=== PATIENT | female | born 1950 | race Caucasian/White ===

== ENCOUNTER 2018-03-04 11:51 | Inpatient (IN) | payer MEDICARE, OTHER ==
[2018-03-04] MEDS ORDERED: methylPREDNISolone SOD SUCCI 125 MG/2 ML VIAL IV STA (12:07)
[2018-03-04] MEDS ORDERED: IPRATROPIUM 0.5 MG/2.5 ML NEBU INHALATION STA (12:07)
[2018-03-04] MEDS ORDERED: ALBUTEROL NEBULIZED 2.5 MG/3 ML INHALATION STA (12:07)
--- NOTE | 2018-03-04 12:29 | ED ---
SOB HPI - General Chief Complaint: Recheck/Abnormal Lab/Rx Stated Complaint: A lot fluid all over body Time Seen by Provider: 03/04/18 12:05 Source: patient, RN notes reviewed, old records reviewed Mode of arrival: wheelchair Limitations: no limitations - History of Present Illness Initial Comments: This is a 67-year-old female the ER for evaluation. Patient resents today for severe shortness of breath and CHF. Patient does have significant shortness of breath currently. Significant swelling of lower extremity she states as well as weakness. Family states patient does appear to be discolored, fingers mouth. Patient self denies chest pain or abdominal pain. No recent travel history or sick contacts. Patient did recently increase her diuretic. MD Complaint: shortness of breath -: days(s) (3) Severity: severe Severity scale (1-10): 10 Quality: other (No pain) Consistency: constant Improves With: oxygen, bronchodilators Known History Of: congestive heart failure Context: recent URI Associated Symptoms: other (SOB) Treatments Prior to Arrival: oxygen, bronchodilator - Related Data Home Medications Medication Instructions Recorded Confirmed ALPRAZolam [Xanax] 0.5 mg PO TID 03/04/18 03/04/18 Budesonide/Formoterol Fumarate 2 puff INHALATION BID 03/04/18 03/04/18 [Symbicort 160-4.5 Mcg Inhaler] Cholecalciferol (Vitamin D3) 2,000 unit PO DAILY 03/04/18 03/04/18 [Vitamin D3] Diltiazem HCl 60 mg PO TID 03/04/18 03/04/18 Furosemide [Lasix] 80 mg PO DAILY 03/04/18 03/04/18 Ibuprofen [Advil] 400 mg PO HS 03/04/18 03/04/18 Ipratropium/Albuterol Sulfate 1 puff INHALATION RT-QID 03/04/18 03/04/18 [Combivent Respimat Inhaler] Metolazone [Zaroxolyn] 2.5 mg PO DAILY 03/04/18 03/04/18 Omeprazole [PriLOSEC] 20 mg PO BID 03/04/18 03/04/18 PARoxetine HCL [Paxil] 10 mg PO BID 03/04/18 03/04/18 Sildenafil [Revatio] 20 mg PO TID 03/04/18 03/04/18 Allergies Allergy/AdvReac Type Severity Reaction Status Date / Time No Known Allergies Allergy Verified 03/04/18 12:50 Review of Systems ROS Statement: Those systems with pertinent positive or pertinent negative responses have been documented in the HPI. ROS Other: All systems not noted in ROS Statement are negative. Past Medical History Past Medical History: Heart Failure, COPD History of Any Multi-Drug Resistant Organisms: None Reported Past Surgical History: Cholecystectomy, Hysterectomy, Joint Replacement, Orthopedic Surgery Past Psychological History: No Psychological Hx Reported Smoking Status: Current every day smoker Past Alcohol Use History: None Reported Past Drug Use History: None Reported General Exam Limitations: no limitations General appearance: alert, anxious, lethargic, in distress Head exam: Present: atraumatic, normocephalic, normal inspection Eye exam: Present: normal appearance, PERRL, EOMI. Absent: scleral icterus, conjunctival injection, periorbital swelling ENT exam: Present: normal exam, mucous membranes moist, other (Cyanosis) Neck exam: Present: normal inspection. Absent: tenderness, meningismus, lymphadenopathy Respiratory exam: Present: normal lung sounds bilaterally. Absent: respiratory distress, wheezes, rales, rhonchi, stridor Cardiovascular Exam: Present: normal rhythm, bradycardia, normal heart sounds. Absent: systolic murmur, diastolic murmur, rubs, gallop, clicks GI/Abdominal exam: Present: soft, normal bowel sounds. Absent: distended, tenderness, guarding, rebound, rigid Extremities exam: Present: normal inspection, full ROM, normal capillary refill. Absent: tenderness, pedal edema, joint swelling, calf tenderness Back exam: Present: normal inspection Neurological exam: Present: alert, oriented X3, CN II-XII intact Psychiatric exam: Present: normal affect, normal mood Skin exam: Present: warm, dry, cyanosis. Absent: rash Course Vital Signs 03/04/18 03/04/18 03/04/18 11:57 12:12 12:30 Temperature 98 F Pulse Rate 50 L 84 Respiratory 20 24 Rate Blood Pressure 101/61 108/60 O2 Sat by Pulse 65 L 69 L 82 L Oximetry 03/04/18 03/04/18 03/04/18 13:00 13:04 13:14 Temperature Pulse Rate 96 92 89 Respiratory 22 20 Rate Blood Pressure 112/62 108/70 O2 Sat by Pulse 84 L 88 L Oximetry 03/04/18 03/04/18 03/04/18 13:30 13:35 14:00 Temperature Pulse Rate 90 89 85 Respiratory 19 23 Rate Blood Pressure 108/70 108/59 O2 Sat by Pulse 86 L 96 Oximetry - Reevaluation(s) Reevaluation #1: 03/04/18 15:42 medical record is reviewed Reevaluation #2: 03/04/18 15:42 Patient does show improvement after increased oxygenation, placed oxygen on nonrebreather, oxygen pulse ox did increase. Arterial ABG does so significant hypoxic deficit QRS for distress syndrome. Reevaluation #3: 03/04/18 15:42 Patient currently denies any complaints, [facility] [address] [place] catheter with significant retention showed, 1 L of fluid out Medical Decision Making - Medical Decision Making 67 female the ER for evaluation. A she presents today for evaluation regards to severe shortness of breath unresponsiveness weakness fall and found to be severely hypoxic with severe CHF. Patient be admitted for diuresis and cardiology and pulmonology evaluation, persistently continued breathing treatments. - Lab Data Result diagrams: 03/04/18 12:30 03/04/18 12:30 Lab Results 03/04/18 03/04/18 03/04/18 Range/Units 12:30 12:30 12:30 WBC 7.3 (3.8-10.6) k/uL RBC 6.36 H (3.80-5.40) m/uL Hgb 11.1 L (11.4-16.0) gm/dL Hct 42.2 (34.0-46.0) % MCV 66.4 L (80.0-100.0) fL MCH 17.5 L (25.0-35.0) pg MCHC 26.3 L (31.0-37.0) g/dL RDW 21.4 H (11.5-15.5) % Plt Count 232 (150-450) k/uL Neutrophils % 81 % Lymphocytes % 12 % Monocytes % 5 % Eosinophils % 1 % Basophils % 1 % Neutrophils # 5.9 (1.3-7.7) k/uL Lymphocytes # 0.9 L (1.0-4.8) k/uL Monocytes # 0.4 (0-1.0) k/uL Eosinophils # 0.1 (0-0.7) k/uL Basophils # 0.1 (0-0.2) k/uL Hypochromasia Marked Poikilocytosis Slight Anisocytosis Moderate Microcytosis Marked PT (9.0-12.0) sec INR (<1.2) APTT (22.0-30.0) sec Sample Site ABG pH (7.35-7.45) ABG pCO2 (35-45) mmHg ABG pO2 (83-108) mmHg ABG HCO3 (21-25) mmol/L ABG Total CO2 (19-24) mmol/L ABG O2 Saturation (94-97) % ABG Base Excess mmol/L Rafael Test FiO2 % Sodium 137 (137-145) mmol/L Potassium 3.6 (3.5-5.1) mmol/L Chloride 94 L (98-107) mmol/L Carbon Dioxide 35 H (22-30) mmol/L Anion Gap 8 mmol/L BUN 21 H (7-17) mg/dL Creatinine 1.04 (0.52-1.04) mg/dL Est GFR (CKD-EPI)AfAm 64 (>60 ml/min/1.73 sqM) Est GFR (CKD-EPI)NonAf 55 (>60 ml/min/1.73 sqM) Glucose 118 H (74-99) mg/dL Calcium 9.0 (8.4-10.2) mg/dL Magnesium 2.2 (1.6-2.3) mg/dL Total Bilirubin 2.7 H (0.2-1.3) mg/dL AST 27 (14-36) U/L ALT 19 (9-52) U/L Alkaline Phosphatase 84 (38-126) U/L Total Creatine Kinase <20 L (30-135) U/L CK-MB (CK-2) 0.4 (0.0-2.4) ng/mL CK-MB (CK-2) Rel Index Troponin I <0.012 (0.000-0.034) ng/mL NT-Pro-B Natriuret Pep pg/mL Total Protein 6.7 (6.3-8.2) g/dL Albumin 3.2 L (3.5-5.0) g/dL 03/04/18 03/04/18 03/04/18 Range/Units 12:30 12:30 12:33 WBC (3.8-10.6) k/uL RBC (3.80-5.40) m/uL Hgb (11.4-16.0) gm/dL Hct (34.0-46.0) % MCV (80.0-100.0) fL MCH (25.0-35.0) pg MCHC (31.0-37.0) g/dL RDW (11.5-15.5) % Plt Count (150-450) k/uL Neutrophils % % Lymphocytes % % Monocytes % % Eosinophils % % Basophils % % Neutrophils # (1.3-7.7) k/uL Lymphocytes # (1.0-4.8) k/uL Monocytes # (0-1.0) k/uL Eosinophils # (0-0.7) k/uL Basophils # (0-0.2) k/uL Hypochromasia Poikilocytosis Anisocytosis Microcytosis PT 11.3 (9.0-12.0) sec INR 1.1 (<1.2) APTT 24.9 (22.0-30.0) sec Sample Site rrad ABG pH 7.42 (7.35-7.45) ABG pCO2 59 H (35-45) mmHg ABG pO2 43 L* (83-108) mmHg ABG HCO3 38 H (21-25) mmol/L ABG Total CO2 40 H (19-24) mmol/L ABG O2 Saturation 80.0 L (94-97) % ABG Base Excess 14.0 mmol/L Rafael Test Yes FiO2 100 % Sodium (137-145) mmol/L Potassium (3.5-5.1) mmol/L Chloride (98-107) mmol/L Carbon Dioxide (22-30) mmol/L Anion Gap mmol/L BUN (7-17) mg/dL Creatinine (0.52-1.04) mg/dL Est GFR (CKD-EPI)AfAm (>60 ml/min/1.73 sqM) Est GFR (CKD-EPI)NonAf (>60 ml/min/1.73 sqM) Glucose (74-99) mg/dL Calcium (8.4-10.2) mg/dL Magnesium (1.6-2.3) mg/dL Total Bilirubin (0.2-1.3) mg/dL AST (14-36) U/L ALT (9-52) U/L Alkaline Phosphatase (38-126) U/L Total Creatine Kinase (30-135) U/L CK-MB (CK-2) (0.0-2.4) ng/mL CK-MB (CK-2) Rel Index Troponin I (0.000-0.034) ng/mL NT-Pro-B Natriuret Pep 86903 pg/mL Total Protein (6.3-8.2) g/dL Albumin (3.5-5.0) g/dL - EKG Data -: EKG Interpreted by Me (EKG shows sinus rhythm rate of 94, RI 154, QRS 02, QTc 475) - Radiology Data Radiology results: report reviewed (S x-ray is positive for CHF CT a chest is negative for acute disease CTA abdomen pelvis is negative for acute disease, does show persistent CHF as well), image reviewed Critical Care Time Critical Care Time: Yes Total Critical Care Time: 31 Disposition Clinical Impression: Hypoxia, CHF (congestive heart failure) Disposition: ADMITTED IP TO THIS HOSP Condition: Serious Is patient prescribed a controlled substance at d/c from ED?: No Referrals: Angel Dillon MD [Primary Care Provider] - 1-2 days
[2018-03-04 12:35] LABS: ABG HCO3 38 mmol/L (21-25); ABG PCO2 59 mmHg (35-45); ABG PH 7.42 (7.35-7.45); ABG TCO2 40 mmol/L (19-24)
[2018-03-04 12:40] LABS: ABG PO2 43 mmHg (83-108)
[2018-03-04 12:49] LABS: Anisocytosis Moderate; Basophils # (A) 0.1 k/uL (0-0.2); Basophils % (A) 1 %; Eosinophils # (A) 0.1 k/uL (0-0.7); Eosinophils % (A) 1 %; HCT 42.2 % (34.0-46.0); HGB 11.1 gm/dL (11.4-16.0); Hypochromasia Marked; Lymphocytes # (A) 0.9 k/uL (1.0-4.8); Lymphocytes % (A) 12 %; MCH 17.5 pg (25.0-35.0); MCHC 26.3 g/dL (31.0-37.0); MCV 66.4 fL (80.0-100.0); Mean Platelet Volume 8.5; Microcytosis Marked; Monocytes # (A) 0.4 k/uL (0-1.0); Monocytes % (A) 5 %; Neutrophils # (A) 5.9 k/uL (1.3-7.7); Neutrophils % (A) 81 %; Platelet Count 232 k/uL (150-450); Poikilocytosis Slight; RBC 6.36 m/uL (3.80-5.40); RDW 21.4 % (11.5-15.5); WBC 7.3 k/uL (3.8-10.6)
[2018-03-04 13:03] LABS: Albumin 3.2 g/dL (3.5-5.0); Magnesium 2.2 mg/dL (1.6-2.3); Potassium 3.6 mmol/L (3.5-5.1); Total Bilirubin 2.7 mg/dL (0.2-1.3); Total Protein 6.7 g/dL (6.3-8.2)
[2018-03-04 13:08] LABS: INR 1.1 (<1.2); Partial Thromboplastin Time 24.9 sec (22.0-30.0); Prothrombin Time 11.3 sec (9.0-12.0)
[2018-03-04 13:10] LABS: Creatine Kinase <20 U/L (30-135)
--- NOTE | 2018-03-04 13:10 | XR ---
EXAMINATION TYPE: XR chest 1V portable DATE OF EXAM: 03/04/2018 COMPARISON: NONE HISTORY: Shortness of breath FINDINGS: Noted is pulmonary venous congestion with scattered infiltrates. There is also cardiomegaly and small effusions. IMPRESSION: Findings compatible with congestive failure. Infiltrates of other etiology are not excluded. Clinical correlation and progress studies are recommended.
[2018-03-04 13:23] LABS: Creatine Kinase MB 0.4 ng/mL (0.0-2.4); Troponin I <0.012 ng/mL (0.000-0.034)
[2018-03-04] MEDS ORDERED: FUROSEMIDE 10 MG/ML 10 ML VIAL IV STA (13:43)
--- NOTE | 2018-03-04 15:18 | CT ---
EXAMINATION TYPE: CT angio chest DATE OF EXAM: 03/04/2018 3:03 PM COMPARISON: None HISTORY: Pain, fluid build-up. CT DLP: 1686.1 mGycm Automated exposure control for dose reduction was used. CONTRAST: CTA scan of the thorax is performed with IV Contrast, patient injected with 80 mL of Isovue 370, pulm onary embolism protocol. There are 3-D post processed images.. FINDINGS: There are large pulmonary arteries consistent with pulmonary hypertension. There are bilateral pleura l effusions and larger on the right side. There is consolidation and atelectasis in both lower lobes. Heart is enlarged. I see no filling defects in the pulmonary arteries. Thoracic aorta is intact. The re is no mediastinal adenopathy. IMPRESSION: CARDIOMEGALY WITH PLEURAL EFFUSIONS CONSISTENT WITH CONGESTIVE HEART FAILURE. NO EVIDENCE OF PULMONAR Y EMBOLISM. CHANGES CONSISTENT WITH PULMONARY HYPERTENSION.
--- NOTE | 2018-03-04 15:42 | CT ---
EXAMINATION TYPE: CT abdomen pelvis w con DATE OF EXAM: 03/04/2018 COMPARISON: None HISTORY: Pain, fluid build-up. CT DLP: 1686.1 mGycm Automated exposure control for dose reduction was used. TECHNIQUE: Helical acquisition of images was performed from the lung bases through the pelvis. CONTRAST: Performed without Oral Contrast and with IV Contrast, patient injected with 80 mL of Isovue 370. FINDINGS: There are bilateral pleural effusions. Heart is enlarged. There is bilateral lower lobe pulmonary con solidation and atelectasis. There is extensive subcutaneous edema around the abdomen. Liver shows no focal defect. There are clips from cholecystectomy. Spleen appears normal. I see no pa ncreatic mass. There is mild retroperitoneal edema. Kidneys show satisfactory contrast opacification. There is no hydronephrosis. I see no evidence of a bowel obstruction. There is umbilical hernia that contains fat. Bladder distends smoothly. There is no inguinal hernia. There is no free fluid in the pelvis. There is mild perirectal fluid that is probably additional edema. There is enlargement of the inferior vena cava consistent with congestive heart failure. There is no evidence of a bowel obstruc tion. I see no intestinal wall thickening. Appendix is not definitely seen. There is no sign of appen dicitis. I see no focal bony destructive process. There is multilevel spondylotic changes in the lumb ar spine. IMPRESSION: PLEURAL EFFUSIONS AND BASILAR PULMONARY CONSOLIDATION AND ATELECTASIS. MODERATELY SEVERE CARDIOMEGALY . EXTENSIVE EDEMA ABOVE. FINDINGS CONSISTENT WITH CHRONIC CONGESTIVE HEART FAILURE.
[2018-03-04 18:12] LABS: Glucose,Whole Blood 116 mg/dL (75-99)
[2018-03-04] MEDS ORDERED: NALOXONE 0.4 MG/ML 1 ML VIAL IV PRN (18:28)
[2018-03-04] MEDS ORDERED: IPRATROPIUM-ALBUTEROL 3 ML NEB INHALATION PRN (18:28)
[2018-03-04] MEDS ORDERED: ALPRAZolam 0.25 MG TAB PO PRN (18:28)
[2018-03-04] MEDS ORDERED: ACETAMINOPHEN TAB 325 MG TAB PO PRN (18:28)
[2018-03-04] MEDS: SODIUM CHLORIDE 0.9% 1,000 ML IV SCH (18:56)
[2018-03-04] MEDS: methylPREDNISolone SOD SUCCI 125 MG/2 ML VIAL IV SCH (19:17)
[2018-03-04] MEDS: NICOTINE 14MG/24HR PATCH TRANSDERM SCH (19:17)
[2018-03-04] MEDS ORDERED: SPIRONOLACTONE 25 MG TAB PO SCH (19:30)
[2018-03-04] MEDS: ALPRAZolam 0.5 MG TAB PO SCH (19:44)
[2018-03-04] MEDS: IPRATROPIUM-ALBUTEROL 3 ML NEB INHALATION SCH (20:01)
[2018-03-04] MEDS: SYMBICORT 160-4.5 MCG INHALER INHALATION SCH (20:01)
[2018-03-04] MEDS: IBUPROFEN 400 MG TAB PO SCH (20:11)
[2018-03-04] MEDS: PARoxetine 10 MG TAB PO SCH (20:11)
[2018-03-04] MEDS: DILTIAZEM ORAL 60 MG TAB PO SCH (23:07)
[2018-03-04] MEDS: SILDENAFIL 20 MG TAB PO SCH (23:07)
[2018-03-04 23:34] LABS: Appearance,Urine Clear (Clear); Bacteria,Urine Rare /hpf; Bilirubin,Urine Negative (Negative); Blood,Urine Trace (Negative); Color,Urine Light Yellow; Glucose,Urine (UA) Negative (Negative); Hyaline Casts,Urine 10 /lpf (0-2); Ketones,Urine Negative (Negative); Leukocyte Esterase,Urine Negative (Negative); Mucus,Urine Rare /hpf; Nitrite,Urine Negative (Negative); Protein,Urine Negative (Negative); RBC,Urine 4 /hpf (0-5); Squamous Epithelial Cell,Urine <1 /hpf (0-4); Urobilinogen,Urine <2.0 mg/dL (<2.0); WBC,Urine 1 /hpf (0-5)
[2018-03-04] MEDS ORDERED: INSULIN ASPART 100 UNIT/ML 1 ML 10 ML VIAL SQ SCH (23:45)
[2018-03-04 23:55] LABS: Glucose,Whole Blood 135 mg/dL (75-99)
[2018-03-05] MEDS: IPRATROPIUM-ALBUTEROL 3 ML NEB INHALATION SCH ×7 (00:22→23:07)
[2018-03-05] MEDS: methylPREDNISolone SOD SUCCI 125 MG/2 ML VIAL IV SCH ×5 (02:03→23:39)
[2018-03-05 05:45] LABS: Anisocytosis Moderate; Basophils % (A) 0 %; Eosinophils % (A) 1 %; HCT 42.3 % (34.0-46.0); HGB 11.2 gm/dL (11.4-16.0); Hypochromasia Marked; Lymphocytes # (A) 0.5 k/uL (1.0-4.8); Lymphocytes % (A) 16 %; MCH 17.7 pg (25.0-35.0); MCHC 26.5 g/dL (31.0-37.0); MCV 66.6 fL (80.0-100.0); Microcytosis Marked; Monocytes # (A) 0.1 k/uL (0-1.0); Monocytes % (A) 2 %; Neutrophils # (A) 2.4 k/uL (1.3-7.7); Neutrophils % (A) 81 %; Platelet Count 134 k/uL (150-450); Poikilocytosis Slight; RBC 6.35 m/uL (3.80-5.40); RDW 21.3 % (11.5-15.5); WBC 2.9 k/uL (3.8-10.6)
[2018-03-05 06:20] LABS: Calcium 8.8 mg/dL (8.4-10.2); Magnesium 2.2 mg/dL (1.6-2.3); Phosphorus 4.8 mg/dL (2.5-4.5); Potassium 3.2 mmol/L (3.5-5.1)
[2018-03-05] MEDS: INSULIN ASPART 100 UNIT/ML 1 ML 10 ML VIAL SQ SCH ×4 (06:50→23:39)
--- NOTE | 2018-03-05 07:25 | XR ---
EXAMINATION TYPE: XR chest 1V DATE OF EXAM: 03/05/2018 COMPARISON: 03/04/2018 HISTORY: Shortness of breath TECHNIQUE: Single frontal view of the chest is obtained. FINDINGS: There is marked cardiomegaly similar to the prior. Again there is engorgement of the hilum related to underlying pulmonary arterial hypertension when correlated with the CT dated 03/04/2018. Bilateral layering small pleural effusions are seen with bibasilar airspace disease. Right lower lung overlying skin fold is noted. No pneumothorax is seen. Prominent right paratracheal stripe relates t o vascular engorgement. Mild multilevel degenerative changes of the spine and right shoulder are note d. IMPRESSION: Findings likely on the basis of decompensated congestive heart failure with cardiomegaly , pleural effusions, bibasilar airspace disease that likely relates to atelectasis, and engorgement o f the superior vena cava. Findings are similar to the prior.
[2018-03-05] MEDS: SYMBICORT 160-4.5 MCG INHALER INHALATION SCH ×2 (07:26→19:22)
[2018-03-05] MEDS ORDERED: Potassium Replacement Protocol 1 EACH MISC MISCELLANE PRN (07:44)
[2018-03-05] MEDS: POTASSIUM CHLORIDE ER 20 MEQ TAB.ER PO SCH ×2 (07:58→10:43)
[2018-03-05] MEDS: ENOXAPARIN 40 MG/0.4 ML SYRINGE SQ SCH (08:33)
[2018-03-05] MEDS: DILTIAZEM ORAL 60 MG TAB PO SCH ×3 (08:34→20:37)
[2018-03-05] MEDS: ALPRAZolam 0.5 MG TAB PO SCH ×3 (08:34→20:36)
[2018-03-05] MEDS: PANTOPRAZOLE 40 MG/10 ML VIAL IV SCH (08:35)
[2018-03-05] MEDS: CHOLECALCIFEROL 1,000 UNIT TAB PO SCH (08:35)
[2018-03-05] MEDS: SILDENAFIL 20 MG TAB PO SCH ×3 (08:43→20:36)
[2018-03-05] MEDS: PARoxetine 10 MG TAB PO SCH ×2 (08:43→20:36)
[2018-03-05] MEDS: SPIRONOLACTONE 25 MG TAB PO SCH (08:43)
--- NOTE | 2018-03-05 08:49 | HP ---
HISTORY AND PHYSICAL DATE OF SERVICE: 03/04/2018 CHIEF COMPLAINTS: Shortness of breath and cough. HISTORY OF PRESENT ILLNESS: This is a 67-year-old woman with a past medical history of multiple medical symptoms, CHF, history of COPD, GERD, pulmonary hypertension, cholecystomy being followed by Dr. Dillon in the outpatient setting, was complaining of increased shortness of breath for the past several days. The patient also had features of CHF. The patient also swelling of the lower extremity and also complaints of weakness. The patient continues to smoke. The patient had features of CHF and patient also had CAT scans of the abdomen and pelvis also which showed some amount of pleural effusions and some basilar consolidation, also. Extensive edema was also noted. Chronic CHF was also considered. There is no history of any fever, headaches, loss consciousness, seizures at this time. The patient also had features of acute hypoxic respiratory failure in the ER and the patient's BiPAP was initiated. PAST MEDICAL HISTORY: History of CHF, history of COPD, GERD, pulmonary hypertension, cholecystectomy. MEDICATIONS: Prior to admission, home medications are: 1. Vitamin D3 two thousand daily. 2. Paxil 10 mg p.o. b.i.d. 3. Advil 400 mg q.h.s. 4. Xanax 0.5 mg t.i.d. 5. Prilosec 20 mg b.i.d. 6. Combivent 1 puff q.i.d. 7. Lasix 80 mg p.o. daily. 8. Symbicort 160/4.5 two puffs b.i.d. 9. Revatio 20 mg t.i.d. 10.Diltiazem 60 mg p.o. daily. 11.Zaroxolyn 2.5 mg. 12.Lasix. ALLERGIES: None. FAMILY HISTORY: History of COPD, colon cancer in the family. SOCIAL HISTORY: History of smoking, ongoing. REVIEW OF SYSTEMS: ENT: Diminished hearing and diminished vision. CARDIOVASCULAR: As mentioned earlier RESPIRATORY: As mentioned earlier. GI: No nausea. : No dysuria. NERVOUS SYSTEM: No numbness or weakness. ALLERGY/IMMUNOLOGY: No asthma or hayfever. MUSCULOSKELETAL: As mentioned earlier. HEMATOLOGY/ONCOLOGY: No history anemia. ENDOCRINE: No history of diabetes or hypothyroidism. CONSTITUTIONAL: As mentioned earlier. DERMATOLOGY: Negative. RHEUMATOLOGY: Negative. PSYCHIATRY: As mentioned earlier. PHYSICAL EXAMINATION: Patient is alert and oriented x3. Pulse is 81, blood pressure is 196/62, respiration 17, temperature 97.4, pulse ox 92%. The patient is monitored in ICU and Pulmonary consultation has been ordered. The pCO2 was found to be 59 and PO2 was 43. Neck is no jugular venous distention. Respirations were 21, RESPIRATORY: Diminished breath sounds at the bases. Respiration the bases, bilateral scattered rhonchi and crackles. Expiratory wheezing also heard. The patient is on BiPAP at this time. ABDOMEN: Soft, nontender. No mass palpable. LEGS: Minimal bilateral leg edema present. NERVOUS SYSTEM: Higher functions as mentioned muscle no focal deficit. LYMPHATICS: No lymph node enlargement in the neck or axillae. SKIN: No ulcer, rash or bleeding. JOINTS: No active arthropathy. LABS: WBC 7.3, hemoglobin is 11.1, MCV 60 6.4 mm. ABG 7.42 and pCO2 59 and PO2 is 43. Sodium 130, potassium 3.6. ASSESSMENT: 1. Acute hypoxic hypercarbic respiratory failure, possibly secondary to congestive heart failure acute exacerbation as well as chronic obstructive pulmonary disease exacerbation. 2. Acute up possible acute bilateral bronchopneumonia and basal possibly gram- negative, basilar. 3. History of congestive heart failure. 4. History of gastroesophageal reflux disease. 5. History of pulmonary hypertension. 6. History of cholecystectomy. 7. History of degenerative joint disease. 8. History of nicotine dependence. 9. FULL CODE. RECOMMENDATION: In this 67-year-old woman who presented with multiple complex medical issues, will monitor the patient closely, continue the current management and continue with symptomatic treatment. Will optimize the bronchodilator treatment, IV steroids, monitor blood sugars closely. Also recommend empiric antibiotics, IV Lasix initiated 40 mg IV q.8. Monitor fluid and electrolytes balance closely. I would recommend Cardiology and Pulmonology consultations as well. Cultures will be obtained. Repeat labs will be obtained. Home medications will be reconciled. Overall prognosis guarded because of multiple complex medical issues. See orders for details and further recommendation for smoking cessation advice also has been. A copy of this will be forwarded to Dr. Dillon who is the primary physician. MMODL / IJN: [id number] /
[2018-03-05] MEDS ORDERED: METOLAZONE 2.5 MG TAB PO SCH (09:00)
[2018-03-05] MEDS ORDERED: FUROSEMIDE 10 MG/ML 4 ML VIAL IV SCH ×2 (09:00)
--- NOTE | 2018-03-05 11:03 | P.CRDCN ---
History of Present Illness History of present illness: This is Dr. Gann dictating a consult on this patient The patient was interviewed and examined by me IMPRESSION / ASSESSMENT: Severe pulmonary hypertension with right-sided failure with ascites and bilateral lower extremity edema PLAN: Spironolactone 100 mg by mouth daily, reduce Lasix to 40 g IV twice a day continue with pulmonary hypertension management per pulmonary medicine HPI Increasing lower extremity edema and ascites with mild shortness of breath ROS: No fever chills or rigors, no nausea, vomiting or diarrhea, no hematuria, dysuria, no musculoskeletal complaints, no strokes or seizures, no skin lesions. EXAMINATION Afebrile 97.5F, pulse rate in the 80s, blood pressure 104/71 mmHg Reduced breath sounds bilaterally with crackles in the bases Distended abdomen Systolic murmur no S3 gallop REVIEW OF LABS, ECG hemoglobin 11.2 Sodium 136 potassium 3.2 BUN 21 creatinine 1.0 Troponin normal Past Medical History Past Medical History: Heart Failure, COPD, GERD/Reflux Additional Past Medical History / Comment(s): Pulmonary HTN History of Any Multi-Drug Resistant Organisms: None Reported Past Surgical History: Cholecystectomy, Hysterectomy, Joint Replacement, Orthopedic Surgery Past Anesthesia/Blood Transfusion Reactions: No Reported Reaction Past Psychological History: No Psychological Hx Reported Smoking Status: Current every day smoker Past Alcohol Use History: None Reported Past Drug Use History: None Reported - Past Family History Father Family Medical History: Cancer, COPD Additional Family Medical History / Comment(s): Colon CA Medications and Allergies Home Medications Medication Instructions Recorded Confirmed Type ALPRAZolam [Xanax] 0.5 mg PO TID 03/04/18 03/04/18 History Budesonide/Formoterol Fumarate 2 puff INHALATION BID 03/04/18 03/04/18 History [Symbicort 160-4.5 Mcg Inhaler] Cholecalciferol (Vitamin D3) 2,000 unit PO DAILY 03/04/18 03/04/18 History [Vitamin D3] Diltiazem HCl 60 mg PO TID 03/04/18 03/04/18 History Furosemide [Lasix] 03/04/18 History Furosemide [Lasix] 80 mg PO DAILY 03/04/18 03/04/18 History Ibuprofen [Advil] 400 mg PO HS 03/04/18 03/04/18 History Ipratropium/Albuterol Sulfate 1 puff INHALATION RT-QID 03/04/18 03/04/18 History [Combivent Respimat Inhaler] Metolazone [Zaroxolyn] 2.5 mg PO DAILY 03/04/18 03/04/18 History Omeprazole [PriLOSEC] 20 mg PO BID 03/04/18 03/04/18 History PARoxetine HCL [Paxil] 10 mg PO BID 03/04/18 03/04/18 History Sildenafil [Revatio] 20 mg PO TID 03/04/18 03/04/18 History Allergies Allergy/AdvReac Type Severity Reaction Status Date / Time No Known Allergies Allergy Verified 03/04/18 12:50 Physical Exam Vitals: Vital Signs Temp Pulse Resp BP Pulse Ox 03/05/18 10:00 83 12 94/63 86 L 03/05/18 09:00 84 10 L 104/71 82 L 03/05/18 08:35 12 03/05/18 08:00 97.5 F L 80 16 107/64 88 L 03/05/18 07:40 79 03/05/18 07:27 80 92 L 03/05/18 07:00 78 19 109/71 92 L 03/05/18 06:00 73 18 107/65 91 L 03/05/18 05:00 80 16 99/64 94 L 03/05/18 04:03 85 03/05/18 04:00 97.0 F L 66 18 92/54 93 L 03/05/18 03:47 79 03/05/18 03:00 77 19 86/47 88 L 03/05/18 02:55 91 L 03/05/18 02:00 78 16 92/51 91 L 03/05/18 01:00 96 16 95/62 91 L 03/05/18 00:08 81 16 91/63 92 L 03/05/18 00:00 97.4 F L 81 17 96/64 92 L 03/04/18 23:00 88 16 106/72 92 L 03/04/18 22:00 80 12 94/60 92 L 03/04/18 21:00 105 H 13 107/65 90 L 03/04/18 20:22 88 03/04/18 20:01 86 03/04/18 20:00 97.5 F L 81 17 105/63 89 L 03/04/18 19:15 86 10 L 108/67 92 L 03/04/18 19:00 100 13 105/65 92 L 03/04/18 18:45 92 20 112/68 91 L 03/04/18 18:30 98.0 F 101 H 13 96/73 90 L 03/04/18 17:30 97.1 F L 90 17 110/78 96 03/04/18 17:00 92 16 130/77 95 03/04/18 16:30 91 13 126/97 83 L 03/04/18 16:00 83 15 115/73 89 L 03/04/18 15:30 88 21 112/69 88 L 03/04/18 15:00 92 22 116/57 86 L 03/04/18 14:30 97 15 100/65 84 L 03/04/18 14:00 85 23 108/59 96 03/04/18 13:35 89 03/04/18 13:30 90 19 108/70 86 L 03/04/18 13:14 89 20 108/70 88 L 03/04/18 13:04 92 03/04/18 13:00 96 22 112/62 84 L 03/04/18 12:30 84 24 108/60 82 L 03/04/18 12:12 69 L 03/04/18 11:57 98 F 50 L 20 101/61 65 L Intake and Output 03/04/18 03/05/18 03/05/18 22:59 06:59 14:59 Intake Total 50 70 90 Output Total 1910 875 750 Balance -6982 -348 -368 Intake: IV 50 70 90 Sodium Chloride 0.9% 1, 50 70 40 000 ml @ 20 mls/hr IV . Q24H DENISE Rx#:[id number] cefTRIAXone 1,000 mg In 50 Sodium Chloride 0.9% 50 ml @ 100 mls/hr IVPB Q24HR REPLACED BY [facility] Rx#:[id number] Output: Urine 1910 875 750 Other: Voiding Method Indwelling Catheter Indwelling Catheter Indwelling Catheter Weight 101 kg 103 kg 103 kg Results 03/05/18 04:49 03/05/18 04:49 Cardiac Enzymes 03/04/18 03/04/18 03/04/18 Range/Units 12:30 12:30 19:38 AST 27 (14-36) U/L CK-MB (CK-2) 0.4 (0.0-2.4) ng/mL Troponin I <0.012 <0.012 (0.000-0.034) ng/mL 03/05/18 Range/Units 00:46 AST (14-36) U/L CK-MB (CK-2) (0.0-2.4) ng/mL Troponin I <0.012 (0.000-0.034) ng/mL Coagulation 03/04/18 Range/Units 12:30 PT 11.3 (9.0-12.0) sec APTT 24.9 (22.0-30.0) sec CBC 03/04/18 03/05/18 Range/Units 12:30 04:49 WBC 7.3 2.9 L (3.8-10.6) k/uL RBC 6.36 H 6.35 H (3.80-5.40) m/uL Hgb 11.1 L 11.2 L (11.4-16.0) gm/dL Hct 42.2 42.3 (34.0-46.0) % Plt Count 232 134 L (150-450) k/uL Comprehensive Metabolic Panel 03/04/18 03/05/18 Range/Units 12:30 04:49 Sodium 137 136 L (137-145) mmol/L Potassium 3.6 3.2 L (3.5-5.1) mmol/L Chloride 94 L 90 L (98-107) mmol/L Carbon Dioxide 35 H 39 H (22-30) mmol/L BUN 21 H 21 H (7-17) mg/dL Creatinine 1.04 1.02 (0.52-1.04) mg/dL Glucose 118 H 102 H (74-99) mg/dL Calcium 9.0 8.8 (8.4-10.2) mg/dL AST 27 (14-36) U/L ALT 19 (9-52) U/L Alkaline Phosphatase 84 (38-126) U/L Total Protein 6.7 (6.3-8.2) g/dL Albumin 3.2 L (3.5-5.0) g/dL Current Medications Generic Name Dose Route Start Last Admin Trade Name Freq PRN Reason Stop Dose Admin Acetaminophen 650 mg 03/04/18 18:28 Tylenol Tab PO Q4HR PRN Fever and/or Mild Pain Albuterol/Ipratropium 3 ml 03/04/18 20:00 03/05/18 07:26 Duoneb 0.5 Mg-3 Mg/3 Ml Soln INHALATION 3 ml RT-Q4H DENISE Administration Albuterol/Ipratropium 3 ml 03/04/18 18:28 Duoneb 0.5 Mg-3 Mg/3 Ml Soln INHALATION RT-Q2H PRN Shortness Of Breath Or Wheezing Alprazolam 0.5 mg 03/04/18 22:00 03/05/18 08:34 Xanax PO 0.5 mg TID DENISE Administration Budesonide/Formoterol Fumarate 2 puff 03/04/18 20:00 03/05/18 07:26 Symbicort 160-4.5 Mcg Inhaler INHALATION 2 puff RT-BID DENISE Administration Cholecalciferol 2,000 unit 03/05/18 09:00 03/05/18 08:35 Vitamin D3 PO 2,000 unit DAILY DENISE Administration Diltiazem HCl 60 mg 03/04/18 22:00 03/05/18 08:34 Cardizem Oral PO 60 mg TID DENISE Administration Enoxaparin Sodium 40 mg 03/05/18 09:00 03/05/18 08:33 Lovenox SQ 40 mg DAILY DENISE Administration Furosemide 40 mg 03/05/18 16:00 Lasix IV Q8HR DENISE Ceftriaxone Sodium 1,000 mg/ 50 mls @ 100 mls/hr 03/04/18 19:00 03/05/18 08: 34 Sodium Chloride IVPB 100 mls/hr Q24HR DENISE Administration Sodium Chloride 1,000 mls @ 20 mls/hr 03/04/18 18:30 03/04/18 18:56 Saline 0.9% IV 20 mls/hr .Q24H DENISE Administration Ibuprofen 400 mg 03/04/18 21:00 03/04/18 20:11 Motrin PO 400 mg HS DENISE Administration Insulin Aspart 0 unit 03/05/18 06:00 03/05/18 06:50 Novolog SQ Not Given Q6H REPLACED BY [facility] Protocol Methylprednisolone Sodium Succinate 60 mg 03/04/18 19:00 03/05/18 06:51 Solu-Medrol IV 60 mg Q6HR DENISE Administration Miscellaneous Information 1 each 03/05/18 07:44 Potassium Per Protocol MISCELLANE DAILY PRN Per Protocol Protocol Naloxone HCl 0.2 mg 03/04/18 18:28 Narcan IV Q2M PRN Opioid Reversal Nicotine 1 patch 03/04/18 19:00 03/04/18 19:17 Habitrol 14mg/24hr Patch TRANSDERM 1 patch DAILY DENISE Administration Pantoprazole Sodium 40 mg 03/05/18 09:00 03/05/18 08:35 Protonix IV 40 mg DAILY DENISE Administration Paroxetine HCl 10 mg 03/04/18 21:00 03/05/18 08:43 Paxil PO 10 mg BID DENISE Administration Sildenafil Citrate 20 mg 03/04/18 22:00 03/05/18 08:43 Revatio PO 20 mg TID DENISE Administration Spironolactone 100 mg 03/05/18 09:00 03/05/18 08:43 Aldactone PO 100 mg DAILY DENISE Administration Intake and Output 03/04/18 03/05/18 03/05/18 22:59 06:59 14:59 Intake Total 50 70 90 Output Total 1910 875 750 Balance -0343 -875 -687 Intake: IV 50 70 90 Sodium Chloride 0.9% 1, 50 70 40 000 ml @ 20 mls/hr IV . Q24H REPLACED BY [facility] Rx#:[id number] cefTRIAXone 1,000 mg In 50 Sodium Chloride 0.9% 50 ml @ 100 mls/hr IVPB Q24HR REPLACED BY [facility] Rx#:[id number] Output: Urine 1910 875 750 Other: Voiding Method Indwelling Catheter Indwelling Catheter Indwelling Catheter Weight 101 kg 103 kg 103 kg Patient Weight 03/06/18 06:59 Weight 103 kg 03/05/18 04:49 03/05/18 04:49
[2018-03-05 11:55] LABS: Glucose,Whole Blood 156 mg/dL (75-99)
--- NOTE | 2018-03-05 12:17 | P.CNPUL ---
History of Present Illness Consult date: 03/05/18 Reason for consult: other (Biventricular congestive heart failure.) Chief complaint: Fluid retention all over. History of present illness: This is a 67-year-old female with history of severe pulmonary hypertension, valvular heart disease, obstructive sleep apnea syndrome, COPD, patient presented to the ER yesterday with almost 1 week history of fluid retention and worsening shortness of breath. No headache no blurred vision no dizziness, no chest pain, no palpitations. Patient has been compliant with her cardiac meds including diuretics for previous history of congestive heart failure which is basically chronic in nature. Patient was evaluated in the ER, and she was noted to have biventricular congestive heart failure including pulmonary edema, and significant findings of cor pulmonale. Patient was noted to have ascites, bipedal edema, and pulmonary edema with bilateral pleural effusions. Admitted, started on diuretics, and now she is on Lasix at 40 mg IV push every 8 hours, she is also on Aldactone which was added by cardiology. Presently the patient is feeling a bit better, however she remains on high flow nasal cannula at 15 L/ m. Denies any headaches, no blurred vision, no dizziness, no chest pain, no nausea no vomiting no abdominal pain no melena no hematemesis is no dysuria and no frequency no urgency. Review of Systems 14 point review of systems were obtained, please refer to pertinent positives in HPI, otherwise remaining systems are negative. Past Medical History Past Medical History: Heart Failure, COPD, GERD/Reflux Additional Past Medical History / Comment(s): Pulmonary HTN History of Any Multi-Drug Resistant Organisms: None Reported Past Surgical History: Cholecystectomy, Hysterectomy, Joint Replacement, Orthopedic Surgery Past Anesthesia/Blood Transfusion Reactions: No Reported Reaction Past Psychological History: No Psychological Hx Reported Smoking Status: Current every day smoker Past Alcohol Use History: None Reported Past Drug Use History: None Reported - Past Family History Father Family Medical History: Cancer, COPD Additional Family Medical History / Comment(s): Colon CA Medications and Allergies Home Medications Medication Instructions Recorded Confirmed Type ALPRAZolam [Xanax] 0.5 mg PO TID 03/04/18 03/04/18 History Budesonide/Formoterol Fumarate 2 puff INHALATION BID 03/04/18 03/04/18 History [Symbicort 160-4.5 Mcg Inhaler] Cholecalciferol (Vitamin D3) 2,000 unit PO DAILY 03/04/18 03/04/18 History [Vitamin D3] Diltiazem HCl 60 mg PO TID 03/04/18 03/04/18 History Furosemide [Lasix] 03/04/18 History Furosemide [Lasix] 80 mg PO DAILY 03/04/18 03/04/18 History Ibuprofen [Advil] 400 mg PO HS 03/04/18 03/04/18 History Ipratropium/Albuterol Sulfate 1 puff INHALATION RT-QID 03/04/18 03/04/18 History [Combivent Respimat Inhaler] Metolazone [Zaroxolyn] 2.5 mg PO DAILY 03/04/18 03/04/18 History Omeprazole [PriLOSEC] 20 mg PO BID 03/04/18 03/04/18 History PARoxetine HCL [Paxil] 10 mg PO BID 03/04/18 03/04/18 History Sildenafil [Revatio] 20 mg PO TID 03/04/18 03/04/18 History Allergies Allergy/AdvReac Type Severity Reaction Status Date / Time No Known Allergies Allergy Verified 03/04/18 12:50 Physical Exam Vitals: Vital Signs Temp Pulse Resp BP Pulse Ox 03/05/18 12:00 97.8 F 96 11 L 96/56 88 L 03/05/18 11:47 20 03/05/18 11:38 85 03/05/18 11:28 82 03/05/18 11:00 78 20 97/55 88 L 03/05/18 10:00 83 12 94/63 86 L 03/05/18 09:00 84 10 L 104/71 82 L 03/05/18 08:35 12 03/05/18 08:00 97.5 F L 80 16 107/64 88 L 03/05/18 07:40 79 03/05/18 07:27 80 92 L 03/05/18 07:00 78 19 109/71 92 L 03/05/18 06:00 73 18 107/65 91 L 03/05/18 05:00 80 16 99/64 94 L 03/05/18 04:03 85 03/05/18 04:00 97.0 F L 66 18 92/54 93 L 03/05/18 03:47 79 03/05/18 03:00 77 19 86/47 88 L 03/05/18 02:55 91 L 03/05/18 02:00 78 16 92/51 91 L 03/05/18 01:00 96 16 95/62 91 L 03/05/18 00:08 81 16 91/63 92 L 03/05/18 00:00 97.4 F L 81 17 96/64 92 L 03/04/18 23:00 88 16 106/72 92 L 03/04/18 22:00 80 12 94/60 92 L 03/04/18 21:00 105 H 13 107/65 90 L 03/04/18 20:22 88 03/04/18 20:01 86 03/04/18 20:00 97.5 F L 81 17 105/63 89 L 03/04/18 19:15 86 10 L 108/67 92 L 03/04/18 19:00 100 13 105/65 92 L 03/04/18 18:45 92 20 112/68 91 L 03/04/18 18:30 98.0 F 101 H 13 96/73 90 L 03/04/18 17:30 97.1 F L 90 17 110/78 96 03/04/18 17:00 92 16 130/77 95 03/04/18 16:30 91 13 126/97 83 L 03/04/18 16:00 83 15 115/73 89 L 03/04/18 15:30 88 21 112/69 88 L 03/04/18 15:00 92 22 116/57 86 L 03/04/18 14:30 97 15 100/65 84 L 03/04/18 14:00 85 23 108/59 96 03/04/18 13:35 89 03/04/18 13:30 90 19 108/70 86 L 03/04/18 13:14 89 20 108/70 88 L 03/04/18 13:04 92 03/04/18 13:00 96 22 112/62 84 L 03/04/18 12:30 84 24 108/60 82 L 03/04/18 12:12 69 L Intake and Output 03/04/18 03/05/18 03/05/18 22:59 06:59 14:59 Intake Total 50 70 90 Output Total 1218 824 8630 Balance -1860 -805 -930 Intake: IV 50 70 90 Sodium Chloride 0.9% 1, 50 70 40 000 ml @ 20 mls/hr IV . Q24H [facility] Rx#:[id number] cefTRIAXone 1,000 mg In 50 Sodium Chloride 0.9% 50 ml @ 100 mls/hr IVPB Q24HR [facility]ISE Rx#:[id number] Output: Urine 2143 298 5084 Other: Voiding Method Indwelling Catheter Indwelling Catheter Indwelling Catheter Weight 101 kg 103 kg 103 kg Physical Exam: Revealed a 67-year-old female on high flow nasal cannula, in no distress at present. Head: Atraumatic, normocephalic. HEENT:[Neck is supple.] [No neck masses.] [No thyromegaly.] [No JVD.] No carotid bruits, no stridor. Chest: [Crackles and diminished breath sounds at the bases bilaterally, no rhonchi, no wheezes. Symmetrical chest expansion, no chest wall tenderness..] Cardiac Exam: [Normal S1 and S2, no S3 gallop, 3/6 systolic murmur thought the precordium..] Abdomen: [Soft, nontender, no megaly, no rebound, no guarding, normal bowel sounds. Suspect minimal ascites.] Extremities: [No clubbing, 2+ bipedal edema, no cyanosis.] Neurological Exam: [No focal neurologic deficit. Skin: No rashes. Chronic venous stasis changes noted in the lower extremities. Psychiatric: Normal mood, affect and mental status examination. ] Results - Laboratory Findings CBC and BMP: 03/05/18 04:49 03/05/18 04:49 ABG ABG pH 7.42 (7.35-7.45) 03/04/18 12:33 ABG pCO2 59 mmHg (35-45) H 03/04/18 12:33 ABG pO2 43 mmHg (83-108) L* 03/04/18 12:33 ABG O2 Saturation 80.0 % (94-97) L 03/04/18 12:33 PT/INR, D-dimer PT 11.3 sec (9.0-12.0) 03/04/18 12:30 INR 1.1 (<1.2) 03/04/18 12:30 Abnormal lab findings: Abnormal Labs 03/04/18 03/04/18 03/04/18 12:30 12:30 12:30 WBC RBC 6.36 H Hgb 11.1 L MCV 66.4 L MCH 17.5 L MCHC 26.3 L RDW 21.4 H Plt Count Lymphocytes # 0.9 L ABG pCO2 ABG pO2 ABG HCO3 ABG Total CO2 ABG O2 Saturation Sodium Potassium Chloride 94 L Carbon Dioxide 35 H BUN 21 H Glucose 118 H POC Glucose (mg/dL) Phosphorus Total Bilirubin 2.7 H Total Creatine Kinase <20 L Albumin 3.2 L Urine Blood Urine Bacteria Hyaline Casts Urine Mucus 03/04/18 03/04/18 03/04/18 12:33 18:10 23:15 WBC RBC Hgb MCV MCH MCHC RDW Plt Count Lymphocytes # ABG pCO2 59 H ABG pO2 43 L* ABG HCO3 38 H ABG Total CO2 40 H ABG O2 Saturation 80.0 L Sodium Potassium Chloride Carbon Dioxide BUN Glucose POC Glucose (mg/dL) 116 H Phosphorus Total Bilirubin Total Creatine Kinase Albumin Urine Blood Trace H Urine Bacteria Rare H Hyaline Casts 10 H Urine Mucus Rare H 03/04/18 03/05/18 03/05/18 23:53 04:49 04:49 WBC 2.9 L RBC 6.35 H Hgb 11.2 L MCV 66.6 L MCH 17.7 L MCHC 26.5 L RDW 21.3 H Plt Count 134 L Lymphocytes # 0.5 L ABG pCO2 ABG pO2 ABG HCO3 ABG Total CO2 ABG O2 Saturation Sodium 136 L Potassium 3.2 L Chloride 90 L Carbon Dioxide 39 H BUN 21 H Glucose 102 H POC Glucose (mg/dL) 135 H Phosphorus 4.8 H Total Bilirubin Total Creatine Kinase Albumin Urine Blood Urine Bacteria Hyaline Casts Urine Mucus 03/05/18 11:53 WBC RBC Hgb MCV MCH MCHC RDW Plt Count Lymphocytes # ABG pCO2 ABG pO2 ABG HCO3 ABG Total CO2 ABG O2 Saturation Sodium Potassium Chloride Carbon Dioxide BUN Glucose POC Glucose (mg/dL) 156 H Phosphorus Total Bilirubin Total Creatine Kinase Albumin Urine Blood Urine Bacteria Hyaline Casts Urine Mucus - Diagnostic Findings Chest x-ray: image reviewed (Consistent with congestive heart failure, interstitial edema, and bilateral pleural effusions.) Assessment and Plan Assessment: Impression: 1 acute on chronic biventricular congestive heart failure secondary to severe pulmonary hypertension. 2 history of tricuspid regurgitation, 3 nonischemic cardiomyopathy and LV dysfunction., Repeat echocardiogram is pending on this admission. 4 severe COPD 5 acute on chronic hypoxic respiratory failure secondary to COPD, congestive heart failure, and pulmonary hypertension. Recommendation: Continue present course of treatment including bronchodilators, diuretics, Lovenox for DVT prophylaxis, empiric antibiotics, Solu-Medrol, GI and DVT prophylaxis, continue revatio, monitor chest x-ray and electrolytes daily. Echocardiogram is pending. We will continue to follow closely in the ICU. Titrate the FiO2 down to keep O2 saturation above 89%. Time with Patient: Greater than 30
[2018-03-05] MEDS ORDERED: SODIUM CHLORIDE 0.9% 500 ML 300 ML IV ONE (12:47)
[2018-03-05] MEDS ORDERED: POTASSIUM CHLORIDE ER 20 MEQ TAB.ER PO SCH ×2 (13:00→17:00)
[2018-03-05 17:06] LABS: Glucose,Whole Blood 141 mg/dL (75-99)
[2018-03-05] MEDS: FUROSEMIDE 10 MG/ML 4 ML VIAL IV SCH ×2 (17:19→23:39)
--- NOTE | 2018-03-05 17:58 | PN ---
PROGRESS NOTE DATE OF SERVICE: 03/05/2018 This 67-year-old woman was admitted with acute hypoxic respiratory failure also had CHF acute exacerbation. The patient also had an element of COPD also. The patient is being closely monitored in ICU at this time. The patient is off BiPAP at this time. Patient is on nasal cannula. Patient still has shortness of breath. The patient is started on empiric antibiotics also. The patient is being closely monitored at this time. A repeat echo is pending. PAST MEDICAL HISTORY: Reviewed. REVIEW OF SYSTEMS: CARDIOVASCULAR SYSTEM: No angina or palpitations. RESPIRATORY: As mentioned earlier. GI: As mentioned earlier. : No dysuria. CENTRAL NERVOUS SYSTEM: No numbness, weakness. CURRENT MEDICATIONS ARE: Reviewed and include: 1. Tylenol 650 q.4h. 2. DuoNeb q.i.d. and p.r.n. 3. Xanax 0.5 t.i.d. 4. Symbicort 160/4.5 two puffs b.i.d. 5. Rocephin 1 g IV daily. 6. Vitamin D3 2000 daily. 7. Cardizem 60 mg daily. 8. Lovenox 40 mg subcu daily. 9. Lasix 40 mg IV q.h.s. 10.Motrin. 11.NovoLog. 12.Solu-Medrol 60 IV q.6 hours q.6h. 13.Narcan. 14.Habitrol 14. 15.Protonix 40 daily. 16.Paxil 10 mg b.i.d. 17.K-Dur 20 mEq p.o. daily. 18.Revatio 20 mg p.o. t.i.d. 19.Aldactone 100 mg p.o. daily. PHYSICAL EXAM: Patient is alert, oriented x3. Pulse 97, blood pressure 91/50, respiration 19, temperature 98.6, pulse ox 98% on high flow nasal cannula. HEENT: Conjunctivae normal. Oral mucosa moist. Neck is no jugular venous distention. No carotid bruit. No lymph node enlargement. Cardiovascular system: S1, S2 muffled. Respiratory: Breath sounds diminished in the bases. Bilateral scattered rhonchi and crackles. ABDOMEN: Soft, nontender. No mass palpable. Legs: No edema. No swelling. NERVOUS SYSTEM: Diffusely weak. Breathing efforts are markedly increased. LAB STUDIES: WBC 2.9, hemoglobin 11.2, sodium 136, potassium 3.2. ASSESSMENT: 1. Acute hypoxic hypercarbic respiratory failure possibly secondary to congestive heart failure acute exacerbation as well as chronic obstructive pulmonary disease acute exacerbation. 2. Acute bilateral bronchopneumonia possibly gram-negative bibasilar. 3. History of congestive heart failure. 4. Gastroesophageal reflux disease. 5. History of pulmonary hypertension. 7. History of degenerative joint disease. 8. Continued ongoing nicotine dependence. 9. FULL CODE. 10.Mild pancytopenia. 11.Hyponatremia. 12.Hypokalemia. RECOMMENDATIONS AND DISCUSSION: Recommend to continue current medications, management and symptomatic treatment. Continue the bronchodilators. Continue with Lasix. Continue with empiric antibiotics. Closely follow with Dr. Dillon and as well as Cardiology. IV steroids. Otherwise, we will continue to monitor. Prognosis guarded because of multiple complex medical issues. Further recommendations to follow. We will await the 2D echo. MMLUIS E / MICHELLEN: [id number] / MTDD
[2018-03-05 18:02] LABS: Glucose,Whole Blood 144 mg/dL (75-99)
[2018-03-05] MEDS: NICOTINE 14MG/24HR PATCH TRANSDERM SCH (18:20)
[2018-03-05] MEDS: SODIUM CHLORIDE 0.9% 1,000 ML IV SCH (19:30)
[2018-03-05] MEDS: IBUPROFEN 400 MG TAB PO SCH (20:36)
[2018-03-05 23:26] LABS: Glucose,Whole Blood 160 mg/dL (75-99)
[2018-03-06] MEDS: IPRATROPIUM-ALBUTEROL 3 ML NEB INHALATION SCH ×6 (03:26→22:56)
[2018-03-06 05:38] LABS: Calcium 8.5 mg/dL (8.4-10.2); Phosphorus 4.7 mg/dL (2.5-4.5); Potassium 3.7 mmol/L (3.5-5.1)
[2018-03-06 05:43] LABS: Glucose,Whole Blood 138 mg/dL (75-99)
[2018-03-06 06:36] LABS: Anisocytosis Moderate; Basophils % (A) 0 %; Eosinophils % (A) 0 %; HCT 41.7 % (34.0-46.0); HGB 10.3 gm/dL (11.4-16.0); Hypochromasia Marked; Lymphocytes # (A) 0.5 k/uL (1.0-4.8); Lymphocytes % (A) 8 %; MCH 16.9 pg (25.0-35.0); MCHC 24.7 g/dL (31.0-37.0); MCV 68.2 fL (80.0-100.0); Mean Platelet Volume 7.1; Microcytosis Marked; Monocytes # (A) 0.1 k/uL (0-1.0); Monocytes % (A) 2 %; Neutrophils # (A) 5.6 k/uL (1.3-7.7); Neutrophils % (A) 90 %; Platelet Count 147 k/uL (150-450); Poikilocytosis Slight; RBC 6.11 m/uL (3.80-5.40); RDW 21.1 % (11.5-15.5); WBC 6.3 k/uL (3.8-10.6)
[2018-03-06] MEDS: SYMBICORT 160-4.5 MCG INHALER INHALATION SCH ×2 (06:54→19:06)
[2018-03-06] MEDS: INSULIN ASPART 100 UNIT/ML 1 ML 10 ML VIAL SQ SCH ×4 (06:55→22:04)
[2018-03-06] MEDS: methylPREDNISolone SOD SUCCI 125 MG/2 ML VIAL IV SCH ×3 (06:56→18:32)
--- NOTE | 2018-03-06 06:56 | XR ---
EXAMINATION TYPE: XR chest 1V DATE OF EXAM: 03/06/2018 COMPARISON: 03/05/2018 HISTORY: Shortness of breath TECHNIQUE: Single frontal view of the chest is obtained. FINDINGS: Bilateral consolidation and pleural effusion tissue pattern stable. No pneumothorax. Heart size stable. Successful hilum limited due to lung consolidation. IMPRESSION: 1. Stable bilateral infiltrate and pleural effusion correlate for CHF.
[2018-03-06] MEDS ORDERED: POTASSIUM CHLORIDE ER 20 MEQ TAB.ER PO SCH ×2 (07:00)
[2018-03-06] MEDS: SPIRONOLACTONE 25 MG TAB PO SCH (09:07)
[2018-03-06] MEDS: PANTOPRAZOLE 40 MG/10 ML VIAL IV SCH (09:08)
[2018-03-06] MEDS: ALPRAZolam 0.5 MG TAB PO SCH ×3 (09:08→21:03)
[2018-03-06] MEDS: FUROSEMIDE 10 MG/ML 4 ML VIAL IV SCH ×2 (09:08→21:01)
[2018-03-06] MEDS: ENOXAPARIN 40 MG/0.4 ML SYRINGE SQ SCH (09:08)
[2018-03-06] MEDS: PARoxetine 10 MG TAB PO SCH ×2 (09:09→22:05)
[2018-03-06] MEDS: SILDENAFIL 20 MG TAB PO SCH ×3 (09:09→21:03)
[2018-03-06] MEDS: CHOLECALCIFEROL 1,000 UNIT TAB PO SCH (09:09)
[2018-03-06] MEDS: NICOTINE 14MG/24HR PATCH TRANSDERM SCH (09:09)
[2018-03-06] MEDS: DILTIAZEM ORAL 60 MG TAB PO SCH (12:13)
[2018-03-06 12:26] LABS: Glucose,Whole Blood 124 mg/dL (75-99)
--- NOTE | 2018-03-06 12:26 | P.PN ---
Subjective Progress Note Date: 03/06/18 Principal diagnosis: Acute on chronic biventricular heart failure. This is a 67-year-old female with history of severe pulmonary hypertension, valvular heart disease, obstructive sleep apnea syndrome, COPD, patient presented to the ER yesterday with almost 1 week history of fluid retention and worsening shortness of breath. No headache no blurred vision no dizziness, no chest pain, no palpitations. Patient has been compliant with her cardiac meds including diuretics for previous history of congestive heart failure which is basically chronic in nature. Patient was evaluated in the ER, and she was noted to have biventricular congestive heart failure including pulmonary edema, and significant findings of cor pulmonale. Patient was noted to have ascites, bipedal edema, and pulmonary edema with bilateral pleural effusions. Admitted, started on diuretics, and now she is on Lasix at 40 mg IV push every 8 hours, she is also on Aldactone which was added by cardiology. Presently the patient is feeling a bit better, however she remains on high flow nasal cannula at 15 L/ m. Denies any headaches, no blurred vision, no dizziness, no chest pain, no nausea no vomiting no abdominal pain no melena no hematemesis is no dysuria and no frequency no urgency. Patient was reevaluated today on 03/06/2018, patient remains in the ICU, she is about 5 L negative fluid balance over the last 2 days. Hence I cut down on the Lasix dose from 40 mg every 8 hours to 40 mg every 12 hours, and I kept her on Aldactone. Patient is feeling better, however she remains on a high flow oxygen with high FiO2, she is on Airvo 80%, and 65 L/m flow. O2 saturation is running in the range of 93%. And FiO2 is being titrated down. Clinically the patient is feeling better, less shortness of breath, no cough no wheezing no chest pain, no palpitations, and the swelling in her lower extremities is significantly improved and responding well to diuretics. Chest x-ray is showing some improvement in her CHF. Her CBC is relatively normal renal profile is showing slight elevation of the creatinine up to 1.2 and the Lasix dose was changed Objective - Vital Signs Vital signs: Vital Signs Temp 97.8 F 03/06/18 08:00 Pulse 74 03/06/18 12:00 Resp 19 03/06/18 12:00 BP 98/65 03/06/18 12:00 Pulse Ox 91 L 03/06/18 12:00 Intake & Output 03/05/18 03/06/18 03/06/18 18:59 06:59 18:59 Intake Total 390 740 300 Output Total 1425 1835 1295 Balance -1035 -1095 -995 Weight 103 kg 101.3 kg Intake: IV 390 50 Sodium Chloride 0.9% 1, 40 000 ml @ 20 mls/hr IV . Q24H [facility] Rx#:[id number] Sodium Chloride 0.9% 500 300 ml 300 ml @ 999 mls/hr IV .Q19M [facility] Rx#:[id number] cefTRIAXone 1,000 mg In 50 50 Sodium Chloride 0.9% 50 ml @ 100 mls/hr IVPB Q24HR [facility] Rx#:[id number] Oral 740 Blood Product 250 Output: Urine 1425 1835 1295 Other: Voiding Method Indwelling Catheter Indwelling Catheter Indwelling Catheter - Exam Physical Exam: Revealed a 67-year-old female on high flow nasal cannula, in no distress at present. Head: Atraumatic, normocephalic. HEENT:[Neck is supple.] [No neck masses.] [No thyromegaly.] [No JVD.] No carotid bruits, no stridor. Chest: [Crackles and diminished breath sounds at the bases bilaterally, no rhonchi, no wheezes. Symmetrical chest expansion, no chest wall tenderness..] Cardiac Exam: [Normal S1 and S2, no S3 gallop, 3/6 systolic murmur thought the precordium..] Abdomen: [Soft, nontender, no megaly, no rebound, no guarding, normal bowel sounds. Suspect minimal ascites.] Extremities: [No clubbing, 2+ bipedal edema, no cyanosis.] Neurological Exam: [No focal neurologic deficit. Skin: No rashes. Chronic venous stasis changes noted in the lower extremities. Psychiatric: Normal mood, affect and mental status examination. - Labs CBC & Chem 7: 03/06/18 04:47 03/06/18 04:47 Labs: Abnormal Lab Results - Last 24 Hours (Table) 03/05/18 03/05/18 03/05/18 Range/Units 17:05 18:00 23:24 RBC (3.80-5.40) m/uL Hgb (11.4-16.0) gm/dL MCV (80.0-100.0) fL MCH (25.0-35.0) pg MCHC (31.0-37.0) g/dL RDW (11.5-15.5) % Plt Count (150-450) k/uL Lymphocytes # (1.0-4.8) k/uL Chloride (98-107) mmol/L Carbon Dioxide (22-30) mmol/L BUN (7-17) mg/dL Creatinine (0.52-1.04) mg/dL Glucose (74-99) mg/dL POC Glucose (mg/dL) 141 H 144 H 160 H (75-99) mg/dL Phosphorus (2.5-4.5) mg/dL 03/06/18 03/06/18 03/06/18 Range/Units 04:47 04:47 05:41 RBC 6.11 H (3.80-5.40) m/uL Hgb 10.3 L (11.4-16.0) gm/dL MCV 68.2 L (80.0-100.0) fL MCH 16.9 L (25.0-35.0) pg MCHC 24.7 L (31.0-37.0) g/dL RDW 21.1 H (11.5-15.5) % Plt Count 147 L (150-450) k/uL Lymphocytes # 0.5 L (1.0-4.8) k/uL Chloride 91 L (98-107) mmol/L Carbon Dioxide 41 H* (22-30) mmol/L BUN 33 H (7-17) mg/dL Creatinine 1.20 H (0.52-1.04) mg/dL Glucose 113 H (74-99) mg/dL POC Glucose (mg/dL) 138 H (75-99) mg/dL Phosphorus 4.7 H (2.5-4.5) mg/dL Microbiology - Last 24 Hours (Table) 03/05/18 16:50 Gram Stain - Preliminary Sputum 03/04/18 19:38 Blood Culture - Preliminary Blood No Growth after 24 hours 03/04/18 19:55 Blood Culture - Preliminary Blood No Growth after 24 hours Assessment and Plan Assessment: Impression: 1 acute on chronic biventricular congestive heart failure secondary to severe pulmonary hypertension. 2 history of tricuspid regurgitation, 3 nonischemic cardiomyopathy and LV dysfunction., Repeat echocardiogram is pending on this admission. 4 severe COPD 5 acute on chronic hypoxic respiratory failure secondary to COPD, congestive heart failure, and pulmonary hypertension. Recommendation: Continue present course of treatment including bronchodilators, diuretics, Lovenox for DVT prophylaxis, empiric antibiotics, Solu-Medrol, GI and DVT prophylaxis, continue revatio, monitor chest x-ray and electrolytes daily. Cut down the dose of Lasix to 40 mg twice a day instead of 3 times a day , patient has been about 5 L negative in fluids, but her chest x-ray continues to show some evidence of pulmonary edema, and the patient is still requiring significant amount of oxygen to maintain her O2 saturation in the low 90s. We will keep the patient in the ICU, not ready to be transferred, will follow. Time with Patient: Less than 30
--- NOTE | 2018-03-06 15:36 | P.PN ---
Subjective Patient looks a little better today. Less short of breath today Breath sounds are reduced bilaterally with bilateral crackles at the bases S1 and S2 are normal I don't appreciate a loud S2 Systolic murmur abdomen soft bilateral lower extremity edema impression Severe pulmonary hypertension with right-sided failure Low blood pressure today Frequent PVCs in a bigeminal pattern Suggest Agree with reducing the dose of Lasix to 40 mg twice daily, continue spironolactone potassium 3.7 Used to dose of Cardizem to 15 mg 3 times a day Objective - Vital Signs Vital signs: Vital Signs Temp 97.8 F 03/06/18 13:00 Pulse 92 03/06/18 15:26 Resp 16 03/06/18 14:00 BP 93/52 03/06/18 14:00 Pulse Ox 91 L 03/06/18 14:00 Intake & Output 03/05/18 03/06/18 03/06/18 18:59 06:59 18:59 Intake Total 390 740 300 Output Total 1425 1835 1720 Balance -1035 -1095 -1420 Weight 103 kg 101.3 kg Intake: IV 390 50 Sodium Chloride 0.9% 1, 40 000 ml @ 20 mls/hr IV . Q24H [facility] Rx#:[id number] Sodium Chloride 0.9% 500 300 ml 300 ml @ 999 mls/hr IV .Q19M [facility] Rx#:[id number] cefTRIAXone 1,000 mg In 50 50 Sodium Chloride 0.9% 50 ml @ 100 mls/hr IVPB Q24HR [facility] Rx#:[id number] Oral 740 Blood Product 250 Output: Urine 1425 1835 1720 Other: Voiding Method Indwelling Catheter Indwelling Catheter Indwelling Catheter - Labs CBC & Chem 7: 03/06/18 04:47 03/06/18 04:47 Labs: Abnormal Lab Results - Last 24 Hours (Table) 03/05/18 03/05/18 03/05/18 Range/Units 17:05 18:00 23:24 RBC (3.80-5.40) m/uL Hgb (11.4-16.0) gm/dL MCV (80.0-100.0) fL MCH (25.0-35.0) pg MCHC (31.0-37.0) g/dL RDW (11.5-15.5) % Plt Count (150-450) k/uL Lymphocytes # (1.0-4.8) k/uL Chloride (98-107) mmol/L Carbon Dioxide (22-30) mmol/L BUN (7-17) mg/dL Creatinine (0.52-1.04) mg/dL Glucose (74-99) mg/dL POC Glucose (mg/dL) 141 H 144 H 160 H (75-99) mg/dL Phosphorus (2.5-4.5) mg/dL 03/06/18 03/06/18 03/06/18 Range/Units 04:47 04:47 05:41 RBC 6.11 H (3.80-5.40) m/uL Hgb 10.3 L (11.4-16.0) gm/dL MCV 68.2 L (80.0-100.0) fL MCH 16.9 L (25.0-35.0) pg MCHC 24.7 L (31.0-37.0) g/dL RDW 21.1 H (11.5-15.5) % Plt Count 147 L (150-450) k/uL Lymphocytes # 0.5 L (1.0-4.8) k/uL Chloride 91 L (98-107) mmol/L Carbon Dioxide 41 H* (22-30) mmol/L BUN 33 H (7-17) mg/dL Creatinine 1.20 H (0.52-1.04) mg/dL Glucose 113 H (74-99) mg/dL POC Glucose (mg/dL) 138 H (75-99) mg/dL Phosphorus 4.7 H (2.5-4.5) mg/dL 03/06/18 Range/Units 12:24 RBC (3.80-5.40) m/uL Hgb (11.4-16.0) gm/dL MCV (80.0-100.0) fL MCH (25.0-35.0) pg MCHC (31.0-37.0) g/dL RDW (11.5-15.5) % Plt Count (150-450) k/uL Lymphocytes # (1.0-4.8) k/uL Chloride (98-107) mmol/L Carbon Dioxide (22-30) mmol/L BUN (7-17) mg/dL Creatinine (0.52-1.04) mg/dL Glucose (74-99) mg/dL POC Glucose (mg/dL) 124 H (75-99) mg/dL Phosphorus (2.5-4.5) mg/dL Microbiology - Last 24 Hours (Table) 03/05/18 16:50 Gram Stain - Preliminary Sputum 03/04/18 19:38 Blood Culture - Preliminary Blood No Growth after 24 hours 03/04/18 19:55 Blood Culture - Preliminary Blood No Growth after 24 hours
[2018-03-06] MEDS: DILTIAZEM ORAL 30 MG TAB PO SCH ×2 (16:29→21:02)
[2018-03-06 17:15] LABS: Glucose,Whole Blood 126 mg/dL (75-99)
--- NOTE | 2018-03-06 18:23 | PN ---
PROGRESS NOTE DATE OF SERVICE: 03/06/2018 This 67-year-old woman who was admitted with COPD acute exacerbation and acute hypoxic respiratory failure is off BiPAP and the patient is on high-flow oxygen. Patient is feeling slightly better. The most recent chest x-ray which was done today personally reviewed by me showed significant increased vascular markings and bibasilar consolidation also. Patient is on broad-spectrum IV antibiotics. The cultures are negative so far. The patient has also had minimally elevated creatinine at this time. Lasix dose was not adjusted. The patient has been seen by multiple consultants. The patient is being closely monitored in ICU at this time.] PAST MEDICAL HISTORY: Reviewed. REVIEW OF SYSTEMS: CARDIOVASCULAR SYSTEM: No angina. RESPIRATORY: As mentioned. GI: As mentioned. : No dysuria. NERVOUS SYSTEM: No numbness or weakness. CURRENT MEDICATIONS ARE: 1. Tylenol 650 q.6h q.4h p.r.n. 2. DuoNeb q.i.d. and p.r.n. 3. Xanax 0.5 t.i.d. 4. Symbicort 4.5 two puffs b.i.d. 5. Rocephin 1 g daily. 6. Vitamin D3 2000 daily. 7. Cardizem CD 60 mg t.i.d. 8. Lovenox 40 mg subcu daily. 9. Lasix 40 mg IV b.i.d. 10.Motrin. 11.NovoLog. 12.Solu-Medrol 60 IV q.6h. 13.Narcan. 14.Habitrol 14. 15.Protonix 40 mg daily. 16.Paxil 10 mg p.o. b.i.d. 17.Ativan p.o. 8 mg p.o. t.i.d. 18.Aldactone 100 mg p.o. daily. PHYSICAL EXAM: Patient is alert and oriented x3, pulse 93, blood pressure 100/67, respiration 17, temperature is normal, pulse ox 89% on 70% high-flow oxygen. HEENT: Conjunctivae normal. Oral mucosa moist. NECK: No jugular venous distention. No lymph node enlargement. CARDIOVASCULAR: S1, S2. RESPIRATORY: Diminished breath sounds at the bases. Bilateral scattered rhonchi and crackles. Expiratory wheezing also present. ABDOMEN: Soft, nontender. LEGS: No swelling. NERVOUS SYSTEM: No focal deficits. LAB STUDIES: WBC 6.2, hemoglobin 10.3 and lymphocytes 0.5. Sodium 138, potassium 3.7, and CO2 is 41. Glucose 113. ASSESSMENT: 1. Acute hypoxic hypercarbic respiratory failure possibly secondary to congestive heart failure acute exacerbation as well as chronic obstructive pulmonary disease acute exacerbation. 2. Acute bilateral bronchopneumonia possibly gram-negative by baseline. 3. History of congestive heart failure. 4. Gastroesophageal reflux disease. 5. History of pulmonary hypertension. 6. History of degenerative joint disease. 7. Continued ongoing nicotine dependence. 8. Hypercarbia. 9. Increased creatinine with mild acute renal failure. 10.Anemia, microcytic of undetermined etiology. 11.FULL CODE. RECOMMENDATIONS AND DISCUSSION: In this 67-year-old woman who presented with multiple complex medical issues, we will monitor the patient closely, continue the current management and symptomatic treatment. At this time I recommend continue with current medications. Continue with broad- spectrum IV antibiotics. Continue the bronchodilators and steroids. Continue with diuretics. Monitor closely. Repeat labs. Closely follow with multiple complex medical issues, we will monitor closely in ICU. Further recommendations to follow. MMODL / IJN: [id number] /
[2018-03-06] MEDS ORDERED: Potassium Replacement Protocol 1 EACH MISC MISCELLANE PRN (19:20)
[2018-03-06] MEDS ORDERED: POTASSIUM CHLORIDE ER 20 MEQ TAB.ER PO ONE (20:00)
[2018-03-06] MEDS: IBUPROFEN 400 MG TAB PO SCH (21:02)
[2018-03-06 21:09] LABS: Glucose,Whole Blood 134 mg/dL (75-99)
[2018-03-07] MEDS: methylPREDNISolone SOD SUCCI 125 MG/2 ML VIAL IV SCH ×4 (01:30→18:00)
[2018-03-07] MEDS: IPRATROPIUM-ALBUTEROL 3 ML NEB INHALATION SCH ×6 (03:05→23:17)
[2018-03-07 05:17] LABS: Anisocytosis Moderate; Basophils % (A) 0 %; Eosinophils % (A) 0 %; HCT 38.6 % (34.0-46.0); HGB 10.1 gm/dL (11.4-16.0); Hypochromasia Marked; Lymphocytes # (A) 0.3 k/uL (1.0-4.8); Lymphocytes % (A) 4 %; MCH 17.6 pg (25.0-35.0); MCHC 26.1 g/dL (31.0-37.0); MCV 67.3 fL (80.0-100.0); Mean Platelet Volume 9.1; Microcytosis Marked; Monocytes # (A) 0.2 k/uL (0-1.0); Monocytes % (A) 3 %; Neutrophils % (A) 93 %; Platelet Count 159 k/uL (150-450); Poikilocytosis Slight; RBC 5.74 m/uL (3.80-5.40); WBC 7.5 k/uL (3.8-10.6)
[2018-03-07 05:27] LABS: Calcium 8.3 mg/dL (8.4-10.2); Phosphorus 4.5 mg/dL (2.5-4.5); Potassium 3.5 mmol/L (3.5-5.1)
[2018-03-07] MEDS: POTASSIUM CHLORIDE ER 20 MEQ TAB.ER PO SCH ×2 (06:58→08:55)
[2018-03-07 07:06] LABS: Glucose,Whole Blood 109 mg/dL (75-99)
[2018-03-07] MEDS: INSULIN ASPART 100 UNIT/ML 1 ML 10 ML VIAL SQ SCH ×4 (07:12→21:14)
[2018-03-07] MEDS: SYMBICORT 160-4.5 MCG INHALER INHALATION SCH ×2 (08:06→19:56)
--- NOTE | 2018-03-07 08:10 | XR ---
EXAMINATION TYPE: XR chest 1V DATE OF EXAM: 03/07/2018 COMPARISON: 03/06/2018 HISTORY: Shortness of breath TECHNIQUE: Single frontal view of the chest is obtained. FINDINGS: Again there is cardiomegaly, minimal pulmonary vascular congestion, small layering right p leural effusion and trace left pleural effusion with bibasilar airspace disease. Given the semiuprigh t positioning on today's examination the volume of the right pleural effusion is similar in compariso n to the prior. IMPRESSION: Stable exam in comparison to the prior of 03/06/2018 with similar pleural effusions and bi basilar airspace disease, likely atelectasis. Findings are likely again attributable to underlying di scopathy congestive heart failure.
[2018-03-07] MEDS: ALPRAZolam 0.5 MG TAB PO SCH ×3 (08:55→21:15)
[2018-03-07] MEDS: CHOLECALCIFEROL 1,000 UNIT TAB PO SCH (08:56)
[2018-03-07] MEDS: DILTIAZEM ORAL 30 MG TAB PO SCH ×3 (08:57→21:15)
[2018-03-07] MEDS: FUROSEMIDE 10 MG/ML 4 ML VIAL IV SCH (08:57)
[2018-03-07] MEDS: ENOXAPARIN 40 MG/0.4 ML SYRINGE SQ SCH (08:57)
[2018-03-07] MEDS: PANTOPRAZOLE 40 MG/10 ML VIAL IV SCH (08:58)
[2018-03-07] MEDS: PARoxetine 10 MG TAB PO SCH ×2 (08:58→21:14)
[2018-03-07] MEDS: SILDENAFIL 20 MG TAB PO SCH ×3 (08:58→21:15)
[2018-03-07] MEDS: SPIRONOLACTONE 25 MG TAB PO SCH (08:59)
[2018-03-07] MEDS: NICOTINE 14MG/24HR PATCH TRANSDERM SCH (09:00)
[2018-03-07 11:52] LABS: Glucose,Whole Blood 126 mg/dL (75-99)
[2018-03-07] MEDS: acetaZOLAMIDE 250 MG TAB PO SCH ×2 (11:53→21:43)
--- NOTE | 2018-03-07 12:07 | P.PN ---
Subjective Progress Note Date: 03/07/18 Principal diagnosis: Acute on chronic biventricular heart failure. This is a 67-year-old female with history of severe pulmonary hypertension, valvular heart disease, obstructive sleep apnea syndrome, COPD, patient presented to the ER yesterday with almost 1 week history of fluid retention and worsening shortness of breath. No headache no blurred vision no dizziness, no chest pain, no palpitations. Patient has been compliant with her cardiac meds including diuretics for previous history of congestive heart failure which is basically chronic in nature. Patient was evaluated in the ER, and she was noted to have biventricular congestive heart failure including pulmonary edema, and significant findings of cor pulmonale. Patient was noted to have ascites, bipedal edema, and pulmonary edema with bilateral pleural effusions. Admitted, started on diuretics, and now she is on Lasix at 40 mg IV push every 8 hours, she is also on Aldactone which was added by cardiology. Presently the patient is feeling a bit better, however she remains on high flow nasal cannula at 15 L/ m. Denies any headaches, no blurred vision, no dizziness, no chest pain, no nausea no vomiting no abdominal pain no melena no hematemesis is no dysuria and no frequency no urgency. Patient was reevaluated today on 03/06/2018, patient remains in the ICU, she is about 5 L negative fluid balance over the last 2 days. Hence I cut down on the Lasix dose from 40 mg every 8 hours to 40 mg every 12 hours, and I kept her on Aldactone. Patient is feeling better, however she remains on a high flow oxygen with high FiO2, she is on Airvo 80%, and 65 L/m flow. O2 saturation is running in the range of 93%. And FiO2 is being titrated down. Clinically the patient is feeling better, less shortness of breath, no cough no wheezing no chest pain, no palpitations, and the swelling in her lower extremities is significantly improved and responding well to diuretics. Chest x-ray is showing some improvement in her CHF. Her CBC is relatively normal renal profile is showing slight elevation of the creatinine up to 1.2 and the Lasix dose was changed Patient was reevaluated today on 03/07/2017, remains in the ICU, remains on multiple diuretics, remains in a negative fluid balance, about 7 L over the last 3 days. Her chest x-ray continues to show some evidence of pulmonary edema , remains on high FiO2, and we are titrating the oxygen down. Overall clinically the patient is feeling better, but her congestive heart failure is not completely resolved. Patient again has severe pulmonary hypertension and biventricular heart failure. Today I have recommended that we cut down the Lasix to 40 mg daily, I cut down her Aldactone and I added Diamox 250 mg IV push twice a day since she is developing a picture of metabolic alkalosis. Chest x-ray was reviewed and discussed with the patient. Labs were also reviewed, she has relatively normal CBC except for low hemoglobin of 10.1. Electrolytes are normal however her bicarb is 43 BUN is 39 and creatinine 0.99. Pulmonary-arguello the patient continues to have some shortness of breath with any activity. Swelling in the lower extremities is significantly improved. Objective - Vital Signs Vital signs: Vital Signs Temp 97.9 F 03/07/18 08:00 Pulse 85 03/07/18 11:32 Resp 22 03/07/18 11:00 BP 103/61 03/07/18 11:00 Pulse Ox 90 L 03/07/18 11:19 Intake & Output 03/06/18 03/07/18 03/07/18 18:59 06:59 18:59 Intake Total 700 240 530 Output Total 2240 1615 850 Balance -1540 -1375 -320 Weight 97.9 kg Intake: IV 50 50 cefTRIAXone 1,000 mg In 50 50 Sodium Chloride 0.9% 50 ml @ 100 mls/hr IVPB Q24HR [facility] Rx#:[id number] Oral 400 240 480 Blood Product 250 Output: Urine 2240 1615 850 Other: Voiding Method Indwelling Catheter Indwelling Catheter Indwelling Catheter - Exam Physical Exam: Revealed a 67-year-old female on airvo, in no distress. Head: Atraumatic, normocephalic. HEENT:[Neck is supple.] [No neck masses.] [No thyromegaly.] [No JVD.] No carotid bruits, no stridor. Chest: [Crackles mostly at the bases, no rhonchi and no wheezes. Symmetrical chest expansion, no chest wall tenderness..] Cardiac Exam: [Normal S1 and S2, no S3 gallop, 3/6 systolic murmur thought the precordium..] Abdomen: [Soft, nontender, no megaly, no rebound, no guarding, normal bowel sounds. Suspect minimal ascites.] Extremities: [No clubbing, trace of bipedal edema, no cyanosis.] Neurological Exam: [No focal neurologic deficit. Skin: No rashes. Chronic venous stasis changes noted in the lower extremities. Psychiatric: Normal mood, affect and mental status examination. - Labs CBC & Chem 7: 03/07/18 04:40 03/07/18 04:40 Labs: Abnormal Lab Results - Last 24 Hours (Table) 03/06/18 03/06/18 03/06/18 Range/Units 12:24 16:56 21:07 RBC (3.80-5.40) m/uL Hgb (11.4-16.0) gm/dL MCV (80.0-100.0) fL MCH (25.0-35.0) pg MCHC (31.0-37.0) g/dL RDW (11.5-15.5) % Lymphocytes # (1.0-4.8) k/uL Chloride (98-107) mmol/L Carbon Dioxide (22-30) mmol/L BUN (7-17) mg/dL Glucose (74-99) mg/dL POC Glucose (mg/dL) 124 H 126 H 134 H (75-99) mg/dL Calcium (8.4-10.2) mg/dL 03/07/18 03/07/18 03/07/18 Range/Units 04:40 04:40 07:04 RBC 5.74 H (3.80-5.40) m/uL Hgb 10.1 L (11.4-16.0) gm/dL MCV 67.3 L (80.0-100.0) fL MCH 17.6 L (25.0-35.0) pg MCHC 26.1 L (31.0-37.0) g/dL RDW 21.0 H (11.5-15.5) % Lymphocytes # 0.3 L (1.0-4.8) k/uL Chloride 90 L (98-107) mmol/L Carbon Dioxide 43 H* (22-30) mmol/L BUN 39 H (7-17) mg/dL Glucose 114 H (74-99) mg/dL POC Glucose (mg/dL) 109 H (75-99) mg/dL Calcium 8.3 L (8.4-10.2) mg/dL 03/07/18 Range/Units 11:50 RBC (3.80-5.40) m/uL Hgb (11.4-16.0) gm/dL MCV (80.0-100.0) fL MCH (25.0-35.0) pg MCHC (31.0-37.0) g/dL RDW (11.5-15.5) % Lymphocytes # (1.0-4.8) k/uL Chloride (98-107) mmol/L Carbon Dioxide (22-30) mmol/L BUN (7-17) mg/dL Glucose (74-99) mg/dL POC Glucose (mg/dL) 126 H (75-99) mg/dL Calcium (8.4-10.2) mg/dL Microbiology - Last 24 Hours (Table) 03/04/18 19:38 Blood Culture - Preliminary Blood No Growth after 48 hours 03/04/18 19:55 Blood Culture - Preliminary Blood No Growth after 48 hours 03/05/18 16:50 Gram Stain - Preliminary Sputum Assessment and Plan Assessment: Impression: 1 acute on chronic biventricular congestive heart failure secondary to severe pulmonary hypertension. 2 history of tricuspid regurgitation, 3 nonischemic cardiomyopathy and LV dysfunction., Repeat echocardiogram is pending on this admission. 4 severe COPD 5 acute on chronic hypoxic respiratory failure secondary to COPD, congestive heart failure, and pulmonary hypertension. 6 acute metabolic alkalosis most likely secondary to diuretics, and compensation related to her underlying COPD. Recommendation: Continue present course of treatment including bronchodilators, diuretics, the diuretics have been adjusted as noted above. Lovenox for DVT prophylaxis, empiric antibiotics, Solu-Medrol, GI and DVT prophylaxis, continue revatio, monitor chest x-ray and electrolytes daily. Patient is not quite ready to be transferred out of the ICU. Diamox was added, Lasix and Aldactone were cut down to half. Her FiO2 will be titrated accordingly and will keep her O2 saturation above 90%. We'll continue to follow closely. Patient remains quite ill, and will continue to monitor closely in the ICU. Time with Patient: Less than 30
[2018-03-07 17:08] LABS: Glucose,Whole Blood 130 mg/dL (75-99)
--- NOTE | 2018-03-07 17:42 | PN ---
PROGRESS NOTE DATE OF SERVICE: 03/07/2018 This 67-year-old woman who was admitted with COPD, acute exacerbation, also had some CHF, acute exacerbation. The patient is on diuretics as well as bronchodilators. Patient is improving significantly. Patient complains of significant weakness also at this time. The chest x-ray done at this time was personally reviewed by me. It showed still significant fluid overload at this time. The creatinine was found to be 0.99 at this time. The patient is still on high-flow oxygen at this time. Past medical history reviewed. REVIEW OF SYSTEMS: CARDIOVASCULAR SYSTEM: As mentioned earlier. RESPIRATORY SYSTEM: As mentioned earlier. GI: No nausea, vomiting. : No dysuria or retention. NERVOUS SYSTEM: No numbness, weakness. CURRENT MEDICATIONS: Reviewed. They include: 1. Tylenol 650 q.4 p.r.n. 2. Diamox 250 mg p.o. b.i.d. 3. DuoNeb q.i.d. and p.r.n. 4. Xanax 0.5 t.i.d. 5. Symbicort 160/4.5 two puffs b.i.d. 6. Rocephin 1 gram daily. 7. Vitamin D3 2000 daily. 8. Cardizem 50 mg t.i.d. 9. Lovenox 40 mg subcutaneously daily. 10.Lasix 40 mg IV daily. 11.NovoLog scale. 12.Solu-Medrol 60 IV q.6. 13.Narcan. 14.Habitrol 14 daily. 15.Paxil. 16.Revatio. 17.Aldactone. PHYSICAL EXAMINATION: Patient is alert, oriented x3. Pulse is 76, blood pressure 102/59, respiration 20, temperature normal, pulse ox 88% on room air. HEENT: Conjunctivae normal. Oral mucosa moist. NECK: Jugular venous distention at the root of the neck. CARDIOVASCULAR SYSTEM: S1, S2 muffled. No S3. No S4. Ejection systolic murmur, especially at the bases. RESPIRATORY SYSTEM: Breath efforts are markedly increased. Bilateral scattered rhonchi and crackles, especially in the bases. ABDOMEN: Soft, nontender. No mass palpable. LEGS: Bilateral leg edema. NERVOUS SYSTEM: Higher functions as mentioned earlier. Moves all 4 limbs. No focal motor or sensory deficit. LYMPHATICS: No lymph node palpable in neck, axillae or groin. SKIN: No ulcer, rash, bleeding. LABS: WBC 7.2, hemoglobin 10.1. Sodium 139, potassium 3.5. CO2 is 43, glucose 109. ASSESSMENT: 1. Acute hypoxic hypercarbic respiratory failure, possibly secondary to congestive heart failure, acute exacerbation, as well as chronic obstructive pulmonary disease, acute exacerbation. 2. Sputum shows presumptive Staphylococcus aureus. 3. Acute bibasilar bronchopneumonia with possibly gram-negative. 4. History of congestive heart failure. 5. History of gastroesophageal reflux disease. 6. History of pulmonary hypertension. 7. History of degenerative joint disease. 8. Continuing ongoing nicotine dependence. 9. Hypercarbia. 10.Increased creatinine with mild acute renal failure. 11.Anemia, microcytic, of undetermined etiology. 12.FULL CODE. RECOMMENDATIONS AND DISCUSSION: I recommend to continue current management, continue symptomatic treatment. Otherwise at this time we will continue to monitor. Sputum culture shows presumptive Staph aureus. Prognosis guarded. Further recommendations to follow. MMODL / IJN: [id number] /
[2018-03-07] MEDS ORDERED: POTASSIUM CHLORIDE ER 20 MEQ TAB.ER PO STA (19:29)
[2018-03-07 20:59] LABS: Glucose,Whole Blood 147 mg/dL (75-99)
[2018-03-07] MEDS: IBUPROFEN 400 MG TAB PO SCH (21:18)
[2018-03-08] MEDS: methylPREDNISolone SOD SUCCI 125 MG/2 ML VIAL IV SCH ×2 (01:07→05:39)
[2018-03-08] MEDS: IPRATROPIUM-ALBUTEROL 3 ML NEB INHALATION SCH ×6 (03:07→23:21)
[2018-03-08 06:25] LABS: Anisocytosis Moderate; Hypochromasia Marked; Microcytosis Marked; Poikilocytosis Slight
[2018-03-08 06:32] LABS: HCT 41.1 % (34.0-46.0); HGB 10.7 gm/dL (11.4-16.0); MCH 17.8 pg (25.0-35.0); MCHC 26.1 g/dL (31.0-37.0); MCV 68.4 fL (80.0-100.0); Platelet Count 161 k/uL (150-450); RBC 6.01 m/uL (3.80-5.40); RDW 20.8 % (11.5-15.5)
[2018-03-08 06:36] LABS: Calcium 8.6 mg/dL (8.4-10.2); Magnesium 2.1 mg/dL (1.6-2.3); Potassium 3.1 mmol/L (3.5-5.1)
[2018-03-08 06:51] LABS: Lymphocytes # (M) 0.18 k/uL (1.0-4.8); Monocytes # (M) 0.12 k/uL (0-1.0); Neutrophils % (M) 96 %; Nucleated Red Blood Cells 1 /100 WBC (0-0); Total Cells Counted 200
[2018-03-08 06:52] LABS: Neutrophils # (M) 5.76 k/uL (1.3-7.7); Target Cells Present
[2018-03-08] MEDS: INSULIN ASPART 100 UNIT/ML 1 ML 10 ML VIAL SQ SCH ×4 (08:16→21:12)
--- NOTE | 2018-03-08 08:20 | XR ---
EXAMINATION TYPE: XR chest 1V DATE OF EXAM: 03/08/2018 HISTORY: Shortness of breath. COMPARISON: March 07, 2018 TECHNIQUE: Single view of the chest is submitted. FINDINGS: Demonstrated are scattered senescent parenchymal change. Persistent basilar infiltrates right greater than left with bilateral pleural effusions again right g reater than left. Pulmonary venous congestion noted with cardiomegaly. Hilar and mediastinal structures are within normal limits. Degenerative changes are seen of the dorsal spine. IMPRESSION: 1. Stable chest
[2018-03-08] MEDS: acetaZOLAMIDE 250 MG TAB PO SCH ×2 (08:36→21:23)
[2018-03-08] MEDS: CHOLECALCIFEROL 1,000 UNIT TAB PO SCH (08:37)
[2018-03-08] MEDS: DILTIAZEM ORAL 30 MG TAB PO SCH ×3 (08:37→21:22)
[2018-03-08] MEDS: ALPRAZolam 0.5 MG TAB PO SCH ×3 (08:37→21:23)
[2018-03-08] MEDS: FUROSEMIDE 10 MG/ML 4 ML VIAL IV SCH (08:38)
[2018-03-08] MEDS: PANTOPRAZOLE 40 MG/10 ML VIAL IV SCH (08:38)
[2018-03-08] MEDS: ENOXAPARIN 40 MG/0.4 ML SYRINGE SQ SCH (08:38)
[2018-03-08] MEDS: PARoxetine 10 MG TAB PO SCH ×2 (08:39→21:25)
[2018-03-08] MEDS: SILDENAFIL 20 MG TAB PO SCH ×3 (08:39→21:25)
[2018-03-08] MEDS: SPIRONOLACTONE 25 MG TAB PO SCH (08:39)
[2018-03-08] MEDS: NICOTINE 14MG/24HR PATCH TRANSDERM SCH (08:40)
[2018-03-08] MEDS: POTASSIUM CHLORIDE ER 20 MEQ TAB.ER PO SCH ×4 (08:44→21:23)
[2018-03-08] MEDS: SYMBICORT 160-4.5 MCG INHALER INHALATION SCH ×2 (09:22→19:06)
[2018-03-08] MEDS ORDERED: Potassium Replacement Protocol 1 EACH MISC MISCELLANE PRN (11:00)
--- NOTE | 2018-03-08 11:33 | P.PN ---
Subjective Progress Note Date: 03/08/18 Principal diagnosis: Acute on chronic biventricular heart failure. This is a 67-year-old female with history of severe pulmonary hypertension, valvular heart disease, obstructive sleep apnea syndrome, COPD, patient presented to the ER yesterday with almost 1 week history of fluid retention and worsening shortness of breath. No headache no blurred vision no dizziness, no chest pain, no palpitations. Patient has been compliant with her cardiac meds including diuretics for previous history of congestive heart failure which is basically chronic in nature. Patient was evaluated in the ER, and she was noted to have biventricular congestive heart failure including pulmonary edema, and significant findings of cor pulmonale. Patient was noted to have ascites, bipedal edema, and pulmonary edema with bilateral pleural effusions. Admitted, started on diuretics, and now she is on Lasix at 40 mg IV push every 8 hours, she is also on Aldactone which was added by cardiology. Presently the patient is feeling a bit better, however she remains on high flow nasal cannula at 15 L/ m. Denies any headaches, no blurred vision, no dizziness, no chest pain, no nausea no vomiting no abdominal pain no melena no hematemesis is no dysuria and no frequency no urgency. Patient was reevaluated today on 03/06/2018, patient remains in the ICU, she is about 5 L negative fluid balance over the last 2 days. Hence I cut down on the Lasix dose from 40 mg every 8 hours to 40 mg every 12 hours, and I kept her on Aldactone. Patient is feeling better, however she remains on a high flow oxygen with high FiO2, she is on Airvo 80%, and 65 L/m flow. O2 saturation is running in the range of 93%. And FiO2 is being titrated down. Clinically the patient is feeling better, less shortness of breath, no cough no wheezing no chest pain, no palpitations, and the swelling in her lower extremities is significantly improved and responding well to diuretics. Chest x-ray is showing some improvement in her CHF. Her CBC is relatively normal renal profile is showing slight elevation of the creatinine up to 1.2 and the Lasix dose was changed Patient was reevaluated today on 03/07/2018, remains in the ICU, remains on multiple diuretics, remains in a negative fluid balance, about 7 L over the last 3 days. Her chest x-ray continues to show some evidence of pulmonary edema , remains on high FiO2, and we are titrating the oxygen down. Overall clinically the patient is feeling better, but her congestive heart failure is not completely resolved. Patient again has severe pulmonary hypertension and biventricular heart failure. Today I have recommended that we cut down the Lasix to 40 mg daily, I cut down her Aldactone and I added Diamox 250 mg IV push twice a day since she is developing a picture of metabolic alkalosis. Chest x-ray was reviewed and discussed with the patient. Labs were also reviewed, she has relatively normal CBC except for low hemoglobin of 10.1. Electrolytes are normal however her bicarb is 43 BUN is 39 and creatinine 0.99. Pulmonary-arguello the patient continues to have some shortness of breath with any activity. Swelling in the lower extremities is significantly improved. Reevaluated today on 03/08/2018 , patient remains in the ICU, however I plan to transfer the patient out of the ICU today to a monitor bed on selective. Remains on multiple diuretics including Aldactone, Diamox, and Lasix. Remains in negative fluid balance, she was negative about 1 L over the last 24 hours. She is almost negative about 8 L in the last 3 days. Overall the patient continues to do well, however she still requiring high FiO2, remains on 50% and 60 L/m flow. I will likely change the patient to a high flow nasal cannula today from Decalog. Chest x-ray continues to show mild congestive heart failure and bilateral pleural effusions right more so than left. The swelling in her abdominal wall and the swelling in her legs is significantly improved. Her labs were reviewed, and she had a relatively normal CBC. Her electrolytes were noted potassium is 3.1 bicarb is 42 BUN is 32 creatinine is 1.02. Medications were all reviewed, remains on diuretics, bronchodilators, antibiotics, and cardiac meds I would however cut down the methylprednisolone today, it will be changed to 40 mg IV push every 8 hours, eventually switch her to prednisone. His sputum was noted to be positive for MSSA, and the patient remains on Rocephin. Objective - Vital Signs Vital signs: Vital Signs Temp 98.4 F 03/08/18 08:00 Pulse 80 03/08/18 10:00 Resp 20 03/08/18 10:00 BP 118/62 03/08/18 10:00 Pulse Ox 92 L 01/03/19 10:00 Intake & Output 03/07/18 03/08/18 03/08/18 18:59 06:59 18:59 Intake Total 1490 45 Output Total 1795 1415 875 Balance -305 -1370 -875 Weight 97.2 kg Intake: IV 50 cefTRIAXone 1,000 mg In 50 Sodium Chloride 0.9% 50 ml @ 100 mls/hr IVPB Q24HR [facility] Rx#:[id number] Oral 1440 45 Output: Urine 1795 1415 875 Other: Voiding Method Indwelling Catheter Indwelling Catheter Indwelling Catheter # Bowel Movements 1 - Exam Physical Exam: Revealed a 67-year-old female on airvo, in no distress.on airvo Head: Atraumatic, normocephalic. HEENT:[Neck is supple.] [No neck masses.] [No thyromegaly.] [No JVD.] No carotid bruits, no stridor. Chest: [Crackles mostly at the bases, no rhonchi and no wheezes. Symmetrical chest expansion, no chest wall tenderness..] Cardiac Exam: [Normal S1 and S2, no S3 gallop, 3/6 systolic murmur thought the precordium..] Abdomen: [Soft, nontender, no megaly, no rebound, no guarding, normal bowel sounds. Suspect minimal ascites.] Extremities: [No clubbing, trace of bipedal edema, no cyanosis.] Neurological Exam: [No focal neurologic deficit. Skin: No rashes. Chronic venous stasis changes noted in the lower extremities. Psychiatric: Normal mood, affect and mental status examination. - Labs CBC & Chem 7: 03/08/18 06:01 03/08/18 06:01 Labs: Abnormal Lab Results - Last 24 Hours (Table) 03/07/18 03/07/18 03/07/18 Range/Units 11:50 17:06 20:58 RBC (3.80-5.40) m/uL Hgb (11.4-16.0) gm/dL MCV (80.0-100.0) fL MCH (25.0-35.0) pg MCHC (31.0-37.0) g/dL RDW (11.5-15.5) % Lymphocytes # (Manual) (1.0-4.8) k/uL Nucleated RBCs (0-0) /100 WBC Potassium (3.5-5.1) mmol/L Chloride (98-107) mmol/L Carbon Dioxide (22-30) mmol/L BUN (7-17) mg/dL Glucose (74-99) mg/dL POC Glucose (mg/dL) 126 H 130 H 147 H (75-99) mg/dL 03/08/18 03/08/18 Range/Units 06:01 06:01 RBC 6.01 H (3.80-5.40) m/uL Hgb 10.7 L (11.4-16.0) gm/dL MCV 68.4 L (80.0-100.0) fL MCH 17.8 L (25.0-35.0) pg MCHC 26.1 L (31.0-37.0) g/dL RDW 20.8 H (11.5-15.5) % Lymphocytes # (Manual) 0.18 L (1.0-4.8) k/uL Nucleated RBCs 1 H (0-0) /100 WBC Potassium 3.1 L (3.5-5.1) mmol/L Chloride 95 L (98-107) mmol/L Carbon Dioxide 42 H* (22-30) mmol/L BUN 32 H (7-17) mg/dL Glucose 107 H (74-99) mg/dL POC Glucose (mg/dL) (75-99) mg/dL Microbiology - Last 24 Hours (Table) 03/05/18 16:50 Gram Stain - Final Sputum Sputum Culture - Final Staphylococcus aureus 03/04/18 19:38 Blood Culture - Preliminary Blood No Growth after 72 hours 03/04/18 19:55 Blood Culture - Preliminary Blood No Growth after 72 hours Assessment and Plan Assessment: Impression: 1 acute on chronic biventricular congestive heart failure secondary to severe pulmonary hypertension. 2 history of tricuspid regurgitation, 3 nonischemic cardiomyopathy and LV dysfunction., 4 severe COPD, on bronchodilators, will cut down the Solu-Medrol to 40 mg IV push every 8 hours. 5 acute on chronic hypoxic respiratory failure secondary to COPD, congestive heart failure, and pulmonary hypertension. 6 acute metabolic alkalosis most likely secondary to diuretics, and compensation related to her underlying COPD. remains on multiple bronchodilators for COPD 7 mssa tracheobronchitis, strongly doubt pneumonia. Remains on Rocephin. Recommendation: Continue present course of treatment including bronchodilators, diuretics, Lovenox for DVT prophylaxis, empiric antibiotics, Solu-Medrol, GI and DVT prophylaxis, continue revatio, monitor chest x-ray and electrolytes daily. Continue oxygen, continue to titrate down accordingly based on O2 saturation, cut down the Solu-Medrol dose, continue Rocephin for MSSA tracheobronchitis, and we will arrange for the patient to be transferred to a monitor bed on selective today. We'll continue to follow. Patient is still quite ill, she has many complex medical issues as noted above, and we will continue to follow. Time with Patient: Less than 30
[2018-03-08 11:48] LABS: Glucose,Whole Blood 132 mg/dL (75-99)
[2018-03-08] MEDS: methylPREDNISolone SOD SUCCI 40 MG/ML 1 ML VIAL IV SCH ×2 (15:31→23:42)
--- NOTE | 2018-03-08 16:46 | P.PN ---
Subjective Patient is doing a lot better. She looks a lot more comfortable now denies any shortness of breath at rest. No chest pain But pressure 106/55 mmHg afebrile 98.6F pulse rate in the 70s Breath sounds are reduced bilaterally but no rhonchi no crackles. Air entry has improved since admission S1-S2 are soft soft systolic murmur Extremities warm with mild edema Labs are reviewed Sodium 141 bicarb 42 potassium 3.1, magnesium 2.1 Suggest Continue diuretics including acetazolamide and spironolactone Replacement of electrolytes Continue medications for pulmonary hypertension Objective - Vital Signs Vital signs: Vital Signs Temp 98.6 F 03/08/18 16:00 Pulse 78 03/08/18 16:12 Resp 19 03/08/18 16:12 BP 106/55 03/08/18 16:00 Pulse Ox 93 L 03/08/18 16:11 Intake & Output 03/07/18 03/08/18 03/08/18 18:59 06:59 18:59 Intake Total 1490 45 100 Output Total 1795 1415 1845 Balance -305 -1370 -1745 Weight 97.2 kg Intake: IV 50 100 cefTRIAXone 1,000 mg In 50 100 Sodium Chloride 0.9% 50 ml @ 100 mls/hr IVPB Q24HR [facility] Rx#:[id number] Oral 1440 45 Output: Urine 1795 1415 1845 Other: Voiding Method Indwelling Catheter Indwelling Catheter Indwelling Catheter # Bowel Movements 1 - Labs CBC & Chem 7: 03/08/18 06:01 03/08/18 06:01 Labs: Abnormal Lab Results - Last 24 Hours (Table) 03/07/18 03/07/18 03/08/18 Range/Units 17:06 20:58 06:01 RBC 6.01 H (3.80-5.40) m/uL Hgb 10.7 L (11.4-16.0) gm/dL MCV 68.4 L (80.0-100.0) fL MCH 17.8 L (25.0-35.0) pg MCHC 26.1 L (31.0-37.0) g/dL RDW 20.8 H (11.5-15.5) % Lymphocytes # (Manual) 0.18 L (1.0-4.8) k/uL Nucleated RBCs 1 H (0-0) /100 WBC Potassium (3.5-5.1) mmol/L Chloride (98-107) mmol/L Carbon Dioxide (22-30) mmol/L BUN (7-17) mg/dL Glucose (74-99) mg/dL POC Glucose (mg/dL) 130 H 147 H (75-99) mg/dL 03/08/18 03/08/18 Range/Units 06:01 11:45 RBC (3.80-5.40) m/uL Hgb (11.4-16.0) gm/dL MCV (80.0-100.0) fL MCH (25.0-35.0) pg MCHC (31.0-37.0) g/dL RDW (11.5-15.5) % Lymphocytes # (Manual) (1.0-4.8) k/uL Nucleated RBCs (0-0) /100 WBC Potassium 3.1 L (3.5-5.1) mmol/L Chloride 95 L (98-107) mmol/L Carbon Dioxide 42 H* (22-30) mmol/L BUN 32 H (7-17) mg/dL Glucose 107 H (74-99) mg/dL POC Glucose (mg/dL) 132 H (75-99) mg/dL Microbiology - Last 24 Hours (Table) 03/05/18 16:50 Gram Stain - Final Sputum Sputum Culture - Final Staphylococcus aureus 03/04/18 19:38 Blood Culture - Preliminary Blood No Growth after 72 hours 03/04/18 19:55 Blood Culture - Preliminary Blood No Growth after 72 hours
[2018-03-08 16:53] LABS: Glucose,Whole Blood 100 mg/dL (75-99)
--- NOTE | 2018-03-08 20:13 | PN ---
PROGRESS NOTE DATE OF SERVICE: 03/08/2018. This 67-year-old woman was admitted with a combination of COPD acute exacerbation as well as CHF acute exacerbation as well as bronchopneumonia. The patient is being closely monitored. The patient is improving significantly. The most recent chest x- ray which was personally reviewed by me showed still right pleural effusion and as well as some evidence of fluid overload. PAST MEDICAL HISTORY: Reviewed. REVIEW OF SYSTEMS: CARDIOVASCULAR: As mentioned earlier. Respiratory: As mentioned earlier. GI: As mentioned earlier. Central nervous system: As mentioned earlier. CURRENT MEDICATIONS ARE: 1. Tylenol 650 q.4 hours. 2. Diamox 250 mg p.o. 3. DuoNeb q.i.d. and p.r.n. 4. Xanax 0.5 t.i.d. 5. Symbicort b.i.d. 6. Rocephin 1 g. 7. Vitamin D3. 8. Cardizem. 9. Lovenox. 10.Lasix 40 mg IV b.i.d. 11.Motrin. 12.NovoLog. 13.Solu-Medrol 40 IV q.8. 14.Narcan. 15.Habitrol 14. 17.Aldactone. PHYSICAL EXAM: Patient is alert, oriented x3. Pulse 92, blood pressure 100/62, respirations 20 , temperature is normal. Pulse ox 93% on high flow nasal cannula. HEENT: Conjunctivae normal. Oral mucosa moist. NECK is jugular venous distention at the root of the neck. Breathing efforts are markedly increased. Cardiovascular systems: S1, S2. Ejection systolic murmur. RESPIRATORY: Breath sounds diminished in the bases. A few scattered rhonchi and crackles. Expiratory wheezing also present. ABDOMEN: Soft, nontender. Legs: Nontender. CENTRAL NERVOUS SYSTEM: No focal deficits. LABS: At this time shows WBC 6, hemoglobin 10.7, sodium 140, potassium 3.1 and glucose 107. ASSESSMENT: 1. Acute hypoxic hypercarbic respiratory failure possibly secondary to congestive heart failure acute exacerbation as well as chronic obstructive pulmonary disease acute exacerbation. 2. Sputum showing MSSA. 3. Possible right pleural effusion. 4. Possible acute bibasilar bronchopneumonia possibly gram-negative. 5. History of congestive heart failure. 6. History of gastroesophageal reflux disease. 7. History of pulmonary hypertension. 8. History of degenerative joint disease. 9. Continued ongoing nicotine dependence. 10.Hypercarbia. 11.Increased creatinine with mild acute renal failure. 12.Anemia, normocytic undetermined etiology. 13.FULL CODE. RECOMMENDATIONS AND DISCUSSION: In this 67-year-old woman who presented with multiple complex medical issues, we will monitor the patient closely. Continue the current medications, management and symptomatic treatment. Continue the diuretics. Continue the bronchodilators and antibiotics. The patient is still on high-flow oxygen. We will continue to monitor fluid and electrolytes balance closely. Dr. Dillon is also following the patient closely. See orders for details. Further recommendations to follow. MMODL / IJN: [id number] / MTDD
[2018-03-08 21:01] LABS: Glucose,Whole Blood 128 mg/dL (75-99)
[2018-03-08] MEDS: IBUPROFEN 400 MG TAB PO SCH (21:24)
[2018-03-09] MEDS: IPRATROPIUM-ALBUTEROL 3 ML NEB INHALATION SCH ×5 (03:37→20:11)
[2018-03-09 05:44] LABS: Anisocytosis Moderate; Basophils % (A) 0 %; Eosinophils % (A) 0 %; HCT 40.8 % (34.0-46.0); Hypochromasia Marked; Lymphocytes # (A) 0.6 k/uL (1.0-4.8); Lymphocytes % (A) 10 %; MCH 17.3 pg (25.0-35.0); MCHC 24.5 g/dL (31.0-37.0); MCV 70.7 fL (80.0-100.0); Mean Platelet Volume 6.7; Microcytosis Marked; Monocytes # (A) 0.2 k/uL (0-1.0); Monocytes % (A) 4 %; Neutrophils # (A) 5.3 k/uL (1.3-7.7); Neutrophils % (A) 86 %; Platelet Count 145 k/uL (150-450); RBC 5.77 m/uL (3.80-5.40); RDW 20.8 % (11.5-15.5); WBC 6.2 k/uL (3.8-10.6)
[2018-03-09 06:05] LABS: Calcium 8.7 mg/dL (8.4-10.2); Magnesium 2.2 mg/dL (1.6-2.3); Phosphorus 3.7 mg/dL (2.5-4.5); Potassium 3.5 mmol/L (3.5-5.1)
[2018-03-09 07:04] LABS: Glucose,Whole Blood 116 mg/dL (75-99)
[2018-03-09] MEDS: INSULIN ASPART 100 UNIT/ML 1 ML 10 ML VIAL SQ SCH ×4 (07:07→20:49)
[2018-03-09] MEDS: SYMBICORT 160-4.5 MCG INHALER INHALATION SCH ×2 (08:06→20:11)
[2018-03-09] MEDS: ENOXAPARIN 40 MG/0.4 ML SYRINGE SQ SCH (08:28)
[2018-03-09] MEDS: SPIRONOLACTONE 25 MG TAB PO SCH (08:28)
[2018-03-09] MEDS: methylPREDNISolone SOD SUCCI 40 MG/ML 1 ML VIAL IV SCH ×3 (08:28→23:37)
[2018-03-09] MEDS: FUROSEMIDE 10 MG/ML 4 ML VIAL IV SCH (08:28)
[2018-03-09] MEDS: POTASSIUM CHLORIDE ER 20 MEQ TAB.ER PO SCH ×2 (08:28→12:24)
[2018-03-09] MEDS: PARoxetine 10 MG TAB PO SCH ×2 (08:29→20:59)
[2018-03-09] MEDS: SILDENAFIL 20 MG TAB PO SCH ×3 (08:29→21:00)
[2018-03-09] MEDS: ALPRAZolam 0.5 MG TAB PO SCH ×3 (08:29→21:00)
[2018-03-09] MEDS: NICOTINE 14MG/24HR PATCH TRANSDERM SCH (08:29)
[2018-03-09] MEDS: DILTIAZEM ORAL 30 MG TAB PO SCH ×3 (08:29→21:00)
[2018-03-09] MEDS: acetaZOLAMIDE 250 MG TAB PO SCH ×2 (08:30→20:58)
[2018-03-09] MEDS: CHOLECALCIFEROL 1,000 UNIT TAB PO SCH (08:30)
[2018-03-09] MEDS: PANTOPRAZOLE 40 MG/10 ML VIAL IV SCH (08:30)
--- NOTE | 2018-03-09 08:38 | XR ---
EXAMINATION TYPE: XR chest 1V DATE OF EXAM: 03/09/2018 COMPARISON: 03/08/2018 INDICATION: Short of breath TECHNIQUE: Single frontal view of the chest is obtained. FINDINGS: The heart size is enlarged. The pulmonary vasculature is normal. Right lower lobe opacity is present. Some pleural fluid may be present as well. IMPRESSION: 1. Right lower lobe infiltrate. Some loculated effusion may be present as well. Continued follow-up i s recommended.
--- NOTE | 2018-03-09 11:23 | US ---
EXAMINATION TYPE: US chest DATE OF EXAM: 03/09/2018 COMPARISON: CXR CLINICAL HISTORY: Markings for thoracentesis by pulmonary staff. SOB, pleural effusion TECHNIQUE: Targeted ultrasound of the posterior lower bilateral hemithoraces EXAM MEASUREMENTS: Right Pleural Effusion pocket size: 4.6 cm Right skin surface to fluid distance: 2.5 cm Please note lung persistent in image Right side marked for possible thoracentesis outside the dept. Pulmonologists are able to review the images in the patient?s EMR. IMPRESSIONS: 1. Right pleural effusion.
[2018-03-09 11:43] LABS: Glucose,Whole Blood 136 mg/dL (75-99)
--- NOTE | 2018-03-09 12:35 | P.PN ---
Subjective Progress Note Date: 03/09/18 Principal diagnosis: Acute on chronic biventricular heart failure. This is a 67-year-old female with history of severe pulmonary hypertension, valvular heart disease, obstructive sleep apnea syndrome, COPD, patient presented to the ER yesterday with almost 1 week history of fluid retention and worsening shortness of breath. No headache no blurred vision no dizziness, no chest pain, no palpitations. Patient has been compliant with her cardiac meds including diuretics for previous history of congestive heart failure which is basically chronic in nature. Patient was evaluated in the ER, and she was noted to have biventricular congestive heart failure including pulmonary edema, and significant findings of cor pulmonale. Patient was noted to have ascites, bipedal edema, and pulmonary edema with bilateral pleural effusions. Admitted, started on diuretics, and now she is on Lasix at 40 mg IV push every 8 hours, she is also on Aldactone which was added by cardiology. Presently the patient is feeling a bit better, however she remains on high flow nasal cannula at 15 L/ m. Denies any headaches, no blurred vision, no dizziness, no chest pain, no nausea no vomiting no abdominal pain no melena no hematemesis is no dysuria and no frequency no urgency. Patient was reevaluated today on 03/06/2018, patient remains in the ICU, she is about 5 L negative fluid balance over the last 2 days. Hence I cut down on the Lasix dose from 40 mg every 8 hours to 40 mg every 12 hours, and I kept her on Aldactone. Patient is feeling better, however she remains on a high flow oxygen with high FiO2, she is on Airvo 80%, and 65 L/m flow. O2 saturation is running in the range of 93%. And FiO2 is being titrated down. Clinically the patient is feeling better, less shortness of breath, no cough no wheezing no chest pain, no palpitations, and the swelling in her lower extremities is significantly improved and responding well to diuretics. Chest x-ray is showing some improvement in her CHF. Her CBC is relatively normal renal profile is showing slight elevation of the creatinine up to 1.2 and the Lasix dose was changed Patient was reevaluated today on 03/07/2018, remains in the ICU, remains on multiple diuretics, remains in a negative fluid balance, about 7 L over the last 3 days. Her chest x-ray continues to show some evidence of pulmonary edema , remains on high FiO2, and we are titrating the oxygen down. Overall clinically the patient is feeling better, but her congestive heart failure is not completely resolved. Patient again has severe pulmonary hypertension and biventricular heart failure. Today I have recommended that we cut down the Lasix to 40 mg daily, I cut down her Aldactone and I added Diamox 250 mg IV push twice a day since she is developing a picture of metabolic alkalosis. Chest x-ray was reviewed and discussed with the patient. Labs were also reviewed, she has relatively normal CBC except for low hemoglobin of 10.1. Electrolytes are normal however her bicarb is 43 BUN is 39 and creatinine 0.99. Pulmonary-arguello the patient continues to have some shortness of breath with any activity. Swelling in the lower extremities is significantly improved. Reevaluated today on 03/08/2018 , patient remains in the ICU, however I plan to transfer the patient out of the ICU today to a monitor bed on selective. Remains on multiple diuretics including Aldactone, Diamox, and Lasix. Remains in negative fluid balance, she was negative about 1 L over the last 24 hours. She is almost negative about 8 L in the last 3 days. Overall the patient continues to do well, however she still requiring high FiO2, remains on 50% and 60 L/m flow. I will likely change the patient to a high flow nasal cannula today from [place]. Chest x-ray continues to show mild congestive heart failure and bilateral pleural effusions right more so than left. The swelling in her abdominal wall and the swelling in her legs is significantly improved. Her labs were reviewed, and she had a relatively normal CBC. Her electrolytes were noted potassium is 3.1 bicarb is 42 BUN is 32 creatinine is 1.02. Medications were all reviewed, remains on diuretics, bronchodilators, antibiotics, and cardiac meds I would however cut down the methylprednisolone today, it will be changed to 40 mg IV push every 8 hours, eventually switch her to prednisone. Her sputum was noted to be positive for MSSA, and the patient remains on Rocephin. Reevaluated today on 03/09/2018, she is presently an overflow from selective, remains on diuretics, continues to diurese, and she continues to remain in negative fluid balance. Patient is at least 9 L negative fluid balance since admission. Clinically the patient continues to improve, but she remains on 7 L on High flow. Chest x-ray is showing improvement, and today I recommended an ultrasound of the chest to evaluate the pocket of fluid in the right lung base. All labs were reviewed, BUN is 28 creatinine 0.96. CBC is relatively normal. And chest x-ray as noted above. Objective - Vital Signs Vital signs: Vital Signs Temp 97.8 F 03/09/18 08:00 Pulse 79 03/09/18 12:03 Resp 16 03/09/18 11:00 BP 108/57 03/09/18 11:00 Pulse Ox 91 L 03/09/18 11:00 Intake & Output 03/08/18 03/09/18 03/09/18 18:59 06:59 18:59 Intake Total 100 250 460 Output Total 5008 732 9687 Balance -5556 -266 -1046 Weight 94.8 kg 94.8 kg Intake: IV 100 100 cefTRIAXone 1,000 mg In 100 100 Sodium Chloride 0.9% 50 ml @ 100 mls/hr IVPB Q24HR [facility] Rx#:[id number] Oral 250 360 Output: Urine 3034 270 8899 Other: Voiding Method Indwelling Catheter Indwelling Catheter Indwelling Catheter # Bowel Movements 1 0 0 - Exam Physical Exam: Revealed a 67-year-old female on airvo, in no distress.on airvo Head: Atraumatic, normocephalic. HEENT:[Neck is supple.] [No neck masses.] [No thyromegaly.] [No JVD.] No carotid bruits, no stridor. Chest: [Crackles mostly at the bases, diminished breath sounds at the right base , no rhonchi and no wheezes today. Cardiac Exam: [Normal S1 and S2, no S3 gallop, 3/6 systolic murmur thought the precordium..] Abdomen: [Soft, nontender, no megaly, no rebound, no guarding, normal bowel sounds. Suspect minimal ascites.] Extremities: [No clubbing, trace of bipedal edema, no cyanosis.] Neurological Exam: [No focal neurologic deficit. Skin: No rashes. Chronic venous stasis changes noted in the lower extremities. Psychiatric: Normal mood, affect and mental status examination. - Labs CBC & Chem 7: 03/09/18 05:12 03/09/18 05:12 Labs: Abnormal Lab Results - Last 24 Hours (Table) 03/08/18 03/08/18 03/09/18 Range/Units 16:51 20:58 05:12 RBC 5.77 H (3.80-5.40) m/uL Hgb 10.0 L (11.4-16.0) gm/dL MCV 70.7 L (80.0-100.0) fL MCH 17.3 L (25.0-35.0) pg MCHC 24.5 L (31.0-37.0) g/dL RDW 20.8 H (11.5-15.5) % Plt Count 145 L (150-450) k/uL Lymphocytes # 0.6 L (1.0-4.8) k/uL Carbon Dioxide (22-30) mmol/L BUN (7-17) mg/dL Glucose (74-99) mg/dL POC Glucose (mg/dL) 100 H 128 H (75-99) mg/dL 03/09/18 03/09/18 03/09/18 Range/Units 05:12 07:02 11:42 RBC (3.80-5.40) m/uL Hgb (11.4-16.0) gm/dL MCV (80.0-100.0) fL MCH (25.0-35.0) pg MCHC (31.0-37.0) g/dL RDW (11.5-15.5) % Plt Count (150-450) k/uL Lymphocytes # (1.0-4.8) k/uL Carbon Dioxide 38 H (22-30) mmol/L BUN 28 H (7-17) mg/dL Glucose 108 H (74-99) mg/dL POC Glucose (mg/dL) 116 H 136 H (75-99) mg/dL Microbiology - Last 24 Hours (Table) 03/04/18 19:38 Blood Culture - Preliminary Blood No Growth after 96 hours 03/04/18 19:55 Blood Culture - Preliminary Blood No Growth after 96 hours 03/05/18 16:50 Gram Stain - Final Sputum Sputum Culture - Final Staphylococcus aureus Assessment and Plan Assessment: Impression: 1 acute on chronic biventricular congestive heart failure secondary to severe pulmonary hypertension. 2 history of tricuspid regurgitation, 3 nonischemic cardiomyopathy and LV dysfunction., 4 severe COPD, on bronchodilators, will cut down the Solu-Medrol to 40 mg IV push every 8 hours. 5 acute on chronic hypoxic respiratory failure secondary to COPD, congestive heart failure, and pulmonary hypertension. 6 acute metabolic alkalosis most likely secondary to diuretics, and compensation related to her underlying COPD. remains on multiple bronchodilators for COPD 7 mssa tracheobronchitis, strongly doubt pneumonia. Remains on Rocephin. Recommendation: Continue diuretics, bronchodilators, antibiotics for MSSA sputum , we'll arrange for ultrasound of the chest, may consider a right-sided thoracentesis. Continue Solu-Medrol, continue GI and DVT prophylaxis, continue revatio for her underlying severe pulmonary hypertension. Patient continues to have many complex medical issues, not ready for any discharge planning anytime soon. We'll continue to follow Time with Patient: Less than 30
--- NOTE | 2018-03-09 13:22 | P.PN ---
Subjective Patient's breathing is a bit labored this morning although she feels well. Reduced breath sounds bilaterally with rhonchorous breath sounds today. Able to lie flat and however she is a lot better than she several days back when she was admitted On examination blood pressure is 108/57 mmHg pulse rate is in the 70s Breath sounds are reduced bilaterally with bilateral rhonchi Heart sounds systolic murmur Abdomen is soft Extremities bilateral lower extremity edema Impression Severe pulmonary hypertension with right-sided failure Suggest continue current medications and diuretics Objective - Vital Signs Vital signs: Vital Signs Temp 97.8 F 03/09/18 08:00 Pulse 79 03/09/18 12:03 Resp 16 03/09/18 11:00 BP 108/57 03/09/18 11:00 Pulse Ox 91 L 03/09/18 11:00 Intake & Output 03/08/18 03/09/18 03/09/18 18:59 06:59 18:59 Intake Total 100 250 820 Output Total 3376 367 8742 [facility] -1895 -485 -3470 Weight 94.8 kg 94.8 kg Intake: IV 100 100 cefTRIAXone 1,000 mg In 100 100 Sodium Chloride 0.9% 50 ml @ 100 mls/hr IVPB Q24HR [facility] Rx#:[id number] Oral 250 720 Output: Urine 8553 245 1213 Other: Voiding Method Indwelling Catheter Indwelling Catheter Indwelling Catheter # Bowel Movements 1 0 0 - Labs CBC & Chem 7: 03/09/18 05:12 03/09/18 05:12 Labs: Abnormal Lab Results - Last 24 Hours (Table) 03/08/18 03/08/18 03/09/18 Range/Units 16:51 20:58 05:12 RBC 5.77 H (3.80-5.40) m/uL Hgb 10.0 L (11.4-16.0) gm/dL MCV 70.7 L (80.0-100.0) fL MCH 17.3 L (25.0-35.0) pg MCHC 24.5 L (31.0-37.0) g/dL RDW 20.8 H (11.5-15.5) % Plt Count 145 L (150-450) k/uL Lymphocytes # 0.6 L (1.0-4.8) k/uL Carbon Dioxide (22-30) mmol/L BUN (7-17) mg/dL Glucose (74-99) mg/dL POC Glucose (mg/dL) 100 H 128 H (75-99) mg/dL 03/09/18 03/09/18 03/09/18 Range/Units 05:12 07:02 11:42 RBC (3.80-5.40) m/uL Hgb (11.4-16.0) gm/dL MCV (80.0-100.0) fL MCH (25.0-35.0) pg MCHC (31.0-37.0) g/dL RDW (11.5-15.5) % Plt Count (150-450) k/uL Lymphocytes # (1.0-4.8) k/uL Carbon Dioxide 38 H (22-30) mmol/L BUN 28 H (7-17) mg/dL Glucose 108 H (74-99) mg/dL POC Glucose (mg/dL) 116 H 136 H (75-99) mg/dL Microbiology - Last 24 Hours (Table) 03/04/18 19:38 Blood Culture - Preliminary Blood No Growth after 96 hours 03/04/18 19:55 Blood Culture - Preliminary Blood No Growth after 96 hours 03/05/18 16:50 Gram Stain - Final Sputum Sputum Culture - Final Staphylococcus aureus
[2018-03-09 16:56] LABS: Glucose,Whole Blood 159 mg/dL (75-99)
--- NOTE | 2018-03-09 18:29 | PN ---
PROGRESS NOTE DATE OF SERVICE: 03/09/2018 This 67-year-old woman who was admitted with acute hypoxic hypercarbic respiratory failure is improving significantly. The patient is on high-flow oxygen at this time. A chest ultrasound was also done by Dr. Dillon for right pleural effusion. No chest pain. No palpitations. No fever. PHYSICAL EXAMINATION: Alert and oriented x3. Pulse is 88, blood pressure 114/61, respiration 23, temperature 97.4, pulse ox 91% on 7 L. HEENT: Conjunctivae normal. Oral mucosa moist. NECK: No jugular venous distention. No carotid bruit. No lymph node enlargement. CARDIOVASCULAR SYSTEM: S1, S2 muffled. No S3. No S4. RESPIRATORY SYSTEM: Breath sounds diminished at the bases. Bilateral scattered rhonchi and crackles. Breath sounds are diminished on the right side. ABDOMEN: Soft, non-tender. LEGS: No edema. No swelling. NERVOUS SYSTEM: No focal deficit. LABS: WBC 6.2, hemoglobin is 10 and platelets are 145. Accu-Cheks noted. ASSESSMENT: 1. Acute hypoxic hypercarbic respiratory failure, possibly secondary to congestive heart failure, acute exacerbation, as well as chronic obstructive pulmonary disease, acute exacerbation. 2. Sputum showing methicillin-susceptible Staphylococcus aeruginosa .. 3. Possible right pleural effusion. 4. Possible acute bibasilar bronchopneumonia, possibly gram-negative. 5. History of congestive heart failure. 6. Gastroesophageal reflux disease. 7. Pulmonary hypertension. 8. History of degenerative joint disease. 9. History of continued ongoing nicotine dependence. 10.Hypercarbia. 11.Increased creatinine with mild acute renal failure. 12.Anemia, normocytic, of undetermined etiology. 13.FULL CODE. RECOMMENDATIONS AND DISCUSSION: I recommend to continue current medication, continue with the monitoring, symptomatic treatment. Otherwise at this time continue with broad-spectrum IV antibiotics, steroids, bronchodilators and diuretics. Ultrasound has been done. Thoracocentesis to be determined by Dr. Dillon. Cardiology input appreciated. Guarded prognosis. Further recommendations to follow. See orders for further details. MMODL / IJN: [id number] /
[2018-03-09 20:25] LABS: Glucose,Whole Blood 147 mg/dL (75-99)
[2018-03-09] MEDS: IBUPROFEN 400 MG TAB PO SCH (20:58)
[2018-03-09] MEDS ORDERED: POTASSIUM CHLORIDE ER 20 MEQ TAB.ER PO SCH (23:00)
[2018-03-10] MEDS: IPRATROPIUM-ALBUTEROL 3 ML NEB INHALATION SCH ×6 (00:33→19:57)
[2018-03-10 06:06] LABS: Calcium 8.8 mg/dL (8.4-10.2); Magnesium 2.4 mg/dL (1.6-2.3); Phosphorus 3.9 mg/dL (2.5-4.5); Potassium 4.1 mmol/L (3.5-5.1)
[2018-03-10 06:12] LABS: Anisocytosis Moderate; Basophils % (A) 0 %; Eosinophils % (A) 1 %; HCT 41.4 % (34.0-46.0); HGB 10.2 gm/dL (11.4-16.0); Hypochromasia Marked; Lymphocytes # (A) 0.4 k/uL (1.0-4.8); Lymphocytes % (A) 6 %; MCH 17.2 pg (25.0-35.0); MCHC 24.7 g/dL (31.0-37.0); MCV 69.5 fL (80.0-100.0); Mean Platelet Volume 9.9; Microcytosis Marked; Monocytes # (A) 0.2 k/uL (0-1.0); Monocytes % (A) 3 %; Neutrophils # (A) 5.7 k/uL (1.3-7.7); Neutrophils % (A) 90 %; Platelet Count 141 k/uL (150-450); Poikilocytosis Slight; RBC 5.96 m/uL (3.80-5.40); RDW 20.8 % (11.5-15.5); WBC 6.3 k/uL (3.8-10.6)
[2018-03-10 06:34] LABS: Glucose,Whole Blood 122 mg/dL (75-99)
[2018-03-10] MEDS: INSULIN ASPART 100 UNIT/ML 1 ML 10 ML VIAL SQ SCH ×4 (06:36→21:47)
--- NOTE | 2018-03-10 07:13 | XR ---
EXAMINATION TYPE: XR chest 1V portable DATE OF EXAM: 03/10/2018 HISTORY: SOB. REFERENCE: Previous study dated 03/09/2018. FINDINGS: The heart is enlarged. There is vascular congestion. There are bilateral effusions, worse o n the right than left. There are subtle changes of interstitial edema. There is improved aeration at the right lung base. IMPRESSION: 1. CARDIOMEGALY. 2. CHANGES OF CONGESTIVE HEART FAILURE. 3. IMPROVED AERATION, RIGHT LUNG BASE. 4. BILATERAL EFFUSIONS.
[2018-03-10] MEDS: CHOLECALCIFEROL 1,000 UNIT TAB PO SCH (08:44)
[2018-03-10] MEDS: ALPRAZolam 0.5 MG TAB PO SCH ×3 (08:44→21:43)
[2018-03-10] MEDS: methylPREDNISolone SOD SUCCI 40 MG/ML 1 ML VIAL IV SCH (08:44)
[2018-03-10] MEDS: SPIRONOLACTONE 25 MG TAB PO SCH (08:45)
[2018-03-10] MEDS: FUROSEMIDE 40 MG TAB PO SCH (08:45)
[2018-03-10] MEDS: DILTIAZEM ORAL 30 MG TAB PO SCH ×3 (08:46→21:42)
[2018-03-10] MEDS: PANTOPRAZOLE 40 MG/10 ML VIAL IV SCH (08:46)
[2018-03-10] MEDS: NICOTINE 14MG/24HR PATCH TRANSDERM SCH (08:46)
[2018-03-10] MEDS: PARoxetine 10 MG TAB PO SCH ×2 (08:47→21:44)
[2018-03-10] MEDS: acetaZOLAMIDE 250 MG TAB PO SCH ×2 (08:47→21:43)
[2018-03-10] MEDS: ENOXAPARIN 40 MG/0.4 ML SYRINGE SQ SCH (08:47)
[2018-03-10] MEDS: SILDENAFIL 20 MG TAB PO SCH ×3 (08:48→21:43)
[2018-03-10] MEDS: SYMBICORT 160-4.5 MCG INHALER INHALATION SCH ×2 (08:57→20:07)
--- NOTE | 2018-03-10 10:57 | P.PN ---
Subjective Progress Note Date: 03/10/18 Principal diagnosis: Acute on chronic biventricular heart failure. This is a 67-year-old female with history of severe pulmonary hypertension, valvular heart disease, obstructive sleep apnea syndrome, COPD, patient presented to the ER yesterday with almost 1 week history of fluid retention and worsening shortness of breath. No headache no blurred vision no dizziness, no chest pain, no palpitations. Patient has been compliant with her cardiac meds including diuretics for previous history of congestive heart failure which is basically chronic in nature. Patient was evaluated in the ER, and she was noted to have biventricular congestive heart failure including pulmonary edema, and significant findings of cor pulmonale. Patient was noted to have ascites, bipedal edema, and pulmonary edema with bilateral pleural effusions. Admitted, started on diuretics, and now she is on Lasix at 40 mg IV push every 8 hours, she is also on Aldactone which was added by cardiology. Presently the patient is feeling a bit better, however she remains on high flow nasal cannula at 15 L/ m. Denies any headaches, no blurred vision, no dizziness, no chest pain, no nausea no vomiting no abdominal pain no melena no hematemesis is no dysuria and no frequency no urgency. Patient was reevaluated today on 03/06/2018, patient remains in the ICU, she is about 5 L negative fluid balance over the last 2 days. Hence I cut down on the Lasix dose from 40 mg every 8 hours to 40 mg every 12 hours, and I kept her on Aldactone. Patient is feeling better, however she remains on a high flow oxygen with high FiO2, she is on Airvo 80%, and 65 L/m flow. O2 saturation is running in the range of 93%. And FiO2 is being titrated down. Clinically the patient is feeling better, less shortness of breath, no cough no wheezing no chest pain, no palpitations, and the swelling in her lower extremities is significantly improved and responding well to diuretics. Chest x-ray is showing some improvement in her CHF. Her CBC is relatively normal renal profile is showing slight elevation of the creatinine up to 1.2 and the Lasix dose was changed Patient was reevaluated today on 03/07/2018, remains in the ICU, remains on multiple diuretics, remains in a negative fluid balance, about 7 L over the last 3 days. Her chest x-ray continues to show some evidence of pulmonary edema , remains on high FiO2, and we are titrating the oxygen down. Overall clinically the patient is feeling better, but her congestive heart failure is not completely resolved. Patient again has severe pulmonary hypertension and biventricular heart failure. Today I have recommended that we cut down the Lasix to 40 mg daily, I cut down her Aldactone and I added Diamox 250 mg IV push twice a day since she is developing a picture of metabolic alkalosis. Chest x-ray was reviewed and discussed with the patient. Labs were also reviewed, she has relatively normal CBC except for low hemoglobin of 10.1. Electrolytes are normal however her bicarb is 43 BUN is 39 and creatinine 0.99. Pulmonary-arguello the patient continues to have some shortness of breath with any activity. Swelling in the lower extremities is significantly improved. Reevaluated today on 03/08/2018 , patient remains in the ICU, however I plan to transfer the patient out of the ICU today to a monitor bed on selective. Remains on multiple diuretics including Aldactone, Diamox, and Lasix. Remains in negative fluid balance, she was negative about 1 L over the last 24 hours. She is almost negative about 8 L in the last 3 days. Overall the patient continues to do well, however she still requiring high FiO2, remains on 50% and 60 L/m flow. I will likely change the patient to a high flow nasal cannula today from [place]. Chest x-ray continues to show mild congestive heart failure and bilateral pleural effusions right more so than left. The swelling in her abdominal wall and the swelling in her legs is significantly improved. Her labs were reviewed, and she had a relatively normal CBC. Her electrolytes were noted potassium is 3.1 bicarb is 42 BUN is 32 creatinine is 1.02. Medications were all reviewed, remains on diuretics, bronchodilators, antibiotics, and cardiac meds I would however cut down the methylprednisolone today, it will be changed to 40 mg IV push every 8 hours, eventually switch her to prednisone. Her sputum was noted to be positive for MSSA, and the patient remains on Rocephin. Reevaluated today on 03/09/2018, she is presently an overflow from selective, remains on diuretics, continues to diurese, and she continues to remain in negative fluid balance. Patient is at least 9 L negative fluid balance since admission. Clinically the patient continues to improve, but she remains on 7 L on High flow. Chest x-ray is showing improvement, and today I recommended an ultrasound of the chest to evaluate the pocket of fluid in the right lung base. All labs were reviewed, BUN is 28 creatinine 0.96. CBC is relatively normal. And chest x-ray as noted above. Patient was reevaluated today on 03/10/2018, feeling better, breathing easier, she is down to 5 L nasal cannula. O2 saturation is in the high 80s and low 90s. Her chest x-ray is showing improvement. Her ultrasound of the chest showed a small pocket about 4 cm in size in the right pleural space, I felt that risks outweigh the benefits, hence I do not plan to do thoracentesis. However I was able to switch her IV Lasix to oral Lasix, The patient on Aldactone and Diamox, and I plan to consult physical therapy, ambulate the patient, and we are getting close to start considering discharge planning in the next 24-48 hours. Clinically the patient is feeling better, and she is asking to be discharged home as soon as possible. But considering her cardiac condition and her pulmonary hypertension as well as the fact that the patient goes easily into biventricular heart failure, I'm still reluctant to consider discharging the patient home soon yet. Objective - Vital Signs Vital signs: Vital Signs Temp 98.5 F 03/10/18 09:00 Pulse 76 03/10/18 09:13 Resp 24 03/10/18 09:00 BP 103/60 03/10/18 09:00 Pulse Ox 92 L 03/10/18 09:02 Intake & Output 03/09/18 03/10/18 03/10/18 18:59 06:59 18:59 Intake Total 1320 500 50 Output Total 2525 1150 350 Balance -1205 -650 -300 Weight 94.8 kg 92.9 kg Intake: IV 100 50 cefTRIAXone 1,000 mg In 100 50 Sodium Chloride 0.9% 50 ml @ 100 mls/hr IVPB Q24HR [facility] Rx#:[id number] Oral 1220 500 Output: Urine 2525 1150 350 Other: Voiding Method Indwelling Catheter Indwelling Catheter Indwelling Catheter # Bowel Movements 0 0 - Exam Physical Exam: Revealed a 67-year-old female on 5 L nasal cannula. Head: Atraumatic, normocephalic. HEENT:[Neck is supple.] [No neck masses.] [No thyromegaly.] [No JVD.] No carotid bruits, no stridor. Chest: [Diminished breath sounds at the bases with dullness at the right base, no rhonchi and no wheezes.. Cardiac Exam: [Normal S1 and S2, no S3 gallop, 3/6 systolic murmur thought the precordium..] Abdomen: [Soft, nontender, no megaly, no rebound, no guarding, normal bowel sounds. Suspect minimal ascites.] Extremities: [No clubbing, negative edema, no cyanosis.] Neurological Exam: [No focal neurologic deficit. Skin: No rashes. Chronic venous stasis changes noted in the lower extremities. Psychiatric: Normal mood, affect and mental status examination. - Labs CBC & Chem 7: 03/10/18 04:58 03/10/18 04:58 Labs: Abnormal Lab Results - Last 24 Hours (Table) 03/09/18 03/09/18 03/09/18 Range/Units 11:42 16:53 20:23 RBC (3.80-5.40) m/uL Hgb (11.4-16.0) gm/dL MCV (80.0-100.0) fL MCH (25.0-35.0) pg MCHC (31.0-37.0) g/dL RDW (11.5-15.5) % Plt Count (150-450) k/uL Lymphocytes # (1.0-4.8) k/uL Carbon Dioxide (22-30) mmol/L BUN (7-17) mg/dL Glucose (74-99) mg/dL POC Glucose (mg/dL) 136 H 159 H 147 H (75-99) mg/dL Magnesium (1.6-2.3) mg/dL 03/10/18 03/10/18 03/10/18 Range/Units 04:58 04:58 06:33 RBC 5.96 H (3.80-5.40) m/uL Hgb 10.2 L (11.4-16.0) gm/dL MCV 69.5 L (80.0-100.0) fL MCH 17.2 L (25.0-35.0) pg MCHC 24.7 L (31.0-37.0) g/dL RDW 20.8 H (11.5-15.5) % Plt Count 141 L (150-450) k/uL Lymphocytes # 0.4 L (1.0-4.8) k/uL Carbon Dioxide 36 H (22-30) mmol/L BUN 30 H (7-17) mg/dL Glucose 111 H (74-99) mg/dL POC Glucose (mg/dL) 122 H (75-99) mg/dL Magnesium 2.4 H (1.6-2.3) mg/dL Microbiology - Last 24 Hours (Table) 03/04/18 19:38 Blood Culture - Preliminary Blood No Growth after 120 hours 03/04/18 19:55 Blood Culture - Preliminary Blood No Growth after 120 hours Assessment and Plan Assessment: Impression: 1 acute on chronic biventricular congestive heart failure secondary to severe pulmonary hypertension. 2 history of tricuspid regurgitation, 3 nonischemic cardiomyopathy and LV dysfunction., 4 severe COPD, on bronchodilators, will switch Solu-Medrol to prednisone. 5 acute on chronic hypoxic respiratory failure secondary to COPD, congestive heart failure, and pulmonary hypertension. 6 acute metabolic alkalosis most likely secondary to diuretics, and compensation related to her underlying COPD. remains on multiple bronchodilators for COPD 7 mssa tracheobronchitis, strongly doubt pneumonia. Remains on Rocephin. 8 small right-sided pleural effusion, not large enough to consider thoracentesis , risks outweigh benefits Recommendation: Switch most of the medications to oral form, consult physical therapy, ambulate the patient, she is presently an overflow from selective, continue oxygen at 5 L, patient already has oxygen at home, and at this point we are doing better, most likely will consider discharge planning in the next 24 -48 hours. Patient continues to have very complex medical issues, and her prognosis is definitely guarded chances of readmission is extremely high. We' ll continue to follow closely. Today I will switch the Solu-Medrol to prednisone, and I already switched Lasix to oral form 40 mg by mouth daily. Her Diamox his oral and her Aldactone is oral. Will follow closely. Time with Patient: Less than 30
[2018-03-10 11:57] LABS: Glucose,Whole Blood 117 mg/dL (75-99)
[2018-03-10] MEDS: predniSONE 20 MG TAB PO SCH (12:52)
[2018-03-10 17:13] LABS: Glucose,Whole Blood 121 mg/dL (75-99)
--- NOTE | 2018-03-10 20:23 | PN ---
PROGRESS NOTE DATE OF SERVICE: 03/10/2018 This 67-year-old woman was admitted with respiratory failure with CHF acute exacerbation, COPD is improving significantly. No chest pain. No palpitations. No fever. The pleural effusion is not significant. Dr. Dillon is deferring any attempt at aspiration at this time. No chest pain. No palpitations. No fever. EXAM: Alert and oriented x3. Pulse is 75, blood pressure 106/64, respiratory rate 17, temperature 97.2, pulse ox 91 percent on 7 L. HEENT: Conjunctivae normal. NECK: No jugular venous distention. CARDIOVASCULAR: S1, S2. RESPIRATORY: Breath sounds diminished in the bases. A few scattered rhonchi and crackles. ABDOMEN is soft, nontender. LEGS are no edema, no swelling. CENTRAL NERVOUS SYSTEM: No focal deficits. LABS: WBC 6.3, hemoglobin is 10.2, sodium 140, potassium 4.1. ASSESSMENT: 1. Acute hypoxic hypercarbic respiratory failure possibly secondary to congestive heart failure acute exacerbation as well as chronic obstructive pulmonary disease acute exacerbation. 2. Sputum showing MSSA. 3. Right pleural effusion, improved. 4. Acute bibasilar bronchopneumonia possibly gram-negative. 5. History of congestive heart failure. 6. Gastroesophageal reflux disease. 7. History of pulmonary hypertension. 8. History of degenerative joint disease. 9. History of continued ongoing nicotine dependence. 10.Hypercarbia. 11.Increased creatinine with mild acute renal failure. 12.Anemia, normocytic, undetermined etiology. 13.FULL CODE. RECOMMENDATIONS AND DISCUSSION: I recommend to continue current medications, management and symptomatic. Continue with bronchodilators. Continue with antibiotics. Continue with p.o. steroids. Guarded prognosis because of multiple complex medical issues. Further recommendations to follow. MMODL / IJN: [id number] /
[2018-03-10 21:41] LABS: Glucose,Whole Blood 149 mg/dL (75-99)
[2018-03-10] MEDS: IBUPROFEN 400 MG TAB PO SCH (21:43)
[2018-03-11] MEDS: IPRATROPIUM-ALBUTEROL 3 ML NEB INHALATION SCH ×6 (00:38→20:00)
[2018-03-11 06:06] LABS: Anisocytosis Moderate; Basophils % (A) 0 %; Eosinophils % (A) 0 %; HCT 40.5 % (34.0-46.0); Hypochromasia Marked; Lymphocytes # (A) 0.8 k/uL (1.0-4.8); Lymphocytes % (A) 11 %; MCH 17.4 pg (25.0-35.0); MCHC 24.6 g/dL (31.0-37.0); MCV 70.8 fL (80.0-100.0); Mean Platelet Volume 9.1; Microcytosis Marked; Monocytes # (A) 0.4 k/uL (0-1.0); Monocytes % (A) 6 %; Neutrophils # (A) 5.8 k/uL (1.3-7.7); Neutrophils % (A) 82 %; Platelet Count 123 k/uL (150-450); Poikilocytosis Slight; RBC 5.72 m/uL (3.80-5.40); RDW 20.9 % (11.5-15.5); WBC 7.1 k/uL (3.8-10.6)
[2018-03-11 06:35] LABS: Calcium 9.1 mg/dL (8.4-10.2); Magnesium 2.5 mg/dL (1.6-2.3); Phosphorus 3.5 mg/dL (2.5-4.5); Potassium 4.4 mmol/L (3.5-5.1)
[2018-03-11 06:43] LABS: Target Cells Present
--- NOTE | 2018-03-11 06:52 | XR ---
EXAMINATION TYPE: XR chest 1V portable DATE OF EXAM: 03/11/2018 HISTORY: SOB. REFERENCE: Previous study dated 03/10/2018. FINDINGS: The study is moderately rotated. The heart is enlarged. There are bilateral effusions, larger on the right than the left. The right-si ded effusion has increased. There is associated bibasilar airspace disease, worse on the right than t he left. IMPRESSION: 1. CARDIOMEGALY. 2. WORSENING BIBASILAR AIRSPACE DISEASE GREATER ON THE RIGHT THAN THE LEFT. 3. BILATERAL EFFUSIONS, GREATER ON THE RIGHT THAN THE LEFT.
[2018-03-11 07:00] LABS: Glucose,Whole Blood 87 mg/dL (75-99)
[2018-03-11] MEDS: INSULIN ASPART 100 UNIT/ML 1 ML 10 ML VIAL SQ SCH ×4 (07:14→21:46)
[2018-03-11] MEDS: SYMBICORT 160-4.5 MCG INHALER INHALATION SCH ×2 (07:47→20:00)
[2018-03-11] MEDS: SPIRONOLACTONE 25 MG TAB PO SCH (08:17)
[2018-03-11] MEDS: ENOXAPARIN 40 MG/0.4 ML SYRINGE SQ SCH (08:17)
[2018-03-11] MEDS: predniSONE 20 MG TAB PO SCH (08:17)
[2018-03-11] MEDS: CHOLECALCIFEROL 1,000 UNIT TAB PO SCH (08:17)
[2018-03-11] MEDS: PARoxetine 10 MG TAB PO SCH ×2 (08:17→21:46)
[2018-03-11] MEDS: NICOTINE 14MG/24HR PATCH TRANSDERM SCH (08:17)
[2018-03-11] MEDS: PANTOPRAZOLE 40 MG TABLET PO SCH (08:17)
[2018-03-11] MEDS: acetaZOLAMIDE 250 MG TAB PO SCH ×2 (08:18→21:45)
[2018-03-11] MEDS: DILTIAZEM ORAL 30 MG TAB PO SCH ×3 (08:18→21:44)
[2018-03-11] MEDS: FUROSEMIDE 40 MG TAB PO SCH (08:18)
[2018-03-11] MEDS: ALPRAZolam 0.5 MG TAB PO SCH ×3 (08:18→21:45)
[2018-03-11] MEDS: SILDENAFIL 20 MG TAB PO SCH ×3 (08:19→21:46)
[2018-03-11 11:57] LABS: Glucose,Whole Blood 113 mg/dL (75-99)
--- NOTE | 2018-03-11 13:33 | P.PN ---
Subjective Progress Note Date: 03/11/18 Principal diagnosis: Acute on chronic biventricular heart failure. This is a 67-year-old female with history of severe pulmonary hypertension, valvular heart disease, obstructive sleep apnea syndrome, COPD, patient presented to the ER yesterday with almost 1 week history of fluid retention and worsening shortness of breath. No headache no blurred vision no dizziness, no chest pain, no palpitations. Patient has been compliant with her cardiac meds including diuretics for previous history of congestive heart failure which is basically chronic in nature. Patient was evaluated in the ER, and she was noted to have biventricular congestive heart failure including pulmonary edema, and significant findings of cor pulmonale. Patient was noted to have ascites, bipedal edema, and pulmonary edema with bilateral pleural effusions. Admitted, started on diuretics, and now she is on Lasix at 40 mg IV push every 8 hours, she is also on Aldactone which was added by cardiology. Presently the patient is feeling a bit better, however she remains on high flow nasal cannula at 15 L/ m. Denies any headaches, no blurred vision, no dizziness, no chest pain, no nausea no vomiting no abdominal pain no melena no hematemesis is no dysuria and no frequency no urgency. Patient was reevaluated today on 03/06/2018, patient remains in the ICU, she is about 5 L negative fluid balance over the last 2 days. Hence I cut down on the Lasix dose from 40 mg every 8 hours to 40 mg every 12 hours, and I kept her on Aldactone. Patient is feeling better, however she remains on a high flow oxygen with high FiO2, she is on Airvo 80%, and 65 L/m flow. O2 saturation is running in the range of 93%. And FiO2 is being titrated down. Clinically the patient is feeling better, less shortness of breath, no cough no wheezing no chest pain, no palpitations, and the swelling in her lower extremities is significantly improved and responding well to diuretics. Chest x-ray is showing some improvement in her CHF. Her CBC is relatively normal renal profile is showing slight elevation of the creatinine up to 1.2 and the Lasix dose was changed Patient was reevaluated today on 03/07/2018, remains in the ICU, remains on multiple diuretics, remains in a negative fluid balance, about 7 L over the last 3 days. Her chest x-ray continues to show some evidence of pulmonary edema , remains on high FiO2, and we are titrating the oxygen down. Overall clinically the patient is feeling better, but her congestive heart failure is not completely resolved. Patient again has severe pulmonary hypertension and biventricular heart failure. Today I have recommended that we cut down the Lasix to 40 mg daily, I cut down her Aldactone and I added Diamox 250 mg IV push twice a day since she is developing a picture of metabolic alkalosis. Chest x-ray was reviewed and discussed with the patient. Labs were also reviewed, she has relatively normal CBC except for low hemoglobin of 10.1. Electrolytes are normal however her bicarb is 43 BUN is 39 and creatinine 0.99. Pulmonary-arguello the patient continues to have some shortness of breath with any activity. Swelling in the lower extremities is significantly improved. Reevaluated today on 03/08/2018 , patient remains in the ICU, however I plan to transfer the patient out of the ICU today to a monitor bed on selective. Remains on multiple diuretics including Aldactone, Diamox, and Lasix. Remains in negative fluid balance, she was negative about 1 L over the last 24 hours. She is almost negative about 8 L in the last 3 days. Overall the patient continues to do well, however she still requiring high FiO2, remains on 50% and 60 L/m flow. I will likely change the patient to a high flow nasal cannula today from [employer]. Chest x-ray continues to show mild congestive heart failure and bilateral pleural effusions right more so than left. The swelling in her abdominal wall and the swelling in her legs is significantly improved. Her labs were reviewed, and she had a relatively normal CBC. Her electrolytes were noted potassium is 3.1 bicarb is 42 BUN is 32 creatinine is 1.02. Medications were all reviewed, remains on diuretics, bronchodilators, antibiotics, and cardiac meds I would however cut down the methylprednisolone today, it will be changed to 40 mg IV push every 8 hours, eventually switch her to prednisone. Her sputum was noted to be positive for MSSA, and the patient remains on Rocephin. Reevaluated today on 03/09/2018, she is presently an overflow from selective, remains on diuretics, continues to diurese, and she continues to remain in negative fluid balance. Patient is at least 9 L negative fluid balance since admission. Clinically the patient continues to improve, but she remains on 7 L on High flow. Chest x-ray is showing improvement, and today I recommended an ultrasound of the chest to evaluate the pocket of fluid in the right lung base. All labs were reviewed, BUN is 28 creatinine 0.96. CBC is relatively normal. And chest x-ray as noted above. Patient was reevaluated today on 03/10/2018, feeling better, breathing easier, she is down to 5 L nasal cannula. O2 saturation is in the high 80s and low 90s. Her chest x-ray is showing improvement. Her ultrasound of the chest showed a small pocket about 4 cm in size in the right pleural space, I felt that risks outweigh the benefits, hence I do not plan to do thoracentesis. However I was able to switch her IV Lasix to oral Lasix, The patient on Aldactone and Diamox, and I plan to consult physical therapy, ambulate the patient, and we are getting close to start considering discharge planning in the next 24-48 hours. Clinically the patient is feeling better, and she is asking to be discharged home as soon as possible. But considering her cardiac condition and her pulmonary hypertension as well as the fact that the patient goes easily into biventricular heart failure, I'm still reluctant to consider discharging the patient home soon yet. Reevaluated today on 03/11/2018, patient remains as overflow in the ICU, waiting for a monitor bed on selective. Most of her meds were switched to oral medication yesterday, patient continues to do well, continues to respond well to diuretics, and we are able to cut down her FiO2 to 3 L via nasal cannula, and saturating well. Chest x-ray continues to show a small right-sided pleural effusion felt on ultrasound to be small and did not require thoracentesis. Overall the patient has made a significant improvement over the last 1 week. Hardly any cough, no wheezing, no shortness of breath at rest, she does have chronic dyspnea on exertion. CBC is relatively normal basic metabolic profile is normal BUN is 32 creatinine is 0.90. Objective - Vital Signs Vital signs: Vital Signs Temp 98.3 F 03/11/18 08:00 Pulse 80 03/11/18 11:55 Resp 21 03/11/18 08:00 BP 106/60 03/11/18 08:00 Pulse Ox 93 L 03/11/18 08:00 Intake & Output 03/10/18 03/11/18 03/11/18 18:59 06:59 18:59 Intake Total 540 500 290 Output Total 1225 625 450 Balance -685 -125 -160 Weight 94 kg Intake: IV 50 50 cefTRIAXone 1,000 mg In 50 50 Sodium Chloride 0.9% 50 ml @ 100 mls/hr IVPB Q24HR [facility] Rx#:[id number] Oral 490 500 240 Output: Urine 1225 625 450 Other: Voiding Method Indwelling Catheter Indwelling Catheter Indwelling Catheter # Bowel Movements 0 0 - Exam Physical Exam: Revealed a 67-year-old female on 3 L nasal cannula Head: Atraumatic, normocephalic. HEENT:[Neck is supple.] [No neck masses.] [No thyromegaly.] [No JVD.] No carotid bruits, no stridor. Chest: [Clear breath sound bilaterally no crackles or rhonchi or wheezes. Cardiac Exam: [Normal S1 and S2, no S3 gallop, 3/6 systolic murmur thought the precordium..] Abdomen: [Soft, nontender, no megaly, no rebound, no guarding, normal bowel sounds. Suspect minimal ascites.] Extremities: [No clubbing, negative edema, no cyanosis.] Neurological Exam: [No focal neurologic deficit. Skin: No rashes. Chronic venous stasis changes noted in the lower extremities. Psychiatric: Normal mood, affect and mental status examination. - Labs CBC & Chem 7: 03/11/18 04:50 03/11/18 04:50 Labs: Abnormal Lab Results - Last 24 Hours (Table) 03/10/18 03/10/18 03/11/18 Range/Units 17:11 21:39 04:50 RBC 5.72 H (3.80-5.40) m/uL Hgb 10.0 L (11.4-16.0) gm/dL MCV 70.8 L (80.0-100.0) fL MCH 17.4 L (25.0-35.0) pg MCHC 24.6 L (31.0-37.0) g/dL RDW 20.9 H (11.5-15.5) % Plt Count 123 L (150-450) k/uL Lymphocytes # 0.8 L (1.0-4.8) k/uL Chloride (98-107) mmol/L Carbon Dioxide (22-30) mmol/L BUN (7-17) mg/dL Glucose (74-99) mg/dL POC Glucose (mg/dL) 121 H 149 H (75-99) mg/dL Magnesium (1.6-2.3) mg/dL 03/11/18 03/11/18 Range/Units 04:50 11:55 RBC (3.80-5.40) m/uL Hgb (11.4-16.0) gm/dL MCV (80.0-100.0) fL MCH (25.0-35.0) pg MCHC (31.0-37.0) g/dL RDW (11.5-15.5) % Plt Count (150-450) k/uL Lymphocytes # (1.0-4.8) k/uL Chloride 108 H (98-107) mmol/L Carbon Dioxide 31 H (22-30) mmol/L BUN 32 H (7-17) mg/dL Glucose 103 H (74-99) mg/dL POC Glucose (mg/dL) 113 H (75-99) mg/dL Magnesium 2.5 H (1.6-2.3) mg/dL Microbiology - Last 24 Hours (Table) 03/04/18 19:38 Blood Culture - Final Blood No Growth after 144 hours 03/04/18 19:55 Blood Culture - Final Blood No Growth after 144 hours Assessment and Plan Assessment: Impression: 1 acute on chronic biventricular congestive heart failure secondary to severe pulmonary hypertension. 2 history of tricuspid regurgitation, 3 nonischemic cardiomyopathy and LV dysfunction., 4 severe COPD, on bronchodilators, will switch Solu-Medrol to prednisone. 5 acute on chronic hypoxic respiratory failure secondary to COPD, congestive heart failure, and pulmonary hypertension. 6 acute metabolic alkalosis most likely secondary to diuretics, and compensation related to her underlying COPD. remains on multiple bronchodilators for COPD 7 mssa tracheobronchitis, strongly doubt pneumonia. Remains on Rocephin. 8 small right-sided pleural effusion, not large enough to consider thoracentesis , risks outweigh benefits Recommendation: Continue present meds including all her diuretics, continue cardiac meds, continue prednisone, continue bronchodilators, continue rivatio, and if the patient continues to do well over the next 24 hours, likely consider discharge planning and follow-up on outpatient basis. Again her medical problems are very complex, and her prognosis is definitely extremely poor and guarded in the long run. Time with Patient: Less than 30
[2018-03-11 17:08] LABS: Glucose,Whole Blood 138 mg/dL (75-99)
--- NOTE | 2018-03-11 19:22 | PN ---
PROGRESS NOTE DATE OF SERVICE: 03/11/2018 This 67-year-old woman was admitted with acute hypoxic hypercarbic respiratory failure secondary to congestive heart failure acute exacerbation as well as chronic obstructive pulmonary disease acute exacerbation is being closely monitored. No chest pain. No palpitations. No fever. EXAM: Alert and oriented x3. Pulse 84, blood pressure 111/57, respiration 26, temperature 98.2, pulse ox 88 percent on 3 L. HEENT: Conjunctivae normal. NECK: No jugular venous distention. CARDIOVASCULAR: S1, S2 muffled. RESPIRATORY: Breath sounds diminished in the bases. Bilateral scattered rhonchi and crackles. ABDOMEN is soft, nontender. LEGS: No edema, no swelling. CENTRAL NERVOUS SYSTEM: No focal deficits. LABS: WBC 7.2, hemoglobin is 10, sodium 142, potassium 4.4, glucose 113. ASSESSMENT: 1. Acute hypoxic hypercarbic respiratory failure possibly secondary to congestive heart failure acute exacerbation as well as chronic obstructive pulmonary disease acute exacerbation. 2. Congestive heart failure acute exacerbation with sputum showing MSSA. 3. Right pleural effusion, improved. 4. Acute bibasilar bronchopneumonia possibly gram-negative. 5. History of congestive heart failure. 6. Gastroesophageal reflux disease. 7. History of pulmonary hypertension. 8. History of degenerative joint disease. 9. History of continued ongoing nicotine dependence. 10.History of hypercarbia. 11.Increased creatinine with mild acute renal failure. 12.Anemia, normocytic anemia of undetermined etiology. 13.FULL CODE. RECOMMENDATIONS AND DISCUSSION: Recommend to continue current medications, management and symptomatic treatment. Otherwise, at this time, I recommend continue with IV antibiotics. Otherwise, I would also recommend a 2D echo to evaluate the LV function. Other than that, we will continue to monitor. Evaluate the most recent LV function. Continue with Lasix. Continue with bronchodilators. The patient is still mildly hypoxic and we will continue the rest of medications. Prognosis guarded. Further recommendations to follow. MMODL / IJN: [id number] /
[2018-03-11 20:46] LABS: Glucose,Whole Blood 109 mg/dL (75-99)
[2018-03-11] MEDS: IBUPROFEN 400 MG TAB PO SCH (21:45)
[2018-03-12] MEDS: IPRATROPIUM-ALBUTEROL 3 ML NEB INHALATION SCH ×7 (00:07→23:33)
[2018-03-12] MEDS: METOPROLOL TARTRATE 25 MG TAB PO SCH ×3 (03:59→20:27)
[2018-03-12 04:01] LABS: Calcium 8.6 mg/dL (8.4-10.2); Magnesium 2.3 mg/dL (1.6-2.3)
[2018-03-12 04:06] LABS: Anisocytosis Moderate; HCT 38.2 % (34.0-46.0); Hypochromasia Marked; MCHC 26.2 g/dL (31.0-37.0); MCV 68.7 fL (80.0-100.0); Mean Platelet Volume 10.7; Microcytosis Marked; Platelet Count 124 k/uL (150-450); Poikilocytosis Slight; RBC 5.57 m/uL (3.80-5.40); RDW 20.9 % (11.5-15.5); WBC 8.1 k/uL (3.8-10.6)
[2018-03-12 04:29] LABS: Eosinophils # (M) 0.16 k/uL (0-0.7); Lymphocytes # (M) 0.81 k/uL (1.0-4.8); Monocytes # (M) 0.16 k/uL (0-1.0); Neutrophils # (M) 6.97 k/uL (1.3-7.7); Neutrophils % (M) 86 %; Nucleated Red Blood Cells 0 /100 WBC (0-0); Total Cells Counted 100
[2018-03-12] MEDS: DILTIAZEM ORAL 30 MG TAB PO SCH ×3 (04:47→23:54)
[2018-03-12 05:10] LABS: Potassium 4.3 mmol/L (3.5-5.1)
[2018-03-12 07:08] LABS: Glucose,Whole Blood 94 mg/dL (75-99)
[2018-03-12] MEDS: INSULIN ASPART 100 UNIT/ML 1 ML 10 ML VIAL SQ SCH ×4 (07:12→20:27)
[2018-03-12] MEDS: NICOTINE 14MG/24HR PATCH TRANSDERM SCH (08:14)
[2018-03-12] MEDS: ALPRAZolam 0.5 MG TAB PO SCH ×2 (08:14→16:39)
[2018-03-12] MEDS: ENOXAPARIN 40 MG/0.4 ML SYRINGE SQ SCH (08:14)
[2018-03-12] MEDS: CHOLECALCIFEROL 1,000 UNIT TAB PO SCH (08:14)
[2018-03-12] MEDS: predniSONE 20 MG TAB PO SCH (08:15)
[2018-03-12] MEDS: PARoxetine 10 MG TAB PO SCH ×2 (08:15→20:28)
[2018-03-12] MEDS: PANTOPRAZOLE 40 MG TABLET PO SCH (08:15)
[2018-03-12] MEDS: SPIRONOLACTONE 25 MG TAB PO SCH (08:15)
[2018-03-12] MEDS: acetaZOLAMIDE 250 MG TAB PO SCH ×2 (08:15→20:28)
[2018-03-12] MEDS: FUROSEMIDE 40 MG TAB PO SCH (08:15)
[2018-03-12] MEDS: SILDENAFIL 20 MG TAB PO SCH ×2 (08:15→16:39)
[2018-03-12] MEDS: SYMBICORT 160-4.5 MCG INHALER INHALATION SCH ×2 (09:04→19:55)
--- NOTE | 2018-03-12 09:27 | P.PN ---
Subjective Progress Note Date: 03/12/18 Principal diagnosis: Acute on chronic biventricular heart failure This is a 67-year-old female with history of severe pulmonary hypertension, valvular heart disease, obstructive sleep apnea syndrome, COPD, patient presented to the ER yesterday with almost 1 week history of fluid retention and worsening shortness of breath. No headache no blurred vision no dizziness, no chest pain, no palpitations. Patient has been compliant with her cardiac meds including diuretics for previous history of congestive heart failure which is basically chronic in nature. Patient was evaluated in the ER, and she was noted to have biventricular congestive heart failure including pulmonary edema, and significant findings of cor pulmonale. Patient was noted to have ascites, bipedal edema, and pulmonary edema with bilateral pleural effusions. Admitted, started on diuretics, and now she is on Lasix at 40 mg IV push every 8 hours, she is also on Aldactone which was added by cardiology. Presently the patient is feeling a bit better, however she remains on high flow nasal cannula at 15 L/ m. Denies any headaches, no blurred vision, no dizziness, no chest pain, no nausea no vomiting no abdominal pain no melena no hematemesis is no dysuria and no frequency no urgency. Patient was reevaluated today on 03/06/2018, patient remains in the ICU, she is about 5 L negative fluid balance over the last 2 days. Hence I cut down on the Lasix dose from 40 mg every 8 hours to 40 mg every 12 hours, and I kept her on Aldactone. Patient is feeling better, however she remains on a high flow oxygen with high FiO2, she is on Airvo 80%, and 65 L/m flow. O2 saturation is running in the range of 93%. And FiO2 is being titrated down. Clinically the patient is feeling better, less shortness of breath, no cough no wheezing no chest pain, no palpitations, and the swelling in her lower extremities is significantly improved and responding well to diuretics. Chest x-ray is showing some improvement in her CHF. Her CBC is relatively normal renal profile is showing slight elevation of the creatinine up to 1.2 and the Lasix dose was changed Patient was reevaluated today on 03/07/2018, remains in the ICU, remains on multiple diuretics, remains in a negative fluid balance, about 7 L over the last 3 days. Her chest x-ray continues to show some evidence of pulmonary edema , remains on high FiO2, and we are titrating the oxygen down. Overall clinically the patient is feeling better, but her congestive heart failure is not completely resolved. Patient again has severe pulmonary hypertension and biventricular heart failure. Today I have recommended that we cut down the Lasix to 40 mg daily, I cut down her Aldactone and I added Diamox 250 mg IV push twice a day since she is developing a picture of metabolic alkalosis. Chest x-ray was reviewed and discussed with the patient. Labs were also reviewed, she has relatively normal CBC except for low hemoglobin of 10.1. Electrolytes are normal however her bicarb is 43 BUN is 39 and creatinine 0.99. Pulmonary-arguello the patient continues to have some shortness of breath with any activity. Swelling in the lower extremities is significantly improved. Reevaluated today on 03/08/2018 , patient remains in the ICU, however I plan to transfer the patient out of the ICU today to a monitor bed on selective. Remains on multiple diuretics including Aldactone, Diamox, and Lasix. Remains in negative fluid balance, she was negative about 1 L over the last 24 hours. She is almost negative about 8 L in the last 3 days. Overall the patient continues to do well, however she still requiring high FiO2, remains on 50% and 60 L/m flow. I will likely change the patient to a high flow nasal cannula today from [employer]. Chest x-ray continues to show mild congestive heart failure and bilateral pleural effusions right more so than left. The swelling in her abdominal wall and the swelling in her legs is significantly improved. Her labs were reviewed, and she had a relatively normal CBC. Her electrolytes were noted potassium is 3.1 bicarb is 42 BUN is 32 creatinine is 1.02. Medications were all reviewed, remains on diuretics, bronchodilators, antibiotics, and cardiac meds I would however cut down the methylprednisolone today, it will be changed to 40 mg IV push every 8 hours, eventually switch her to prednisone. Her sputum was noted to be positive for MSSA, and the patient remains on Rocephin. Reevaluated today on 03/09/2018, she is presently an overflow from selective, remains on diuretics, continues to diurese, and she continues to remain in negative fluid balance. Patient is at least 9 L negative fluid balance since admission. Clinically the patient continues to improve, but she remains on 7 L on High flow. Chest x-ray is showing improvement, and today I recommended an ultrasound of the chest to evaluate the pocket of fluid in the right lung base. All labs were reviewed, BUN is 28 creatinine 0.96. CBC is relatively normal. And chest x-ray as noted above. Patient was reevaluated today on 03/10/2018, feeling better, breathing easier, she is down to 5 L nasal cannula. O2 saturation is in the high 80s and low 90s. Her chest x-ray is showing improvement. Her ultrasound of the chest showed a small pocket about 4 cm in size in the right pleural space, I felt that risks outweigh the benefits, hence I do not plan to do thoracentesis. However I was able to switch her IV Lasix to oral Lasix, The patient on Aldactone and Diamox, and I plan to consult physical therapy, ambulate the patient, and we are getting close to start considering discharge planning in the next 24-48 hours. Clinically the patient is feeling better, and she is asking to be discharged home as soon as possible. But considering her cardiac condition and her pulmonary hypertension as well as the fact that the patient goes easily into biventricular heart failure, I'm still reluctant to consider discharging the patient home soon yet. Reevaluated today on 03/11/2018, patient remains as overflow in the ICU, waiting for a monitor bed on selective. Most of her meds were switched to oral medication yesterday, patient continues to do well, continues to respond well to diuretics, and we are able to cut down her FiO2 to 3 L via nasal cannula, and saturating well. Chest x-ray continues to show a small right-sided pleural effusion felt on ultrasound to be small and did not require thoracentesis. Overall the patient has made a significant improvement over the last 1 week. Hardly any cough, no wheezing, no shortness of breath at rest, she does have chronic dyspnea on exertion. CBC is relatively normal basic metabolic profile is normal BUN is 32 creatinine is 0.90. On 03/12/2018 patient seen in follow-up in the intensive care unit, she is awake and alert, oriented 3, this morning patient went into A. fib with RVR with a rate of 150 BPM, she was started on oral Lopressor and Cardizem. Currently remains in A. fib, and the rate is better controlled, currently at 109 BPM, patient also became hypotensive with a systolic in the 70s, although she remained clinically asymptomatic. Currently blood pressure is 89/54, she is on 4 L per nasal cannula and her pulse ox is 95%. Afebrile. Yesterday's chest x-ray was reviewed with Dr. Malcolm, cardiomegaly, worsening bibasilar airspace disease greater on the right than the left, and bilateral pleural effusions greater on the right than the left. These labs have been reviewed, showed WBC of 8.1, hemoglobin of 10.0, sodium is 140, potassium is 4.3, chloride is 104, CO2 is 33, BUN was 33 and creatinine was 0.86. Sputum culture from a March 05 was positive for Staphylococcus aureus, and current antibiotic includes Rocephin, no fever no chills. Lung sounds are diminished breath sounds at the bases, particularly on the right. He 0.9 normal saline at a rate of 10 ML per hour. Patient has been an overflow for selective care unit , but will be upgraded to ICU in view of retention, A. fib RVR 's morning. She is in -485 ML fluid balance over the last 24 hours. Oral Lasix of 40 mg daily. Objective - Vital Signs Vital signs: Vital Signs Temp 98.2 F 03/12/18 08:00 Pulse 87 03/12/18 09:13 Resp 19 03/12/18 08:00 BP 89/54 03/12/18 08:00 Pulse Ox 95 03/12/18 08:00 Intake & Output 03/11/18 03/12/18 03/12/18 18:59 06:59 18:59 Intake Total 770 1250 240 Output Total 1880 625 180 Balance -1110 625 60 Weight 93 kg Intake: IV 50 cefTRIAXone 1,000 mg In 50 Sodium Chloride 0.9% 50 ml @ 100 mls/hr IVPB Q24HR [facility] Rx#:[id number] Oral 720 1250 240 Output: Urine 1880 625 180 Other: Voiding Method Indwelling Catheter Indwelling Catheter # Bowel Movements 0 0 - Exam GENERAL EXAM: Alert, pleasant, 67-year-old white female on 4 L per nasal cannula , comfortable in no apparent distress. HEAD: Normocephalic/atraumatic. EYES: Normal reaction of pupils, equal size. Conjunctiva pink, sclera white. NOSE: Clear with pink turbinates. THROAT: No erythema or exudates. NECK: No masses, no JVD, no thyroid enlargement, no adenopathy. CHEST: No chest wall deformity. Symmetrical expansion. LUNGS: Equal air entry with diminished breath sounds at the bases, greater on the right CVS: Regular rate and rhythm, normal S1 and S2, no gallops, no murmurs, no rubs ABDOMEN: Soft, nontender. No hepatosplenomegaly, normal bowel sounds, no guarding or rigidity. EXTREMITIES: No clubbing, no edema, no cyanosis, 2+ pulses and upper and lower extremities. MUSCULOSKELETAL: Muscle strength and tone normal. SPINE: No scoliosis or deformity SKIN: No rashes CENTRAL NERVOUS SYSTEM: Alert and oriented -3. No focal deficits, tone is normal in all 4 extremities. PSYCHIATRIC: Alert and oriented -3. Appropriate affect. Intact judgment and insight. - Labs CBC & Chem 7: 03/12/18 03:36 03/12/18 03:36 Labs: Abnormal Lab Results - Last 24 Hours (Table) 03/11/18 03/11/18 03/11/18 Range/Units 11:55 17:05 20:45 RBC (3.80-5.40) m/uL Hgb (11.4-16.0) gm/dL MCV (80.0-100.0) fL MCH (25.0-35.0) pg MCHC (31.0-37.0) g/dL RDW (11.5-15.5) % Plt Count (150-450) k/uL Lymphocytes # (Manual) (1.0-4.8) k/uL Carbon Dioxide (22-30) mmol/L BUN (7-17) mg/dL Glucose (74-99) mg/dL POC Glucose (mg/dL) 113 H 138 H 109 H (75-99) mg/dL 03/12/18 03/12/18 Range/Units 03:36 03:36 RBC 5.57 H (3.80-5.40) m/uL Hgb 10.0 L (11.4-16.0) gm/dL MCV 68.7 L (80.0-100.0) fL MCH 18.0 L (25.0-35.0) pg MCHC 26.2 L (31.0-37.0) g/dL RDW 20.9 H (11.5-15.5) % Plt Count 124 L (150-450) k/uL Lymphocytes # (Manual) 0.81 L (1.0-4.8) k/uL Carbon Dioxide 33 H (22-30) mmol/L BUN 33 H (7-17) mg/dL Glucose 73 L (74-99) mg/dL POC Glucose (mg/dL) (75-99) mg/dL Assessment and Plan Plan: Assessment: 1 acute on chronic biventricular congestive heart failure secondary to severe pulmonary hypertension. 2 new onset A. fib RVR 3 history of tricuspid regurgitation, 4 nonischemic cardiomyopathy and LV dysfunction., 5 severe COPD, on bronchodilators, will switch Solu-Medrol to prednisone. 6 acute on chronic hypoxic respiratory failure secondary to COPD, congestive heart failure, and pulmonary hypertension. 7 acute metabolic alkalosis most likely secondary to diuretics, and compensation related to her underlying COPD. remains on multiple bronchodilators for COPD 8 mssa tracheobronchitis, strongly doubt pneumonia. Remains on Rocephin. 9 small right-sided pleural effusion, not large enough to consider thoracentesis , risks outweigh benefits Plan: Patient will remain in the ICU today, in view of new A. fib RVR onset and hypotension. We'll repeat chest x-ray in the morning, continue with oral Lasix. Cardiology is following, and patient's rate is better controlled this morning, continue to oral prednisone and nebulized bronchodilators and Symbicort. We'll continue to closely follow, repeat labs in the morning. Critical care time is over 30 minutes I performed a history & physical examination of the patient and discussed their management with my nurse practitioner, Marlene Yee. I reviewed the nurse practitioner's note and agree with the documented findings and plan of care. Lung sounds are positive for diminished breath sounds at the bases. The findings and the impression was discussed with the patient. I attest to the documentation by the nurse practitioner. Time with Patient: Greater than 30
[2018-03-12 10:34] VITALS: BMI 35.2
[2018-03-12 10:54] LABS: Partial Thromboplastin Time 25.6 sec (22.0-30.0); Prothrombin Time 10.6 sec (9.0-12.0)
[2018-03-12] MEDS: HEPARIN SOD,PORK IN 0.45% NACL 25,000 UNIT in 0.45% NACL 1 250ML.BAG IV SCH (11:16)
[2018-03-12] MEDS: HEPARIN SODIUM,PORCINE 5,000 UNIT/ML 1 ML VIAL IV PRN (11:20)
[2018-03-12 12:18] LABS: Glucose,Whole Blood 112 mg/dL (75-99)
--- NOTE | 2018-03-12 15:07 | PN ---
PROGRESS NOTE Brigette is a 67-year-old lady with history of severe pulmonary hypertension, sleep apnea and COPD, who was admitted to hospital with worsening symptoms of congestive heart failure, primarily right-sided. She has chronic cor pulmonale with chronic severe pulmonary hypertension. This morning she became somewhat hypotensive but is oxygenating well. She also had leg edema and had pulmonary congestion. These things are improving with diuretics. She is hypotensive with a systolic blood pressures in the 70s. The patient normally runs a low blood pressure. Chest exam reveals diminished air entry at the bases. Heart exam reveals first and second heart sounds. An S4 is heard. Abdomen is soft. Exam of the extremities reveals bilateral mild edema. The patient is currently on Cardizem 15 t.i.d., Lopressor 25 b.i.d., and sildenafil. The patient developed atrial fibrillation on this admission. ASSESSMENT: 1. Chronic severe pulmonary hypertension. 2. Chronic right-sided heart failure. 3. New onset atrial fibrillation. PLAN: I will continue the Cardizem and beta blockers. If the blood pressure drops below 70 I will start her on Levophed. I am starting her on intravenous heparin. If she tolerates it well, I will put her on Eliquis 5 b.i.d. We will obtain a 2D echo. MMODL / IJN: [id number] /
--- NOTE | 2018-03-12 15:37 | PN ---
PROGRESS NOTE DATE OF SERVICE: 03/10/2018 This patient's electronic medical records, vital signs as well as the lab tests reviewed. The patient was admitted with a biventricular failure with a predominantly right-sided failure. Patient has underlying severe pulmonary hypertension and right- sided heart failure. Patient has been diuresed and she has improved significantly since admission. Patient is feeling better. She is lying comfortably in the bed without any respiratory distress. Denies any orthopnea or PND. Her oxygen saturation is now is in low 90s. A chest x-ray shows minimal pleural fluid. The patient's blood pressure is 103/60 mmHg, heart rate is 76 per minute, respiratory rate is 24. First and second heart sounds are normal. There is a good air entry on both sides. Electrolytes are normal. Creatinine is 0.98. ASSESSMENT AND TREATMENT PLAN: This patient has evidence of predominantly right-sided heart failure with a severe pulmonary hypertension which is improving. Patient is clinically stable. Continue the current treatment. MMODL / IJN: [id number] /
--- NOTE | 2018-03-12 15:37 | PN ---
PROGRESS NOTE DATE OF SERVICE: 03/11/2018 This patient is seen in the intensive care unit for followup for congestive cardiac failure. Patient's course over the last 24 hours reviewed. The patient has remained stable. She denies any orthopnea, PND or chest pain. She is sitting in a chair. The patient's blood pressure is 100/70 mmHg. First and second heart sounds are normal. Lungs examination revealed a few scattered wheezes. Oxygen saturation is 93%. The patient's creatinine is 0.390 and BUN is 32. IMPRESSION: Biventricular failure, significantly improved. Continue the current medications. Patient will be ready to be discharged pretty soon. MMODL / IJN: [id number] /
[2018-03-12 16:49] LABS: Glucose,Whole Blood 128 mg/dL (75-99)
--- NOTE | 2018-03-12 19:17 | PN ---
PROGRESS NOTE DATE OF SERVICE: 03/12/2018. This 67-year-old woman is admitted shortness with acute respiratory failure is being closely monitored at this time. No chest pain. No palpitations. No fever. EXAM: Alert and oriented x3. Pulse is 108. Blood pressure 88/60, respiration 20, temperature normal, pulse ox 91 percent on 3 L. HEENT: Conjunctivae normal. NECK: No jugular venous distention. CARDIOVASCULAR: S1, S2 muffled. RESPIRATORY: Breath sounds diminished in the bases. A few scattered rhonchi and crackles. Abdomen is soft. Nontender. Nervous system: No focal deficits. LABS: WBC 8, hemoglobin is 10. BUN is 33, creatinine 0.86. ASSESSMENT: 1. Acute hypoxic hypercarbic respiratory failure secondary to congestive heart failure acute exacerbation as well as chronic obstructive pulmonary disease acute exacerbation. 2. Congestive heart failure acute exacerbation. 3. Sputum showing MSSA. 4. Right pleural effusion, improving. 5. Acute bibasilar bronchopneumonia possibly gram-negative. 6. History of congestive heart failure. 7. Gastroesophageal reflux disease. 8. History of pulmonary hypertension. 9. History of degenerative joint disease. 10.History of continued ongoing nicotine dependence. 11.History of hypercarbia. 12.Increased creatinine with mild acute renal failure. 13.Anemia, normocytic anemia, chronic anemia of undetermined etiology. 14.FULL CODE. RECOMMENDATIONS AND DISCUSSION: Recommend to continue current medications, management and symptomatic treatment. Continue with current medications. Continue with diuretics. Patient is on p.o. Lasix at this time. Continue with antibiotics and bronchodilators. The rest of the medications. The patient is on tapering dose of p.o. steroids. Further recommendations to follow. Prognosis guarded. MMODL / IJN: [id number] /
[2018-03-12 20:17] LABS: Glucose,Whole Blood 143 mg/dL (75-99)
[2018-03-12] MEDS: IBUPROFEN 400 MG TAB PO SCH (20:23)
[2018-03-12 21:00] LABS: Glucose,Whole Blood 104 mg/dL (75-99)
[2018-03-13] MEDS: ALPRAZolam 0.5 MG TAB PO SCH ×5 (00:16→22:48)
[2018-03-13] MEDS: SILDENAFIL 20 MG TAB PO SCH ×4 (02:29→22:21)
[2018-03-13] MEDS: IPRATROPIUM-ALBUTEROL 3 ML NEB INHALATION SCH ×5 (03:16→20:36)
[2018-03-13 05:37] LABS: Anisocytosis Moderate; Basophils % (A) 0 %; Eosinophils # (A) 0.2 k/uL (0-0.7); Eosinophils % (A) 3 %; HCT 38.8 % (34.0-46.0); Hypochromasia Marked; Lymphocytes % (A) 15 %; MCH 17.9 pg (25.0-35.0); MCHC 25.7 g/dL (31.0-37.0); MCV 69.8 fL (80.0-100.0); Mean Platelet Volume 10.1; Microcytosis Marked; Monocytes # (A) 0.3 k/uL (0-1.0); Monocytes % (A) 5 %; Neutrophils # (A) 5.1 k/uL (1.3-7.7); Neutrophils % (A) 77 %; Platelet Count 113 k/uL (150-450); Poikilocytosis Slight; RBC 5.56 m/uL (3.80-5.40); WBC 6.6 k/uL (3.8-10.6)
[2018-03-13 05:43] LABS: INR 0.9 (<1.2); Partial Thromboplastin Time 38.4 sec (22.0-30.0); Prothrombin Time 10.2 sec (9.0-12.0)
[2018-03-13 05:53] LABS: Potassium 3.8 mmol/L (3.5-5.1)
[2018-03-13 05:54] LABS: Calcium 8.6 mg/dL (8.4-10.2)
[2018-03-13] MEDS: HEPARIN SODIUM,PORCINE 5,000 UNIT/ML 1 ML VIAL IV PRN (05:56)
[2018-03-13] MEDS ORDERED: POTASSIUM CHLORIDE ER 20 MEQ TAB.ER PO SCH (07:00)
[2018-03-13 07:01] LABS: Glucose,Whole Blood 80 mg/dL (75-99)
[2018-03-13] MEDS: INSULIN ASPART 100 UNIT/ML 1 ML 10 ML VIAL SQ SCH ×4 (07:11→20:32)
[2018-03-13] MEDS: CHOLECALCIFEROL 1,000 UNIT TAB PO SCH (08:28)
[2018-03-13] MEDS: FUROSEMIDE 40 MG TAB PO SCH (08:29)
[2018-03-13] MEDS: PANTOPRAZOLE 40 MG TABLET PO SCH (08:29)
[2018-03-13] MEDS: predniSONE 20 MG TAB PO SCH (08:29)
[2018-03-13] MEDS: NICOTINE 14MG/24HR PATCH TRANSDERM SCH (08:30)
--- NOTE | 2018-03-13 08:30 | XR ---
EXAMINATION TYPE: XR chest 1V portable DATE OF EXAM: 03/13/2018 COMPARISON: 03/11/2018, 03/04/2018 INDICATION: Short of breath TECHNIQUE: Single frontal view of the chest is obtained. FINDINGS: The heart size is enlarged. The pulmonary vasculature is normal. There is a right pleural effusion. Small left pleural effusion is present. These are stable. There is a nodular appearance to the right hilar region. Underlying mass is not excluded. Continued follow-up is recommended. IMPRESSION: 1. Small right and minimal left pleural effusion. 2. There is a 3.6 cm masslike appearance to the right hilar region. Continued follow-up is recommende d. Underlying pulmonary nodule is not excluded. 3. Exam is slightly improved from comparison.
[2018-03-13] MEDS: PARoxetine 10 MG TAB PO SCH ×2 (08:31→20:16)
[2018-03-13] MEDS: acetaZOLAMIDE 250 MG TAB PO SCH ×2 (08:31→20:16)
[2018-03-13] MEDS: METOPROLOL TARTRATE 25 MG TAB PO SCH ×2 (08:36→20:16)
--- NOTE | 2018-03-13 08:53 | P.PN ---
Subjective Progress Note Date: 03/13/18 Principal diagnosis: Acute on chronic biventricular heart failure This is a 67-year-old female with history of severe pulmonary hypertension, valvular heart disease, obstructive sleep apnea syndrome, COPD, patient presented to the ER yesterday with almost 1 week history of fluid retention and worsening shortness of breath. No headache no blurred vision no dizziness, no chest pain, no palpitations. Patient has been compliant with her cardiac meds including diuretics for previous history of congestive heart failure which is basically chronic in nature. Patient was evaluated in the ER, and she was noted to have biventricular congestive heart failure including pulmonary edema, and significant findings of cor pulmonale. Patient was noted to have ascites, bipedal edema, and pulmonary edema with bilateral pleural effusions. Admitted, started on diuretics, and now she is on Lasix at 40 mg IV push every 8 hours, she is also on Aldactone which was added by cardiology. Presently the patient is feeling a bit better, however she remains on high flow nasal cannula at 15 L/ m. Denies any headaches, no blurred vision, no dizziness, no chest pain, no nausea no vomiting no abdominal pain no melena no hematemesis is no dysuria and no frequency no urgency. Patient was reevaluated today on 03/06/2018, patient remains in the ICU, she is about 5 L negative fluid balance over the last 2 days. Hence I cut down on the Lasix dose from 40 mg every 8 hours to 40 mg every 12 hours, and I kept her on Aldactone. Patient is feeling better, however she remains on a high flow oxygen with high FiO2, she is on Airvo 80%, and 65 L/m flow. O2 saturation is running in the range of 93%. And FiO2 is being titrated down. Clinically the patient is feeling better, less shortness of breath, no cough no wheezing no chest pain, no palpitations, and the swelling in her lower extremities is significantly improved and responding well to diuretics. Chest x-ray is showing some improvement in her CHF. Her CBC is relatively normal renal profile is showing slight elevation of the creatinine up to 1.2 and the Lasix dose was changed Patient was reevaluated today on 03/07/2018, remains in the ICU, remains on multiple diuretics, remains in a negative fluid balance, about 7 L over the last 3 days. Her chest x-ray continues to show some evidence of pulmonary edema , remains on high FiO2, and we are titrating the oxygen down. Overall clinically the patient is feeling better, but her congestive heart failure is not completely resolved. Patient again has severe pulmonary hypertension and biventricular heart failure. Today I have recommended that we cut down the Lasix to 40 mg daily, I cut down her Aldactone and I added Diamox 250 mg IV push twice a day since she is developing a picture of metabolic alkalosis. Chest x-ray was reviewed and discussed with the patient. Labs were also reviewed, she has relatively normal CBC except for low hemoglobin of 10.1. Electrolytes are normal however her bicarb is 43 BUN is 39 and creatinine 0.99. Pulmonary-arguello the patient continues to have some shortness of breath with any activity. Swelling in the lower extremities is significantly improved. Reevaluated today on 03/08/2018 , patient remains in the ICU, however I plan to transfer the patient out of the ICU today to a monitor bed on selective. Remains on multiple diuretics including Aldactone, Diamox, and Lasix. Remains in negative fluid balance, she was negative about 1 L over the last 24 hours. She is almost negative about 8 L in the last 3 days. Overall the patient continues to do well, however she still requiring high FiO2, remains on 50% and 60 L/m flow. I will likely change the patient to a high flow nasal cannula today from [employer]. Chest x-ray continues to show mild congestive heart failure and bilateral pleural effusions right more so than left. The swelling in her abdominal wall and the swelling in her legs is significantly improved. Her labs were reviewed, and she had a relatively normal CBC. Her electrolytes were noted potassium is 3.1 bicarb is 42 BUN is 32 creatinine is 1.02. Medications were all reviewed, remains on diuretics, bronchodilators, antibiotics, and cardiac meds I would however cut down the methylprednisolone today, it will be changed to 40 mg IV push every 8 hours, eventually switch her to prednisone. Her sputum was noted to be positive for MSSA, and the patient remains on Rocephin. Reevaluated today on 03/09/2018, she is presently an overflow from selective, remains on diuretics, continues to diurese, and she continues to remain in negative fluid balance. Patient is at least 9 L negative fluid balance since admission. Clinically the patient continues to improve, but she remains on 7 L on High flow. Chest x-ray is showing improvement, and today I recommended an ultrasound of the chest to evaluate the pocket of fluid in the right lung base. All labs were reviewed, BUN is 28 creatinine 0.96. CBC is relatively normal. And chest x-ray as noted above. Patient was reevaluated today on 03/10/2018, feeling better, breathing easier, she is down to 5 L nasal cannula. O2 saturation is in the high 80s and low 90s. Her chest x-ray is showing improvement. Her ultrasound of the chest showed a small pocket about 4 cm in size in the right pleural space, I felt that risks outweigh the benefits, hence I do not plan to do thoracentesis. However I was able to switch her IV Lasix to oral Lasix, The patient on Aldactone and Diamox, and I plan to consult physical therapy, ambulate the patient, and we are getting close to start considering discharge planning in the next 24-48 hours. Clinically the patient is feeling better, and she is asking to be discharged home as soon as possible. But considering her cardiac condition and her pulmonary hypertension as well as the fact that the patient goes easily into biventricular heart failure, I'm still reluctant to consider discharging the patient home soon yet. Reevaluated today on 03/11/2018, patient remains as overflow in the ICU, waiting for a monitor bed on selective. Most of her meds were switched to oral medication yesterday, patient continues to do well, continues to respond well to diuretics, and we are able to cut down her FiO2 to 3 L via nasal cannula, and saturating well. Chest x-ray continues to show a small right-sided pleural effusion felt on ultrasound to be small and did not require thoracentesis. Overall the patient has made a significant improvement over the last 1 week. Hardly any cough, no wheezing, no shortness of breath at rest, she does have chronic dyspnea on exertion. CBC is relatively normal basic metabolic profile is normal BUN is 32 creatinine is 0.90. On 03/12/2018 patient seen in follow-up in the intensive care unit, she is awake and alert, oriented 3, this morning patient went into A. fib with RVR with a rate of 150 BPM, she was started on oral Lopressor and Cardizem. Currently remains in A. fib, and the rate is better controlled, currently at 109 BPM, patient also became hypotensive with a systolic in the 70s, although she remained clinically asymptomatic. Currently blood pressure is 89/54, she is on 4 L per nasal cannula and her pulse ox is 95%. Afebrile. Yesterday's chest x-ray was reviewed with Dr. Malcolm, cardiomegaly, worsening bibasilar airspace disease greater on the right than the left, and bilateral pleural effusions greater on the right than the left. These labs have been reviewed, showed WBC of 8.1, hemoglobin of 10.0, sodium is 140, potassium is 4.3, chloride is 104, CO2 is 33, BUN was 33 and creatinine was 0.86. Sputum culture from a March 05 was positive for Staphylococcus aureus, and current antibiotic includes Rocephin, no fever no chills. Lung sounds are diminished breath sounds at the bases, particularly on the right. He 0.9 normal saline at a rate of 10 ML per hour. Patient has been an overflow for selective care unit , but will be upgraded to ICU in view of retention, A. fib RVR 's morning. She is in -485 ML fluid balance over the last 24 hours. Oral Lasix of 40 mg daily. On March 2018 patient seen again in follow-up in the intensive care unit, she is sitting up in the recliner, in no acute distress, breathing easier, currently on 3 L per nasal cannula with pulse ox of 93%, afebrile, hemodynamically stable, remains in A. fib with the controlled rate, at 97 BPM, blood pressure is 95/66, today's chest x-ray was reviewed with Dr. Malcolm, shows small right and minimal left pleural effusion, small 3.6 cm masslike appearance in the right hilar region cannot exclude pulmonary nodule, patient is rotated, this could be due to large pulmonary artery, atelectasis, infiltrate or technical issues, nevertheless this will be followed. No fever no chills, today 's labs have been reviewed, the PVC 6.6, hemoglobin is 10.0, sodium is 141, potassium is 3.8, chloride is 109, B1 is 32, creatinine 0.90. Patient was found to have Staphylococcus aureus in her sputum, she received 7 days of Rocephin, no cough, no worsening chest congestion, lung sounds are positive for diminished breath sounds with a few rales at the left base. Patient remains on heparin drip for anticoagulation, and cardiology will decide on the anticoagulation to send the patient home on, from pulmonary standpoint she is stable, and could be considered for discharge home today, she is working on her incentive spirometer, 750-1000 ML today. Objective - Vital Signs Vital signs: Vital Signs Temp 97.8 F 03/13/18 04:00 Pulse 97 03/13/18 04:00 Resp 15 03/13/18 04:00 BP 95/66 03/13/18 04:00 Pulse Ox 93 L 03/13/18 04:00 Intake & Output 03/12/18 03/13/18 03/13/18 18:59 06:59 18:59 Intake Total 630 306.667 Output Total 1005 495 250 Balance -375 -188.333 -250 Weight 93 kg 93.3 kg Intake: IV 100 cefTRIAXone 1,000 mg In 100 Sodium Chloride 0.9% 50 ml @ 100 mls/hr IVPB Q24HR DENISE Rx#:[id number] Intake, IV Titration 50 306.667 Amount Heparin Sod,Pork in 0.45% 50 306.667 NaCl 25,000 unit In 0.45 % NaCl 1 250ml.bag @ 10. 753 UNITS/KG/HR 10 mls/hr IV .Q24H DENISE Rx#: [id number] Oral 480 Output: Urine 1005 495 250 Other: Voiding Method Indwelling Catheter Indwelling Catheter # Bowel Movements 1 - Exam GENERAL EXAM: Alert, pleasant, 67-year-old white female on 4 L per nasal cannula , comfortable in no apparent distress. HEAD: Normocephalic/atraumatic. EYES: Normal reaction of pupils, equal size. Conjunctiva pink, sclera white. NOSE: Clear with pink turbinates. THROAT: No erythema or exudates. NECK: No masses, no JVD, no thyroid enlargement, no adenopathy. CHEST: No chest wall deformity. Symmetrical expansion. LUNGS: Equal air entry with diminished breath sounds at the bases, greater on the right CVS: Regular rate and rhythm, normal S1 and S2, no gallops, no murmurs, no rubs ABDOMEN: Soft, nontender. No hepatosplenomegaly, normal bowel sounds, no guarding or rigidity. EXTREMITIES: No clubbing, no edema, no cyanosis, 2+ pulses and upper and lower extremities. MUSCULOSKELETAL: Muscle strength and tone normal. SPINE: No scoliosis or deformity SKIN: No rashes CENTRAL NERVOUS SYSTEM: Alert and oriented -3. No focal deficits, tone is normal in all 4 extremities. PSYCHIATRIC: Alert and oriented -3. Appropriate affect. Intact judgment and insight. - Labs CBC & Chem 7: 03/13/18 05:20 03/13/18 05:20 Labs: Abnormal Lab Results - Last 24 Hours (Table) 03/12/18 03/12/18 03/12/18 Range/Units 12:16 16:36 16:48 RBC (3.80-5.40) m/uL Hgb (11.4-16.0) gm/dL MCV (80.0-100.0) fL MCH (25.0-35.0) pg MCHC (31.0-37.0) g/dL RDW (11.5-15.5) % Plt Count (150-450) k/uL APTT 49.8 H (22.0-30.0) sec Chloride (98-107) mmol/L BUN (7-17) mg/dL POC Glucose (mg/dL) 112 H 128 H (75-99) mg/dL 03/12/18 03/12/18 03/13/18 Range/Units 20:16 20:59 05:20 RBC 5.56 H (3.80-5.40) m/uL Hgb 10.0 L (11.4-16.0) gm/dL MCV 69.8 L (80.0-100.0) fL MCH 17.9 L (25.0-35.0) pg MCHC 25.7 L (31.0-37.0) g/dL RDW 21.0 H (11.5-15.5) % Plt Count 113 L (150-450) k/uL APTT (22.0-30.0) sec Chloride (98-107) mmol/L BUN (7-17) mg/dL POC Glucose (mg/dL) 143 H 104 H (75-99) mg/dL 03/13/18 03/13/18 Range/Units 05:20 05:20 RBC (3.80-5.40) m/uL Hgb (11.4-16.0) gm/dL MCV (80.0-100.0) fL MCH (25.0-35.0) pg MCHC (31.0-37.0) g/dL RDW (11.5-15.5) % Plt Count (150-450) k/uL APTT 38.4 H (22.0-30.0) sec Chloride 109 H (98-107) mmol/L BUN 32 H (7-17) mg/dL POC Glucose (mg/dL) (75-99) mg/dL Assessment and Plan Plan: Assessment: 1 acute on chronic biventricular congestive heart failure secondary to severe pulmonary hypertension. 2 new onset A. fib RVR 3 history of tricuspid regurgitation, 4 nonischemic cardiomyopathy and LV dysfunction., 5 severe COPD, on bronchodilators, will switch Solu-Medrol to prednisone. 6 acute on chronic hypoxic respiratory failure secondary to COPD, congestive heart failure, and pulmonary hypertension. 7 acute metabolic alkalosis most likely secondary to diuretics, and compensation related to her underlying COPD. remains on multiple bronchodilators for COPD 8 mssa tracheobronchitis, strongly doubt pneumonia. Remains on Rocephin. 9 small right-sided pleural effusion, not large enough to consider thoracentesis , risks outweigh benefits Plan: Patient is stable from pulmonary standpoint, continues to improve, encourage deep breathing and coughing, we'll discontinue the Rocephin, patient has received 7 days of IV antibiotics, no fever or chills. Today's chest x-ray has been reviewed with Dr. Malcolm, the radiologist has read it as worsening bibasilar airspace disease, however compared to the previous chest x-ray on 08/2017 improved aeration noted bilaterally, there is a mention of a right hilar masslike lesion measuring 3.5 cm, previous CT angios of the chest was reviewed from 03/04/2018, and the masslike area was not noted there. Nevertheless this will be followed with a follow-up chest x-rays or CT scans in the office. A pulmonary perspective patient is stable for discharge home. She has oxygen at home at 2-3 L. She can continue with her maintenance inhalers and nebulized treatments, she can continue on 20 of prednisone until she seen in the office by Dr. Rosario later this week or early next week. I performed a history & physical examination of the patient and discussed their management with my nurse practitioner, Marlene Yee. I reviewed the nurse practitioner's note and agree with the documented findings and plan of care. Lung sounds are positive for diminished breath sounds at the bases. The findings and the impression was discussed with the patient. I attest to the documentation by the nurse practitioner. Time with Patient: Less than 30
[2018-03-13] MEDS: SYMBICORT 160-4.5 MCG INHALER INHALATION SCH ×2 (08:56→20:36)
[2018-03-13] MEDS: HEPARIN SOD,PORK IN 0.45% NACL 25,000 UNIT in 0.45% NACL 1 250ML.BAG IV SCH (09:25)
[2018-03-13] MEDS: DILTIAZEM ORAL 30 MG TAB PO SCH ×3 (09:30→22:21)
[2018-03-13 11:59] LABS: Glucose,Whole Blood 105 mg/dL (75-99)
--- NOTE | 2018-03-13 16:03 | PN ---
PROGRESS NOTE Brigette is a 67-year-old lady who is admitted to hospital with chronic severe pulmonary hypertension, chronic right-sided heart failure, and has had new onset atrial fibrillation. I started her on IV heparin. This morning, she is clinically feeling better, but her platelet count had dropped. She came into hospital at 250s, it has gradually dropped down to 120s. Since starting the heparin, her platelet count has dropped further to 116. On exam, patient is comfortable at rest. Afebrile. Heart rate is 90 beats per minute. Blood pressure is 90/52. Respirations 18. Chest exam reveals good air entry bilaterally. Heart exam reveals first and second heart sounds. No gallop. Irregular rhythm. Abdomen is soft. Exam of the extremities did not reveal any edema. Peripheral pulses are felt. ASSESSMENT: 1. Chronic atrial fibrillation with high persistent atrial fibrillation with better controlled ventricular rate. 2. Thrombocytopenia. PLAN: We will seek Hematology input whether to continue the heparin or not. [id number] / IJN: [id number] /
[2018-03-13 16:58] LABS: Glucose,Whole Blood 143 mg/dL (75-99)
[2018-03-13] MEDS ORDERED: RIVAROXABAN 20 MG TAB PO SCH (17:30)
--- NOTE | 2018-03-13 18:18 | ECHOF ---
Referral Reason:asses left ventricular function MEASUREMENTS -------- HEIGHT: 162.6 cm WEIGHT: 101.6 kg BP: 103/67 RVIDd: 3.4 cm (< 3.3) IVSd: 1.3 cm (0.6 - 1.1) LVIDd: 4.7 cm (3.9 - 5.3) LVPWd: 1.4 cm (0.6 - 1.1) IVSs: 1.8 cm LVIDs: 3.4 cm LVPWs: 1.7 cm LA Diam: 4.6 cm (2.7 - 3.8) LAESV Index (A-L): 36.76 ml/m Ao Diam: 3.3 cm (2.0 - 3.7) AV Cusp: 2.1 cm (1.5 - 2.6) MV EXCURSION: 21.866 mm (> 18.000) MV EF SLOPE: 204 mm/s (70 - 150) EPSS: 1.1 cm MV E Flo: 1.63 m/s MV DecT: 212 ms MV A Flo: 1.12 m/s MV E/A Ratio: 1.46 RAP: 15.00 mmHg RVSP: 68.82 mmHg FINDINGS -------- Sinus rhythm. This was a technically good study. The left ventricular size is normal. There is moderate concentric left ventricular hypertrophy. O verall left ventricular systolic function is normal with, an EF between 55 - 60 %. The right ventricle is mild to moderately enlarged. LA is moderately dilated 34-39 ml/m2 The right atrium is normal in size. Aortic valve is trileaflet and is mildly thickened. The mitral valve leaflets are mildly thickened. Mild mitral annular calcification present. Modera te mitral regurgitation is present. Moderate tricuspid regurgitation present. There is severe pulmonary hypertension. The right ventr icular systolic pressure, as measured by Doppler, is 68.82mmHg. Trace/mild (physiologic) pulmonic regurgitation. The aortic root size is normal. The inferior vena cava is dilated with no significant inspiratory collapse which is consistent estima karen right atrial pressure of >15 mmHg. There is no pericardial effusion. CONCLUSIONS -------- 1. Sinus rhythm. 2. This was a technically good study. 3. The left ventricular size is normal. 4. There is moderate concentric left ventricular hypertrophy. 5. Overall left ventricular systolic function is normal with, an EF between 55 - 60 %. 6. LA is moderately dilated 34-39 ml/m2 7. The right atrium is normal in size. 8. Aortic valve is trileaflet and is mildly thickened. 9. The mitral valve leaflets are mildly thickened. 10. Mild mitral annular calcification present. 11. Moderate mitral regurgitation is present. 12. Moderate tricuspid regurgitation present. 13. There is severe pulmonary hypertension. 14. The right ventricular systolic pressure, as measured by Doppler, is 68.82mmHg. 15. Trace/mild (physiologic) pulmonic regurgitation. 16. The aortic root size is normal. 17. The inferior vena cava is dilated with no significant inspiratory collapse which is consistent es timated right atrial pressure of >15 mmHg. 18. There is no pericardial effusion. PLATE EMBOSSER: Brisa Bowers RDCS
--- NOTE | 2018-03-13 18:39 | ECHOF ---
Referral Reason:chf MEASUREMENTS -------- HEIGHT: 162.6 cm WEIGHT: 93.0 kg BP: 84/57 RVIDd: 3.5 cm (< 3.3) IVSd: 1.2 cm (0.6 - 1.1) LVIDd: 5.5 cm (3.9 - 5.3) LVPWd: 1.3 cm (0.6 - 1.1) IVSs: 1.6 cm LVIDs: 4.3 cm LVPWs: 1.6 cm LA Diam: 4.5 cm (2.7 - 3.8) LAESV Index (A-L): 55.45 ml/m Ao Diam: 3.0 cm (2.0 - 3.7) AV Cusp: 1.9 cm (1.5 - 2.6) LA Diam: 5.2 cm (2.7 - 3.8) MV EXCURSION: 20.824 mm (> 18.000) MV EF SLOPE: 100 mm/s (70 - 150) EPSS: 0.5 cm MV E Flo: 1.34 m/s MV DecT: 171 ms MV A Flo: 0.74 m/s MV E/A Ratio: 1.82 RAP: 10.00 mmHg RVSP: 47.67 mmHg FINDINGS -------- Atrial fibrillation. This was a technically adequate study. The left ventricular size is normal. Left ventricular wall thickness is normal. Overall left vent ricular systolic function is low-normal with, an EF between 50 - 55 %. The right ventricle is normal in size. The left atrium is moderately dilated. LA is severely dilated >40 ml/m2 The right atrial size is normal. There is mild aortic valve sclerosis. There is no evidence of aortic regurgitation. The mitral valve leaflets are mildly thickened. Mild mitral annular calcification present. Mild-t o-moderate mitral regurgitation is present. Mild tricuspid regurgitation present. There is mild to moderate pulmonary hypertension. The right ventricular systolic pressure, as measured by Doppler, is 47.67mmHg. Trace/mild (physiologic) pulmonic regurgitation. The aortic root size is normal. The inferior vena cava is mildly dilated. There is no pericardial effusion. CONCLUSIONS -------- 1. The left ventricular size is normal. 2. Left ventricular wall thickness is normal. 3. Overall left ventricular systolic function is low-normal with, an EF between 50 - 55 %. 4. The right ventricle is normal in size. 5. The left atrium is moderately dilated. 6. LA is severely dilated >40 ml/m2 7. The right atrial size is normal. 8. There is mild aortic valve sclerosis. 9. The mitral valve leaflets are mildly thickened. 10. Mild mitral annular calcification present. 11. [id number] mitral regurgitation is present. 12. Mild tricuspid regurgitation present. 13. There is mild to moderate pulmonary hypertension. 14. The right ventricular systolic pressure, as measured by Doppler, is 47.67mmHg. 15. Trace/mild (physiologic) pulmonic regurgitation. 16. The aortic root size is normal. 17. The inferior vena cava is mildly dilated. 18. There is no pericardial effusion. DOOR TO DOOR SELLING AGENT: Indigo Rodriguez RDCS
[2018-03-13] MEDS: IBUPROFEN 400 MG TAB PO SCH (20:16)
[2018-03-13 20:29] LABS: Glucose,Whole Blood 129 mg/dL (75-99)
[2018-03-14] MEDS: IPRATROPIUM-ALBUTEROL 3 ML NEB INHALATION SCH ×4 (05:03→16:23)
[2018-03-14 06:00] LABS: Calcium 8.7 mg/dL (8.4-10.2); Potassium 4.3 mmol/L (3.5-5.1)
[2018-03-14 07:11] LABS: Glucose,Whole Blood 87 mg/dL (75-99)
[2018-03-14] MEDS: INSULIN ASPART 100 UNIT/ML 1 ML 10 ML VIAL SQ SCH (07:22)
[2018-03-14] MEDS: PANTOPRAZOLE 40 MG TABLET PO SCH (07:24)
[2018-03-14 07:47] LABS: Anisocytosis Moderate; Basophils % (A) 0 %; Eosinophils # (A) 0.2 k/uL (0-0.7); Eosinophils % (A) 2 %; HCT 39.1 % (34.0-46.0); HGB 9.9 gm/dL (11.4-16.0); Hypochromasia Marked; Lymphocytes # (A) 1.5 k/uL (1.0-4.8); Lymphocytes % (A) 20 %; MCHC 25.2 g/dL (31.0-37.0); MCV 71.3 fL (80.0-100.0); Mean Platelet Volume 10.2; Microcytosis Marked; Monocytes # (A) 0.4 k/uL (0-1.0); Monocytes % (A) 5 %; Neutrophils # (A) 5.4 k/uL (1.3-7.7); Neutrophils % (A) 72 %; Platelet Count 126 k/uL (150-450); RBC 5.49 m/uL (3.80-5.40); RDW 21.1 % (11.5-15.5); WBC 7.6 k/uL (3.8-10.6)
--- NOTE | 2018-03-14 08:12 | XR ---
EXAMINATION TYPE: XR chest 1V portable DATE OF EXAM: 03/14/2018 CLINICAL HISTORY: Difficulty breathing progress study. TECHNIQUE: Single AP portable upright view of the chest is obtained. COMPARISON: Chest x-ray from one day earlier and older studies. CTA chest March 04, 2018. FINDINGS: Cardiomegaly is redemonstrated. There is background chronic emphysematous change with pers istent small right greater than left pleural effusions and associated bibasilar atelectasis and/or in filtrate. Underlying pulmonary artery hypertension with hilar prominence is redemonstrated. Upper shankar gs remain clear without pneumothorax. Osseous structures are intact. IMPRESSION: Overall stable findings, cardiomegaly and chronic emphysematous change with small right greater than left pleural effusions and associated bibasilar atelectasis and/or infiltrate all redem onstrated.
[2018-03-14] MEDS: SYMBICORT 160-4.5 MCG INHALER INHALATION SCH (08:52)
[2018-03-14] MEDS: FUROSEMIDE 40 MG TAB PO SCH (09:32)
[2018-03-14] MEDS: CHOLECALCIFEROL 1,000 UNIT TAB PO SCH (09:32)
[2018-03-14] MEDS: PARoxetine 10 MG TAB PO SCH (09:40)
[2018-03-14] MEDS: METOPROLOL TARTRATE 25 MG TAB PO SCH (09:40)
[2018-03-14] MEDS: NICOTINE 14MG/24HR PATCH TRANSDERM SCH (09:40)
[2018-03-14] MEDS: SILDENAFIL 20 MG TAB PO SCH (09:42)
[2018-03-14] MEDS: predniSONE 20 MG TAB PO SCH (09:42)
--- NOTE | 2018-03-14 10:34 | P.PN ---
Subjective Progress Note Date: 03/14/18 Principal diagnosis: Acute on chronic biventricular heart failure This is a 67-year-old female with history of severe pulmonary hypertension, valvular heart disease, obstructive sleep apnea syndrome, COPD, patient presented to the ER yesterday with almost 1 week history of fluid retention and worsening shortness of breath. No headache no blurred vision no dizziness, no chest pain, no palpitations. Patient has been compliant with her cardiac meds including diuretics for previous history of congestive heart failure which is basically chronic in nature. Patient was evaluated in the ER, and she was noted to have biventricular congestive heart failure including pulmonary edema, and significant findings of cor pulmonale. Patient was noted to have ascites, bipedal edema, and pulmonary edema with bilateral pleural effusions. Admitted, started on diuretics, and now she is on Lasix at 40 mg IV push every 8 hours, she is also on Aldactone which was added by cardiology. Presently the patient is feeling a bit better, however she remains on high flow nasal cannula at 15 L/ m. Denies any headaches, no blurred vision, no dizziness, no chest pain, no nausea no vomiting no abdominal pain no melena no hematemesis is no dysuria and no frequency no urgency. Patient was reevaluated today on 03/06/2018, patient remains in the ICU, she is about 5 L negative fluid balance over the last 2 days. Hence I cut down on the Lasix dose from 40 mg every 8 hours to 40 mg every 12 hours, and I kept her on Aldactone. Patient is feeling better, however she remains on a high flow oxygen with high FiO2, she is on Airvo 80%, and 65 L/m flow. O2 saturation is running in the range of 93%. And FiO2 is being titrated down. Clinically the patient is feeling better, less shortness of breath, no cough no wheezing no chest pain, no palpitations, and the swelling in her lower extremities is significantly improved and responding well to diuretics. Chest x-ray is showing some improvement in her CHF. Her CBC is relatively normal renal profile is showing slight elevation of the creatinine up to 1.2 and the Lasix dose was changed Patient was reevaluated today on 03/07/2018, remains in the ICU, remains on multiple diuretics, remains in a negative fluid balance, about 7 L over the last 3 days. Her chest x-ray continues to show some evidence of pulmonary edema , remains on high FiO2, and we are titrating the oxygen down. Overall clinically the patient is feeling better, but her congestive heart failure is not completely resolved. Patient again has severe pulmonary hypertension and biventricular heart failure. Today I have recommended that we cut down the Lasix to 40 mg daily, I cut down her Aldactone and I added Diamox 250 mg IV push twice a day since she is developing a picture of metabolic alkalosis. Chest x-ray was reviewed and discussed with the patient. Labs were also reviewed, she has relatively normal CBC except for low hemoglobin of 10.1. Electrolytes are normal however her bicarb is 43 BUN is 39 and creatinine 0.99. Pulmonary-arguello the patient continues to have some shortness of breath with any activity. Swelling in the lower extremities is significantly improved. Reevaluated today on 03/08/2018 , patient remains in the ICU, however I plan to transfer the patient out of the ICU today to a monitor bed on selective. Remains on multiple diuretics including Aldactone, Diamox, and Lasix. Remains in negative fluid balance, she was negative about 1 L over the last 24 hours. She is almost negative about 8 L in the last 3 days. Overall the patient continues to do well, however she still requiring high FiO2, remains on 50% and 60 L/m flow. I will likely change the patient to a high flow nasal cannula today from [facility]. Chest x-ray continues to show mild congestive heart failure and bilateral pleural effusions right more so than left. The swelling in her abdominal wall and the swelling in her legs is significantly improved. Her labs were reviewed, and she had a relatively normal CBC. Her electrolytes were noted potassium is 3.1 bicarb is 42 BUN is 32 creatinine is 1.02. Medications were all reviewed, remains on diuretics, bronchodilators, antibiotics, and cardiac meds I would however cut down the methylprednisolone today, it will be changed to 40 mg IV push every 8 hours, eventually switch her to prednisone. Her sputum was noted to be positive for MSSA, and the patient remains on Rocephin. Reevaluated today on 03/09/2018, she is presently an overflow from selective, remains on diuretics, continues to diurese, and she continues to remain in negative fluid balance. Patient is at least 9 L negative fluid balance since admission. Clinically the patient continues to improve, but she remains on 7 L on High flow. Chest x-ray is showing improvement, and today I recommended an ultrasound of the chest to evaluate the pocket of fluid in the right lung base. All labs were reviewed, BUN is 28 creatinine 0.96. CBC is relatively normal. And chest x-ray as noted above. Patient was reevaluated today on 03/10/2018, feeling better, breathing easier, she is down to 5 L nasal cannula. O2 saturation is in the high 80s and low 90s. Her chest x-ray is showing improvement. Her ultrasound of the chest showed a small pocket about 4 cm in size in the right pleural space, I felt that risks outweigh the benefits, hence I do not plan to do thoracentesis. However I was able to switch her IV Lasix to oral Lasix, The patient on Aldactone and Diamox, and I plan to consult physical therapy, ambulate the patient, and we are getting close to start considering discharge planning in the next 24-48 hours. Clinically the patient is feeling better, and she is asking to be discharged home as soon as possible. But considering her cardiac condition and her pulmonary hypertension as well as the fact that the patient goes easily into biventricular heart failure, I'm still reluctant to consider discharging the patient home soon yet. Reevaluated today on 03/11/2018, patient remains as overflow in the ICU, waiting for a monitor bed on selective. Most of her meds were switched to oral medication yesterday, patient continues to do well, continues to respond well to diuretics, and we are able to cut down her FiO2 to 3 L via nasal cannula, and saturating well. Chest x-ray continues to show a small right-sided pleural effusion felt on ultrasound to be small and did not require thoracentesis. Overall the patient has made a significant improvement over the last 1 week. Hardly any cough, no wheezing, no shortness of breath at rest, she does have chronic dyspnea on exertion. CBC is relatively normal basic metabolic profile is normal BUN is 32 creatinine is 0.90. On 03/12/2018 patient seen in follow-up in the intensive care unit, she is awake and alert, oriented 3, this morning patient went into A. fib with RVR with a rate of 150 BPM, she was started on oral Lopressor and Cardizem. Currently remains in A. fib, and the rate is better controlled, currently at 109 BPM, patient also became hypotensive with a systolic in the 70s, although she remained clinically asymptomatic. Currently blood pressure is 89/54, she is on 4 L per nasal cannula and her pulse ox is 95%. Afebrile. Yesterday's chest x-ray was reviewed with Dr. Malcolm, cardiomegaly, worsening bibasilar airspace disease greater on the right than the left, and bilateral pleural effusions greater on the right than the left. These labs have been reviewed, showed WBC of 8.1, hemoglobin of 10.0, sodium is 140, potassium is 4.3, chloride is 104, CO2 is 33, BUN was 33 and creatinine was 0.86. Sputum culture from a March 05 was positive for Staphylococcus aureus, and current antibiotic includes Rocephin, no fever no chills. Lung sounds are diminished breath sounds at the bases, particularly on the right. He 0.9 normal saline at a rate of 10 ML per hour. Patient has been an overflow for selective care unit , but will be upgraded to ICU in view of retention, A. fib RVR 's morning. She is in -485 ML fluid balance over the last 24 hours. Oral Lasix of 40 mg daily. On March 2018 patient seen again in follow-up in the intensive care unit, she is sitting up in the recliner, in no acute distress, breathing easier, currently on 3 L per nasal cannula with pulse ox of 93%, afebrile, hemodynamically stable, remains in A. fib with the controlled rate, at 97 BPM, blood pressure is 95/66, today's chest x-ray was reviewed with Dr. Malcolm, shows small right and minimal left pleural effusion, small 3.6 cm masslike appearance in the right hilar region cannot exclude pulmonary nodule, patient is rotated, this could be due to large pulmonary artery, atelectasis, infiltrate or technical issues, nevertheless this will be followed. No fever no chills, today 's labs have been reviewed, the PVC 6.6, hemoglobin is 10.0, sodium is 141, potassium is 3.8, chloride is 109, B1 is 32, creatinine 0.90. Patient was found to have Staphylococcus aureus in her sputum, she received 7 days of Rocephin, no cough, no worsening chest congestion, lung sounds are positive for diminished breath sounds with a few rales at the left base. Patient remains on heparin drip for anticoagulation, and cardiology will decide on the anticoagulation to send the patient home on, from pulmonary standpoint she is stable, and could be considered for discharge home today, she is working on her incentive spirometer, 750-1000 ML today. On 03/14/2018 she seen again in follow-up in the intensive care unit, sitting up in the recliner, in no acute distress, currently on 3 L per nasal cannula with pulse ox is 95%, IV hypotensive, with a blood pressure 88/63, with a map of 71, clinically asymptomatic, patient has been started on Zestril told, hematology to see the patient regarding thrombocytopenia, possibly related, and did not think this was hit related. She denies any difficulty breathing, any chest pain. Remains in A. fib, with a controlled rate, currently is 93 BPM. This chest x-ray has been reviewed with Dr. Malcolm, and shows overall stable findings, cardiomegaly, chronic emphysematous change with small right greater than left pleural effusions, bibasilar atelectasis, previously mentioned masslike appearance in the right hilar region is less dense appears more vague on today's x-ray, and the radiologist did not comment on that on today's x-ray. This is felt to be related to underlying pulmonary artery hypertension, with atelectasis/infiltrate, also be related to technical issues. No other acute process noted, and this was reviewed with Dr. Malcolm. Clinically patient is doing very well, lung sounds are clear, no rhonchi or wheezes. She remains on oral diuretics, -707 mL fluid balance over the last 24 hours, her weight is down by 0.7 kg in the last 24 hours. We will stop the Diamox, today's labs have been reviewed. CBC 7.6, hemoglobin is 9.9, sodium is 140, potassium is 4.3 , chloride is 109, CO2 is 29, BUN is 34 creatinine 0.94. Patient has completed 7 days of Rocephin for MSSA tracheal bronchitis. Objective - Vital Signs Vital signs: Vital Signs Temp 97.6 F 03/14/18 08:30 Pulse 93 03/14/18 09:08 Resp 16 03/14/18 08:30 BP 88/63 03/14/18 08:30 Pulse Ox 95 03/14/18 08:30 Intake & Output 03/13/18 03/14/18 03/14/18 18:59 06:59 18:59 Intake Total 167.576 480 Output Total 1005 350 350 Balance -837.424 130 -350 Weight 92.8 kg Intake: IV 50 cefTRIAXone 1,000 mg In 50 Sodium Chloride 0.9% 50 ml @ 100 mls/hr IVPB Q24HR [facility] Rx#:[id number] Intake, IV Titration 117.576 Amount Heparin Sod,Pork in 0.45% 117.576 NaCl 25,000 unit In 0.45 % NaCl 1 250ml.bag @ 10. 753 UNITS/KG/HR 10 mls/hr IV .Q24H [facility] Rx#: [id number] Oral 480 Output: Urine 1005 350 350 Other: Voiding Method Indwelling Catheter Indwelling Catheter Indwelling Catheter - Exam GENERAL EXAM: Alert, pleasant, 67-year-old white female on 3 L per nasal cannula , comfortable in no apparent distress. HEAD: Normocephalic/atraumatic. EYES: Normal reaction of pupils, equal size. Conjunctiva pink, sclera white. NOSE: Clear with pink turbinates. THROAT: No erythema or exudates. NECK: No masses, no JVD, no thyroid enlargement, no adenopathy. CHEST: No chest wall deformity. Symmetrical expansion. LUNGS: Equal air entry with clear breath sounds bilaterally CVS: Regular rate and rhythm, normal S1 and S2, no gallops, no murmurs, no rubs ABDOMEN: Soft, nontender. No hepatosplenomegaly, normal bowel sounds, no guarding or rigidity. EXTREMITIES: No clubbing, no edema, no cyanosis, 2+ pulses and upper and lower extremities. MUSCULOSKELETAL: Muscle strength and tone normal. SPINE: No scoliosis or deformity SKIN: No rashes CENTRAL NERVOUS SYSTEM: Alert and oriented -3. No focal deficits, tone is normal in all 4 extremities. PSYCHIATRIC: Alert and oriented -3. Appropriate affect. Intact judgment and insight. - Labs CBC & Chem 7: 03/14/18 05:06 03/14/18 05:06 Labs: Abnormal Lab Results - Last 24 Hours (Table) 03/13/18 03/13/18 03/13/18 Range/Units 11:58 12:19 16:56 RBC (3.80-5.40) m/uL Hgb (11.4-16.0) gm/dL MCV (80.0-100.0) fL MCH (25.0-35.0) pg MCHC (31.0-37.0) g/dL RDW (11.5-15.5) % Plt Count (150-450) k/uL APTT 43.0 H (22.0-30.0) sec Chloride (98-107) mmol/L BUN (7-17) mg/dL POC Glucose (mg/dL) 105 H 143 H (75-99) mg/dL 03/13/18 03/14/18 03/14/18 Range/Units 20:27 05:06 05:06 RBC 5.49 H (3.80-5.40) m/uL Hgb 9.9 L (11.4-16.0) gm/dL MCV 71.3 L (80.0-100.0) fL MCH 18.0 L (25.0-35.0) pg MCHC 25.2 L (31.0-37.0) g/dL RDW 21.1 H (11.5-15.5) % Plt Count 126 L (150-450) k/uL APTT (22.0-30.0) sec Chloride 109 H (98-107) mmol/L BUN 34 H (7-17) mg/dL POC Glucose (mg/dL) 129 H (75-99) mg/dL Assessment and Plan Plan: Assessment: 1 acute on chronic biventricular congestive heart failure secondary to severe pulmonary hypertension. 2 new onset A. fib RVR 3 history of tricuspid regurgitation, 4 nonischemic cardiomyopathy and LV dysfunction., 5 severe COPD, on bronchodilators, will switch Solu-Medrol to prednisone. 6 acute on chronic hypoxic respiratory failure secondary to COPD, congestive heart failure, and pulmonary hypertension. 7 acute metabolic alkalosis most likely secondary to diuretics, and compensation related to her underlying COPD. remains on multiple bronchodilators for COPD 8 mssa tracheobronchitis, strongly doubt pneumonia. He completed Rocephin 9 small right-sided pleural effusion, not large enough to consider thoracentesis , risks outweigh benefits Plan: Patient remains stable from pulmonary perspective, has been started on Xarelto for anticoagulation for atrial fibrillation, blood pressures 88/63, patient is asymptomatic, continues to diurese on oral Lasix. Increase patient's activity, discontinue the [place]. No fever or chills, patient has received 7 days worth of Rocephin for MSSA tracheobronchitis. lung sounds are clear, no difficulty breathing, today's chest x-ray has been reviewed with Dr. Malcolm, and the radiologist did not mention the masslike appearance in the right hilum today's report, and on the film it appears more vague and is thought to be related to a large pulmonary artery and likely atelectasis/infiltrate. Patient is stable for discharge home today from pulmonary perspective. I performed a history & physical examination of the patient and discussed their management with my nurse practitioner, Marlene Yee. I reviewed the nurse practitioner's note and agree with the documented findings and plan of care. Lung sounds are positive for diminished breath sounds at the bases. The findings and the impression was discussed with the patient. I attest to the documentation by the nurse practitioner. Time with Patient: Less than 30
[2018-03-14 10:58] LABS: Poikilocytosis (M) Present
--- NOTE | 2018-03-14 12:01 | PN ---
PROGRESS NOTE This is a 67-year-old lady that has been admitted to hospital with severe pulmonary hypertension, chronic right-sided heart failure and developed atrial fibrillation. She remains in A fib with somewhat of a better controlled ventricular rate. She is currently on Cardizem 15 t.i.d. along with metoprolol 25 b.i.d. and is on Xarelto 20 mg daily. Her blood pressure is somewhat low, she has improved significantly. PHYSICAL EXAMINATION: On exam, heart rate is 90 beats per minute. Blood pressure is 88/63, respiratory rate 16. Chest exam reveals diminished air entry at the bases. Heart exam reveals first and second heart sounds, irregular rhythm. Abdomen is soft. Examination of extremities reveals 1+ edema. Peripheral pulses are felt. LABS: Labs show a hemoglobin of 9.9. Potassium is 4.3. Creatinine is 0.9. ASSESSMENT: 1. Persistent atrial fibrillation with controlled ventricular rate. 2. Severe pulmonary hypertension. 3. Chronic right-sided heart failure. PLAN: Will continue with current medications. I asked the nurse to ambulate her and see how she does. MMODL / IJN: [id number] /
[2018-03-14 12:17] LABS: Glucose,Whole Blood 129 mg/dL (75-99)
--- NOTE | 2018-03-14 13:29 | P.PN ---
Subjective Progress Note Date: 03/13/18 Principal diagnosis: Acute on chronic biventricular heart failure. Patient is 67-year-old female with a known history of severe pulmonary hypertension was admitted to the hospital with shortness of breath and acute respiratory failure secondary to CHF and COPD exacerbation. 03/13/2018 Patient is currently sitting in a chair comfortably. Saturating well another cannula. Blood pressure is on the lower side. Patient otherwise remained in atrial fibrillation. Currently was started on anticoagulation with xarelto. Heparin has been discontinued. No complaints of chest pain or shortness of breath. No headache or dizziness or lightheadedness. Chest x-ray showed small right and minimal left pleural effusion. There is a 3.6 cm masslike appearance in the right hilar region. Follow-up recommended. Underlying pulmonary nodule is not excluded. Active Medications Generic Name Dose Route Start Last Admin Trade Name Freq PRN Reason Stop Dose Admin Acetaminophen 650 mg 03/04/18 18:28 03/13/18 11:52 Tylenol Tab PO 650 mg Q4HR PRN Administration Fever and/or Mild Pain Albuterol/Ipratropium 3 ml 03/04/18 20:00 03/14/18 12:17 Duoneb 0.5 Mg-3 Mg/3 Ml Soln INHALATION 3 ml RT-Q4H [facility] Administration Albuterol/Ipratropium 3 ml 03/04/18 18:28 03/10/18 15:46 Duoneb 0.5 Mg-3 Mg/3 Ml Soln INHALATION 3 ml RT-Q2H PRN Administration Shortness Of Breath Or Wheezing Alprazolam 0.5 mg 03/04/18 22:00 03/13/18 22:48 Xanax PO 0.5 mg TID [facility] Administration Budesonide/Formoterol Fumarate 2 puff 03/04/18 20:00 03/14/18 08:52 Symbicort 160-4.5 Mcg Inhaler INHALATION 2 puff RT-BID [facility] Administration Cholecalciferol 2,000 unit 03/05/18 09:00 03/14/18 09:32 Vitamin D3 PO 2,000 unit DAILY [facility] Administration Diltiazem HCl 15 mg 03/06/18 16:10 03/13/18 22:21 Cardizem Oral PO 15 mg TID [facility] Administration Furosemide 40 mg 03/10/18 09:00 03/14/18 09:32 Lasix PO 40 mg DAILY [facility] Administration Ibuprofen 400 mg 03/04/18 21:00 03/13/18 20:16 Motrin PO 400 mg HS [facility] Administration Metoprolol Tartrate 25 mg 03/12/18 03:52 03/14/18 09:40 Lopressor PO 25 mg BID [facility] Administration Miscellaneous Information 1 each 03/08/18 11:00 Potassium Per Protocol MISCELLANE DAILY PRN Per Protocol Protocol Naloxone HCl 0.2 mg 03/04/18 18:28 Narcan IV Q2M PRN Opioid Reversal Nicotine 1 patch 03/04/18 19:00 03/14/18 09:40 Habitrol 14mg/24hr Patch TRANSDERM 1 patch DAILY [facility] Administration Pantoprazole Sodium 40 mg 03/11/18 07:30 03/14/18 07:24 Protonix PO 40 mg AC-[id number] [facility] Administration Paroxetine HCl 10 mg 03/04/18 21:00 03/14/18 09:40 Paxil PO 10 mg BID [facility]ISE Administration Prednisone 20 mg 03/10/18 11:30 03/14/18 09:42 PO 20 mg DAILY [facility] Administration Rivaroxaban 20 mg 03/13/18 17:30 03/13/18 16:25 Xarelto PO 20 mg W/SUPPER [facility] Administration Sildenafil Citrate 20 mg 03/04/18 22:00 03/14/18 09:42 Revatio PO 20 mg TID [facility]ISE Administration Objective - Vital Signs Vital signs: Vital Signs Temp 98.7 F 03/13/18 16:00 Pulse 102 H 03/13/18 16:34 Resp 26 H 03/13/18 16:00 BP 89/59 03/13/18 16:00 Pulse Ox 95 03/13/18 16:00 Intake & Output 03/12/18 03/13/18 03/13/18 18:59 06:59 18:59 Intake Total 630 306.667 167.576 Output Total 1003 427 855 Balance -375 -188.333 -687.424 Weight 93 kg 93.3 kg Intake: IV 100 50 cefTRIAXone 1,000 mg In 100 50 Sodium Chloride 0.9% 50 ml @ 100 mls/hr IVPB Q24HR [facility] Rx#:[id number] Intake, IV Titration 50 306.667 117.576 Amount Heparin Sod,Pork in 0.45% 50 306.667 117.576 NaCl 25,000 unit In 0.45 % NaCl 1 250ml.bag @ 10. 753 UNITS/KG/HR 10 mls/hr IV .Q24H [facility] Rx#: [id number] Oral 480 Output: Urine 1005 495 855 Other: Voiding Method Indwelling Catheter Indwelling Catheter Indwelling Catheter # Bowel Movements 1 - Exam PHYSICAL EXAMINATION: Patient is lying in the bed comfortably, no acute distress, awake alert and oriented.. HEENT: Normocephalic. Neck is supple. Pupils reactive. Nostrils clear. Oral cavity is moist. Ears reveal no drainage. Neck reveals no JVD, carotid bruits, or thyromegaly. CHEST EXAMINATION: Trachea is central. Symmetrical expansion. Basilar rhonchi present. No wheezing. Lung harris clear to auscultation and percussion. CARDIAC: Normal S1, S2 with no gallops. No murmurs . Atrial fibrillation ABDOMEN: Soft. Bowel sounds normal. No organomegaly. No abdominal bruits. Extremities: reveal no edema. No clubbing or cyanosis Neurologically awake, alert, oriented x3 with well-coordinated movements. No focal deficits noted Skin: No rash or skin lesions. Psychiatric: Coperative. Nonsuicidal Musculoskeletal: No joint swelling or deformity. Normal range of motion. - Labs CBC & Chem 7: 03/14/18 05:06 03/14/18 05:06 Labs: Abnormal Lab Results - Last 24 Hours (Table) 03/12/18 03/12/18 03/12/18 Range/Units 16:36 20:16 20:59 RBC (3.80-5.40) m/uL Hgb (11.4-16.0) gm/dL MCV (80.0-100.0) fL MCH (25.0-35.0) pg MCHC (31.0-37.0) g/dL RDW (11.5-15.5) % Plt Count (150-450) k/uL APTT 49.8 H (22.0-30.0) sec Chloride (98-107) mmol/L BUN (7-17) mg/dL POC Glucose (mg/dL) 143 H 104 H (75-99) mg/dL 03/13/18 03/13/18 03/13/18 Range/Units 05:20 05:20 05:20 RBC 5.56 H (3.80-5.40) m/uL Hgb 10.0 L (11.4-16.0) gm/dL MCV 69.8 L (80.0-100.0) fL MCH 17.9 L (25.0-35.0) pg MCHC 25.7 L (31.0-37.0) g/dL RDW 21.0 H (11.5-15.5) % Plt Count 113 L (150-450) k/uL APTT 38.4 H (22.0-30.0) sec Chloride 109 H (98-107) mmol/L BUN 32 H (7-17) mg/dL POC Glucose (mg/dL) (75-99) mg/dL 03/13/18 03/13/18 03/13/18 Range/Units 11:58 12:19 16:56 RBC (3.80-5.40) m/uL Hgb (11.4-16.0) gm/dL MCV (80.0-100.0) fL MCH (25.0-35.0) pg MCHC (31.0-37.0) g/dL RDW (11.5-15.5) % Plt Count (150-450) k/uL APTT 43.0 H (22.0-30.0) sec Chloride (98-107) mmol/L BUN (7-17) mg/dL POC Glucose (mg/dL) 105 H 143 H (75-99) mg/dL Assessment and Plan Assessment: Acute hypoxic and hypercapnic respiratory failure secondary to CHF and COPD New-onset atrial fibrillation. Currently started xarelto. Off heparin drip Acute CHF with biventricular heart failure acute COPD exacerbation Sputum culture growing MSSA Small right pleural effusion Possible bibasilar bronchopneumonia. Possible gram-negative GERD Severe pulmonary hypertension Degenerative joint disease Nicotine addiction ongoing Acute kidney injury likely prerenal Normocytic anemia. Etiology unknown Patient is full code Labs: Patient will be continued on metoprolol and anticoagulation xarelto. Continue with prednisone reduced to 20 mg daily. And with the breathing treatment and monitor blood pressure closely. Continue the antibiotics the form of ceftriaxone due to MSSA in the sputum culture. Patient otherwise is improving clinically. Further recommendations based on the clinical course. Pulmonary and cardiology is following. Prognosis is guarded. Time with Patient: Greater than 30
[2018-03-14 16:57] VITALS: BP 85/57; PULSE 96; RESP 24; TEMP 97.5
--- NOTE | 2018-03-15 00:08 | P.CONS ---
History of Present Illness - Reason for Consult Consult date: 03/14/18 thrombocytopenia, microcytic anemia - History of Present Illness the patient is a 67-year-old white female, with multiple medical problems, including known history of CHF and COPD with pulmonary hypertension. The patient was admitted on 02/23/18 due to progressive shortness of breath, and lower extremity swelling. She was determined to be in CHF, with COPD exacerbation and significant pulmonary hypertension. She was treated aggressively for the above conditions with slow improvement. She developed new onset atrial fibrillation on 03/12/18, and was started on IV heparin. Platelet counts on 03/13/18 were noted to be 113. Consult was a focus for further evaluation and recommendations, specifically re concerns for HIT. on admission the patient's. Counts were 232 but fell to 134 the next day. since then, they had been in the 120-160 range. Hemoglobin had been in the 10- 11 range with microcytosis (MCV in the low 70s range) with a mild decline in to the 9 range. The patient denied any hospitalization or possible exposure to heparin or Lovenox in the past 6-12 months. No history of any thrombosis. She stated that she had been worked up in the past for her mild anemia and was diagnosed with thalassemia minor. No history of any platelet related issues. her chest x-ray from 03/13/17 had noted the possibility of a right hilar mass 3.6 cm. Review of Systems Constitutional: Reports fatigue, Reports weakness, Reports weight gain Eyes: denies blurred vision, denies pain Ears: deny: decreased hearing, ear discharge, earache, tinnitus Ears, nose, mouth and throat: Denies headache, Denies sore throat Cardiovascular: Reports leg edema, Reports orthopnea, Reports palpitations, Reports rapid heart beat, Reports shortness of breath Respiratory: Reports congestion, Reports dyspnea Gastrointestinal: Denies abdominal pain, Denies diarrhea, Denies nausea, Denies vomiting Genitourinary: Denies dysuria, Denies hematuria Menstruation: Reports postmenopausal Musculoskeletal: Reports muscle weakness, Denies myalgias Integumentary: Denies pruritus, Denies rash Neurological: Reports weakness Psychiatric: Denies anxiety, Denies depression Endocrine: Reports fatigue, Reports palpitations, Reports weight change Hematologic/Lymphatic: Reports as per HPI Past Medical History Past Medical History: Heart Failure, COPD, GERD/Reflux Additional Past Medical History / Comment(s): Pulmonary HTN History of Any Multi-Drug Resistant Organisms: None Reported Past Surgical History: Cholecystectomy, Hysterectomy, Joint Replacement, Orthopedic Surgery Past Anesthesia/Blood Transfusion Reactions: No Reported Reaction Past Psychological History: No Psychological Hx Reported Smoking Status: Current every day smoker Past Alcohol Use History: None Reported Past Drug Use History: None Reported - Past Family History Father Family Medical History: Cancer, COPD Additional Family Medical History / Comment(s): Colon CA Medications and Allergies Home Medications Medication Instructions Recorded Confirmed Type ALPRAZolam [Xanax] 0.5 mg PO TID 03/04/18 03/04/18 History Budesonide/Formoterol Fumarate 2 puff INHALATION BID 03/04/18 03/04/18 History [Symbicort 160-4.5 Mcg Inhaler] Cholecalciferol (Vitamin D3) 2,000 unit PO DAILY 03/04/18 03/04/18 History [Vitamin D3] Ipratropium/Albuterol Sulfate 1 puff INHALATION RT-QID 03/04/18 03/04/18 History [Combivent Respimat Inhaler] Omeprazole [PriLOSEC] 20 mg PO BID 03/04/18 03/04/18 History PARoxetine HCL [Paxil] 10 mg PO BID 03/04/18 03/04/18 History Sildenafil [Revatio] 20 mg PO TID 03/04/18 03/04/18 History Budesonide-Formot 160-4.5 Mcg 2 puff INHALATION BID #1 inhaler 03/14/18 Rx [Symbicort 160-4.5 Mcg Inhaler] Diltiazem Oral [Cardizem*] 15 mg PO TID #45 tab 03/14/18 Rx Furosemide [Lasix] 40 mg PO DAILY #30 tab 03/14/18 Rx Ipratropium-Albuterol Nebulize 3 ml INHALATION QID PRN 30 Days 03/14/18 Rx [Duoneb 0.5 mg-3 mg/3 ml Soln] #120 neb Metoprolol Tartrate [Lopressor] 25 mg PO BID #60 tab 03/14/18 Rx Rivaroxaban [Xarelto] 20 mg PO W/SUPPER #30 tab 03/14/18 Rx Allergies Allergy/AdvReac Type Severity Reaction Status Date / Time No Known Allergies Allergy Verified 03/04/18 12:50 Physical Exam Vitals: Vital Signs Temp Pulse Pulse Resp BP Pulse Ox Pulse Ox 03/14/18 16:00 24 03/14/18 15:00 97.5 F L 96 24 85/57 91 L 03/14/18 14:00 93 17 93/59 90 L 03/14/18 13:00 100 20 84/58 88 L 03/14/18 12:28 90 03/14/18 12:17 92 03/14/18 12:15 92 80 L 03/14/18 12:00 88 21 94/55 98 03/14/18 09:08 93 03/14/18 08:53 92 03/14/18 08:30 97.6 F 94 16 88/63 95 03/14/18 08:00 13 03/14/18 04:00 98.0 F 96 13 87/58 95 03/14/18 03:00 92 12 95 03/14/18 00:00 97.9 F 92 18 86/51 93 L Intake and Output 03/14/18 03/14/18 03/15/18 14:59 22:59 06:59 Intake Total 440 50 Output Total 550 Balance -110 50 Intake: Oral 240 50 Tube Feeding 200 Output: Urine 550 Other: Voiding Method Indwelling Catheter Toilet # Voids 1 - Constitutional General appearance: no acute distress - EENT Eyes: EOMI, PERRLA ENT: hearing grossly normal, normal oropharynx - Neck Neck: no lymphadenopathy Thyroid: bilateral: normal size - Respiratory Respiratory: bilateral: rales - Cardiovascular Rhythm: irregularly irregular Heart sounds: normal: S1, S2 - Gastrointestinal General gastrointestinal: normal bowel sounds, soft - Integumentary Integumentary: normal - Neurologic Neurologic: CNII-XII intact - Musculoskeletal Musculoskeletal: strength equal bilaterally - Psychiatric Psychiatric: A&O x's 3, appropriate affect Results CBC & Chem 7: 03/14/18 05:06 03/14/18 05:06 Labs: Abnormal Lab Results - Last 24 Hours (Table) 03/14/18 03/14/18 03/14/18 Range/Units 05:06 05:06 12:15 RBC 5.49 H (3.80-5.40) m/uL Hgb 9.9 L (11.4-16.0) gm/dL MCV 71.3 L (80.0-100.0) fL MCH 18.0 L (25.0-35.0) pg MCHC 25.2 L (31.0-37.0) g/dL RDW 21.1 H (11.5-15.5) % Plt Count 126 L (150-450) k/uL Chloride 109 H (98-107) mmol/L BUN 34 H (7-17) mg/dL POC Glucose (mg/dL) 129 H (75-99) mg/dL Comments: report of echocardiogram reviewed Chest x-ray: report reviewed CT scan - abdomen: report reviewed CT scan - chest: report reviewed CT scan - pelvis: report reviewed Assessment and Plan (1) Thrombocytopenia Narrative/Plan: a drop in platelet count was noted during this admission. There was concern, specifically for HIT, as the patient was on heparin. clinically ,however, the the presentation was not compatible with HIT at all. The patient had not had any exposure to heparin or Lovenox in the past one year. The platelet count dropped into the current range, the day after admission, which is several days before the heparin was even started. While it did fluctuate since, the level of 113 was much higher than a 50% drop from the baseline at the time of starting heparin. H IT testing was ordered and is pending, but is not expected to be positive. In any case, the plan was to change the patient to oral and examination according to cardiology anyway. Therefore it was recommended that heparin be stopped and the patient be started on xarelto. Case was discussed with cardiology. As long as platelet counts are greater than 50,000, the patient can continue on antibiotic regulation. At this time the drop in platelet counts is most likely felt to be due to sequestration as well as possible decreased production from hepatic and splenic condition related to her CHF. Therefore it is recommended that the patient have follow-up as an outpatient, with the expectation that counts will return to baseline once her acute condition resolves. Status: Acute Code(s): D69.6 - THROMBOCYTOPENIA, UNSPECIFIED SNOMED Code(s) : 096120477 (2) Microcytic anemia Narrative/Plan: the patient states that she was worked up in the past for this some years ago, and diagnosed with thalassemia minor. She denies any significant changes in her hemoglobin since. No intervention is required for the same at this time. Again, I would recommend continued outpatient follow-up Status: Acute Code(s): D50.9 - IRON DEFICIENCY ANEMIA, UNSPECIFIED SNOMED Code(s): 454395950 (3) Lung mass Narrative/Plan: the patient's most recent chest x-ray had shown hilar fullness of about 3.6 cm that was mentioned to be suspicious for a mass. However CTA done earlier this admission had shown no evidence of a mass. Therefore most likely the chest x- ray finding is benign and could be due to her dilated pulmonary arteries. It would be reasonable to repeat imaging as an outpatient in about 4-6 weeks. Patient does follow-up regularly with pulmonary medicine. review of their notes reveals that they concur with the above opinion. Status: Acute Code(s): R91.8 - OTHER NONSPECIFIC ABNORMAL FINDING OF LUNG FIELD SNOMED Code(s): 600891845
--- NOTE | 2018-03-15 15:30 | CDI ---
Documentation Clarification Form Date: 03/15/2018 3:07:19 PM From: LILY Singh; Yareli Truong Collections Assistant Phone: If you have a question about this query, please contact Yareli Truong Collections Assistant at [phone] between 8am and 5pm. Admit Date: 03/04/2018 3:34:00 PM Patient Name: Brigette Crawford Visit Number: [id number] Discharge Date: 03/14/2018 5:03:00 PM ATTENTION: The Clinical Documentation Specialists (CDI) and [facility] Coding Staff appreciate your assistance in clarifying documentation. Please respond to the clarification below the line at the bottom and electronically sign. The CDI & [facility] Coding staff will review the response and follow-up if needed. Please note: Queries are made part of the Legal Health Record. If you have any questions, please contact the author of this message via ITS. Dr. Tomas Ashraf The patient presented with acute respiratory failure, acute exacerbation of biventricular heart failure, severe pulmonary hypertension, ascites and bilateral lower extremity edema. ECHO: The left ventricular size is normal with moderate left ventricular hypertrophy. There is moderate mitral and tricuspid regurgitation, along with severe pulmonary hypertension. Overall ejection fraction is 55-60% Clinical Indicators: Reduced breath sounds bilaterally with crackles in the bases, distended abdomen, systolic murmur. Radiology findings: Marked cardiomegaly, pleural effusion, engorgement of the superior vena cava. Treatment: IV Lasix. Consult: 03/05; Severe pulmonary hypertension with right-sided heart failure with ascites and bilateral lower extremity edema. In your professional opinion, can you please clarify the type of pulmonary hypertension, if known or suspected, such as: Pulmonary hypertension with acute cor pulmonale Pulmonary hypertension with chronic cor pulmonale Pulmonary hypertension Group1 Group 2 Group 3 Group 4 Group 5 Other, please specify Unable to determine MTDD
--- NOTE | 2018-03-19 10:20 | CDI ---
Documentation Clarification Form Date: 03/19/2018 3:07:19 PM From: LILY Singh; Yareli Truong Rock Picker Phone: If you have a question about this query, please contact Yareli Truong Rock Picker at [phone] between 8am and 5pm. Admit Date: 03/04/2018 3:34:00 PM Patient Name: Brigette Crawford Visit Number: [id number] Discharge Date: 03/14/2018 5:03:00 PM ATTENTION: The Clinical Documentation Specialists (CDI) and [facility] Coding Staff appreciate your assistance in clarifying documentation. Please respond to the clarification below the line at the bottom and electronically sign. The CDI & [facility] Coding staff will review the response and follow-up if needed. Please note: Queries are made part of the Legal Health Record. If you have any questions, please contact the author of this message via ITS. Dr. Tomas Ashraf The patient presented with acute respiratory failure, acute exacerbation of biventricular heart failure, severe pulmonary hypertension, ascites and bilateral lower extremity edema. ECHO: The left ventricular size is normal with moderate left ventricular hypertrophy. There is moderate mitral and tricuspid regurgitation, along with severe pulmonary hypertension. Overall ejection fraction is 55-60% Clinical Indicators: Reduced breath sounds bilaterally with crackles in the bases, distended abdomen, systolic murmur. Radiology findings: Marked cardiomegaly, pleural effusion, engorgement of the superior vena cava. Treatment: IV Lasix. Consult: 03/05; Severe pulmonary hypertension with right-sided heart failure with ascites and bilateral lower extremity edema. In your professional opinion, can you please clarify the type of pulmonary hypertension, if known or suspected, such as: Pulmonary hypertension with acute cor pulmonale Pulmonary hypertension with chronic cor pulmonale Pulmonary hypertension Group1 Group 2 Group 3 Group 4 Group 5 Other, please specify Unable to determine MTDD
== END 2018-03-14 17:03 | disposition home health service (06) | DRG 314 ==
LOC: EC 11:51 → 2SICU 15:34
PROVIDERS: ADMIT Hospitalist; ATTEND Hospitalist
DX: I27.21 Secondary pulmonary arterial hypertension (principal); J15.6 Pneumonia due to other Gram-negative bacteria; J96.21 Acute and chronic respiratory failure with hypoxia; J96.22 Acute and chronic respiratory failure with hypercapnia; D61.818 Other pancytopenia; E87.1 Hypo-osmolality and hyponatremia; E87.3 Alkalosis; I48.1 Persistent atrial fibrillation; J44.0 Chronic obstructive pulmonary disease with (acute) lower respiratory infection; J44.1 Chronic obstructive pulmonary disease with (acute) exacerbation; J98.11 Atelectasis; N17.9 Acute kidney failure, unspecified; R18.8 Other ascites; I42.9 Cardiomyopathy, unspecified; I50.82 Biventricular heart failure; D50.9 Iron deficiency anemia, unspecified; D56.3 Thalassemia minor; E87.6 Hypokalemia; F17.200 Nicotine dependence, unspecified, uncomplicated; G47.33 Obstructive sleep apnea (adult) (pediatric); I07.1 Rheumatic tricuspid insufficiency; I27.81 Cor pulmonale (chronic); I48.2 Chronic atrial fibrillation; I49.3 Ventricular premature depolarization; K21.9 Gastro-esophageal reflux disease without esophagitis; M19.90 Unspecified osteoarthritis, unspecified site; T50.2X5A Adverse effect of carbonic-anhydrase inhibitors, benzothiadiazides and other diuretics, initial encounter; Z79.01 Long term (current) use of anticoagulants; Z79.51 Long term (current) use of inhaled steroids; Z79.899 Other long term (current) drug therapy; Z80.0 Family history of malignant neoplasm of digestive organs; Z82.5 Family history of asthma and other chronic lower respiratory diseases; Z90.49 Acquired absence of other specified parts of digestive tract; Z90.710 Acquired absence of both cervix and uterus; I27.24 Chronic thromboembolic pulmonary hypertension
CPT/HCPCS: 36415; 36600; 51702; 71045; 71275; 74177; 76604; 80048; 80053; 81001; 82550; 82553; 82805; 83036; 83735; 83880; 84100; 84132; 84484; 85025; 85610; 85730; 86022; 87040; 87070; 87077; 87186; 87205; 87502; 93005; 93306; 94640; 94660; 96374; 96375; 99291

== ENCOUNTER → 2018-04-06 | Outpatient (CLI) | payer MEDICARE, OTHER ==
[2018-04-06 12:45] LABS: Anisocytosis Moderate; Basophils # (A) 0.1 k/uL (0-0.2); Basophils % (A) 1 %; Eosinophils # (A) 0.1 k/uL (0-0.7); Eosinophils % (A) 2 %; HCT 41.7 % (34.0-46.0); HGB 11.4 gm/dL (11.4-16.0); Hypochromasia Marked; Lymphocytes # (A) 1.1 k/uL (1.0-4.8); Lymphocytes % (A) 15 %; MCH 20.4 pg (25.0-35.0); MCHC 27.3 g/dL (31.0-37.0); MCV 74.6 fL (80.0-100.0); Mean Platelet Volume 6.2; Microcytosis Marked; Monocytes # (A) 0.5 k/uL (0-1.0); Monocytes % (A) 6 %; Neutrophils # (A) 5.7 k/uL (1.3-7.7); Neutrophils % (A) 75 %; Platelet Count 240 k/uL (150-450); Poikilocytosis Slight; RBC 5.59 m/uL (3.80-5.40); RDW 23.7 % (11.5-15.5); WBC 7.6 k/uL (3.8-10.6)
[2018-04-06 18:01] LABS: Albumin 4.3 g/dL (3.80-4.90); Albumin/Globulin Ratio 1.95 (1.60-3.17); Anion Gap 15.8 mmol/L (4.00-12.00); Calcium 9.5 mg/dL (8.7-10.3); Carbon Dioxide 29.2 mmol/L (21.6-31.8); Globulin 2.2 g/dL (1.6-3.3); Potassium 3.9 mmol/L (3.5-5.5); Total Bilirubin 2.2 mg/dL (0.3-1.2); Total Protein 6.5 g/dL (6.2-8.2)
== END | disposition home or self-care (01) ==
LOC: LABWHC1 12:15
PROVIDERS: ATTEND Internal Medicine
DX: I48.91 Unspecified atrial fibrillation (principal); E66.9 Obesity, unspecified; I27.20 Pulmonary hypertension, unspecified; I51.9 Heart disease, unspecified
CPT/HCPCS: 36415; 80053; 82533; 84439; 84443; 85025

== ENCOUNTER 2018-04-09 19:03 | Inpatient (IN) | payer MEDICARE, OTHER ==
[2018-04-09] MEDS ORDERED: SODIUM CHLORIDE 0.9% 1,000 ML IV STA ×2 (19:29→21:17)
[2018-04-09] MEDS ORDERED: DILTIAZEM DRIP BOLUS FROM BAG 1 MG SOLN IV ONE ×2 (19:29→22:26)
--- NOTE | 2018-04-09 19:30 | ED ---
Arrhythmia/Palpitations HPI - General Chief Complaint: Arrhythmia/Palpitations Stated Complaint: elevated heart rate Time Seen by Provider: 04/09/18 19:29 Source: patient, family, RN notes reviewed, old records reviewed Mode of arrival: wheelchair Limitations: no limitations - History of Present Illness Initial Comments: This is a 67-year-old female to the ER for evaluation. Today he presents for evaluation regards to shortness of breath. Patient feels like her heart is beating fast in her chest. No recent travel history no sick contacts. No fevers. Patient states she is cannot catch her breath symptoms are worse with exertion MD Complaint: rapid heart beat, "heart racing", atrial fibrillation -: days(s) Context: occurred during rest, occurred during exertion Arrhythmia History: atrial fibrillation Associated Symptoms: shortness of breath, anxiety - Related Data Home Medications Medication Instructions Recorded Confirmed ALPRAZolam [Xanax] 0.5 mg PO TID PRN 03/04/18 04/09/18 Budesonide/Formoterol Fumarate 2 puff INHALATION RT-BID@0800,1700 03/04/1804/09 [Symbicort 160-4.5 Mcg Inhaler] Cholecalciferol (Vitamin D3) 2,000 unit PO DAILY@1700 03/04/18 04/09/18 [Vitamin D3] Ipratropium/Albuterol Sulfate 1 puff INHALATION RT-QID 03/04/18 04/09/18 [Combivent Respimat Inhaler] Omeprazole [PriLOSEC] 20 mg PO BID@0800,1700 03/04/18 04/09/18 PARoxetine HCL [Paxil] 10 mg PO BID@0800,2100 03/04/18 04/09/18 Sildenafil [Revatio] 20 mg PO TID@0600,1400,2100 03/04/18 04/09/18 Acetaminophen [Tylenol] 650 mg PO Q4H PRN 04/09/18 04/09/18 Diltiazem Oral [Cardizem*] 15 mg PO TID@0600,1400,209904/09/18 04/09/18 Furosemide [Lasix] 40 mg PO DAILY@0600 04/09/18 04/09/18 Ipratropium-Albuterol Nebulize 3 ml INHALATION RT-QID PRN 04/09/18 04/09/18 [Duoneb 0.5 mg-3 mg/3 ml Soln] Metoprolol Tartrate [Lopressor] 25 mg PO TID@0800,1500,2100 04/09/18 04/09/18 Midodrine [ProAmatine] 5 mg PO TID@0600,1400,2100 04/09/18 04/09/18 Nicotine 21Mg/24Hr Patch [Habitrol 1 patch TRANSDERM DAILY 04/09/18 04/09/18 21Mg/24Hr Patch] Rivaroxaban [Xarelto] 20 mg PO AC-SUPPER@1700 04/09/18 04/09/18 Spironolactone [Aldactone] 25 mg PO DAILY@0600 04/09/18 04/09/18 Allergies Allergy/AdvReac Type Severity Reaction Status Date / Time No Known Allergies Allergy Verified 04/09/18 19:46 Review of Systems ROS Statement: Those systems with pertinent positive or pertinent negative responses have been documented in the HPI. ROS Other: All systems not noted in ROS Statement are negative. Past Medical History Past Medical History: Atrial Fibrillation, Heart Failure, COPD, GERD/Reflux Additional Past Medical History / Comment(s): Pulmonary HTN History of Any Multi-Drug Resistant Organisms: None Reported Past Surgical History: Cholecystectomy, Hysterectomy, Joint Replacement, Orthopedic Surgery Past Anesthesia/Blood Transfusion Reactions: No Reported Reaction Past Psychological History: No Psychological Hx Reported Smoking Status: Former smoker Past Alcohol Use History: None Reported Past Drug Use History: None Reported - Past Family History Father Family Medical History: Cancer, COPD Additional Family Medical History / Comment(s): Colon CA General Exam Limitations: no limitations General appearance: alert, in no apparent distress, anxious Head exam: Present: atraumatic, normocephalic, normal inspection Eye exam: Present: normal appearance, PERRL, EOMI. Absent: scleral icterus, conjunctival injection, periorbital swelling ENT exam: Present: normal exam, mucous membranes moist Neck exam: Present: normal inspection. Absent: tenderness, meningismus, lymphadenopathy Respiratory exam: Present: respiratory distress, rales, decreased breath sounds , prolonged expiratory. Absent: wheezes, rhonchi, stridor Cardiovascular Exam: Present: normal rhythm, tachycardia, normal heart sounds. Absent: systolic murmur, diastolic murmur, rubs, gallop, clicks GI/Abdominal exam: Present: soft, normal bowel sounds. Absent: distended, tenderness, guarding, rebound, rigid Extremities exam: Present: normal inspection, full ROM, normal capillary refill. Absent: tenderness, pedal edema, joint swelling, calf tenderness Back exam: Present: normal inspection Neurological exam: Present: alert, oriented X3, CN II-XII intact Psychiatric exam: Present: normal affect, normal mood Skin exam: Present: warm, dry, intact, normal color. 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 ] Respiratory 22 22 21 Rate Blood Pressure 94/68 110/88 Blood Pressure [Right Arm] O2 Sat by Pulse 87 L 92 L Oximetry 04/09/18 04/09/18 04/09/18 21:15 21:27 21:44 Temperature Pulse Rate 98 107 H 114 H Pulse Rate [ Milk Delivery Driver ] Respiratory 21 Rate Blood Pressure 105/76 Blood Pressure [Right Arm] O2 Sat by Pulse 90 L Oximetry 04/09/18 04/09/18 04/10/18 22:43 23:58 01:19 Temperature Pulse Rate 120 H 112 H 101 H Pulse Rate [ Milk Delivery Driver ] Respiratory 22 22 21 Rate Blood Pressure 111/79 107/82 106/78 Blood Pressure [Right Arm] O2 Sat by Pulse 91 L 92 L 93 L Oximetry 04/10/18 04/10/18 04/10/18 03:59 04:00 06:27 Temperature Pulse Rate Pulse Rate [ 105 H 105 H 135 H Milk Delivery Driver ] Respiratory 18 18 Rate Blood Pressure Blood Pressure 113/84 99/83 [Right Arm] O2 Sat by Pulse 93 L 92 L Oximetry 04/10/18 04/10/18 04/10/18 07:14 07:29 07:31 Temperature 97.5 F L Pulse Rate 121 H 134 H Pulse Rate [ 144 H Milk Delivery Driver ] Respiratory 24 Rate Blood Pressure Blood Pressure 110/81 [Right Arm] O2 Sat by Pulse 90 L Oximetry 04/10/18 04/10/18 04/10/18 07:32 11:27 11:35 Temperature Pulse Rate 116 H 124 H Pulse Rate [ 122 H Milk Delivery Driver ] Respiratory 24 Rate Blood Pressure Blood Pressure [Right Arm] O2 Sat by Pulse Oximetry 04/10/18 04/10/18 04/10/18 12:00 15:53 15:55 Temperature 97.0 F L Pulse Rate Pulse Rate [ 99 122 H 118 H Milk Delivery Driver ] Respiratory 20 20 20 Rate Blood Pressure Blood Pressure 107/75 122/92 [Right Arm] O2 Sat by Pulse 93 L 90 L Oximetry - Reevaluation(s) Reevaluation #1: Medical record reviewed Patient improved here with rate control EKG Findings - EKG Comments: EKG Findings:: EKG shows A. fib with RVR rate 137, QRS 70, QTc 477 Medical Decision Making - Medical Decision Making 67 female the ER for evaluation. Patient found to be in A. fib with RVR CHF and hypoxia. Patient will admit for continuing monitoring, cardiopulmonary resuscitation, rate control - Lab Data Result diagrams: 04/09/18 19:15 04/10/18 07:06 Lab Results 04/09/18 04/09/18 04/09/18 Range/Units 19:15 19:15 19:15 WBC 7.6 (3.8-10.6) k/uL RBC 5.58 H (3.80-5.40) m/uL Hgb 11.2 L (11.4-16.0) gm/dL Hct 41.0 (34.0-46.0) % MCV 73.6 L (80.0-100.0) fL MCH 20.1 L (25.0-35.0) pg MCHC 27.3 L (31.0-37.0) g/dL RDW 23.2 H (11.5-15.5) % Plt Count 249 (150-450) k/uL Neutrophils % 66 % Lymphocytes % 24 % Monocytes % 7 % Eosinophils % 2 % Basophils % 1 % Neutrophils # 5.0 (1.3-7.7) k/uL Lymphocytes # 1.8 (1.0-4.8) k/uL Monocytes # 0.5 (0-1.0) k/uL Eosinophils # 0.1 (0-0.7) k/uL Basophils # 0.1 (0-0.2) k/uL Hypochromasia Marked Poikilocytosis Slight Anisocytosis Moderate Microcytosis Marked PT (9.0-12.0) sec INR (<1.2) APTT (22.0-30.0) sec Sodium 137 (137-145) mmol/L Potassium 4.9 (3.5-5.1) mmol/L Chloride 97 L (98-107) mmol/L Carbon Dioxide 28 (22-30) mmol/L Anion Gap 12 mmol/L BUN 32 H (7-17) mg/dL Creatinine 1.44 H (0.52-1.04) mg/dL Est GFR (CKD-EPI)AfAm 43 (>60 ml/min/1.73 sqM) Est GFR (CKD-EPI)NonAf 37 (>60 ml/min/1.73 sqM) Glucose 118 H (74-99) mg/dL Calcium 10.0 (8.4-10.2) mg/dL Magnesium 2.1 (1.6-2.3) mg/dL Total Bilirubin 2.8 H (0.2-1.3) mg/dL AST 17 (14-36) U/L ALT 14 (9-52) U/L Alkaline Phosphatase 76 (38-126) U/L Total Creatine Kinase <20 L (30-135) U/L CK-MB (CK-2) 0.3 (0.0-2.4) ng/mL CK-MB (CK-2) Rel Index Troponin I <0.012 (0.000-0.034) ng/mL NT-Pro-B Natriuret Pep pg/mL Total Protein 6.9 (6.3-8.2) g/dL Albumin 4.0 (3.5-5.0) g/dL TSH 4.200 (0.465-4.680) mIU/L 04/09/18 04/09/18 Range/Units 19:15 19:29 WBC (3.8-10.6) k/uL RBC (3.80-5.40) m/uL Hgb (11.4-16.0) gm/dL Hct (34.0-46.0) % MCV (80.0-100.0) fL MCH (25.0-35.0) pg MCHC (31.0-37.0) g/dL RDW (11.5-15.5) % Plt Count (150-450) k/uL Neutrophils % % Lymphocytes % % Monocytes % % Eosinophils % % Basophils % % Neutrophils # (1.3-7.7) k/uL Lymphocytes # (1.0-4.8) k/uL Monocytes # (0-1.0) k/uL Eosinophils # (0-0.7) k/uL Basophils # (0-0.2) k/uL Hypochromasia Poikilocytosis Anisocytosis Microcytosis PT 13.0 H (9.0-12.0) sec INR 1.3 H (<1.2) APTT 28.6 (22.0-30.0) sec Sodium (137-145) mmol/L Potassium (3.5-5.1) mmol/L Chloride (98-107) mmol/L Carbon Dioxide (22-30) mmol/L Anion Gap mmol/L BUN (7-17) mg/dL Creatinine (0.52-1.04) mg/dL Est GFR (CKD-EPI)AfAm (>60 ml/min/1.73 sqM) Est GFR (CKD-EPI)NonAf (>60 ml/min/1.73 sqM) Glucose (74-99) mg/dL Calcium (8.4-10.2) mg/dL Magnesium (1.6-2.3) mg/dL Total Bilirubin (0.2-1.3) mg/dL AST (14-36) U/L ALT (9-52) U/L Alkaline Phosphatase (38-126) U/L Total Creatine Kinase (30-135) U/L CK-MB (CK-2) (0.0-2.4) ng/mL CK-MB (CK-2) Rel Index Troponin I (0.000-0.034) ng/mL NT-Pro-B Natriuret Pep 7110 pg/mL Total Protein (6.3-8.2) g/dL Albumin (3.5-5.0) g/dL TSH (0.465-4.680) mIU/L - Radiology Data Radiology results: report reviewed (Chest x-rays positive CHF), image reviewed Disposition Clinical Impression: Hypoxia, CHF (congestive heart failure), Atrial fibrillation with RVR Disposition: ADMITTED IP TO THIS HOSP Condition: Fair Is patient prescribed a controlled substance at d/c from ED?: No
[2018-04-09 19:54] LABS: Anisocytosis Moderate; Basophils # (A) 0.1 k/uL (0-0.2); Basophils % (A) 1 %; Eosinophils # (A) 0.1 k/uL (0-0.7); Eosinophils % (A) 2 %; HGB 11.2 gm/dL (11.4-16.0); Hypochromasia Marked; Lymphocytes # (A) 1.8 k/uL (1.0-4.8); Lymphocytes % (A) 24 %; MCH 20.1 pg (25.0-35.0); MCHC 27.3 g/dL (31.0-37.0); MCV 73.6 fL (80.0-100.0); Mean Platelet Volume 6.3; Microcytosis Marked; Monocytes # (A) 0.5 k/uL (0-1.0); Monocytes % (A) 7 %; Neutrophils % (A) 66 %; Platelet Count 249 k/uL (150-450); Poikilocytosis Slight; RBC 5.58 m/uL (3.80-5.40); RDW 23.2 % (11.5-15.5); WBC 7.6 k/uL (3.8-10.6)
[2018-04-09 20:01] LABS: Magnesium 2.1 mg/dL (1.6-2.3); Potassium 4.9 mmol/L (3.5-5.1); Total Bilirubin 2.8 mg/dL (0.2-1.3); Total Protein 6.9 g/dL (6.3-8.2)
[2018-04-09 20:03] LABS: INR 1.3 (<1.2); Partial Thromboplastin Time 28.6 sec (22.0-30.0)
[2018-04-09 20:07] LABS: Creatine Kinase <20 U/L (30-135)
[2018-04-09 20:20] LABS: Creatine Kinase MB 0.3 ng/mL (0.0-2.4); Troponin I <0.012 ng/mL (0.000-0.034)
[2018-04-09] MEDS: DILTIAZEM 50 MG in SODIUM CHLORIDE 0.9% 40 ML IV SCH ×2 (20:28→22:53)
[2018-04-09] MEDS ORDERED: NITROGLYCERIN SL TABS 0.4 MG TAB SUBLINGUAL PRN (21:15)
[2018-04-09] MEDS ORDERED: IPRATROPIUM-ALBUTEROL 3 ML NEB INHALATION STA (21:17)
--- NOTE | 2018-04-09 21:45 | XR ---
EXAMINATION TYPE: XR chest 2V DATE OF EXAM: 04/09/2018 COMPARISON: Chest x-ray March 14, 2018 and most recent chest x-ray April 06, 2018 HISTORY: Chest pain and shortness of breath TECHNIQUE: Frontal and lateral views of the chest are obtained. FINDINGS: The osseous structures remain demineralized. Underlying scoliosis centered in the upper lum bar spine is redemonstrated. Cardiomegaly with bilateral hilar prominence consistent with underlying pulmonary hypertension is redemonstrated. Mild interstitial edema bilaterally is again seen. There is persistent small right pleural effusion. There is patchy bibasilar atelectasis and/or infiltrate red emonstrated. Upper lungs remain clear without pneumothorax. IMPRESSION: Overall stable findings from most recent chest x-ray, suspect CHF exacerbation on backgr ound chronic parenchymal change with cardiomegaly and mild bilateral interstitial edema with small ri ght pleural effusion all are redemonstrated.
[2018-04-10] MEDS ORDERED: ALPRAZolam 0.5 MG TAB PO STA (01:08)
[2018-04-10 03:12] LABS: Creatine Kinase <20 U/L (30-135)
[2018-04-10 03:25] LABS: Creatine Kinase MB 0.3 ng/mL (0.0-2.4); Troponin I <0.012 ng/mL (0.000-0.034)
[2018-04-10] MEDS: METOPROLOL TARTRATE 25 MG TAB PO SCH ×3 (06:57→20:56)
[2018-04-10] MEDS: BUDESONIDE 1 MG/2 ML NEBU INHALATION SCH ×2 (07:14→19:15)
[2018-04-10] MEDS: IPRATROPIUM-ALBUTEROL 3 ML NEB INHALATION PRN ×2 (07:14→11:25)
[2018-04-10] MEDS: NICOTINE 21MG/24HR PATCH TRANSDERM SCH (07:36)
[2018-04-10] MEDS: PANTOPRAZOLE 40 MG TABLET PO SCH ×2 (07:36→17:40)
[2018-04-10] MEDS: ASPIRIN 325 MG TAB PO SCH (07:37)
[2018-04-10 07:38] LABS: Cholesterol 68 mg/dL (<200); HDL Cholesterol 31 mg/dL (40-60); LDL Cholesterol,Calculated 23 mg/dL (0-99); Triglycerides 69 mg/dL (<150)
[2018-04-10 08:03] LABS: Creatine Kinase <20 U/L (30-135)
[2018-04-10 08:15] LABS: Creatine Kinase MB 0.3 ng/mL (0.0-2.4); Troponin I <0.012 ng/mL (0.000-0.034)
[2018-04-10] MEDS: DILTIAZEM 50 MG in SODIUM CHLORIDE 0.9% 40 ML IV SCH ×3 (08:27→20:57)
[2018-04-10] MEDS ORDERED: METOPROLOL TARTRATE 25 MG TAB PO SCH (09:00)
[2018-04-10] MEDS ORDERED: FUROSEMIDE 10 MG/ML 4 ML VIAL IV SCH (09:00)
[2018-04-10] MEDS: PARoxetine 10 MG TAB PO SCH ×2 (10:02→21:32)
--- NOTE | 2018-04-10 11:34 | XR ---
EXAMINATION TYPE: XR chest 1V portable DATE OF EXAM: 04/10/2018 COMPARISON: April 09, 2018 HISTORY: Shortness of breath FINDINGS: Noted is pulmonary venous congestion with scattered infiltrates. There is also cardiomegaly and small effusions. IMPRESSION: Findings compatible with mildly progressive congestive failure. Infiltrates of other etiology are no t excluded. Clinical correlation and progress studies are recommended.
[2018-04-10 11:46] LABS: Calcium 9.5 mg/dL (8.4-10.2); Potassium 4.4 mmol/L (3.5-5.1)
[2018-04-10] MEDS: MIDODRINE 5 MG TAB PO SCH ×2 (11:48→18:01)
[2018-04-10] MEDS: AMIODARONE 200 MG TAB PO SCH ×2 (13:34→20:56)
[2018-04-10] MEDS: SILDENAFIL 20 MG TAB PO SCH ×2 (13:34→21:35)
[2018-04-10] MEDS ORDERED: FUROSEMIDE 10 MG/ML 2 ML VIAL IV STA (13:38)
[2018-04-10] MEDS ORDERED: MIDODRINE 5 MG TAB PO SCH (14:00)
--- NOTE | 2018-04-10 14:12 | P.CNPUL ---
<Essence Case - Last Filed: 04/10/18 13:52> History of Present Illness Consult date: 04/10/18 Requesting physician: Jenny Moreno Reason for consult: dyspnea Chief complaint: Palpitations, high heart rate, shortness of breath History of present illness: This is a very pleasant 67-year-old female patient who follows with Dr. Dillon as her primary care physician. 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 She was seen by Dr. Dillon on 2018 who found her to be somewhat dry and he decreased her Lasix to 40 mg once a day and cut the Aldactone to 25 mg daily. Labs have been ordered. She ended up coming to the emergency room last evening as her family found her heart rate to be in the 150s 160s. She is continued in atrial fibrillation since her last admission. Unfortunately, her blood pressure runs in the low side and was in the 70s last evening. She had not been able to take metoprolol or Cardizem for several days. She is also been in the mid to drain for pressure support. She did receive 2 L of fluid in the emergency room. She is on a Cardizem drip at 10 mg per hour. Continues with A. fib RVR. Chest x-ray shows evidence of progressive congestive heart failure. She is seen today in the emergency room. She is awake and alert in mild respiratory distress. Currently requiring 6 L high flow nasal cannula to maintain O2 saturations in the 90s. She's afebrile. Heart rate in the 120s. Systolic BP in the 100s. Upon is negative 3. Creatinine 1.21. She has been initiated on oral amiodarone. Cardizem drip decreased to 5 mg per hour. Beta blockers on board. He is also on DuoNeb inhalations, Pulmicort inhalations. NicoDerm patch has been applied. Review of Systems Constitutional: Reports fatigue, Reports malaise, Reports weakness Eyes: denies blurred vision, denies decreased vision Ears: deny: decreased hearing Ears, nose, mouth and throat: Denies headache, Denies sore throat Cardiovascular: Reports decreased exercise tolerance, Reports dyspnea on exertion, Reports irregular heart beat, Reports rapid heart beat, Reports shortness of breath Respiratory: Reports cough, Reports dyspnea, Reports home oxygen, Reports wheezing Gastrointestinal: Reports bloating Genitourinary: Denies dysuria, Denies hematuria Musculoskeletal: Denies myalgias Integumentary: Denies pruritus, Denies rash Neurological: Reports gait dysfunction, Reports weakness Psychiatric: Reports anxiety Endocrine: Denies fatigue, Denies weight change Hematologic/Lymphatic: Reports as per HPI Allergic/Immunologic: Reports as per HPI Past Medical History Past Medical History: Atrial Fibrillation, Heart Failure, COPD, GERD/Reflux Additional Past Medical History / Comment(s): Pulmonary HTN History of Any Multi-Drug Resistant Organisms: None Reported Past Surgical History: Cholecystectomy, Hysterectomy, Joint Replacement, Orthopedic Surgery Past Anesthesia/Blood Transfusion Reactions: No Reported Reaction Smoking Status: Former smoker - Past Family History Father Family Medical History: Cancer, COPD Additional Family Medical History / Comment(s): Colon CA Medications and Allergies Home Medications Medication Instructions Recorded Confirmed Type ALPRAZolam [Xanax] 0.5 mg PO TID PRN 03/04/18 04/09/18 History Budesonide/Formoterol Fumarate 2 puff INHALATION RT-BID@0800,1700 03/04/1804/09 History [Symbicort 160-4.5 Mcg Inhaler] Cholecalciferol (Vitamin D3) 2,000 unit PO DAILY@1700 03/04/18 04/09/18 History [Vitamin D3] Ipratropium/Albuterol Sulfate 1 puff INHALATION RT-QID 03/04/18 04/09/18 History [Combivent Respimat Inhaler] Omeprazole [PriLOSEC] 20 mg PO BID@0800,1700 03/04/18 04/09/18 History PARoxetine HCL [Paxil] 10 mg PO BID@0800,2100 03/04/18 04/09/18 History Sildenafil [Revatio] 20 mg PO TID@0600,1400,209903/04/18 04/09/18 History Acetaminophen [Tylenol] 650 mg PO Q4H PRN 04/09/18 04/09/18 History Diltiazem Oral [Cardizem*] 15 mg PO TID@0600,1400,209904/09/18 04/09/18 History Furosemide [Lasix] 40 mg PO DAILY@0600 04/09/18 04/09/18 History Ipratropium-Albuterol Nebulize 3 ml INHALATION RT-QID PRN 04/09/18 04/09/18 History [Duoneb 0.5 mg-3 mg/3 ml Soln] Metoprolol Tartrate [Lopressor] 25 mg PO TID@0800,1500,2100 04/09/18 04/09/18 History Midodrine [ProAmatine] 5 mg PO TID@0600,1400,2100 04/09/18 04/09/18 History Nicotine 21Mg/24Hr Patch [Habitrol 1 patch TRANSDERM DAILY 04/09/18 04/09/18 History 21Mg/24Hr Patch] Rivaroxaban [Xarelto] 20 mg PO AC-SUPPER@1700 04/09/18 04/09/18 History Spironolactone [Aldactone] 25 mg PO DAILY@0600 04/09/18 04/09/18 History Allergies Allergy/AdvReac Type Severity Reaction Status Date / Time No Known Allergies Allergy Verified 04/09/18 19:46 Physical Exam Vitals: Vital Signs Temp Pulse Pulse Resp BP BP Pulse Ox 04/10/18 12:00 97.0 F L 99 20 107/75 93 L 04/10/18 11:35 124 H 04/10/18 11:27 116 H 04/10/18 07:32 122 H 24 04/10/18 07:31 97.5 F L 144 H 24 110/81 90 L 04/10/18 07:29 134 H 04/10/18 07:14 121 H 04/10/18 06:27 135 H 99/83 92 L 04/10/18 04:00 105 H 18 04/10/18 03:59 105 H 18 113/84 93 L 04/10/18 01:19 101 H 21 106/78 93 L 04/09/18 23:58 112 H 22 107/82 92 L 04/09/18 22:43 120 H 22 111/79 91 L 04/09/18 21:44 114 H 04/09/18 21:27 107 H 04/09/18 21:15 98 21 105/76 90 L 04/09/18 19:37 141 H 21 110/88 92 L 04/09/18 19:22 97.7 F 145 H 22 94/68 87 L 04/09/18 19:21 144 H 22 Intake and Output 04/09/18 04/10/18 04/10/18 22:59 06:59 14:59 Intake Total 12.083 97.833 Balance 12.083 97.833 Intake: Intake, IV Titration 12.083 97.833 Amount Diltiazem 50 mg In Sodium 12.083 97.833 Chloride 0.9% 40 ml @ 5 MG/HR 5 mls/hr IV .Q10H [facility] Rx#:[id number] Other: Voiding Method Bedside Commode Bedside Commode # Voids 1 Weight 87.09 kg GENERAL EXAM: Pleasant 67-year-old female patient. Alert, fairly comfortable in mild respiratory distress. 6 L nasal cannula HEAD: Normocephalic. EYES: Normal reaction of pupils, equal size. NOSE: Clear with pink turbinates. THROAT: No erythema or exudates. NECK: No masses, no JVD. CHEST: No chest wall deformity. LUNGS: Equal air entry with echoes in the bilateral posterior bases, diminished. CVS: S1 and S2 normal with audible murmur, irregular rhythm. ABDOMEN: No hepatosplenomegaly, normal bowel sounds, no guarding or rigidity. SPINE: No scoliosis or deformity SKIN: No rashes CENTRAL NERVOUS SYSTEM: No focal deficits, tone is normal in all 4 extremities. EXTREMITIES: There is trace peripheral edema. No clubbing, no cyanosis. Peripheral pulses are intact. Results - Laboratory Findings CBC and BMP: 04/09/18 19:15 04/10/18 07:06 PT/INR, D-dimer PT 13.0 sec (9.0-12.0) H 04/09/18 19:15 INR 1.3 (<1.2) H 04/09/18 19:15 Abnormal lab findings: Abnormal Labs 04/09/18 04/09/18 04/09/18 19:15 19:15 19:15 RBC 5.58 H Hgb 11.2 L MCV 73.6 L MCH 20.1 L MCHC 27.3 L RDW 23.2 H PT INR Chloride 97 L BUN 32 H Creatinine 1.44 H Glucose 118 H Total Bilirubin 2.8 H Total Creatine Kinase <20 L HDL Cholesterol 04/09/18 04/10/1804/10/19 19:15 01:22 07:06 RBC Hgb MCV MCH MCHC RDW PT 13.0 H INR 1.3 H Chloride BUN Creatinine Glucose Total Bilirubin Total Creatine Kinase <20 L <20 L HDL Cholesterol 04/10/18 04/10/18 07:06 07:06 RBC Hgb MCV MCH MCHC RDW PT INR Chloride BUN 31 H Creatinine 1.21 H Glucose Total Bilirubin Total Creatine Kinase HDL Cholesterol 31 L - Diagnostic Findings Chest x-ray: image reviewed Assessment and Plan Assessment: Impression: #1 Acute on chronic hypoxic respiratory failure secondary to an acute exacerbation of diastolic congestive heart failure, acute exacerbation of chronic obstructive pulmonary disease, atrial fibrillation with rapid ventricular response. #2 Acute exacerbation of diastolic congestive heart failure. #3 Atrial fibrillation with rapid ventricular response. Anticoagulated with Eliquis. #4 Acute exacerbation of oxygen dependent chronic obstructive pulmonary disease. #5 Chronic tobacco dependence. #6 Episodes of hypotension requiring midodrine in the outpatient setting. #8 Moderate pulmonary hypertension. Plan: The patient was seen and evaluated by Dr. Raymundo. Chest x-ray and labs were reviewed. She remains on IV diuretics. Amiodarone and Cardizem per cardiology. Continue to monitor renal function. Continue DuoNeb inhalations, Pulmicort inhalations, had a small amount of IV Solu-Medrol. Titrate down the FiO2 as tolerated. We will continue to follow and make further recommendations based on her clinical status. I, the cosigning physician, performed a history & physical examination of the patient. Lungs sounds with crackles in the bilateral posterior bases, end expiratory wheeze, diminished. Maintaining good O2 saturations in the 90s on 6 L high flow nasal cannula. I discussed the assessment and plan of care with my nurse practitioner, Essence Case. I attest to the above consultation as dictated by her. Time with Patient: Greater than 30 <Janey Raymundo - Last Filed: 04/10/18 20:03> Physical Exam Vitals: Vital Signs Temp Pulse Pulse Resp BP BP Pulse Ox 04/10/18 19:27 110 H 04/10/18 19:17 118 H 04/10/18 15:55 118 H 20 122/92 90 L 04/10/18 15:53 122 H 20 04/10/18 12:00 97.0 F L 99 20 107/75 93 L 04/10/18 11:35 124 H 04/10/18 11:27 116 H 04/10/18 07:32 122 H 24 04/10/18 07:31 97.5 F L 144 H 24 110/81 90 L 04/10/18 07:29 134 H 04/10/18 07:14 121 H 04/10/18 06:27 135 H 99/83 92 L 04/10/18 04:00 105 H 18 04/10/18 03:59 105 H 18 113/84 93 L 04/10/18 01:19 101 H 21 106/78 93 L 04/09/18 23:58 112 H 22 107/82 92 L 04/09/18 22:43 120 H 22 111/79 91 L 04/09/18 21:44 114 H 04/09/18 21:27 107 H 04/09/18 21:15 98 21 105/76 90 L Intake and Output 04/10/18 04/10/18 04/10/18 06:59 14:59 22:59 Intake Total 197.833 Output Total 300 Balance 197.833 -300 Intake: Intake, IV Titration 97.833 Amount Diltiazem 50 mg In Sodium 97.833 Chloride 0.9% 40 ml @ 5 MG/HR 5 mls/hr IV .Q10H [facility] Rx#:[id number] Oral 100 Output: Urine 300 Other: Voiding Method Bedside Commode Bedside Commode Bedside Commode # Voids 1 1 Results - Laboratory Findings CBC and BMP: 04/09/18 19:15 04/10/18 07:06 PT/INR, D-dimer PT 13.0 sec (9.0-12.0) H 04/09/18 19:15 INR 1.3 (<1.2) H 04/09/18 19:15 Abnormal lab findings: Abnormal Labs 04/09/18 04/09/18 04/09/18 19:15 19:15 19:15 RBC 5.58 H Hgb 11.2 L MCV 73.6 L MCH 20.1 L MCHC 27.3 L RDW 23.2 H PT INR Chloride 97 L BUN 32 H Creatinine 1.44 H Glucose 118 H Total Bilirubin 2.8 H Total Creatine Kinase <20 L HDL Cholesterol 04/09/18 04/10/18 04/10/18 19:15 01:22 07:06 RBC Hgb MCV MCH MCHC RDW PT 13.0 H INR 1.3 H Chloride BUN Creatinine Glucose Total Bilirubin Total Creatine Kinase <20 L <20 L HDL Cholesterol 04/10/18 04/10/18 07:06 07:06 RBC Hgb MCV MCH MCHC RDW PT INR Chloride BUN 31 H Creatinine 1.21 H Glucose Total Bilirubin Total Creatine Kinase HDL Cholesterol 31 L Assessment and Plan Assessment: This is a joint evaluation that was done along with the nurse practitioner. The patient is and congestion heart failure. The patient is a pulmonary edema. The patient is also in atrial fibrillation with rapid ventricular response. Unfortunately blood pressure is running low and this is limiting our ability to control her heart rate more effectively. Consider amiodarone. Continue with diuresis. Cardizem drip for rate control. We'll continue to follow.
--- NOTE | 2018-04-10 14:16 | CONS ---
CONSULTATION Mrs. Crawford is a 67-year-old female known history of severe chronic obstructive lung disease, who had a prolonged admission to the hospital in February and during her hospitalization went in atrial fibrillation, who was admitted through the emergency room with progressive dyspnea, palpitation, low blood pressure. Patient has severe chronic obstructive lung disease, severe pulmonary hypertension, has been smoker until her admission in February. She has been followed by Dr. Dillno. She has been having problems with low blood pressure and her beta ryan and calcium channel ryan could not be given because of a low blood pressure in spite of midodrine. She has been on diuretic and that has been decreased. Patient has occasional palpitation. She has chronic dyspnea on exertion. She has no chest discomfort. No significant dizziness. No syncope. She had peripheral edema that has improved. She denies any prior history of obstructive coronary artery disease. She is followed on a regular basis with Dr. Yan. Her echocardiogram showed an ejection fraction that is normal. Her PA pressure was 69 mmHg. She had moderate mitral and tricuspid regurgitation with significantly enlarged left atrium. Her coronary risk factors are remarkable for prior history of smoking. She is a nondiabetic and her lipid is not available as an outpatient. MEDICATIONS: Include Aldactone, Revatio 20 mg 3 times a day, Xarelto 20 mg daily, Paxil, Lopressor 25 mg 3 times a day, Lasix 40 mg daily, Cardizem 15 mg 3 times a day. REVIEW OF SYSTEMS: RESPIRATORY SYSTEM: She has chronic obstructive lung disease of severe degree with prior history of smoking, cough. GI SYSTEM: No recent GI bleeding. No peptic ulcer disease. SYSTEM: No dysuria or hematuria. NERVOUS SYSTEM: No history of stroke or seizure. PHYSICAL EXAMINATION: A 67-year-old female, alert, oriented, in no apparent distress. Appears older than stated age. Her blood pressure 107/70 with a heart rate in the 120s. HEAD: Normocephalic. EYES: Sclerae, nonicteric. Neck with increased jugular venous pressure. Lungs with severe decrease in air exchange, no wheezes. HEART: Irregularly, irregular. S1, S2. No S3 with a holosystolic murmur in the apex. ABDOMEN: Soft, nontender. No organomegaly. EXTREMITIES: Varicosities noted with trace to 1+ edema. LAB DATA: Revealed a BUN and creatinine of 71 and 1.21. During her admission in March, her renal functions were normal. Her potassium 4.4. Troponin less than 0.012. Hemoglobin of 11.2. EKG revealed atrial fibrillation with a rate of 137, left axis deviation, poor R-wave progression, nonspecific ST-T wave changes. Chest x-ray raised the question of CHF. IMPRESSION: 1. Symptoms of progressive dyspnea in a patient with known history of severe chronic obstructive lung disease. 2. Atrial fibrillation diagnosed in March with rapid ventricular response, anticoagulated. 3. Episode of hypotension. 4. Severe pulmonary hypertension. 5. Worsening renal failure related to dehydration. 6. Prior history of smoking. RECOMMENDATION: From the cardiac standpoint, I will add to her regimen amiodarone to help control her ventricular response since she could not tolerate the higher dose of beta ryan or Cardizem. I do not feel that she is significantly fluid overloaded. I would expect she should be able to cut down the diuretics by tomorrow. I will continue on the Aldactone and Revatio. I will continue anticoagulation. Depending on her progress, further recommendation will be made. Unfortunately, the prognosis is guarded. Thank you for this consult. Will follow with you. MMODL / IJN: [id number] /
[2018-04-10] MEDS: RIVAROXABAN 20 MG TAB PO SCH (17:40)
[2018-04-10] MEDS: CHOLECALCIFEROL 1,000 UNIT TAB PO SCH (17:40)
[2018-04-10] MEDS: methylPREDNISolone SOD SUCCI 40 MG/ML 1 ML VIAL IV SCH (17:41)
[2018-04-10] MEDS: IPRATROPIUM-ALBUTEROL 3 ML NEB INHALATION SCH ×2 (19:15)
[2018-04-10] MEDS: ALPRAZolam 0.5 MG TAB PO PRN (21:33)
[2018-04-10] MEDS: ACETAMINOPHEN TAB 325 MG TAB PO PRN (21:33)
[2018-04-10] MEDS: FUROSEMIDE 10 MG/ML 4 ML VIAL IV SCH (21:53)
[2018-04-11] MEDS: methylPREDNISolone SOD SUCCI 40 MG/ML 1 ML VIAL IV SCH ×4 (00:12→22:53)
[2018-04-11] MEDS: SILDENAFIL 20 MG TAB PO SCH ×3 (06:06→20:44)
[2018-04-11] MEDS: SPIRONOLACTONE 25 MG TAB PO SCH (06:06)
[2018-04-11] MEDS: MIDODRINE 5 MG TAB PO SCH ×3 (06:07→19:06)
[2018-04-11 06:49] LABS: Calcium 9.4 mg/dL (8.4-10.2); Potassium 4.4 mmol/L (3.5-5.1)
--- NOTE | 2018-04-11 08:02 | P.HPIM ---
History of Present Illness H&P Date: 04/10/18 Chief Complaint: Acute respiratory failure due to COPD and A. fib with RVR This is a 67-year-old female one of Dr. Dillon with a previous medical history significant for hypertension and hypertensive cardio vascular disease with left ventricular hypertrophy, hyperlipidemia, history of chronic diastolic heart failure, new diagnosed atrial fibrillation currently with rapid ventricular response, history of severe oxygen-dependent chronic obstructive pulmonary disease, bilateral pleural effusion, patient was recently hospitalized at the [facility] in March 04 after she was admitted to the hospital for acute diastolic heart failure and she spent in the hospital about 9 days intensive care unit on the day of the discharge she developed atrial fibrillation with rapid ventricular response and the patient was placed on oral Lopressor and she had a marginal blood pressure at that time and after that she was discharged home 2 days later she ended up going to [facility] for physical therapy rehabilitation for one week and the patient was started on Midodrin because her blood pressure was marginal in the low 80s and was seen by Dr. Lorenzo from cardiology who held her Cardizem and Lopressor at that time, she recently saw Dr. Dillon in the office on past Monday and she was cut down in her Lasix to 40 mg once every day due to the fact that she was driving a bit and the patient was doing fine up until yesterday when her daughter did receive a call from her other daughter stating that her heart rate is running 155-1 60 bpm and she was extreme short of breath she ended up coming to the emergency department at [facility] she was found to be in atrial fibrillation with rapid ventricular response she is requiring a lot higher oxygen flow and she was started on Cardizem drip at 10 minute gram an hour and her blood pressure was marginal at 100/60 and the patient was admitted to the hospital for evaluation and treatment of both acute respiratory failure due to acute diastolic heart failure and bilateral pleural effusion along with atrial fibrillation with rapid ventricular response she was seen in consultation by cardiology as well as by pulmonary medicine. Review of Systems Constitutional: Reports fatigue, Reports weakness, Reports weight loss, Denies anorexia, Denies chronic headaches, Denies chronic pain, Denies lethargy Eyes: denies blurred vision Ears: deny: decreased hearing Ears, nose, mouth and throat: Denies dysphagia, Denies neck lump, Denies swelling in throat, Denies sore throat Cardiovascular: Reports decreased exercise tolerance, Reports dyspnea on exertion, Reports lightheadedness, Reports orthopnea, Reports paroxysmal nocturnal dyspnea, Reports rapid heart beat, Reports shortness of breath, Denies chest pain, Denies edema, Denies leg edema, Denies syncope Respiratory: Reports congestion, Reports cough, Reports cough with sputum, Reports dyspnea, Reports home oxygen, Reports wheezing, Denies respiratory infections, Denies sleep apnea Gastrointestinal: Denies abdominal pain, Denies bloating, Denies excessive gas, Denies heartburn, Denies loss of appetite, Denies melena, Denies nausea, Denies vomiting Genitourinary: Reports nocturia, Denies dysuria Menstruation: Reports postmenopausal Musculoskeletal: Denies myalgias Musculoskeletal: absent: ankle pain, ankle stiffness, ankle swelling, elbow pain , elbow stiffness, elbow swelling, foot pain, foot stiffness, foot swelling, hand pain, hand stiffness, hand swelling, hip pain, hip stiffness, hip swelling , knee pain, knee stiffness, knee swelling, shoulder pain, shoulder stiffness, shoulder swelling, wrist pain, wrist stiffness, wrist swelling Integumentary: Denies pruritus, Denies rash Neurological: Denies numbness, Denies weakness Psychiatric: Denies anxiety, Denies depression Endocrine: Denies fatigue, Denies weight change Past Medical History Past Medical History: Atrial Fibrillation, Heart Failure, COPD, GERD/Reflux, Hyperlipidemia, Hypertension, Osteoarthritis (OA) Additional Past Medical History / Comment(s): Pulmonary HTN, hypertension, hyperlipidemia, bilateral pleural effusion, chronic diastolic heart failure, atrial fibrillation, gout, osteoarthritis, severe COPD, GERD, uterine cancer status post total abdominal hysterectomy and bilateral sopping oophorectomy. History of Any Multi-Drug Resistant Organisms: None Reported Past Surgical History: Cholecystectomy, Hysterectomy (Complete hysterectomy due to uterine cancer.), Joint Replacement, Orthopedic Surgery (Bilateral total knee arthroplasties.), Tonsillectomy, Tubal Ligation Past Anesthesia/Blood Transfusion Reactions: No Reported Reaction Smoking Status: Former smoker (Patient smoked about one and half a pack every day she smoked for 49 years.) - Past Family History Father Family Medical History: Cancer (Father at age 87 from colon cancer and also had COPD.), COPD Additional Family Medical History / Comment(s): Colon CA Mother Family Medical History: Hypertension (Mother at age 94 and had a history of hypertension.) Brother(s) Family Medical History: Cancer (Patient had 2 brothers one from heroin overdose of the other one from lung cancer.) Sister(s) Family Medical History: Congestive Heart Failure (CHF) (Patient has 2 sisters one with congestive heart failure.) Daughter(s) Family Medical History: No Reported History (Patient has 3 daughters no major medical problems.) Medications and Allergies Home Medications Medication Instructions Recorded Confirmed Type ALPRAZolam [Xanax] 0.5 mg PO TID PRN 03/04/18 04/09/18 History Budesonide/Formoterol Fumarate 2 puff INHALATION RT-BID@0800,1700 03/04/1804/09 History [Symbicort 160-4.5 Mcg Inhaler] Cholecalciferol (Vitamin D3) 2,000 unit PO DAILY@1700 03/04/18 04/09/18 History [Vitamin D3] Ipratropium/Albuterol Sulfate 1 puff INHALATION RT-QID 03/04/18 04/09/18 History [Combivent Respimat Inhaler] Omeprazole [PriLOSEC] 20 mg PO BID@0800,1700 03/04/18 04/09/18 History PARoxetine HCL [Paxil] 10 mg PO BID@0800,2100 03/04/18 04/09/18 History Sildenafil [Revatio] 20 mg PO TID@0600,1400,2100 03/04/18 04/09/18 History Acetaminophen [Tylenol] 650 mg PO Q4H PRN 04/09/18 04/09/18 History Diltiazem Oral [Cardizem*] 15 mg PO TID@0600,1400,209904/09/18 04/09/18 History Furosemide [Lasix] 40 mg PO DAILY@0600 04/09/18 04/09/18 History Ipratropium-Albuterol Nebulize 3 ml INHALATION RT-QID PRN 04/09/18 04/09/18 History [Duoneb 0.5 mg-3 mg/3 ml Soln] Metoprolol Tartrate [Lopressor] 25 mg PO TID@0800,1500,2100 04/09/18 04/09/18 History Midodrine [ProAmatine] 5 mg PO TID@0600,1400,2100 04/09/18 04/09/18 History Nicotine 21Mg/24Hr Patch [Habitrol 1 patch TRANSDERM DAILY 04/09/18 04/09/18 History 21Mg/24Hr Patch] Rivaroxaban [Xarelto] 20 mg PO AC-SUPPER@1700 04/09/18 04/09/18 History Spironolactone [Aldactone] 25 mg PO DAILY@0600 04/09/18 04/09/18 History Allergies Allergy/AdvReac Type Severity Reaction Status Date / Time No Known Allergies Allergy Verified 04/09/18 19:46 Physical Exam Vitals: Vital Signs Temp Pulse Pulse Resp BP BP Pulse Ox 04/10/18 12:00 97.0 F L 99 20 107/75 93 L 04/10/18 11:35 124 H 04/10/18 11:27 116 H 04/10/18 07:32 122 H 24 04/10/18 07:31 97.5 F L 144 H 24 110/81 90 L 04/10/18 07:29 134 H 04/10/18 07:14 121 H 04/10/18 06:27 135 H 99/83 92 L 04/10/18 04:00 105 H 18 04/10/18 03:59 105 H 18 113/84 93 L 04/10/18 01:19 101 H 21 106/78 93 L 04/09/18 23:58 112 H 22 107/82 92 L 04/09/18 22:43 120 H 22 111/79 91 L 04/09/18 21:44 114 H 04/09/18 21:27 107 H 04/09/18 21:15 98 21 105/76 90 L 04/09/18 19:37 141 H 21 110/88 92 L 04/09/18 19:22 97.7 F 145 H 22 94/68 87 L 04/09/18 19:21 144 H 22 Intake and Output 04/09/18 04/10/18 04/10/18 22:59 06:59 14:59 Intake Total 47.916 Balance 47.916 Intake: Intake, IV Titration 47.916 Amount Diltiazem 50 mg In Sodium 47.6 Chloride 0.9% 40 ml @ 5 MG/HR 5 mls/hr IV .Q10H [facility] Rx#:[id number] Other: Voiding Method Bedside Commode Bedside Commode # Voids 1 Weight 87.09 kg - Constitutional General appearance: average body habitus, severe distress - EENT Eyes: anicteric sclerae, EOMI, PERRLA, no ptosis, no scleral icterus, normal appearance ENT: hearing grossly normal, NA/AT, normal oropharynx, no thrush Ears: bilateral: normal - Neck Neck: no lymphadenopathy, normal ROM, no rigidity, no stridor, no thyromegaly Carotids: bilateral: upstroke normal Thyroid: bilateral: normal size - Respiratory Respiratory: bilateral: diminished, dullness, wheezing, prolonged expiration - Cardiovascular Rhythm: irregularly irregular Heart sounds: normal: S1, S2 Abnormal Heart Sounds: systolic murmur - Gastrointestinal General gastrointestinal: normal bowel sounds, no rigid, no scaphoid, soft, no tenderness, umbilical hernia, no ventral hernia - Integumentary Integumentary: normal, normal turgor - Neurologic Neurologic: CNII-XII intact - Musculoskeletal Musculoskeletal: gait normal, generalized weakness, strength equal bilaterally - Psychiatric Psychiatric: A&O x's 3, appropriate affect, intact judgment & insight Results CBC & Chem 7: 04/09/18 19:15 04/11/18 06:07 Labs: Abnormal Lab Results - Last 24 Hours (Table) 04/09/18 04/09/18 04/09/18 Range/Units 19:15 19:15 19:15 RBC 5.58 H (3.80-5.40) m/uL Hgb 11.2 L (11.4-16.0) gm/dL MCV 73.6 L (80.0-100.0) fL MCH 20.1 L (25.0-35.0) pg MCHC 27.3 L (31.0-37.0) g/dL RDW 23.2 H (11.5-15.5) % PT (9.0-12.0) sec INR (<1.2) Chloride 97 L (98-107) mmol/L BUN 32 H (7-17) mg/dL Creatinine 1.44 H (0.52-1.04) mg/dL Glucose 118 H (74-99) mg/dL Total Bilirubin 2.8 H (0.2-1.3) mg/dL Total Creatine Kinase <20 L (30-135) U/L HDL Cholesterol (40-60) mg/dL 04/09/18 04/10/18 04/10/18 Range/Units 19:15 01:22 07:06 RBC (3.80-5.40) m/uL Hgb (11.4-16.0) gm/dL MCV (80.0-100.0) fL MCH (25.0-35.0) pg MCHC (31.0-37.0) g/dL RDW (11.5-15.5) % PT 13.0 H (9.0-12.0) sec INR 1.3 H (<1.2) Chloride (98-107) mmol/L BUN (7-17) mg/dL Creatinine (0.52-1.04) mg/dL Glucose (74-99) mg/dL Total Bilirubin (0.2-1.3) mg/dL Total Creatine Kinase <20 L <20 L (30-135) U/L HDL Cholesterol (40-60) mg/dL 04/10/18 04/10/18 Range/Units 07:06 07:06 RBC (3.80-5.40) m/uL Hgb (11.4-16.0) gm/dL MCV (80.0-100.0) fL MCH (25.0-35.0) pg MCHC (31.0-37.0) g/dL RDW (11.5-15.5) % PT (9.0-12.0) sec INR (<1.2) Chloride (98-107) mmol/L BUN 31 H (7-17) mg/dL Creatinine 1.21 H (0.52-1.04) mg/dL Glucose (74-99) mg/dL Total Bilirubin (0.2-1.3) mg/dL Total Creatine Kinase (30-135) U/L HDL Cholesterol 31 L (40-60) mg/dL Thrombosis Risk Factor Assmnt - DVT/VTE Prophylaxis DVT/VTE Prophylaxis: Pharmacologic Prophylaxis ordered, Mechanical Prophylaxis ordered - Choose All That Apply Each Risk Factor Represents 2 Points: Age 61-74 years Thrombosis Risk Factor Assessment Total Risk Factor Score: 2 Thrombosis Risk Factor Assessment Level: Low Risk Assessment and Plan Assessment: Assessment and plan: 1. Acute hypoxemic respiratory failure due to acute exacerbation of severe COPD with atrial fibrillation and rapid ventricular response. Continue Solu- Medrol 40 mg IV push every 8 hours, continue DuoNeb treatment nebulization 4 times every day, continue Pulmicort 1 mg neb twice every day, continue Cardizem drip 10 mg per hour, continue Lasix 40 mg IV push every 12 hours, continue oxygen support, cardiology consultation as well as pulmonary consultation. 2. Acute severe COPD exacerbation oxygen dependent. Continue Solu-Medrol 40 mg IV push every 8 hours, continue DuoNeb 3 mL nebulization 4 times every day, continue Pulmicort 1 mg nebulization twice every day, continue oxygen support, pulmonary is following. 3. Acute on chronic diastolic heart failure due to A. fib with RVR. Continue with Cardizem drip 10 mg per hour, continue Lasix 40 mg IV push every 12 hours, continue Lopressor 25 mg orally 3 times every day, continue patient also on input and output and daily weight, continue oxygen support, cardiology is following, continue Xarelto 20 mg orally once every day, amiodarone 400 mg orally twice every day. 4. Severe pulmonary hypertension. Continue Lasix 40 mg IV push every 12 hours , continue Lopressor 25 mg orally 3 times every day, continue Revatio 20 mg orally 3 times every day. 5. Hypertension and hypertensive cardiovascular disease. On Lopressor 25 mg orally 3 times every day. 6. GERD. Continue Protonix 40 mg orally once every day. 7. Depressive disorder. Continue Paxil 10 mg orally once every day. 8. Gout. Stable. 9. DVT prophylaxis. Continue patient on Xarelto 20 mg orally once every day. 10. GI prophylaxis. Continue with PPI. 11. Patient's full code. 12. Admit to inpatient. Estimated length of stay 2 midnights.
[2018-04-11] MEDS: IPRATROPIUM-ALBUTEROL 3 ML NEB INHALATION SCH ×4 (08:58→19:12)
[2018-04-11] MEDS: BUDESONIDE 1 MG/2 ML NEBU INHALATION SCH ×2 (08:58→19:12)
[2018-04-11] MEDS ORDERED: FUROSEMIDE 10 MG/ML 4 ML VIAL IV SCH (09:00)
[2018-04-11] MEDS: DILTIAZEM 50 MG in SODIUM CHLORIDE 0.9% 40 ML IV SCH (09:57)
[2018-04-11] MEDS: NICOTINE 21MG/24HR PATCH TRANSDERM SCH (09:58)
[2018-04-11] MEDS: AMIODARONE 200 MG TAB PO SCH ×2 (09:58→20:43)
[2018-04-11] MEDS: METOPROLOL TARTRATE 25 MG TAB PO SCH ×3 (09:59→22:50)
[2018-04-11] MEDS: PANTOPRAZOLE 40 MG TABLET PO SCH ×2 (10:00→19:07)
[2018-04-11] MEDS: FUROSEMIDE 10 MG/ML 4 ML VIAL IV SCH ×2 (10:01→20:43)
[2018-04-11] MEDS: PARoxetine 10 MG TAB PO SCH ×2 (10:01→20:44)
[2018-04-11 12:42] LABS: Anisocytosis Moderate; HCT 35.4 % (34.0-46.0); Hypochromasia Marked; MCH 21.2 pg (25.0-35.0); MCHC 27.9 g/dL (31.0-37.0); MCV 76.1 fL (80.0-100.0); Mean Platelet Volume 8.9; Microcytosis Marked; Platelet Count 168 k/uL (150-450); Poikilocytosis Slight; RBC 4.65 m/uL (3.80-5.40); RDW 23.2 % (11.5-15.5); WBC 3.9 k/uL (3.8-10.6)
[2018-04-11 12:45] LABS: HGB 9.9 gm/dL (11.4-16.0)
--- NOTE | 2018-04-11 14:17 | P.PN ---
Subjective Progress Note Date: 04/11/18 This is a 67-year-old female with history of severe COPD, who had a prolonged admission in February, she was in the intensive care unit at that time , she went into atrial fibrillation, presented at that time with progressive dyspnea. She has severe COPD severe pulmonary hypertension and has been a smoker until her admission in February. Follows regularly with Dr. Menendez in the office. Echocardiogram with Doppler study revealed an ejection fraction with is normal, her PA pressure was 69. She had moderate mitral and tricuspid regurg was significantly enlarged left atrium. Coronary risk factors are positive for smoking. The patient was seen and examined this morning, overall her breathing is significantly improved from admission here. Blood pressure 92/ 58, BUN 16, creatinine 0.9. Objective - Vital Signs Vital signs: Vital Signs Temp 97.4 F L 04/11/18 04:00 Pulse 96 04/11/18 12:42 Resp 18 04/11/18 04:00 BP 92/59 04/11/18 04:00 Pulse Ox 91 L 04/11/18 04:00 Intake & Output 04/10/18 04/11/18 04/11/18 18:59 06:59 18:59 Intake Total 197.833 487 230 Output Total 300 1800 Balance -102.167 -1313 230 Weight 76.5 kg Intake: Intake, IV Titration 97.833 87 Amount Diltiazem 50 mg In Sodium 97.833 87 Chloride 0.9% 40 ml @ 5 MG/HR 5 mls/hr IV .Q10H [facility] Rx#:[id number] Oral 100 400 230 Output: Urine 300 1800 Other: Voiding Method Bedside Commode Bedside Commode # Voids 1 3 1 - Exam PHYSICAL EXAMINATION: GENERAL: 67-year-old female in no acute distress at the time of examination HEENT: Head is atraumatic, normocephalic. Pupils equal, round. Sclera anicteric. Conjunctiva are clear. Mucous membranes of the mouth are moist. Neck is supple. There is no elevated jugular venous pressure.NO carotid bruit is heard. HEART EXAMINATION: Heart S1 and S2 irregularly irregular a holosystolic the apex. CHEST EXAMINATION: Lungs reveal improvement in air entry today. . ABDOMEN: Soft, nontender. Bowel sounds are heard. No organomegaly noted. EXTREMITIES: 2+ peripheral pulses with no evidence of peripheral edema and no calf tenderness noted. NEUROLOGIC patient is awake, alert and oriented 3 . . - Labs CBC & Chem 7: 04/11/18 06:07 04/11/18 06:07 Labs: Abnormal Lab Results - Last 24 Hours (Table) 04/11/18 04/11/18 Range/Units 06:07 06:07 Hgb 9.9 L (11.4-16.0) gm/dL MCV 76.1 L (80.0-100.0) fL MCH 21.2 L (25.0-35.0) pg MCHC 27.9 L (31.0-37.0) g/dL RDW 23.2 H (11.5-15.5) % BUN 30 H (7-17) mg/dL Creatinine 1.24 H (0.52-1.04) mg/dL Glucose 135 H (74-99) mg/dL Assessment and Plan Plan: Assessment and plan #1 symptoms of progressive dyspnea in a patient with known history of severe COPD #2 atrial fibrillation, chronic persistent, diagnosed in March, anticoagulated. #3 hypotension episodes #4 severe pulmonary hypertension #5 worsening renal failure #6 prior history of smoking Plan We will decrease the patient's aspirin to 81 mg daily, continue IV Lasix for 24 hours, continue amiodarone 400 by mouth twice a day and taper down that dose. Further recommendations to follow DNP note has been reviewed, I agree with a documented findings and plan of care. Patient was seen and examined.
--- NOTE | 2018-04-11 14:56 | P.PN ---
Subjective Progress Note Date: 04/11/18 This is a 67-year-old female one of Dr. Dillon with a previous medical history significant for hypertension and hypertensive cardio vascular disease with left ventricular hypertrophy, hyperlipidemia, history of chronic diastolic heart failure, new diagnosed atrial fibrillation currently with rapid ventricular response, history of severe oxygen-dependent chronic obstructive pulmonary disease, bilateral pleural effusion, patient was recently hospitalized at the [facility] in March 04 after she was admitted to the hospital for acute diastolic heart failure and she spent in the hospital about 9 days intensive care unit on the day of the discharge she developed atrial fibrillation with rapid ventricular response and the patient was placed on oral Lopressor and she had a marginal blood pressure at that time and after that she was discharged home 2 days later she ended up going to [facility] for physical therapy rehabilitation for one week and the patient was started on Midodrin because her blood pressure was marginal in the low 80s and was seen by Dr. Lorenzo from cardiology who held her Cardizem and Lopressor at that time, she recently saw Dr. Dillon in the office on past Monday and she was cut down in her Lasix to 40 mg once every day due to the fact that she was driving a bit and the patient was doing fine up until yesterday when her daughter did receive a call from her other daughter stating that her heart rate is running 155-1 60 bpm and she was extreme short of breath she ended up coming to the emergency department at [facility] she was found to be in atrial fibrillation with rapid ventricular response she is requiring a lot higher oxygen flow and she was started on Cardizem drip at 10 minute gram an hour and her blood pressure was marginal at 100/60 and the patient was admitted to the hospital for evaluation and treatment of both acute respiratory failure due to acute diastolic heart failure and bilateral pleural effusion along with atrial fibrillation with rapid ventricular response she was seen in consultation by cardiology as well as by pulmonary medicine. 04/11: The patient has been seen by cardiology and started on oral amiodarone and off Cardizem drip. Blood pressure has been marginal. Heart rate is improved. Patient does have a cough with sputum production. She did have some increased shortness of breath in the evening for which she received IV Lasix and was on a nonrebreather. She is currently on high flow nasal cannula at 10 L. Repeat lab work shows a hemoglobin 9.9, BUN 30 creatinine 1.24. Troponins have all been negative on 3 draws. Triglycerides 69, cholesterol 68, LDL 23, HDL 31. TSH 4.2. Discharge plan is to return home without home care. We will add an PT and OT. Patient is also followed by Dr. Raymundo. Review of Systems Constitutional: Reports fatigue, Reports weakness, Reports weight loss, Denies anorexia, Denies chronic headaches Eyes: denies blurred vision Ears: deny: decreased hearing Ears, nose, mouth and throat: Denies dysphagia, Denies neck lump, Denies swelling in throat, Denies sore throat Cardiovascular: Reports decreased exercise tolerance, Reports dyspnea on exertion, Reports lightheadedness, Reports orthopnea, Reports paroxysmal nocturnal dyspnea, Reports rapid heart beat, Reports shortness of breath, Denies chest pain, Denies edema, Denies leg edema, Denies syncope Respiratory: Reports congestion, Reports cough, Reports cough with sputum, Reports dyspnea, Reports home oxygen, Reports wheezing, Denies respiratory infections, Denies sleep apnea Gastrointestinal: Denies abdominal pain, Denies bloating, Denies excessive gas, Denies heartburn, Denies loss of appetite, Denies melena, Denies nausea, Denies vomiting Genitourinary: Reports nocturia, Denies dysuria Menstruation: Reports postmenopausal Musculoskeletal: Denies myalgias Musculoskeletal: absent: ankle pain, ankle stiffness, ankle swelling, elbow pain , elbow stiffness, elbow swelling, foot pain, foot stiffness, foot swelling, hand pain, hand stiffness, hand swelling, hip pain, hip stiffness, hip swelling , knee pain, knee stiffness, knee swelling, shoulder pain, shoulder stiffness, shoulder swelling, wrist pain, wrist stiffness, wrist swelling Integumentary: Denies pruritus, Denies rash Neurological: Denies numbness, Denies weakness Psychiatric: Denies anxiety, Denies depression Endocrine: Denies fatigue, Denies weight change Objective - Vital Signs Vital signs: Vital Signs Temp 97.4 F L 04/11/18 04:00 Pulse 92 04/11/18 12:34 Resp 18 04/11/18 04:00 BP 92/59 04/11/18 04:00 Pulse Ox 91 L 04/11/18 04:00 Intake & Output 04/10/18 04/11/18 04/11/18 18:59 06:59 18:59 Intake Total 197.833 487 230 Output Total 300 1800 Balance -102.167 -1313 230 Weight 76.5 kg Intake: Intake, IV Titration 97.833 87 Amount Diltiazem 50 mg In Sodium 97.833 87 Chloride 0.9% 40 ml @ 5 MG/HR 5 mls/hr IV .Q10H [facility] Rx#:[id number] Oral 100 400 230 Output: Urine 300 1800 Other: Voiding Method Bedside Commode Bedside Commode # Voids 1 3 1 - Exam General appearance: average body habitus, moderate distress - EENT Eyes: anicteric sclerae, EOMI, PERRLA, no ptosis, no scleral icterus, normal appearance ENT: hearing grossly normal, NA/AT, normal oropharynx, no thrush Ears: bilateral: normal - Neck Neck: no lymphadenopathy, normal ROM, no rigidity, no stridor, no thyromegaly Carotids: bilateral: upstroke normal Thyroid: bilateral: normal size - Respiratory Respiratory: bilateral: diminished, dullness, wheezing, prolonged expiration - Cardiovascular Rhythm: irregularly irregular Heart sounds: normal: S1, S2 Abnormal Heart Sounds: systolic murmur - Gastrointestinal General gastrointestinal: normal bowel sounds, no rigid, no scaphoid, soft, no tenderness, umbilical hernia, no ventral hernia - Integumentary Integumentary: normal, normal turgor - Neurologic Neurologic: CNII-XII intact - Musculoskeletal Musculoskeletal: gait normal, generalized weakness, strength equal bilaterally - Psychiatric Psychiatric: A&O x's 3, appropriate affect, intact judgment & insight - Labs CBC & Chem 7: 04/11/18 06:07 04/11/18 06:07 Labs: Abnormal Lab Results - Last 24 Hours (Table) 04/11/18 Range/Units 06:07 BUN 30 H (7-17) mg/dL Creatinine 1.24 H (0.52-1.04) mg/dL Glucose 135 H (74-99) mg/dL Assessment and Plan Plan: 1. Acute hypoxemic respiratory failure due to acute exacerbation of severe COPD with atrial fibrillation and rapid ventricular response. Continue Solu- Medrol 40 mg IV push every 8 hours, continue DuoNeb treatment nebulization 4 times every day, continue Pulmicort 1 mg neb twice every day, Cardizem drip discontinued, continue Lasix 40 mg IV push every 12 hours, continue oxygen support, cardiology consultation and pulmonary consultation appreciated. 2. Acute severe COPD exacerbation oxygen dependent. Continue Solu-Medrol 40 mg IV push every 8 hours, continue DuoNeb 3 mL nebulization 4 times every day, continue Pulmicort 1 mg nebulization twice every day, continue oxygen support, pulmonary is following. 3. Acute on chronic diastolic heart failure due to A. fib with RVR. Cardizem drip discontinued, continue Lasix 40 mg IV push every 12 hours, continue Lopressor 25 mg orally 3 times every day, continue patient also on input and output and daily weight, continue oxygen support, Xarelto 20 mg orally once every day, amiodarone 400 mg orally twice every day added by cardiology. 4. Severe pulmonary hypertension. Continue Lasix 40 mg IV push every 12 hours , continue Lopressor 25 mg orally 3 times every day, continue Revatio 20 mg orally 3 times every day. 5. Hypertension and hypertensive cardiovascular disease. On Lopressor 25 mg orally 3 times every day. 6. GERD. Continue Protonix 40 mg orally once every day. 7. Depressive disorder. Continue Paxil 10 mg orally once every day. 8. Gout. Stable. 9. DVT prophylaxis. Continue patient on Xarelto 20 mg orally once every day. 10. GI prophylaxis. Continue with PPI. 11. Patient's full code. Discharge plan: home Impression and plan of care have been directed as dictated by the signing physician. Zoila Parish nurse practitioner acting as scribe for signing physician.
[2018-04-11] MEDS: ACETAMINOPHEN TAB 325 MG TAB PO PRN ×2 (15:51→22:51)
[2018-04-11] MEDS: ASPIRIN 325 MG TAB PO SCH (16:32)
--- NOTE | 2018-04-11 18:47 | P.PN ---
Subjective Progress Note Date: 04/11/18 Principal diagnosis: Atrial fibrillation with rapid ventricular response. This is a very pleasant 67-year-old female patient who follows with Dr. Dillon as her primary care physician. 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 She was seen by Dr. Dillon on 2018 who found her to be somewhat dry and he decreased her Lasix to 40 mg once a day and cut the Aldactone to 25 mg daily. Labs have been ordered. She ended up coming to the emergency room last evening as her family found her heart rate to be in the 150s 160s. She is continued in atrial fibrillation since her last admission. Unfortunately, her blood pressure runs in the low side and was in the 70s last evening. She had not been able to take metoprolol or Cardizem for several days. She is also been in the mid to drain for pressure support. She did receive 2 L of fluid in the emergency room. She is on a Cardizem drip at 10 mg per hour. Continues with A. fib RVR. Chest x-ray shows evidence of progressive congestive heart failure. She is seen today in the emergency room. She is awake and alert in mild respiratory distress. Currently requiring 6 L high flow nasal cannula to maintain O2 saturations in the 90s. She's afebrile. Heart rate in the 120s. Systolic BP in the 100s. Upon is negative 3. Creatinine 1.21. She has been initiated on oral amiodarone. Cardizem drip decreased to 5 mg per hour. Beta blockers on board. He is also on DuoNeb inhalations, Pulmicort inhalations. NicoDerm patch has been applied. The patient was seen again today 04/11/2018 in follow-up on the selective care unit. She is currently sitting up in a chair at the bedside. She is awake and alert in no acute distress. She does continue with significant dyspnea on minimal exertion. She is on 9 L high flow nasal cannula and maintaining O2 saturations in the 90s. He remains on Lasix 40 mg IV push every 8 hours. IV Solu-Medrol. Dilators. White count 3.9. Hemoglobin 9.9. Creatinine 1.24. Her rate better controlled. She is currently on amiodarone 400 mg twice a day. Objective - Vital Signs Vital signs: Vital Signs Temp 97.4 F L 04/11/18 04:00 Pulse 92 04/11/18 16:04 Resp 18 04/11/18 16:00 BP 91/58 04/11/18 16:00 Pulse Ox 91 L 04/11/18 16:00 Intake & Output 04/10/18 04/11/18 04/11/18 18:59 06:59 18:59 Intake Total 197.833 487 380 Output Total 300 1800 Balance -102.167 -1313 380 Weight 76.5 kg Intake: Intake, IV Titration 97.833 87 Amount Diltiazem 50 mg In Sodium 97.833 87 Chloride 0.9% 40 ml @ 5 MG/HR 5 mls/hr IV .Q10H [facility] Rx#:[id number] Oral 100 400 380 Output: Urine 300 1800 Other: Voiding Method Bedside Commode Bedside Commode # Voids 1 3 1 - Exam GENERAL EXAM: Pleasant 67-year-old female patient. Alert, fairly comfortable in mild respiratory distress. 9 liters high flow nasal cannula. EYES: Normal reaction of pupils, equal size. NOSE: Clear with pink turbinates. THROAT: No erythema or exudates. NECK: No masses, no JVD. CHEST: No chest wall deformity. LUNGS: Equal air entry with crackles in the bilateral posterior bases, diminished. CVS: S1 and S2 normal with audible murmur, irregular rhythm. ABDOMEN: No hepatosplenomegaly, normal bowel sounds, no guarding or rigidity. SPINE: No scoliosis or deformity SKIN: No rashes CENTRAL NERVOUS SYSTEM: No focal deficits, tone is normal in all 4 extremities. EXTREMITIES: There is trace peripheral edema. No clubbing, no cyanosis. Peripheral pulses are intact. - Labs CBC & Chem 7: 04/11/18 06:07 04/11/18 06:07 Labs: Abnormal Lab Results - Last 24 Hours (Table) 04/11/18 04/11/18 Range/Units 06:07 06:07 Hgb 9.9 L (11.4-16.0) gm/dL MCV 76.1 L (80.0-100.0) fL MCH 21.2 L (25.0-35.0) pg MCHC 27.9 L (31.0-37.0) g/dL RDW 23.2 H (11.5-15.5) % BUN 30 H (7-17) mg/dL Creatinine 1.24 H (0.52-1.04) mg/dL Glucose 135 H (74-99) mg/dL Assessment and Plan Assessment: Impression: #1 Acute on chronic hypoxic respiratory failure secondary to an acute exacerbation of diastolic congestive heart failure, acute exacerbation of chronic obstructive pulmonary disease, atrial fibrillation with rapid ventricular response. #2 Acute exacerbation of diastolic congestive heart failure. #3 Atrial fibrillation with rapid ventricular response. Anticoagulated with Eliquis. Improved rate control. On amiodarone 400 mg by mouth twice a day. #4 Acute exacerbation of oxygen dependent chronic obstructive pulmonary disease. Remains on DuoNeb inhalations and IV Solu-Medrol. #5 Chronic tobacco dependence. #6 Episodes of hypotension requiring midodrine in the outpatient setting. #8 Moderate pulmonary hypertension. Plan: The patient was seen and evaluated by Dr. Raymundo. Chest x-ray and labs were reviewed. Remains on DuoNeb inhalations and IV Solu-Medrol. Improved today as compared to yesterday. Currently on 9 L of high flow nasal cannula. Ventricular rate better controlled. Currently on amiodarone 400 mg by mouth twice a day. She was educated regarding the importance of complete smoking cessation. A NicoDerm patch remains in place. We will continue to follow and make further recommendations based on her clinical status. I, the cosigning physician, performed a history & physical examination of the patient. Lungs sounds with crackles in the bilateral posterior bases, end expiratory wheeze, diminished. Maintaining good O2 saturations in the 90s on 9 L high flow nasal cannula. I discussed the assessment and plan of care with my nurse practitioner, Essence Case. I attest to the above note as dictated by her.
[2018-04-11] MEDS: CHOLECALCIFEROL 1,000 UNIT TAB PO SCH (19:06)
[2018-04-11] MEDS: RIVAROXABAN 20 MG TAB PO SCH (19:07)
[2018-04-11] MEDS: ALPRAZolam 0.5 MG TAB PO PRN (22:50)
[2018-04-12] MEDS: MIDODRINE 5 MG TAB PO SCH ×3 (06:19→17:01)
[2018-04-12] MEDS: SILDENAFIL 20 MG TAB PO SCH ×2 (06:19→11:47)
[2018-04-12] MEDS: SPIRONOLACTONE 25 MG TAB PO SCH (06:19)
[2018-04-12] MEDS: BUDESONIDE 1 MG/2 ML NEBU INHALATION SCH ×2 (08:39→19:57)
[2018-04-12] MEDS: IPRATROPIUM-ALBUTEROL 3 ML NEB INHALATION SCH ×4 (08:39→19:57)
[2018-04-12] MEDS: NICOTINE 21MG/24HR PATCH TRANSDERM SCH (09:04)
[2018-04-12] MEDS: PARoxetine 10 MG TAB PO SCH ×2 (09:04→20:48)
[2018-04-12] MEDS: PANTOPRAZOLE 40 MG TABLET PO SCH ×2 (09:05→17:00)
[2018-04-12] MEDS: AMIODARONE 200 MG TAB PO SCH ×2 (09:05→20:47)
[2018-04-12] MEDS: FUROSEMIDE 10 MG/ML 4 ML VIAL IV SCH (09:05)
[2018-04-12] MEDS: METOPROLOL TARTRATE 25 MG TAB PO SCH ×3 (09:05→20:48)
[2018-04-12] MEDS: methylPREDNISolone SOD SUCCI 40 MG/ML 1 ML VIAL IV SCH (09:05)
[2018-04-12] MEDS: ASPIRIN 325 MG TAB PO SCH (09:05)
[2018-04-12 10:11] LABS: Anisocytosis Moderate; HCT 36.4 % (34.0-46.0); HGB 9.9 gm/dL (11.4-16.0); Hypochromasia Marked; MCH 20.3 pg (25.0-35.0); MCHC 27.2 g/dL (31.0-37.0); MCV 74.9 fL (80.0-100.0); Mean Platelet Volume 8.3; Microcytosis Marked; Platelet Count 234 k/uL (150-450); Poikilocytosis Slight; RBC 4.86 m/uL (3.80-5.40); RDW 23.8 % (11.5-15.5); WBC 8.4 k/uL (3.8-10.6)
[2018-04-12 10:17] LABS: Calcium 9.2 mg/dL (8.4-10.2); Potassium 4.2 mmol/L (3.5-5.1)
[2018-04-12] MEDS: ACETAMINOPHEN TAB 325 MG TAB PO PRN ×2 (11:48→22:14)
--- NOTE | 2018-04-12 12:29 | P.PN ---
Subjective Progress Note Date: 04/12/18 This is a 67-year-old female with history of severe COPD, who had a prolonged admission in February, she was in the intensive care unit at that time , she went into atrial fibrillation, presented at that time with progressive dyspnea. She has severe COPD severe pulmonary hypertension and has been a smoker until her admission in February. Follows regularly with Dr. Menendez in the office. Echocardiogram with Doppler study revealed an ejection fraction with is normal, her PA pressure was 69. She had moderate mitral and tricuspid regurg was significantly enlarged left atrium. Coronary risk factors are positive for smoking. The patient was seen and examined this morning, overall her breathing is significantly improved from admission here. Blood pressure 92/ 58, BUN 16, creatinine 0.9. 04/12/2018 Patient seen and examined this morning, feeling significantly better overall today. Up ambulating with physical therapy this morning. Blood pressure 104/ 60 with a heart rate in the 80s today, 94% on 6 L of oxygen. White blood cell count 8.4, hemoglobin 9.9, platelet count 234. Sodium 140, potassium 4.2, BUN 40 and creatinine 1.5. Objective - Vital Signs Vital signs: Vital Signs Temp 97.1 F L 04/12/18 11:45 Pulse 88 04/12/18 11:55 Resp 20 04/12/18 11:45 BP 104/59 04/12/18 11:45 Pulse Ox 94 L 04/12/18 11:45 Intake & Output 04/11/18 04/12/18 04/12/18 18:59 06:59 18:59 Intake Total 380 160 236 Output Total 850 Balance 380 -690 236 Weight 68.5 kg Intake: Oral 380 160 236 Output: Urine 850 Other: Voiding Method Bedside Commode Bedside Commode # Voids 1 2 - Exam PHYSICAL EXAMINATION: GENERAL: 67-year-old female in no acute distress at the time of examination HEENT: Head is atraumatic, normocephalic. Pupils equal, round. Sclera anicteric. Conjunctiva are clear. Mucous membranes of the mouth are moist. Neck is supple. There is no elevated jugular venous pressure.NO carotid bruit is heard. HEART EXAMINATION: Heart S1 and S2 irregularly irregular a holosystolic the apex. CHEST EXAMINATION: Lungs reveal improvement in air entry today. . ABDOMEN: Soft, nontender. Bowel sounds are heard. No organomegaly noted. EXTREMITIES: 2+ peripheral pulses with no evidence of peripheral edema and no calf tenderness noted. NEUROLOGIC patient is awake, alert and oriented 3 . . - Labs CBC & Chem 7: 04/12/18 09:43 04/12/18 09:43 Labs: Abnormal Lab Results - Last 24 Hours (Table) 04/11/18 04/12/18 04/12/18 Range/Units 06:07 09:43 09:43 Hgb 9.9 L 9.9 L (11.4-16.0) gm/dL MCV 76.1 L 74.9 L (80.0-100.0) fL MCH 21.2 L 20.3 L (25.0-35.0) pg MCHC 27.9 L 27.2 L (31.0-37.0) g/dL RDW 23.2 H 23.8 H (11.5-15.5) % BUN 40 H (7-17) mg/dL Creatinine 1.57 H (0.52-1.04) mg/dL Glucose 123 H (74-99) mg/dL Assessment and Plan Plan: Assessment and plan #1 symptoms of progressive dyspnea in a patient with known history of severe COPD #2 atrial fibrillation, chronic persistent, diagnosed in March, anticoagulated. #3 hypotension episodes #4 severe pulmonary hypertension #5 worsening renal failure #6 prior history of smoking Plan From cardiology's perspective, discontinue IV Lasix and change patient over to oral diuretics today. Check labs in the morning. DNP note has been reviewed, I agree with a documented findings and plan of care. Patient was seen and examined.
--- NOTE | 2018-04-12 12:55 | P.PN ---
Subjective Progress Note Date: 04/12/18 This is a 67-year-old female one of Dr. Dillon with a previous medical history significant for hypertension and hypertensive cardio vascular disease with left ventricular hypertrophy, hyperlipidemia, history of chronic diastolic heart failure, new diagnosed atrial fibrillation currently with rapid ventricular response, history of severe oxygen-dependent chronic obstructive pulmonary disease, bilateral pleural effusion, patient was recently hospitalized at the [facility] in March 04 after she was admitted to the hospital for acute diastolic heart failure and she spent in the hospital about 9 days intensive care unit on the day of the discharge she developed atrial fibrillation with rapid ventricular response and the patient was placed on oral Lopressor and she had a marginal blood pressure at that time and after that she was discharged home 2 days later she ended up going to [facility] for physical therapy rehabilitation for one week and the patient was started on Midodrin because her blood pressure was marginal in the low 80s and was seen by Dr. Lorenzo from cardiology who held her Cardizem and Lopressor at that time, she recently saw Dr. Dillon in the office on past Monday and she was cut down in her Lasix to 40 mg once every day due to the fact that she was driving a bit and the patient was doing fine up until yesterday when her daughter did receive a call from her other daughter stating that her heart rate is running 155-1 60 bpm and she was extreme short of breath she ended up coming to the emergency department at [facility] she was found to be in atrial fibrillation with rapid ventricular response she is requiring a lot higher oxygen flow and she was started on Cardizem drip at 10 minute gram an hour and her blood pressure was marginal at 100/60 and the patient was admitted to the hospital for evaluation and treatment of both acute respiratory failure due to acute diastolic heart failure and bilateral pleural effusion along with atrial fibrillation with rapid ventricular response she was seen in consultation by cardiology as well as by pulmonary medicine. 04/11: The patient has been seen by cardiology and started on oral amiodarone and off Cardizem drip. Blood pressure has been marginal. Heart rate is improved. Patient does have a cough with sputum production. She did have some increased shortness of breath in the evening for which she received IV Lasix and was on a nonrebreather. She is currently on high flow nasal cannula at 10 L. Repeat lab work shows a hemoglobin 9.9, BUN 30 creatinine 1.24. Troponins have all been negative on 3 draws. Triglycerides 69, cholesterol 68, LDL 23, HDL 31. TSH 4.2. Discharge plan is to return home without home care. We will add an PT and OT. Patient is also followed by Dr. Raymundo. 04/12: Pulse ox is 94% on 9 L high flow nasal cannula, patient is been afebrile, heart rate running in the 80s to 92, blood pressure 94/51. White count is normal at 8.4, hemoglobin 9.9, BUN 14, creatinine 1.57. Elect lites within normal limits. Patient appears much comfortable today. She is sitting up in a recliner and appears to be in no acute distress. Goal will be to wean down oxygen today. IV Lasix has been changed to oral today by cardiology. Weight is recorded as down 19 kg since admission. Pulmonary change IV Solu-Medrol to oral prednisone, start tomorrow. Review of Systems Constitutional: Reports fatigue, Reports weakness, Reports weight loss, Denies chronic headaches Eyes: denies blurred vision Ears: deny: decreased hearing Ears, nose, mouth and throat: Denies dysphagia, Denies neck lump, Denies swelling in throat, Denies sore throat Cardiovascular: Reports decreased exercise tolerance, Reports dyspnea on exertion, Reports lightheadedness, Reports orthopnea, Reports paroxysmal nocturnal dyspnea, Reports rapid heart beat, Reports shortness of breath, Denies chest pain, Denies edema, Denies leg edema, Denies syncope Respiratory: Reports congestion, Reports cough, Reports cough with sputum, Reports dyspnea, Reports home oxygen, Reports wheezing, Denies respiratory infections, Denies sleep apnea Gastrointestinal: Denies abdominal pain, Denies bloating, Denies excessive gas, Denies heartburn, Denies loss of appetite, Denies melena, Denies nausea, Denies vomiting Genitourinary: Reports nocturia, Denies dysuria Menstruation: Reports postmenopausal Musculoskeletal: Denies myalgias Musculoskeletal: absent: ankle pain, ankle stiffness, ankle swelling, elbow pain , elbow stiffness, elbow swelling, foot pain, foot stiffness, foot swelling, hand pain, hand stiffness, hand swelling, hip pain, hip stiffness, hip swelling , knee pain, knee stiffness, knee swelling, shoulder pain, shoulder stiffness, shoulder swelling, wrist pain, wrist stiffness, wrist swelling Integumentary: Denies pruritus, Denies rash Neurological: Denies numbness, Denies weakness Psychiatric: Denies anxiety, Denies depression Endocrine: Denies fatigue, Denies weight change Objective - Vital Signs Vital signs: Vital Signs Temp 97.8 F 04/12/18 04:00 Pulse 92 04/12/18 08:53 Resp 20 04/12/18 04:00 BP 94/51 04/12/18 04:00 Pulse Ox 94 L 04/12/18 08:40 Intake & Output 04/11/18 04/12/18 04/12/18 18:59 06:59 18:59 Intake Total 380 160 Output Total 850 Balance 380 -690 Weight 68.5 kg Intake: Oral 380 160 Output: Urine 850 Other: Voiding Method Bedside Commode # Voids 1 2 - Exam General appearance: average body habitus, no distress. Patient appears comfortable in recliner. - EENT Eyes: anicteric sclerae, EOMI, PERRLA, no ptosis, no scleral icterus, normal appearance ENT: hearing grossly normal, NA/AT, normal oropharynx, no thrush Ears: bilateral: normal - Neck Neck: no lymphadenopathy, normal ROM, no rigidity, no stridor, no thyromegaly Carotids: bilateral: upstroke normal Thyroid: bilateral: normal size - Respiratory Respiratory: bilateral: diminished, dullness, wheezing, prolonged expiration - Cardiovascular Rhythm: irregularly irregular Heart sounds: normal: S1, S2 Abnormal Heart Sounds: systolic murmur - Gastrointestinal General gastrointestinal: normal bowel sounds, no rigid, no scaphoid, soft, no tenderness, umbilical hernia, no ventral hernia - Integumentary Integumentary: normal, normal turgor - Neurologic Neurologic: CNII-XII intact - Musculoskeletal Musculoskeletal: gait normal, generalized weakness, strength equal bilaterally - Psychiatric Psychiatric: A&O x's 3, appropriate affect, intact judgment & insight - Labs CBC & Chem 7: 04/12/18 09:43 04/12/18 09:43 Labs: Abnormal Lab Results - Last 24 Hours (Table) 04/11/18 Range/Units 06:07 Hgb 9.9 L (11.4-16.0) gm/dL MCV 76.1 L (80.0-100.0) fL MCH 21.2 L (25.0-35.0) pg MCHC 27.9 L (31.0-37.0) g/dL RDW 23.2 H (11.5-15.5) % Assessment and Plan Plan: 1. Acute hypoxemic respiratory failure due to acute exacerbation of severe COPD with atrial fibrillation and rapid ventricular response. Continue oral prednisone to be started tomorrow, continue DuoNeb treatment nebulization 4 times every day, continue Pulmicort 1 mg neb twice every day, Cardizem drip discontinued, continue Lasix 40 mg IV push every 12 hours, continue oxygen support, cardiology consultation and pulmonary consultation appreciated. 2. Acute severe COPD exacerbation oxygen dependent. Continue Solu-Medrol transitioned to prednisone, continue DuoNeb 3 mL nebulization 4 times every day , continue Pulmicort 1 mg nebulization twice every day, continue oxygen support , pulmonary is following. 3. Acute on chronic diastolic heart failure due to A. fib with RVR. Cardizem drip discontinued, continue Lasix, oral, continue Lopressor 25 mg orally 3 times every day, continue patient also on input and output and daily weight, continue oxygen support, Xarelto 20 mg orally once every day, amiodarone 400 mg orally twice every day added by cardiology. 4. Severe pulmonary hypertension. Continue Lasix 40 mg IV push every 12 hours , continue Lopressor 25 mg orally 3 times every day, continue Revatio 20 mg orally 3 times every day. 5. Hypertension and hypertensive cardiovascular disease. On Lopressor 25 mg orally 3 times every day. 6. GERD. Continue Protonix 40 mg orally once every day. 7. Recurrent depression. Continue Paxil 10 mg orally once every day. 8. Gout, chronic. Stable. 9. DVT prophylaxis. Continue patient on Xarelto 20 mg orally once every day. 10. GI prophylaxis. Continue with PPI. 11. Patient's full code. Discharge plan: home. PT and OT are following. Impression and plan of care have been directed as dictated by the signing physician. Zoila Parish nurse practitioner acting as scribe for signing physician.
--- NOTE | 2018-04-12 16:03 | P.PN ---
Subjective Progress Note Date: 04/12/18 Principal diagnosis: Atrial fibrillation with rapid ventricular response This is a very pleasant 67-year-old female patient who follows with Dr. Dillon as her primary care physician. 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 She was seen by Dr. Dillon on 2018 who found her to be somewhat dry and he decreased her Lasix to 40 mg once a day and cut the Aldactone to 25 mg daily. Labs have been ordered. She ended up coming to the emergency room last evening as her family found her heart rate to be in the 150s 160s. She is continued in atrial fibrillation since her last admission. Unfortunately, her blood pressure runs in the low side and was in the 70s last evening. She had not been able to take metoprolol or Cardizem for several days. She is also been in the mid to drain for pressure support. She did receive 2 L of fluid in the emergency room. She is on a Cardizem drip at 10 mg per hour. Continues with A. fib RVR. Chest x-ray shows evidence of progressive congestive heart failure. She is seen today in the emergency room. She is awake and alert in mild respiratory distress. Currently requiring 6 L high flow nasal cannula to maintain O2 saturations in the 90s. She's afebrile. Heart rate in the 120s. Systolic BP in the 100s. Upon is negative 3. Creatinine 1.21. She has been initiated on oral amiodarone. Cardizem drip decreased to 5 mg per hour. Beta blockers on board. He is also on DuoNeb inhalations, Pulmicort inhalations. NicoDerm patch has been applied. The patient was seen again today 04/11/2018 in follow-up on the selective care unit. She is currently sitting up in a chair at the bedside. She is awake and alert in no acute distress. She does continue with significant dyspnea on minimal exertion. She is on 9 L high flow nasal cannula and maintaining O2 saturations in the 90s. He remains on Lasix 40 mg IV push every 8 hours. IV Solu-Medrol. Dilators. White count 3.9. Hemoglobin 9.9. Creatinine 1.24. Her rate better controlled. She is currently on amiodarone 400 mg twice a day. On 04/12/2018 patient seen in follow-up on selective care unit, she sits up in the chair, in no acute distress, FiO2 is down to 6 L per nasal cannula, her pulse ox is 94%, she is afebrile, remains in atrial fibrillation, the heart rate seems to be better controlled, is ranging anywhere from 80-117 BPM. Is on oral amiodarone at 400 mg twice daily. She has been transitioned to oral Lasix , currently at 40 mg twice a day, and on oral Aldactone 25 mg daily. She is diuresing, lower extremity edema is improving, lung sounds are positive for some bibasilar crackles, no major wheezing or congestion, she is anticoagulated with oral Xarelto. There is a slight increase in her renal profile, BUN is 40, creatinine is 1.57. Objective - Vital Signs Vital signs: Vital Signs Temp 97.1 F L 04/12/18 11:45 Pulse 117 H 04/12/18 15:39 Resp 20 04/12/18 11:45 BP 104/59 04/12/18 11:45 Pulse Ox 94 L 04/12/18 11:45 Intake & Output 04/11/18 04/12/18 04/12/18 18:59 06:59 18:59 Intake Total 380 160 356 Output Total 850 300 Balance 380 -690 56 Weight 68.5 kg Intake: Oral 380 160 356 Output: Urine 850 300 Other: Voiding Method Bedside Commode Bedside Commode # Voids 1 2 1 - Exam GENERAL EXAM: Alert, active, comfortable in no apparent distress. HEAD: Normocephalic/atraumatic. EYES: Normal reaction of pupils, equal size. Conjunctiva pink, sclera white. NOSE: Clear with pink turbinates. THROAT: No erythema or exudates. NECK: No masses, no JVD, no thyroid enlargement, no adenopathy. CHEST: No chest wall deformity. Symmetrical expansion. LUNGS: Equal air entry with bibasilar crackles CVS: Regular rate and rhythm, normal S1 and S2, no gallops, no murmurs, no rubs ABDOMEN: Soft, nontender. No hepatosplenomegaly, normal bowel sounds, no guarding or rigidity. EXTREMITIES: No clubbing, mild lower extremity edema, no cyanosis, 2+ pulses and upper and lower extremities. MUSCULOSKELETAL: Muscle strength and tone normal. SPINE: No scoliosis or deformity SKIN: No rashes CENTRAL NERVOUS SYSTEM: Alert and oriented -3. No focal deficits, tone is normal in all 4 extremities. PSYCHIATRIC: Alert and oriented -3. Appropriate affect. Intact judgment and insight. - Labs CBC & Chem 7: 04/12/18 09:43 04/12/18 09:43 Labs: Abnormal Lab Results - Last 24 Hours (Table) 04/12/18 04/12/18 Range/Units 09:43 09:43 Hgb 9.9 L (11.4-16.0) gm/dL MCV 74.9 L (80.0-100.0) fL MCH 20.3 L (25.0-35.0) pg MCHC 27.2 L (31.0-37.0) g/dL RDW 23.8 H (11.5-15.5) % BUN 40 H (7-17) mg/dL Creatinine 1.57 H (0.52-1.04) mg/dL Glucose 123 H (74-99) mg/dL Assessment and Plan Plan: #1 Acute on chronic hypoxic respiratory failure secondary to an acute exacerbation of diastolic congestive heart failure, acute exacerbation of chronic obstructive pulmonary disease, atrial fibrillation with rapid ventricular response. #2 Acute exacerbation of diastolic congestive heart failure. #3 Atrial fibrillation with rapid ventricular response. Anticoagulated with Eliquis. Improved rate control. On amiodarone 400 mg by mouth twice a day. #4 Acute exacerbation of oxygen dependent chronic obstructive pulmonary disease. Remains on DuoNeb inhalations and IV Solu-Medrol. #5 Chronic tobacco dependence. #6 Episodes of hypotension requiring midodrine in the outpatient setting. #8 Moderate pulmonary hypertension. Plan: Continue with current medical treatment, oral diuretics, Aldactone, patient's heart rate seems to be better controlled. Tolerating oral amiodarone quite well. I am status is improving, still has some residual lower extremity edema, but it is improving. No worsening dyspnea, no chest pain. Continue weaning FiO2, encourage deep breathing and coughing. On a chair at renal profile and electrolytes, we'll continue to follow I performed a history & physical examination of the patient and discussed their management with my nurse practitioner, Marlene Joselito. I reviewed the nurse practitioner's note and agree with the documented findings and plan of care. Lung sounds are positive for minimal bibasilar crackles. The findings and the impression was discussed with the patient. I attest to the documentation by the nurse practitioner. Time with Patient: Less than 30
[2018-04-12] MEDS: FUROSEMIDE 40 MG TAB PO SCH (16:26)
[2018-04-12] MEDS: RIVAROXABAN 20 MG TAB PO SCH (17:00)
[2018-04-12] MEDS: CHOLECALCIFEROL 1,000 UNIT TAB PO SCH (17:00)
[2018-04-12] MEDS: ALPRAZolam 0.5 MG TAB PO PRN (22:14)
[2018-04-13] MEDS: MIDODRINE 5 MG TAB PO SCH ×3 (06:00→17:28)
[2018-04-13] MEDS: SPIRONOLACTONE 25 MG TAB PO SCH (06:01)
[2018-04-13 06:41] LABS: Anisocytosis Moderate; HCT 38.5 % (34.0-46.0); HGB 10.6 gm/dL (11.4-16.0); Hypochromasia Marked; MCH 21.1 pg (25.0-35.0); MCHC 27.6 g/dL (31.0-37.0); MCV 76.6 fL (80.0-100.0); Mean Platelet Volume 6.2; Microcytosis Marked; Platelet Count 225 k/uL (150-450); Poikilocytosis Slight; RBC 5.03 m/uL (3.80-5.40); RDW 23.1 % (11.5-15.5); WBC 12.8 k/uL (3.8-10.6)
[2018-04-13 06:59] LABS: Calcium 9.2 mg/dL (8.4-10.2); Potassium 4.5 mmol/L (3.5-5.1)
[2018-04-13] MEDS: ASPIRIN 325 MG TAB PO SCH (07:48)
[2018-04-13] MEDS: NICOTINE 21MG/24HR PATCH TRANSDERM SCH (07:53)
[2018-04-13] MEDS: predniSONE 10 MG TAB PO SCH (07:54)
[2018-04-13] MEDS: ACETAMINOPHEN TAB 325 MG TAB PO PRN ×2 (07:54→22:08)
[2018-04-13] MEDS: METOPROLOL TARTRATE 25 MG TAB PO SCH ×2 (07:54→14:48)
[2018-04-13] MEDS: IPRATROPIUM-ALBUTEROL 3 ML NEB INHALATION SCH ×4 (07:54→20:22)
[2018-04-13] MEDS: AMIODARONE 200 MG TAB PO SCH ×2 (07:54→22:09)
[2018-04-13] MEDS: PANTOPRAZOLE 40 MG TABLET PO SCH ×2 (07:54→17:28)
[2018-04-13] MEDS: PARoxetine 10 MG TAB PO SCH ×2 (07:55→22:09)
[2018-04-13] MEDS: BUDESONIDE 1 MG/2 ML NEBU INHALATION SCH ×2 (07:55→20:21)
[2018-04-13] MEDS: FUROSEMIDE 40 MG TAB PO SCH ×2 (07:55→14:48)
[2018-04-13] MEDS ORDERED: SENNOSIDES-DOCUSATE SODIUM 1 EACH TAB PO STA (11:07)
--- NOTE | 2018-04-13 13:12 | CDI ---
Documentation Clarification Form Date: 04/13/2018 12:25:37 PM From: Fany Barros RN, CCDS Admit Date: 04/09/2018 9:14:00 PM Patient Name: Brigette Crawford Visit Number: [id number] Discharge Date: ATTENTION: The Clinical Documentation Specialists (CDI) and [facility] Coding Staff appreciate your assistance in clarifying documentation. Please respond to the clarification below the line at the bottom and electronically sign. The CDI & [facility] Coding staff will review the response and follow-up if needed. Please note: Queries are made part of the Legal Health Record. If you have any questions, please contact the author of this message via ITS. Dr. Jenny Moreno 04/12/18 cardiology (Dr. Jackson) documented worsening renal failure in the progress note. History/Risk Factors: Atrial Fibrillation, Heart Failure, COPD, Pulmonary Hypertension Clinical indicators: Present with complaints of shortness of breath, rapid heart beat. EKG shows A. Fib with RVR rate 137. CXR shows CHF and she was treated with Lasix IV push. Review of daily BUN, Creatinine, GFR finds the followin04/09/18 BUN 31, CR 1.44, GFR 37 04/09/18 BUN 31 CR 124 GFR 44 04/11/18 BUN 40 CR 1.57 GFR 33 04/12/18 BUN 47 CR 1.58 GFR 33 Treatment: Monitor Labs In order to capture the severity of condition, please clarify if the condition signifies: Acute renal failure, Please specify etiology (if known): Cortical Necrosis Medullary Necrosis Tubular Necrosis Acute kidney injury Acute on chronic renal failure CKD Stage 1 GFR >90 CKD Stage 2 GFR 60-89 CKD Stage 3 GFR 30-59 CKD Stage 4 GFR 15-29 CKD Stage 5 GFR <15 Chronic renal failure/Chronic Kidney disease (CKD) please stage (if known): CKD Stage 1 GFR >90 CKD Stage 2 GFR 60-89 CKD Stage 3 GFR 30-59 CKD Stage 4 GFR 15-29 CKD Stage 5 GFR <15 Other, please specify Unable to determine (Last Revision: June 2017) ____Acute kidney injury on CKD3 due acute tubular necrosis. MTDD
--- NOTE | 2018-04-13 13:43 | P.PN ---
Subjective Progress Note Date: 04/13/18 This is a 67-year-old female one of Dr. Dillon with a previous medical history significant for hypertension and hypertensive cardio vascular disease with left ventricular hypertrophy, hyperlipidemia, history of chronic diastolic heart failure, new diagnosed atrial fibrillation currently with rapid ventricular response, history of severe oxygen-dependent chronic obstructive pulmonary disease, bilateral pleural effusion, patient was recently hospitalized at the [facility] in March 04 after she was admitted to the hospital for acute diastolic heart failure and she spent in the hospital about 9 days intensive care unit on the day of the discharge she developed atrial fibrillation with rapid ventricular response and the patient was placed on oral Lopressor and she had a marginal blood pressure at that time and after that she was discharged home 2 days later she ended up going to [facility] for physical therapy rehabilitation for one week and the patient was started on Midodrin because her blood pressure was marginal in the low 80s and was seen by Dr. Lorenzo from cardiology who held her Cardizem and Lopressor at that time, she recently saw Dr. Dillon in the office on past Monday and she was cut down in her Lasix to 40 mg once every day due to the fact that she was driving a bit and the patient was doing fine up until yesterday when her daughter did receive a call from her other daughter stating that her heart rate is running 155-1 60 bpm and she was extreme short of breath she ended up coming to the emergency department at [facility] she was found to be in atrial fibrillation with rapid ventricular response she is requiring a lot higher oxygen flow and she was started on Cardizem drip at 10 minute gram an hour and her blood pressure was marginal at 100/60 and the patient was admitted to the hospital for evaluation and treatment of both acute respiratory failure due to acute diastolic heart failure and bilateral pleural effusion along with atrial fibrillation with rapid ventricular response she was seen in consultation by cardiology as well as by pulmonary medicine. 04/11: The patient has been seen by cardiology and started on oral amiodarone and off Cardizem drip. Blood pressure has been marginal. Heart rate is improved. Patient does have a cough with sputum production. She did have some increased shortness of breath in the evening for which she received IV Lasix and was on a nonrebreather. She is currently on high flow nasal cannula at 10 L. Repeat lab work shows a hemoglobin 9.9, BUN 30 creatinine 1.24. Troponins have all been negative on 3 draws. Triglycerides 69, cholesterol 68, LDL 23, HDL 31. TSH 4.2. Discharge plan is to return home without home care. We will add an PT and OT. Patient is also followed by Dr. Raymundo. 04/12: Pulse ox is 94% on 9 L high flow nasal cannula, patient is been afebrile, heart rate running in the 80s to 92, blood pressure 94/51. White count is normal at 8.4, hemoglobin 9.9, BUN 14, creatinine 1.57. Elect lites within normal limits. Patient appears much comfortable today. She is sitting up in a recliner and appears to be in no acute distress. Goal will be to wean down oxygen today. IV Lasix has been changed to oral today by cardiology. Weight is recorded as down 19 kg since admission. Pulmonary change IV Solu-Medrol to oral prednisone, start tomorrow. 04/13: Heart rate has been running between 96 and 115. residential monitor atrial fibrillation. Blood pressure 106/66, pulse ox 96% on 5 L nasal cannula. Oxygen need is gradually improving. White count is 12.8, hemoglobin 10.6. BUN 47 creatinine 1.58. Patient has ambulated in the hallway and has done well. She states her breathing is a lot better from yesterday. She is now requiring 4 L nasal cannula at the time of this evaluation. Revatio was discontinued yesterday to see if this improves blood pressure which it has this morning. Patient states she has not had a bowel movement and Senokot-S will be added. Anticipate she'll be ready for discharge tomorrow. Patient does have home oxygen at 2-3 L nasal cannula. Review of Systems Constitutional: Reports fatigue, Reports weakness, Reports weight loss, Denies chronic headaches Eyes: denies blurred vision Ears: deny: decreased hearing Ears, nose, mouth and throat: Denies dysphagia, Denies neck lump, Denies swelling in throat, Denies sore throat Cardiovascular: Reports decreased exercise tolerance, Reports dyspnea on exertion, Reports lightheadedness, Reports orthopnea, Reports paroxysmal nocturnal dyspnea, Reports rapid heart beat, Reports shortness of breath, Denies chest pain, Denies edema, Denies leg edema, Denies syncope Respiratory: Reports congestion, Reports cough, Reports cough with sputum, Reports dyspnea, Reports home oxygen, Reports wheezing, Denies respiratory infections, Denies sleep apnea Gastrointestinal: Denies abdominal pain, Denies bloating, Denies excessive gas, Denies heartburn, Denies loss of appetite, Denies melena, Denies nausea, Denies vomiting, reports constipation Genitourinary: Reports nocturia, Denies dysuria Menstruation: Reports postmenopausal Musculoskeletal: Denies myalgias Musculoskeletal: absent: ankle pain, ankle stiffness, ankle swelling, elbow pain , elbow stiffness, elbow swelling, foot pain, foot stiffness, foot swelling, hand pain, hand stiffness, hand swelling, hip pain, hip stiffness, hip swelling , knee pain, knee stiffness, knee swelling, shoulder pain, shoulder stiffness, shoulder swelling, wrist pain, wrist stiffness, wrist swelling Integumentary: Denies pruritus, Denies rash Neurological: Denies numbness, Denies weakness Psychiatric: Denies anxiety, Denies depression Endocrine: Denies fatigue, Denies weight change Objective - Vital Signs Vital signs: Vital Signs Temp 97.1 F L 04/13/18 07:57 Pulse 104 H 04/13/18 08:04 Resp 18 04/13/18 07:58 BP 106/66 04/13/18 07:57 Pulse Ox 96 04/13/18 07:57 Intake & Output 04/12/18 04/13/18 04/13/18 18:59 06:59 18:59 Intake Total 536 Output Total 300 200 Balance 236 -200 Weight 91.5 kg Intake: Oral 536 Output: Urine 300 200 Other: Voiding Method Bedside Commode Toilet Toilet Bedside Commode Bedside Commode # Voids 1 - Exam General appearance: average body habitus, no distress. Patient appears comfortable in recliner. - EENT Eyes: anicteric sclerae, EOMI, PERRLA, no ptosis, no scleral icterus, normal appearance ENT: hearing grossly normal, NA/AT, normal oropharynx, no thrush Ears: bilateral: normal - Neck Neck: no lymphadenopathy, normal ROM, no rigidity, no stridor, no thyromegaly Carotids: bilateral: upstroke normal Thyroid: bilateral: normal size - Respiratory Respiratory: bilateral: Improving: diminished, dullness, wheezing, prolonged expiration - Cardiovascular Rhythm: irregularly irregular Heart sounds: normal: S1, S2 Abnormal Heart Sounds: systolic murmur - Gastrointestinal General gastrointestinal: normal bowel sounds, no rigid, no scaphoid, soft, no tenderness, umbilical hernia, no ventral hernia - Integumentary Integumentary: normal, normal turgor - Neurologic Neurologic: CNII-XII intact - Musculoskeletal Musculoskeletal: gait normal, generalized weakness, strength equal bilaterally - Psychiatric Psychiatric: A&O x's 3, appropriate affect, intact judgment & insight - Labs CBC & Chem 7: 04/13/18 06:02 04/13/18 06:02 Labs: Abnormal Lab Results - Last 24 Hours (Table) 04/12/18 04/12/18 04/13/18 Range/Units 09:43 09:43 06:02 WBC 12.8 H (3.8-10.6) k/uL Hgb 9.9 L 10.6 L (11.4-16.0) gm/dL MCV 74.9 L 76.6 L (80.0-100.0) fL MCH 20.3 L 21.1 L (25.0-35.0) pg MCHC 27.2 L 27.6 L (31.0-37.0) g/dL RDW 23.8 H 23.1 H (11.5-15.5) % BUN 40 H (7-17) mg/dL Creatinine 1.57 H (0.52-1.04) mg/dL Glucose 123 H (74-99) mg/dL 04/13/18 Range/Units 06:02 WBC (3.8-10.6) k/uL Hgb (11.4-16.0) gm/dL MCV (80.0-100.0) fL MCH (25.0-35.0) pg MCHC (31.0-37.0) g/dL RDW (11.5-15.5) % BUN 47 H (7-17) mg/dL Creatinine 1.58 H (0.52-1.04) mg/dL Glucose (74-99) mg/dL Assessment and Plan Plan: 1. Acute hypoxemic respiratory failure due to acute exacerbation of severe COPD with atrial fibrillation and rapid ventricular response. Continue oral prednisone, DuoNeb treatment nebulization 4 times every day, continue Pulmicort 1 mg neb twice every day, Cardizem drip discontinued, continue Lasix 40 mg orally twice daily, continue Aldactone 25 mg daily, continue oxygen support, cardiology consultation and pulmonary consultation appreciated. 2. Acute severe COPD exacerbation oxygen dependent. Continue prednisone, continue DuoNeb 3 mL nebulization 4 times every day, continue Pulmicort 1 mg nebulization twice every day, continue oxygen support, pulmonary is following. 3. Acute on chronic diastolic heart failure due to A. fib with RVR. Cardizem drip discontinued, continue Lasix oral, continue Lopressor 25 mg orally 3 times every day, continue patient also on input and output and daily weight, continue oxygen support, Xarelto 20 mg orally once every day, amiodarone 400 mg orally twice every day added by cardiology. 4. Severe pulmonary hypertension. Continue Lasix 40 mg oral twice daily, continue Lopressor 25 mg orally 3 times every day, Revatio discontinued by pulmonary medicine. 5. Hypertension and hypertensive cardiovascular disease. On Lopressor 25 mg orally 3 times every day. 6. GERD. Continue Protonix 40 mg orally once every day. 7. Recurrent depression. Continue Paxil 10 mg orally once every day. 8. Gout, chronic. Stable. 9. DVT prophylaxis. Continue patient on Xarelto 20 mg orally once every day. 10. GI prophylaxis. Continue with PPI. 11. Acute kidney injury with chronic kidney disease stage II. Avoid nephrotoxic agents. 12. Hypotension secondary to medications not improving with better during. Revatio has been discontinued for now with improvement of blood pressure readings. Patient's full code. Discharge plan: home on Monday Impression and plan of care have been directed as dictated by the signing physician. Zoila Parish nurse practitioner acting as scribe for signing physician.
--- NOTE | 2018-04-13 14:52 | P.PN ---
Subjective Progress Note Date: 04/13/18 This is a 67-year-old female with history of severe COPD, who had a prolonged admission in February, she was in the intensive care unit at that time , she went into atrial fibrillation, presented at that time with progressive dyspnea. She has severe COPD severe pulmonary hypertension and has been a smoker until her admission in February. Echocardiogram with Doppler study revealed anormal LV systolic function, her PA pressure was 69. She had moderate mitral and tricuspid regurg was significantly enlarged left atrium. Coronary risk factors are positive for smoking. Patient is currently on metoprolol titrate 25 mg by mouth by mouth 3 times a day, lasix 40 mg by mouth twice a day and amiodarone 400 mg by mouth twice a day. Heart rate remains suboptimally controlled in the 1 teens to 120s. Objective - Vital Signs Vital signs: Vital Signs Temp 97.0 F L 04/13/18 11:42 Pulse 88 04/13/18 11:42 Resp 20 04/13/18 11:42 BP 110/68 04/13/18 11:42 Pulse Ox 95 04/13/18 11:42 Intake & Output 04/12/18 04/13/18 04/13/18 18:59 06:59 18:59 Intake Total 536 120 Output Total 300 200 Balance 236 -200 120 Weight 92 kg 91.5 kg 92.2 kg Intake: Oral 536 120 Output: Urine 300 200 Other: Voiding Method Bedside Commode Toilet Toilet Bedside Commode Bedside Commode # Voids 1 - Exam GENERAL: 67-year-old female in no acute distress at the time of examination HEENT: Head is atraumatic, normocephalic. Pupils equal, round. Sclera anicteric. Conjunctiva are clear. Mucous membranes of the mouth are moist. Neck is supple. There is no elevated jugular venous pressure. HEART EXAMINATION: Heart S1 and S2 irregularly irregular a holosystolic murmur at the apex. 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 ABDOMEN: Soft, nontender. Bowel sounds are heard. No organomegaly noted. EXTREMITIES: 2+ peripheral pulses with evidence of trace peripheral edema and no calf tenderness noted. NEUROLOGIC patient is awake, alert and oriented 3 . - Labs CBC & Chem 7: 04/13/18 06:02 04/13/18 06:02 Labs: Abnormal Lab Results - Last 24 Hours (Table) 04/13/18 04/13/18 Range/Units 06:02 06:02 WBC 12.8 H (3.8-10.6) k/uL Hgb 10.6 L (11.4-16.0) gm/dL MCV 76.6 L (80.0-100.0) fL MCH 21.1 L (25.0-35.0) pg MCHC 27.6 L (31.0-37.0) g/dL RDW 23.1 H (11.5-15.5) % BUN 47 H (7-17) mg/dL Creatinine 1.58 H (0.52-1.04) mg/dL Assessment and Plan Assessment: #1 symptoms of progressive dyspnea in a patient with known history of severe COPD #2 atrial fibrillation, persistent, diagnosed in March, anticoagulated. #3 hypotension, blood pressure currently normal #4 severe pulmonary hypertension #5 worsening renal failure #6 prior history of smoking Plan: From cardiology's perspective, we will decrease Lasix dose and increase metoprolol to 50 mg by mouth twice a day. Will continue to monitor the patient provide further recommendations accordingly. TRANSITION LEAD note has been reviewed, I agree with a documented findings and plan of care. Patient was seen and examined.
--- NOTE | 2018-04-13 16:51 | P.PN ---
Subjective Progress Note Date: 04/13/18 Principal diagnosis: Atrial fibrillation with rapid ventricular response. This is a very pleasant 67-year-old female patient who follows with Dr. Dillon as her primary care physician. 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 She was seen by Dr. Dillon on 2018 who found her to be somewhat dry and he decreased her Lasix to 40 mg once a day and cut the Aldactone to 25 mg daily. Labs have been ordered. She ended up coming to the emergency room last evening as her family found her heart rate to be in the 150s 160s. She is continued in atrial fibrillation since her last admission. Unfortunately, her blood pressure runs in the low side and was in the 70s last evening. She had not been able to take metoprolol or Cardizem for several days. She is also been in the mid to drain for pressure support. She did receive 2 L of fluid in the emergency room. She is on a Cardizem drip at 10 mg per hour. Continues with A. fib RVR. Chest x-ray shows evidence of progressive congestive heart failure. She is seen today in the emergency room. She is awake and alert in mild respiratory distress. Currently requiring 6 L high flow nasal cannula to maintain O2 saturations in the 90s. She's afebrile. Heart rate in the 120s. Systolic BP in the 100s. Upon is negative 3. Creatinine 1.21. She has been initiated on oral amiodarone. Cardizem drip decreased to 5 mg per hour. Beta blockers on board. He is also on DuoNeb inhalations, Pulmicort inhalations. NicoDerm patch has been applied. The patient was seen again today 04/11/2018 in follow-up on the selective care unit. She is currently sitting up in a chair at the bedside. She is awake and alert in no acute distress. She does continue with significant dyspnea on minimal exertion. She is on 9 L high flow nasal cannula and maintaining O2 saturations in the 90s. He remains on Lasix 40 mg IV push every 8 hours. IV Solu-Medrol. Dilators. White count 3.9. Hemoglobin 9.9. Creatinine 1.24. Her rate better controlled. She is currently on amiodarone 400 mg twice a day. On 04/12/2018 patient seen in follow-up on selective care unit, she sits up in the chair, in no acute distress, FiO2 is down to 6 L per nasal cannula, her pulse ox is 94%, she is afebrile, remains in atrial fibrillation, the heart rate seems to be better controlled, is ranging anywhere from 80-117 BPM. Is on oral amiodarone at 400 mg twice daily. She has been transitioned to oral Lasix , currently at 40 mg twice a day, and on oral Aldactone 25 mg daily. She is diuresing, lower extremity edema is improving, lung sounds are positive for some bibasilar crackles, no major wheezing or congestion, she is anticoagulated with oral Xarelto. There is a slight increase in her renal profile, BUN is 40, creatinine is 1.57. The patient was seen again today 04/13/2017 in follow-up on the selective care unit. She is currently sitting up in a chair at the bedside. She is awake and alert in no acute distress. She states she is breathing much better. Nearly back to her baseline. Atrial fib is better controlled. Currently on 3 L/m per nasal cannula maintaining good O2 saturations in the 90s. She's been afebrile. White count 12.8. Hemoglobin 10.6. Creatinine 1.58. Objective - Vital Signs Vital signs: Vital Signs Temp 97.6 F 04/13/18 15:02 Pulse 111 H 04/13/18 16:24 Resp 20 04/13/18 15:03 BP 103/64 04/13/18 15:02 Pulse Ox 93 L 04/13/18 15:02 Intake & Output 04/12/18 04/13/18 04/13/18 18:59 06:59 18:59 Intake Total 536 320 Output Total 300 200 300 Balance 236 -200 20 Weight 92 kg 91.5 kg 92.2 kg Intake: Oral 536 320 Output: Urine 300 200 300 Other: Voiding Method Bedside Commode Toilet Toilet Bedside Commode Bedside Commode # Voids 1 1 - Exam GENERAL EXAM: Pleasant 67-year-old female patient. Alert, fairly comfortable. No respiratory distress. On 3 L/m per nasal cannula. EYES: Normal reaction of pupils, equal size. NOSE: Clear with pink turbinates. THROAT: No erythema or exudates. NECK: No masses, no JVD. CHEST: No chest wall deformity. LUNGS: Equal air entry with crackles in the bilateral posterior bases, diminished. CVS: S1 and S2 normal with audible murmur, irregular rhythm. ABDOMEN: No hepatosplenomegaly, normal bowel sounds, no guarding or rigidity. SPINE: No scoliosis or deformity SKIN: No rashes CENTRAL NERVOUS SYSTEM: No focal deficits, tone is normal in all 4 extremities. EXTREMITIES: There is trace peripheral edema. No clubbing, no cyanosis. Peripheral pulses are intact. - Labs CBC & Chem 7: 04/13/18 06:02 04/13/18 06:02 Labs: Abnormal Lab Results - Last 24 Hours (Table) 04/13/18 04/13/18 Range/Units 06:02 06:02 WBC 12.8 H (3.8-10.6) k/uL Hgb 10.6 L (11.4-16.0) gm/dL MCV 76.6 L (80.0-100.0) fL MCH 21.1 L (25.0-35.0) pg MCHC 27.6 L (31.0-37.0) g/dL RDW 23.1 H (11.5-15.5) % BUN 47 H (7-17) mg/dL Creatinine 1.58 H (0.52-1.04) mg/dL Assessment and Plan Assessment: Impression: #1 Acute on chronic hypoxic respiratory failure secondary to an acute exacerbation of diastolic congestive heart failure, acute exacerbation of chronic obstructive pulmonary disease, atrial fibrillation with rapid ventricular response. #2 Acute exacerbation of diastolic congestive heart failure. #3 Atrial fibrillation with rapid ventricular response. Anticoagulated with Eliquis. Improved rate control. On amiodarone 400 mg by mouth twice a day. #4 Acute exacerbation of oxygen dependent chronic obstructive pulmonary disease. Remains on DuoNeb inhalations and IV Solu-Medrol. #5 Chronic tobacco dependence. #6 Episodes of hypotension requiring midodrine in the outpatient setting. #8 Moderate pulmonary hypertension. Plan: The patient was seen and evaluated by Dr. Raymundo. Improved today as compared to yesterday. Currently down to 3 L of high flow nasal cannula. Ventricular rate better controlled. Currently on amiodarone 400 mg by mouth twice a day. She was educated regarding the importance of complete smoking cessation. A NicoDerm patch remains in place. She is cleared for discharge from the pulmonary standpoint. She should follow-up with Dr. Dillon in our office in 1- 2 weeks' time. She is encouraged to call sooner with any recurrence of symptoms or other questions or concerns. I, the cosigning physician, performed a history & physical examination of the patient. Lungs sounds with faint end expiratory wheeze, diminished. Maintaining good O2 saturations in the 90s on 3 L high flow nasal cannula. I discussed the assessment and plan of care with my nurse practitioner, Essence Case. I attest to the above note as dictated by her.
[2018-04-13] MEDS: CHOLECALCIFEROL 1,000 UNIT TAB PO SCH (17:28)
[2018-04-13] MEDS: RIVAROXABAN 20 MG TAB PO SCH (17:32)
[2018-04-13] MEDS: ALPRAZolam 0.5 MG TAB PO PRN (22:09)
[2018-04-13] MEDS: METOPROLOL TARTRATE 50 MG TAB PO SCH (22:11)
[2018-04-13] MEDS: SENNOSIDES-DOCUSATE SODIUM 1 EACH TAB PO SCH (22:11)
[2018-04-14] MEDS: MIDODRINE 5 MG TAB PO SCH ×3 (06:19→17:40)
[2018-04-14] MEDS: SPIRONOLACTONE 25 MG TAB PO SCH (06:19)
[2018-04-14 07:44] LABS: Anisocytosis Moderate; HCT 39.8 % (34.0-46.0); HGB 10.7 gm/dL (11.4-16.0); Hypochromasia Marked; MCH 20.5 pg (25.0-35.0); MCHC 26.9 g/dL (31.0-37.0); MCV 76.2 fL (80.0-100.0); Mean Platelet Volume 6.5; Microcytosis Marked; Platelet Count 237 k/uL (150-450); Poikilocytosis Slight; RBC 5.22 m/uL (3.80-5.40); RDW 23.2 % (11.5-15.5); WBC 12.4 k/uL (3.8-10.6)
[2018-04-14 08:15] LABS: Albumin 3.8 g/dL (3.5-5.0); Calcium 8.9 mg/dL (8.4-10.2); Potassium 4.2 mmol/L (3.5-5.1); Total Bilirubin 2.9 mg/dL (0.2-1.3); Total Protein 6.4 g/dL (6.3-8.2)
[2018-04-14] MEDS: IPRATROPIUM-ALBUTEROL 3 ML NEB INHALATION SCH ×4 (08:57→21:05)
[2018-04-14] MEDS: SENNOSIDES-DOCUSATE SODIUM 1 EACH TAB PO SCH ×2 (08:57→20:02)
[2018-04-14] MEDS: BUDESONIDE 1 MG/2 ML NEBU INHALATION SCH ×2 (08:57→21:07)
[2018-04-14] MEDS: METOPROLOL TARTRATE 50 MG TAB PO SCH ×2 (08:58→20:02)
[2018-04-14] MEDS: AMIODARONE 200 MG TAB PO SCH ×2 (08:58→20:02)
[2018-04-14] MEDS: PANTOPRAZOLE 40 MG TABLET PO SCH ×2 (08:58→17:40)
[2018-04-14] MEDS: FUROSEMIDE 40 MG TAB PO SCH (08:58)
[2018-04-14] MEDS: PARoxetine 10 MG TAB PO SCH ×2 (08:58→20:02)
[2018-04-14] MEDS: predniSONE 10 MG TAB PO SCH (08:59)
[2018-04-14] MEDS: ACETAMINOPHEN TAB 325 MG TAB PO PRN ×3 (09:02→23:06)
[2018-04-14] MEDS: NICOTINE 21MG/24HR PATCH TRANSDERM SCH (09:30)
--- NOTE | 2018-04-14 13:32 | P.PN ---
Subjective Progress Note Date: 04/14/18 This is a 67-year-old female one of Dr. Dillon with a previous medical history significant for hypertension and hypertensive cardio vascular disease with left ventricular hypertrophy, hyperlipidemia, history of chronic diastolic heart failure, new diagnosed atrial fibrillation currently with rapid ventricular response, history of severe oxygen-dependent chronic obstructive pulmonary disease, bilateral pleural effusion, patient was recently hospitalized at the [facility] in March 04 after she was admitted to the hospital for acute diastolic heart failure and she spent in the hospital about 9 days intensive care unit on the day of the discharge she developed atrial fibrillation with rapid ventricular response and the patient was placed on oral Lopressor and she had a marginal blood pressure at that time and after that she was discharged home 2 days later she ended up going to [facility] for physical therapy rehabilitation for one week and the patient was started on Midodrin because her blood pressure was marginal in the low 80s and was seen by Dr. Lorenzo from cardiology who held her Cardizem and Lopressor at that time, she recently saw Dr. Dillon in the office on past Monday and she was cut down in her Lasix to 40 mg once every day due to the fact that she was driving a bit and the patient was doing fine up until yesterday when her daughter did receive a call from her other daughter stating that her heart rate is running 155-1 60 bpm and she was extreme short of breath she ended up coming to the emergency department at [facility] she was found to be in atrial fibrillation with rapid ventricular response she is requiring a lot higher oxygen flow and she was started on Cardizem drip at 10 minute gram an hour and her blood pressure was marginal at 100/60 and the patient was admitted to the hospital for evaluation and treatment of both acute respiratory failure due to acute diastolic heart failure and bilateral pleural effusion along with atrial fibrillation with rapid ventricular response she was seen in consultation by cardiology as well as by pulmonary medicine. 04/11: The patient has been seen by cardiology and started on oral amiodarone and off Cardizem drip. Blood pressure has been marginal. Heart rate is improved. Patient does have a cough with sputum production. She did have some increased shortness of breath in the evening for which she received IV Lasix and was on a nonrebreather. She is currently on high flow nasal cannula at 10 L. Repeat lab work shows a hemoglobin 9.9, BUN 30 creatinine 1.24. Troponins have all been negative on 3 draws. Triglycerides 69, cholesterol 68, LDL 23, HDL 31. TSH 4.2. Discharge plan is to return home without home care. We will add an PT and OT. Patient is also followed by Dr. Raymundo. 04/12: Pulse ox is 94% on 9 L high flow nasal cannula, patient is been afebrile, heart rate running in the 80s to 92, blood pressure 94/51. White count is normal at 8.4, hemoglobin 9.9, BUN 14, creatinine 1.57. Elect lites within normal limits. Patient appears much comfortable today. She is sitting up in a recliner and appears to be in no acute distress. Goal will be to wean down oxygen today. IV Lasix has been changed to oral today by cardiology. Weight is recorded as down 19 kg since admission. Pulmonary change IV Solu-Medrol to oral prednisone, start tomorrow. 04/13: Heart rate has been running between 96 and 115. leach tank tender atrial fibrillation. Blood pressure 106/66, pulse ox 96% on 5 L nasal cannula. Oxygen need is gradually improving. White count is 12.8, hemoglobin 10.6. BUN 47 creatinine 1.58. Patient has ambulated in the hallway and has done well. She states her breathing is a lot better from yesterday. She is now requiring 4 L nasal cannula at the time of this evaluation. Revatio was discontinued yesterday to see if this improves blood pressure which it has this morning. Patient states she has not had a bowel movement and Senokot-S will be added. Anticipate she'll be ready for discharge tomorrow. Patient does have home oxygen at 2-3 L nasal cannula. 04/14: Heart rate is running 101 24, blood pressure 96/62, pulse ox 89% on 3 L nasal cannula, patient is been afebrile. Kidney function is higher at BUN of 51 creatinine 1.72, hemoglobin 10.7, total bilirubin 2.9, other liver function tests within normal limits. We will plan to increase Midodrine to 10 mg 3 times daily, Lopressor has been increased to 50 mg by cardiology. Plan to check orthostatics tomorrow. Patient states she is voiding okay. Cardiology has changed Lasix to 40 daily. Patient was hoping to go home today but discharge will be held. Review of Systems Constitutional: Reports fatigue, Reports weakness, Reports weight loss, Denies chronic headaches Eyes: denies blurred vision Ears: deny: decreased hearing Ears, nose, mouth and throat: Denies dysphagia, Denies neck lump, Denies swelling in throat, Denies sore throat Cardiovascular: Reports decreased exercise tolerance, Reports dyspnea on exertion, Reports lightheadedness, Reports orthopnea, Reports paroxysmal nocturnal dyspnea, Reports rapid heart beat, Reports shortness of breath, Denies chest pain, Denies edema, Denies leg edema, Denies syncope Respiratory: Reports congestion, Reports cough, Reports cough with sputum, Reports dyspnea, Reports home oxygen, Reports wheezing, Denies respiratory infections, Denies sleep apnea Gastrointestinal: Denies abdominal pain, Denies bloating, Denies excessive gas, Denies heartburn, Denies loss of appetite, Denies melena, Denies nausea, Denies vomiting Genitourinary: Reports nocturia, Denies dysuria Menstruation: Reports postmenopausal Musculoskeletal: Denies myalgias Musculoskeletal: absent: ankle pain, ankle stiffness, ankle swelling, elbow pain , elbow stiffness, elbow swelling, foot pain, foot stiffness, foot swelling, hand pain, hand stiffness, hand swelling, hip pain, hip stiffness, hip swelling , knee pain, knee stiffness, knee swelling, shoulder pain, shoulder stiffness, shoulder swelling, wrist pain, wrist stiffness, wrist swelling Integumentary: Denies pruritus, Denies rash Neurological: Denies numbness, Denies weakness Psychiatric: Denies anxiety, Denies depression Endocrine: Denies fatigue, Denies weight change Objective - Vital Signs Vital signs: Vital Signs Temp 97.9 F 04/14/18 08:00 Pulse 124 H 04/14/18 09:24 Resp 20 04/14/18 08:00 BP 101/65 04/14/18 08:00 Pulse Ox 92 L 04/14/18 08:00 Intake & Output 04/13/18 04/14/18 04/14/18 18:59 06:59 18:59 Intake Total 500 118 Output Total 300 400 Balance 200 -400 118 Weight 92.2 kg 92.1 kg Intake: Oral 500 118 Output: Urine 300 400 Other: Voiding Method Toilet Toilet Toilet Bedside Commode # Voids 1 2 # Bowel Movements 1 - Exam General appearance: average body habitus, no distress. Patient appears comfortable in recliner. - EENT Eyes: anicteric sclerae, EOMI, PERRLA, no ptosis, no scleral icterus, normal appearance ENT: hearing grossly normal, NA/AT, normal oropharynx, no thrush Ears: bilateral: normal - Neck Neck: no lymphadenopathy, normal ROM, no rigidity, no stridor, no thyromegaly Carotids: bilateral: upstroke normal Thyroid: bilateral: normal size - Respiratory Respiratory: bilateral: Improving: diminished, dullness, wheezing, prolonged expiration - Cardiovascular Rhythm: irregularly irregular Heart sounds: normal: S1, S2, tachycardic Abnormal Heart Sounds: systolic murmur - Gastrointestinal General gastrointestinal: normal bowel sounds, no rigid, no scaphoid, soft, no tenderness, umbilical hernia, no ventral hernia - Integumentary Integumentary: normal, normal turgor - Neurologic Neurologic: CNII-XII intact - Musculoskeletal Musculoskeletal: gait normal, generalized weakness, strength equal bilaterally - Psychiatric Psychiatric: A&O x's 3, appropriate affect, intact judgment & insight - Labs CBC & Chem 7: 04/14/18 07:17 04/14/18 07:17 Labs: Abnormal Lab Results - Last 24 Hours (Table) 04/14/18 04/14/18 Range/Units 07:17 07:17 WBC 12.4 H (3.8-10.6) k/uL Hgb 10.7 L (11.4-16.0) gm/dL MCV 76.2 L (80.0-100.0) fL MCH 20.5 L (25.0-35.0) pg MCHC 26.9 L (31.0-37.0) g/dL RDW 23.2 H (11.5-15.5) % BUN 51 H (7-17) mg/dL Creatinine 1.72 H (0.52-1.04) mg/dL Total Bilirubin 2.9 H (0.2-1.3) mg/dL Assessment and Plan Plan: 1. Acute hypoxemic respiratory failure due to acute exacerbation of severe COPD with atrial fibrillation and rapid ventricular response. Continue oral prednisone, DuoNeb treatment nebulization 4 times every day, continue Pulmicort 1 mg neb twice every day, Cardizem drip discontinued, continue Lasix decreased frequency to 40 mg orally daily, continue Aldactone 25 mg daily, continue oxygen support, cardiology consultation and pulmonary consultation appreciated. 2. Acute severe COPD exacerbation oxygen dependent. Continue prednisone, continue DuoNeb 3 mL nebulization 4 times every day, continue Pulmicort 1 mg nebulization twice every day, continue oxygen support, pulmonary is following. 3. Acute on chronic diastolic heart failure due to A. fib with RVR. Cardizem drip discontinued, continue Lasix oral, continue Lopressor increased to 50 mg mg orally 2 times every day, continue patient also on input and output and daily weight, continue oxygen support, Xarelto 20 mg orally once every day, amiodarone 400 mg orally twice every day added by cardiology. Lasix 40 mg daily 4. Severe pulmonary hypertension. Continue Lasix 40 mg oral twice daily, continue Lopressor 25 mg orally 3 times every day, Revatio discontinued by pulmonary medicine. 5. Hypertension and hypertensive cardiovascular disease, history of now with hypotension. 6. GERD. Continue Protonix 40 mg orally once every day. 7. Recurrent depression. Continue Paxil 10 mg orally once every day. 8. Gout, chronic. Stable. 9. DVT prophylaxis. Continue patient on Xarelto 20 mg orally once every day. 10. GI prophylaxis. Continue with PPI. 11. Acute kidney injury with chronic kidney disease stage II. Avoid nephrotoxic agents. 12. Hypotension secondary to medications not improving with Midodrine now increased to 10 mg 3 times daily. Revatio has been discontinued for now with improvement of blood pressure readings. 13. Chronic hypoxic respiratory failure on home O2 at 3 L nasal cannula Patient's full code. Discharge plan: home in the next 2448 hrs. Impression and plan of care have been directed as dictated by the signing physician. Zoila Parish nurse practitioner acting as scribe for signing physician.
--- NOTE | 2018-04-14 14:36 | P.PN ---
Subjective Progress Note Date: 04/14/18 Principal diagnosis: Atrial fibrillation with rapid ventricular response. This is a very pleasant 67-year-old female patient who follows with Dr. Dillon as her primary care physician. 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 She was seen by Dr. Dillon on 2018 who found her to be somewhat dry and he decreased her Lasix to 40 mg once a day and cut the Aldactone to 25 mg daily. Labs have been ordered. She ended up coming to the emergency room last evening as her family found her heart rate to be in the 150s 160s. She is continued in atrial fibrillation since her last admission. Unfortunately, her blood pressure runs in the low side and was in the 70s last evening. She had not been able to take metoprolol or Cardizem for several days. She is also been in the mid to drain for pressure support. She did receive 2 L of fluid in the emergency room. She is on a Cardizem drip at 10 mg per hour. Continues with A. fib RVR. Chest x-ray shows evidence of progressive congestive heart failure. She is seen today in the emergency room. She is awake and alert in mild respiratory distress. Currently requiring 6 L high flow nasal cannula to maintain O2 saturations in the 90s. She's afebrile. Heart rate in the 120s. Systolic BP in the 100s. Upon is negative 3. Creatinine 1.21. She has been initiated on oral amiodarone. Cardizem drip decreased to 5 mg per hour. Beta blockers on board. He is also on DuoNeb inhalations, Pulmicort inhalations. NicoDerm patch has been applied. The patient was seen again today 04/11/2018 in follow-up on the [facility]. She is currently sitting up in a chair at the bedside. She is awake and alert in no acute distress. She does continue with significant dyspnea on minimal exertion. She is on 9 L high flow nasal cannula and maintaining O2 saturations in the 90s. He remains on Lasix 40 mg IV push every 8 hours. IV Solu-Medrol. Dilators. White count 3.9. Hemoglobin 9.9. Creatinine 1.24. Her rate better controlled. She is currently on amiodarone 400 mg twice a day. On 04/12/2018 patient seen in follow-up on selective care unit, she sits up in the chair, in no acute distress, FiO2 is down to 6 L per nasal cannula, her pulse ox is 94%, she is afebrile, remains in atrial fibrillation, the heart rate seems to be better controlled, is ranging anywhere from 80-117 BPM. Is on oral amiodarone at 400 mg twice daily. She has been transitioned to oral Lasix , currently at 40 mg twice a day, and on oral Aldactone 25 mg daily. She is diuresing, lower extremity edema is improving, lung sounds are positive for some bibasilar crackles, no major wheezing or congestion, she is anticoagulated with oral Xarelto. There is a slight increase in her renal profile, BUN is 40, creatinine is 1.57. The patient was seen again today 04/13/2017 in follow-up on the selective care unit. She is currently sitting up in a chair at the bedside. She is awake and alert in no acute distress. She states she is breathing much better. Nearly back to her baseline. Atrial fib is better controlled. Currently on 3 L/m per nasal cannula maintaining good O2 saturations in the 90s. She's been afebrile. White count 12.8. Hemoglobin 10.6. Creatinine 1.58. The patient was seen again today 04/14/2018 in follow-up on the selective care unit. She is awake and alert in no acute distress. She denies any worsening shortness of breath, cough or congestion. No chest pain or palpitations. She remains in atrial fibrillation with a better controlled ventricular rate. Anticoagulated with Xarelto. She is maintaining good O2 saturations in the 90s on 3 L/m per nasal cannula. She's afebrile. White count 12.4. Hemoglobin 10.7. Creatinine 1.72. Objective - Vital Signs Vital signs: Vital Signs Temp 97.9 F 04/14/18 08:00 Pulse 110 H 04/14/18 12:27 Resp 20 04/14/18 08:00 BP 101/65 04/14/18 08:00 Pulse Ox 92 L 04/14/18 08:00 Intake & Output 04/13/18 04/14/18 04/14/18 18:59 06:59 18:59 Intake Total 500 358 Output Total 300 400 Balance 200 -400 358 Weight 92.2 kg 92.1 kg Intake: Oral 500 358 Output: Urine 300 400 Other: Voiding Method Toilet Toilet Toilet Bedside Commode # Voids 1 2 # Bowel Movements 1 - Exam GENERAL EXAM: Pleasant 67-year-old female patient. Alert, comfortable. No respiratory distress. On 3 L/m per nasal cannula. EYES: Normal reaction of pupils, equal size. NOSE: Clear with pink turbinates. THROAT: No erythema or exudates. NECK: No masses, no JVD. CHEST: No chest wall deformity. LUNGS: Equal air entry with crackles in the bilateral posterior bases, diminished. CVS: S1 and S2 normal with audible murmur, irregular rhythm. ABDOMEN: No hepatosplenomegaly, normal bowel sounds, no guarding or rigidity. SPINE: No scoliosis or deformity SKIN: No rashes CENTRAL NERVOUS SYSTEM: No focal deficits, tone is normal in all 4 extremities. EXTREMITIES: There is trace peripheral edema. No clubbing, no cyanosis. Peripheral pulses are intact. - Labs CBC & Chem 7: 04/14/18 07:17 04/14/18 07:17 Labs: Abnormal Lab Results - Last 24 Hours (Table) 04/14/18 04/14/18 Range/Units 07:17 07:17 WBC 12.4 H (3.8-10.6) k/uL Hgb 10.7 L (11.4-16.0) gm/dL MCV 76.2 L (80.0-100.0) fL MCH 20.5 L (25.0-35.0) pg MCHC 26.9 L (31.0-37.0) g/dL RDW 23.2 H (11.5-15.5) % BUN 51 H (7-17) mg/dL Creatinine 1.72 H (0.52-1.04) mg/dL Total Bilirubin 2.9 H (0.2-1.3) mg/dL Assessment and Plan Assessment: Impression: #1 Acute on chronic hypoxic respiratory failure secondary to an acute exacerbation of diastolic congestive heart failure, acute exacerbation of chronic obstructive pulmonary disease, atrial fibrillation with rapid ventricular response. #2 Acute exacerbation of diastolic congestive heart failure. #3 Atrial fibrillation with rapid ventricular response. Anticoagulated with Eliquis. Improved rate control. On amiodarone 400 mg by mouth twice a day. #4 Acute exacerbation of oxygen dependent chronic obstructive pulmonary disease. Remains on DuoNeb inhalations and IV Solu-Medrol. #5 Chronic tobacco dependence. #6 Episodes of hypotension requiring midodrine in the outpatient setting. #8 Moderate pulmonary hypertension. Plan: The patient was seen and evaluated by Dr. Raymundo. He is stable from the pulmonary standpoint. Currently down to 3 L of high flow nasal cannula. Ventricular rate better controlled. Upon discharge, she should follow-up with Dr. Dillon in our office in 1-2 weeks' time. She is encouraged to call sooner with any recurrence of symptoms or other questions or concerns. I, the cosigning physician, performed a history & physical examination of the patient. Lungs sounds with faint end expiratory wheeze, diminished. Maintaining good O2 saturations in the 90s on 3 L high flow nasal cannula. I discussed the assessment and plan of care with my nurse practitioner, Essence Case. I attest to the above note as dictated by her.
--- NOTE | 2018-04-14 15:11 | PN ---
PROGRESS NOTE Mrs. Crawford is a 67-year-old female with a known history of severe chronic obstructive lung disease and history of atrial fibrillation who presented with symptoms of progressive dyspnea. She is feeling better today. She still continues to have episode of low blood pressure, but no chest pain. She denies any palpitation. No syncope. Her ventricular response is on the higher side. She denies any nausea. She continues to be on Lasix 40 mg twice a day, amiodarone 400 mg twice a day, metoprolol tartrate 50 mg twice a day, midodrine 10 mg 3 times a day. PHYSICAL EXAMINATION: Blood pressure is running in the high 90s with a heart rate of 100 to 110. LUNGS: No wheezes. HEART: Irregularly irregular. S1, S2. No S3. No rub or gallop appreciated. ABDOMEN: Soft, nontender. EXTREMITIES: No edema. LAB DATA: Hemoglobin 10.7. BUN and creatinine of 51 and 1.72. IMPRESSION: 1. Severe chronic obstructive lung disease. 2. Chronic persistent atrial fibrillation. 3. Hypotension. 4. Chronic dyspnea. 5. Chronic diastolic congestive heart failure. RECOMMENDATIONS: I will cut down the dose of her diuretics. Will continue on the rest of her medical regimen. Patient will be continued on the anticoagulation in the form of Xarelto. Will follow her renal function and, depending on her progress, further recommendations will be made. MMODL / IJN: [id number] /
[2018-04-14] MEDS: RIVAROXABAN 20 MG TAB PO SCH (17:40)
[2018-04-14] MEDS: CHOLECALCIFEROL 1,000 UNIT TAB PO SCH (17:40)
[2018-04-14] MEDS: ALPRAZolam 0.5 MG TAB PO PRN (20:02)
[2018-04-14 20:37] LABS: Appearance,Urine Clear (Clear); Bacteria,Urine Rare /hpf; Bilirubin,Urine Negative (Negative); Blood,Urine Negative (Negative); Color,Urine Yellow; Glucose,Urine (UA) Negative (Negative); Hyaline Casts,Urine 7 /lpf (0-2); Ketones,Urine Negative (Negative); Leukocyte Esterase,Urine Trace (Negative); Mucus,Urine Rare /hpf; Nitrite,Urine Negative (Negative); Protein,Urine Negative (Negative); Squamous Epithelial Cell,Urine 1 /hpf (0-4); WBC,Urine 5 /hpf (0-5)
[2018-04-15] MEDS: MIDODRINE 5 MG TAB PO SCH ×3 (06:19→16:35)
[2018-04-15] MEDS: ACETAMINOPHEN TAB 325 MG TAB PO PRN ×2 (06:20→21:13)
[2018-04-15] MEDS: SPIRONOLACTONE 25 MG TAB PO SCH (06:20)
[2018-04-15 07:19] LABS: Anisocytosis Moderate; HGB 10.9 gm/dL (11.4-16.0); Hypochromasia Marked; MCH 20.4 pg (25.0-35.0); MCHC 27.2 g/dL (31.0-37.0); MCV 74.8 fL (80.0-100.0); Mean Platelet Volume 6.4; Microcytosis Marked; Platelet Count 235 k/uL (150-450); Poikilocytosis Slight; RBC 5.35 m/uL (3.80-5.40); RDW 23.1 % (11.5-15.5); WBC 12.5 k/uL (3.8-10.6)
[2018-04-15 07:42] LABS: Calcium 9.4 mg/dL (8.4-10.2); Potassium 4.6 mmol/L (3.5-5.1); Total Bilirubin 4.6 mg/dL (0.2-1.3); Total Protein 6.6 g/dL (6.3-8.2)
[2018-04-15] MEDS ORDERED: SODIUM CHLORIDE 0.9% 500 ML 500 ML IV ONE (08:59)
[2018-04-15] MEDS: IPRATROPIUM-ALBUTEROL 3 ML NEB INHALATION SCH ×4 (09:13→21:46)
[2018-04-15] MEDS: BUDESONIDE 1 MG/2 ML NEBU INHALATION SCH ×2 (09:14→21:46)
[2018-04-15] MEDS: NICOTINE 21MG/24HR PATCH TRANSDERM SCH (09:16)
[2018-04-15] MEDS: SENNOSIDES-DOCUSATE SODIUM 1 EACH TAB PO SCH ×2 (09:16→21:14)
[2018-04-15] MEDS: METOPROLOL TARTRATE 50 MG TAB PO SCH ×2 (09:17→21:13)
[2018-04-15] MEDS: PANTOPRAZOLE 40 MG TABLET PO SCH ×2 (09:17→16:35)
[2018-04-15] MEDS: PARoxetine 10 MG TAB PO SCH ×2 (09:17→21:13)
[2018-04-15] MEDS: FUROSEMIDE 40 MG TAB PO SCH (09:17)
[2018-04-15] MEDS: predniSONE 10 MG TAB PO SCH (09:17)
--- NOTE | 2018-04-15 09:30 | XR ---
EXAMINATION TYPE: XR chest 1V portable DATE OF EXAM: 04/15/2018 COMPARISON: 04/10/2018 INDICATION: CHF TECHNIQUE: Single frontal view of the chest is obtained. FINDINGS: The heart has moderate cardiomegaly. The pulmonary vasculature is normal. Small right pleural effusion is developed. Minimal blunting of the left costophrenic angle may be pre sent suggestive for small effusion. IMPRESSION: 1. Moderate cardiomegaly. 2. Small right and minimal left pleural effusions may be developing.
[2018-04-15 09:42] LABS: ABG Base Excess -1.3 mmol/L; ABG HCO3 25 mmol/L (21-25); ABG Oxygen Saturation 86.9 % (94-97); ABG PCO2 47 mmHg (35-45); ABG PH 7.33 (7.35-7.45); ABG PO2 61 mmHg (83-108); ABG TCO2 26 mmol/L (19-24)
[2018-04-15] MEDS: AMIODARONE 200 MG TAB PO SCH (11:38)
[2018-04-15] MEDS ORDERED: DILTIAZEM ORAL 30 MG TAB PO SCH (12:01)
--- NOTE | 2018-04-15 12:17 | P.PN ---
Subjective Progress Note Date: 04/15/18 This is a 67-year-old female one of Dr. Dillon with a previous medical history significant for hypertension and hypertensive cardio vascular disease with left ventricular hypertrophy, hyperlipidemia, history of chronic diastolic heart failure, new diagnosed atrial fibrillation currently with rapid ventricular response, history of severe oxygen-dependent chronic obstructive pulmonary disease, bilateral pleural effusion, patient was recently hospitalized at the [facility] in March 04 after she was admitted to the hospital for acute diastolic heart failure and she spent in the hospital about 9 days intensive care unit on the day of the discharge she developed atrial fibrillation with rapid ventricular response and the patient was placed on oral Lopressor and she had a marginal blood pressure at that time and after that she was discharged home 2 days later she ended up going to [facility] for physical therapy rehabilitation for one week and the patient was started on Midodrin because her blood pressure was marginal in the low 80s and was seen by Dr. Lorenzo from cardiology who held her Cardizem and Lopressor at that time, she recently saw Dr. Dillon in the office on past Monday and she was cut down in her Lasix to 40 mg once every day due to the fact that she was driving a bit and the patient was doing fine up until yesterday when her daughter did receive a call from her other daughter stating that her heart rate is running 155-1 60 bpm and she was extreme short of breath she ended up coming to the emergency department at [facility] she was found to be in atrial fibrillation with rapid ventricular response she is requiring a lot higher oxygen flow and she was started on Cardizem drip at 10 minute gram an hour and her blood pressure was marginal at 100/60 and the patient was admitted to the hospital for evaluation and treatment of both acute respiratory failure due to acute diastolic heart failure and bilateral pleural effusion along with atrial fibrillation with rapid ventricular response she was seen in consultation by cardiology as well as by pulmonary medicine. 04/11: The patient has been seen by cardiology and started on oral amiodarone and off Cardizem drip. Blood pressure has been marginal. Heart rate is improved. Patient does have a cough with sputum production. She did have some increased shortness of breath in the evening for which she received IV Lasix and was on a nonrebreather. She is currently on high flow nasal cannula at 10 L. Repeat lab work shows a hemoglobin 9.9, BUN 30 creatinine 1.24. Troponins have all been negative on 3 draws. Triglycerides 69, cholesterol 68, LDL 23, HDL 31. TSH 4.2. Discharge plan is to return home without home care. We will add an PT and OT. Patient is also followed by Dr. Raymundo. 04/12: Pulse ox is 94% on 9 L high flow nasal cannula, patient is been afebrile, heart rate running in the 80s to 92, blood pressure 94/51. White count is normal at 8.4, hemoglobin 9.9, BUN 14, creatinine 1.57. Elect lites within normal limits. Patient appears much comfortable today. She is sitting up in a recliner and appears to be in no acute distress. Goal will be to wean down oxygen today. IV Lasix has been changed to oral today by cardiology. Weight is recorded as down 19 kg since admission. Pulmonary change IV Solu-Medrol to oral prednisone, start tomorrow. 04/13: Heart rate has been running between 96 and 115. 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 Blood pressure 106/66, pulse ox 96% on 5 L nasal cannula. Oxygen need is gradually improving. White count is 12.8, hemoglobin 10.6. BUN 47 creatinine 1.58. Patient has ambulated in the hallway and has done well. She states her breathing is a lot better from yesterday. She is now requiring 4 L nasal cannula at the time of this evaluation. Revatio was discontinued yesterday to see if this improves blood pressure which it has this morning. Patient states she has not had a bowel movement and Senokot-S will be added. Anticipate she'll be ready for discharge tomorrow. Patient does have home oxygen at 2-3 L nasal cannula. 04/14: Heart rate is running 101 24, blood pressure 96/62, pulse ox 89% on 3 L nasal cannula, patient is been afebrile. Kidney function is higher at BUN of 51 creatinine 1.72, hemoglobin 10.7, total bilirubin 2.9, other liver function tests within normal limits. We will plan to increase Midodrine to 10 mg 3 times daily, Lopressor has been increased to 50 mg by cardiology. Plan to check orthostatics tomorrow. Patient states she is voiding okay. Cardiology has changed Lasix to 40 daily. Patient was hoping to go home today but discharge will be held. 04/15: Heart rate is running in the 1 teens to 120s, pulse ox is 87 and 91% on 4 L nasal cannula. Blood pressure 101/69, afebrile. Patient states that she couldn't sleep last night due to shoulder pain and general sleeping in the recliner. She denies having any cough or wheezing. Dr. Jackson is making medication changes by discontinuing amiodarone, starting oral Cardizem, transitioned Lasix to oral Review of Systems Constitutional: Reports fatigue, Reports weakness, Reports weight loss, Denies chronic headaches Eyes: denies blurred vision Ears: deny: decreased hearing Ears, nose, mouth and throat: Denies dysphagia, Denies neck lump, Denies swelling in throat, Denies sore throat Cardiovascular: Reports decreased exercise tolerance, Reports dyspnea on exertion, Reports lightheadedness, Reports orthopnea, Reports paroxysmal nocturnal dyspnea, Reports rapid heart beat, Reports shortness of breath, Denies chest pain, Denies edema, Denies leg edema, Denies syncope Respiratory: Reports congestion, Reports cough, Reports cough with sputum, Reports dyspnea, Reports home oxygen, Reports wheezing, Denies respiratory infections, Denies sleep apnea Gastrointestinal: Denies abdominal pain, Denies bloating, Denies excessive gas, Denies heartburn, Denies loss of appetite, Denies melena, Denies nausea, Denies vomiting Genitourinary: Reports nocturia, Denies dysuria Menstruation: Reports postmenopausal Musculoskeletal: Denies myalgias Musculoskeletal: absent: ankle pain, ankle stiffness, ankle swelling, elbow pain , elbow stiffness, elbow swelling, foot pain, foot stiffness, foot swelling, hand pain, hand stiffness, hand swelling, hip pain, hip stiffness, hip swelling , knee pain, knee stiffness, knee swelling, reports shoulder pain, shoulder stiffness, shoulder swelling, wrist pain, wrist stiffness, wrist swelling Integumentary: Denies pruritus, Denies rash Neurological: Denies numbness, Denies weakness Psychiatric: Denies anxiety, Denies depression Endocrine: Denies fatigue, Denies weight change Objective - Vital Signs Vital signs: Vital Signs Temp 97.4 F L 04/14/18 20:00 Pulse 120 H 04/15/18 04:00 Resp 15 04/15/18 04:00 BP 106/76 04/15/18 04:00 Pulse Ox 87 L 04/15/18 04:00 Intake & Output 04/14/18 04/15/18 04/15/18 18:59 06:59 18:59 Intake Total 358 Balance 358 Weight 92.7 kg Intake: Oral 358 Other: Voiding Method Toilet Toilet # Voids 1 - Exam General appearance: average body habitus, no distress. Patient appears comfortable in recliner while at rest. - EENT Eyes: anicteric sclerae, EOMI, PERRLA, no ptosis, no scleral icterus, normal appearance ENT: hearing grossly normal, NA/AT, normal oropharynx, no thrush Ears: bilateral: normal - Neck Neck: no lymphadenopathy, normal ROM, no rigidity, no stridor, no thyromegaly Carotids: bilateral: upstroke normal Thyroid: bilateral: normal size - Respiratory Respiratory: bilateral: Improving: diminished, dullness, wheezing, prolonged expiration - Cardiovascular Rhythm: irregularly irregular Heart sounds: normal: S1, S2, tachycardic Abnormal Heart Sounds: systolic murmur - Gastrointestinal General gastrointestinal: normal bowel sounds, no rigid, no scaphoid, soft, no tenderness, umbilical hernia, no ventral hernia - Integumentary Integumentary: normal, normal turgor - Neurologic Neurologic: CNII-XII intact - Musculoskeletal Musculoskeletal: gait normal, generalized weakness, strength equal bilaterally - Psychiatric Psychiatric: A&O x's 3, appropriate affect, intact judgment & insight - Labs CBC & Chem 7: 04/15/18 06:11 04/15/18 06:11 Labs: Abnormal Lab Results - Last 24 Hours (Table) 04/14/18 04/15/18 04/15/18 Range/Units 20:17 06:11 06:11 WBC 12.5 H (3.8-10.6) k/uL Hgb 10.9 L (11.4-16.0) gm/dL MCV 74.8 L (80.0-100.0) fL MCH 20.4 L (25.0-35.0) pg MCHC 27.2 L (31.0-37.0) g/dL RDW 23.1 H (11.5-15.5) % BUN 59 H (7-17) mg/dL Creatinine 1.90 H (0.52-1.04) mg/dL Glucose 66 L (74-99) mg/dL Total Bilirubin 4.6 H (0.2-1.3) mg/dL AST 52 H (14-36) U/L Ur Leukocyte Esterase Trace H (Negative) Urine Bacteria Rare H (None) /hpf Hyaline Casts 7 H (0-2) /lpf Urine Mucus Rare H (None) /hpf Assessment and Plan Plan: 1. Acute hypoxemic respiratory failure due to acute exacerbation of severe COPD with atrial fibrillation and rapid ventricular response. Continue oral prednisone, DuoNeb treatment nebulization 4 times every day, continue Pulmicort 1 mg neb twice every day, Cardizem drip discontinued, continue Lasix 40 mg orally daily, continue Aldactone 25 mg daily, continue oxygen support, cardiology consultation and pulmonary consultation appreciated. 2. Acute severe COPD exacerbation oxygen dependent. Continue prednisone, continue DuoNeb 3 mL nebulization 4 times every day, continue Pulmicort 1 mg nebulization twice every day, continue oxygen support, pulmonary is following. 3. Acute on chronic diastolic heart failure due to A. fib with RVR. Cardizem drip discontinued, continue Lasix oral, continue Lopressor increased to 50 mg mg orally 2 times every day, continue patient also on input and output and daily weight, continue oxygen support, Xarelto 20 mg orally once every day, amiodarone 400 mg orally twice every day added by cardiology. Lasix 40 mg daily 4. Severe pulmonary hypertension. Continue Lasix 40 mg oral twice daily, continue Lopressor 25 mg orally 3 times every day, Revatio discontinued by pulmonary medicine. 5. Chronic atrial fibrillation. Amiodarone changed to Cardizem oral, continue Lopressor 50 mg twice daily and Xarelto. 6. Hypertension and hypertensive cardiovascular disease, history of now with hypotension. Continue admitted during increased to 10 mg 3 times daily. 7. GERD. Continue Protonix 40 mg orally once every day. 8. Recurrent depression. Continue Paxil 10 mg orally once every day. 9. Gout, chronic. Stable. 10. DVT prophylaxis. Continue patient on Xarelto 20 mg orally once every day. 11. GI prophylaxis. Continue with PPI. 12. Acute kidney injury with chronic kidney disease stage II. Avoid nephrotoxic agents. 13 Hypotension secondary to medications not improving with Midodrine now increased to 10 mg 3 times daily. Revatio has been discontinued for now with improvement of blood pressure readings. 14. Chronic hypoxic respiratory failure on home O2 at 3 L nasal cannula Patient's full code. Discharge plan: home in the next 24-48 hrs. Impression and plan of care have been directed as dictated by the signing physician. Zoila Parish nurse practitioner acting as scribe for signing physician.
--- NOTE | 2018-04-15 13:52 | P.PN ---
Subjective Progress Note Date: 04/15/18 This is a 67-year-old female with history of severe COPD, who had a prolonged admission in February, she was in the intensive care unit at that time , she went into atrial fibrillation, presented at that time with progressive dyspnea. She has severe COPD severe pulmonary hypertension and has been a smoker until her admission in February. Echocardiogram with Doppler study revealed a low-normal LV systolic function, her PA pressure was 69. She had moderate mitral and tricuspid regurg and a significantly enlarged left atrium. Coronary risk factors are positive for smoking. Patient is currently on metoprolol titrate 50 mg by mouth 2 times a day, lasix 40 mg by mouth twice a day and amiodarone 400 mg by mouth twice a day. Heart rate remains suboptimally controlled in the 100-120. Systolic blood pressure running around 100. Her sildenafil has been on hold and she is currently on midodrine 10mg TID. Upon examination this morning, patient was somewhat lethargic and visibly dyspneic. Oxygen saturation is running 86-88% on 4 L nasal cannula. Objective - Vital Signs Vital signs: Vital Signs Temp 97.7 F 04/15/18 08:00 Pulse 118 H 04/15/18 13:19 Resp 22 04/15/18 13:10 BP 101/69 04/15/18 08:00 Pulse Ox 91 L 04/15/18 09:39 Intake & Output 04/14/18 04/15/18 04/15/18 18:59 06:59 18:59 Intake Total 358 240 Balance 358 240 Weight 92.7 kg Intake: Oral 358 240 Other: Voiding Method Toilet Toilet Toilet # Voids 1 - Exam GENERAL: 67-year-old female in no acute distress at the time of examination HEENT: Head is atraumatic, normocephalic. Pupils equal, round. Mucous membranes of the mouth are moist. Neck is supple. There is no elevated jugular venous pressure. HEART EXAMINATION: Heart S1 and S2 irregularly irregular a holosystolic murmur at the apex. CHEST EXAMINATION: Lungs reveal significantly diminished air entry bilaterally with crackles to bilateral bases. ABDOMEN: Soft, nontender. Bowel sounds are heard. No organomegaly noted. EXTREMITIES: 2+ peripheral pulses with evidence of peripheral edema and no calf tenderness noted. NEUROLOGIC patient is somewhat lethargic, oriented 3 . - Labs CBC & Chem 7: 04/15/18 06:11 04/15/18 06:11 Labs: Abnormal Lab Results - Last 24 Hours (Table) 04/14/18 04/15/18 04/15/18 Range/Units 20:17 06:11 06:11 WBC 12.5 H (3.8-10.6) k/uL Hgb 10.9 L (11.4-16.0) gm/dL MCV 74.8 L (80.0-100.0) fL MCH 20.4 L (25.0-35.0) pg MCHC 27.2 L (31.0-37.0) g/dL RDW 23.1 H (11.5-15.5) % ABG pH (7.35-7.45) ABG pCO2 (35-45) mmHg ABG pO2 (83-108) mmHg ABG Total CO2 (19-24) mmol/L ABG O2 Saturation (94-97) % BUN 59 H (7-17) mg/dL Creatinine 1.90 H (0.52-1.04) mg/dL Glucose 66 L (74-99) mg/dL Total Bilirubin 4.6 H (0.2-1.3) mg/dL AST 52 H (14-36) U/L Ur Leukocyte Esterase Trace H (Negative) Urine Bacteria Rare H (None) /hpf Hyaline Casts 7 H (0-2) /lpf Urine Mucus Rare H (None) /hpf 04/15/18 Range/Units 09:36 WBC (3.8-10.6) k/uL Hgb (11.4-16.0) gm/dL MCV (80.0-100.0) fL MCH (25.0-35.0) pg MCHC (31.0-37.0) g/dL RDW (11.5-15.5) % ABG pH 7.33 L (7.35-7.45) ABG pCO2 47 H (35-45) mmHg ABG pO2 61 L (83-108) mmHg ABG Total CO2 26 H (19-24) mmol/L ABG O2 Saturation 86.9 L (94-97) % BUN (7-17) mg/dL Creatinine (0.52-1.04) mg/dL Glucose (74-99) mg/dL Total Bilirubin (0.2-1.3) mg/dL AST (14-36) U/L Ur Leukocyte Esterase (Negative) Urine Bacteria (None) /hpf Hyaline Casts (0-2) /lpf Urine Mucus (None) /hpf Assessment and Plan Assessment: #1 symptoms of progressive dyspnea in a patient with known history of severe COPD #2 atrial fibrillation, persistent, diagnosed in March, anticoagulated. #3 hypotension, blood pressure currently stable #4 severe pulmonary hypertension #5 worsening renal failure #6 prior history of smoking Plan: From cardiology's perspective, we will decrease Xarelto due to worsening renal function. We will stop Amiodarone and start Cardizem. Obtain chest xray and ABGs. Continue to follow renal function and electrolytes. Continue to monitor blood pressure, heart rate and pulse ox closely. We will continue to monitor the patient and provide further recommendations accordingly. [employer] INFORMATION CLERK note has been reviewed, I agree with a documented findings and plan of care. Patient was seen and examined.
[2018-04-15] MEDS: RIVAROXABAN 15 MG TAB PO SCH (16:34)
[2018-04-15] MEDS: CHOLECALCIFEROL 1,000 UNIT TAB PO SCH (16:35)
--- NOTE | 2018-04-15 16:38 | P.PN ---
Subjective Progress Note Date: 04/15/18 This is a very pleasant 67-year-old female patient who follows with Dr. Dillon as her primary care physician. 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 She was seen by Dr. Dillon on 2018 who found her to be somewhat dry and he decreased her Lasix to 40 mg once a day and cut the Aldactone to 25 mg daily. Labs have been ordered. She ended up coming to the emergency room last evening as her family found her heart rate to be in the 150s 160s. She is continued in atrial fibrillation since her last admission. Unfortunately, her blood pressure runs in the low side and was in the 70s last evening. She had not been able to take metoprolol or Cardizem for several days. She is also been in the mid to drain for pressure support. She did receive 2 L of fluid in the emergency room. She is on a Cardizem drip at 10 mg per hour. Continues with A. fib RVR. Chest x-ray shows evidence of progressive congestive heart failure. She is seen today in the emergency room. She is awake and alert in mild respiratory distress. Currently requiring 6 L high flow nasal cannula to maintain O2 saturations in the 90s. She's afebrile. Heart rate in the 120s. Systolic BP in the 100s. Upon is negative 3. Creatinine 1.21. She has been initiated on oral amiodarone. Cardizem drip decreased to 5 mg per hour. Beta blockers on board. He is also on DuoNeb inhalations, Pulmicort inhalations. NicoDerm patch has been applied. The patient was seen again today 04/11/2018 in follow-up on the selective care unit. She is currently sitting up in a chair at the bedside. She is awake and alert in no acute distress. She does continue with significant dyspnea on minimal exertion. She is on 9 L high flow nasal cannula and maintaining O2 saturations in the 90s. He remains on Lasix 40 mg IV push every 8 hours. IV Solu-Medrol. Dilators. White count 3.9. Hemoglobin 9.9. Creatinine 1.24. Her rate better controlled. She is currently on amiodarone 400 mg twice a day. On 04/12/2018 patient seen in follow-up on selective care unit, she sits up in the chair, in no acute distress, FiO2 is down to 6 L per nasal cannula, her pulse ox is 94%, she is afebrile, remains in atrial fibrillation, the heart rate seems to be better controlled, is ranging anywhere from 80-117 BPM. Is on oral amiodarone at 400 mg twice daily. She has been transitioned to oral Lasix , currently at 40 mg twice a day, and on oral Aldactone 25 mg daily. She is diuresing, lower extremity edema is improving, lung sounds are positive for some bibasilar crackles, no major wheezing or congestion, she is anticoagulated with oral Xarelto. There is a slight increase in her renal profile, BUN is 40, creatinine is 1.57. The patient was seen again today 04/13/2017 in follow-up on the selective care unit. She is currently sitting up in a chair at the bedside. She is awake and alert in no acute distress. She states she is breathing much better. Nearly back to her baseline. Atrial fib is better controlled. Currently on 3 L/m per nasal cannula maintaining good O2 saturations in the 90s. She's been afebrile. White count 12.8. Hemoglobin 10.6. Creatinine 1.58. The patient was seen again today 04/14/2018 in follow-up on the selective care unit. She is awake and alert in no acute distress. She denies any worsening shortness of breath, cough or congestion. No chest pain or palpitations. She remains in atrial fibrillation with a better controlled ventricular rate. Anticoagulated with Xarelto. She is maintaining good O2 saturations in the 90s on 3 L/m per nasal cannula. She's afebrile. White count 12.4. Hemoglobin 10.7. Creatinine 1.72. On 04/15/2018, the patient had a setback. Earlier this morning shows looking more lethargic. She was still having issues with her atrial fibrillation which was difficult to control and the patient was continued to be in a rapid ventricular response. The patient was also more short of breath. The blood gases was done that showed a pH of 7.33 with a pCO2 of 47 and pO2 of 61 and this was done on 3 L of oxygen nasal cannula. LFTs were normal, but the bilirubin was elevated at 4.6. As far as the renal function, the creatinine is up to 1.9. The patient is currently off diuretics. Atelectatic discussion with cardiology. We decided to restart oral Cardizem with the intention of putting her on a Cardizem drip if the heart rate continues to be tachycardic. Later on during the day, the patient felt slightly better. Plan is to move this patient ICU should there be any issues with atrial fibrillation for a better control and better monitoring. Meanwhile, the patient is producing urine output. The patient on oral Cardizem 30 mg 3 times a day. The patient is on a oral Lasix. The patient a prednisone burst taper. The patient is on the correlation with Xarelto. The patient is on metoprolol 50 mg by mouth twice a day. Objective - Vital Signs Vital signs: Vital Signs Temp 97.7 F 04/15/18 08:00 Pulse 104 H 04/15/18 16:00 Resp 18 04/15/18 16:00 BP 106/70 04/15/18 14:24 Pulse Ox 87 L 04/15/18 12:00 Intake & Output 04/14/18 04/15/18 04/15/18 18:59 06:59 18:59 Intake Total 358 240 Output Total 650 Balance 358 -410 Weight 92.7 kg Intake: Oral 358 240 Output: Urine 650 Other: Voiding Method Toilet Toilet Toilet # Voids 1 - Exam GENERAL EXAM: Pleasant 67-year-old female patient. Alert, comfortable. No respiratory distress. On 3 L/m per nasal cannula. EYES: Normal reaction of pupils, equal size. NOSE: Clear with pink turbinates. THROAT: No erythema or exudates. NECK: No masses, no JVD. CHEST: No chest wall deformity. LUNGS: Equal air entry with crackles in the bilateral posterior bases, diminished. CVS: S1 and S2 normal with audible murmur, irregular rhythm. ABDOMEN: No hepatosplenomegaly, normal bowel sounds, no guarding or rigidity. SPINE: No scoliosis or deformity SKIN: No rashes CENTRAL NERVOUS SYSTEM: No focal deficits, tone is normal in all 4 extremities. EXTREMITIES: There is trace peripheral edema. No clubbing, no cyanosis. Peripheral pulses are intact. - Labs CBC & Chem 7: 04/15/18 06:11 04/15/18 06:11 Labs: Abnormal Lab Results - Last 24 Hours (Table) 04/14/18 04/15/18 04/15/18 Range/Units 20:17 06:11 06:11 WBC 12.5 H (3.8-10.6) k/uL Hgb 10.9 L (11.4-16.0) gm/dL MCV 74.8 L (80.0-100.0) fL MCH 20.4 L (25.0-35.0) pg MCHC 27.2 L (31.0-37.0) g/dL RDW 23.1 H (11.5-15.5) % ABG pH (7.35-7.45) ABG pCO2 (35-45) mmHg ABG pO2 (83-108) mmHg ABG Total CO2 (19-24) mmol/L ABG O2 Saturation (94-97) % BUN 59 H (7-17) mg/dL Creatinine 1.90 H (0.52-1.04) mg/dL Glucose 66 L (74-99) mg/dL Total Bilirubin 4.6 H (0.2-1.3) mg/dL AST 52 H (14-36) U/L Ur Leukocyte Esterase Trace H (Negative) Urine Bacteria Rare H (None) /hpf Hyaline Casts 7 H (0-2) /lpf Urine Mucus Rare H (None) /hpf 04/15/18 Range/Units 09:36 WBC (3.8-10.6) k/uL Hgb (11.4-16.0) gm/dL MCV (80.0-100.0) fL MCH (25.0-35.0) pg MCHC (31.0-37.0) g/dL RDW (11.5-15.5) % ABG pH 7.33 L (7.35-7.45) ABG pCO2 47 H (35-45) mmHg ABG pO2 61 L (83-108) mmHg ABG Total CO2 26 H (19-24) mmol/L ABG O2 Saturation 86.9 L (94-97) % BUN (7-17) mg/dL Creatinine (0.52-1.04) mg/dL Glucose (74-99) mg/dL Total Bilirubin (0.2-1.3) mg/dL AST (14-36) U/L Ur Leukocyte Esterase (Negative) Urine Bacteria (None) /hpf Hyaline Casts (0-2) /lpf Urine Mucus (None) /hpf Assessment and Plan Plan: Impression: #1 Acute on chronic hypoxic respiratory failure secondary to an acute exacerbation of diastolic congestive heart failure, acute exacerbation of chronic obstructive pulmonary disease, atrial fibrillation with rapid ventricular response. The patient has been difficult to control in terms of her atrial fibrillation. I think the exacerbating factor for her CHF is downgoing atrial fibrillation. We are limited in the use of rate controlling agents as the patient has become also hypotensive. Discontinue the FiO2 to improve her blood pressure. #2 Acute exacerbation of diastolic congestive heart failure. #3 Atrial fibrillation with rapid ventricular response. Anticoagulated with Eliquis. Improved rate control. On amiodarone 400 mg by mouth twice a day. #4 Acute exacerbation of oxygen dependent chronic obstructive pulmonary disease. Remains on DuoNeb inhalations and it is on burst taper currently at 30 mg by mouth daily. #5 Chronic tobacco dependence. #6 Episodes of hypotension requiring midodrine in the outpatient setting. This is likely secondary to Revatio that was discontinued. #7 Moderate pulmonary hypertension. #8 acute kidney injury with a creatinine being up to 1.9. This is probably due to cardiorenal factors. #9 elevation of the bilirubin Plan Move the patient intensive care unit. Start Cardizem drip at 5 mg an hour for better rate control. The patient was given oral Cardizem without any much benefit. Continue monitoring the rhythm. Continue monitoring blood pressure. Keep the Revatio on hold. Will discontinue the oral amiodarone. We'll continue to follow. Case was discussed with cardiology and with her family.
[2018-04-15] MEDS: DILTIAZEM 125 MG in SODIUM CHLORIDE 0.9% 100 ML IV SCH (17:27)
[2018-04-15] MEDS: ALPRAZolam 0.5 MG TAB PO PRN (21:13)
[2018-04-16] MEDS: SPIRONOLACTONE 25 MG TAB PO SCH (06:31)
[2018-04-16] MEDS: MIDODRINE 5 MG TAB PO SCH ×3 (06:31→17:03)
[2018-04-16] MEDS: PARoxetine 10 MG TAB PO SCH ×2 (08:30→21:36)
[2018-04-16] MEDS: FUROSEMIDE 40 MG TAB PO SCH (08:30)
[2018-04-16] MEDS: PANTOPRAZOLE 40 MG TABLET PO SCH ×2 (08:30→17:03)
[2018-04-16] MEDS: ACETAMINOPHEN TAB 325 MG TAB PO PRN ×2 (08:31→21:33)
[2018-04-16] MEDS: METOPROLOL TARTRATE 50 MG TAB PO SCH ×2 (08:31→21:34)
[2018-04-16] MEDS: predniSONE 10 MG TAB PO SCH (08:31)
[2018-04-16] MEDS: NICOTINE 21MG/24HR PATCH TRANSDERM SCH (08:33)
[2018-04-16] MEDS: SENNOSIDES-DOCUSATE SODIUM 1 EACH TAB PO SCH ×2 (08:43→21:36)
[2018-04-16] MEDS: IPRATROPIUM-ALBUTEROL 3 ML NEB INHALATION SCH ×4 (08:44→21:05)
[2018-04-16] MEDS: BUDESONIDE 1 MG/2 ML NEBU INHALATION SCH ×2 (08:44→21:05)
[2018-04-16 09:29] LABS: Albumin 3.9 g/dL (3.5-5.0); Calcium 9.4 mg/dL (8.4-10.2); Total Bilirubin 4.9 mg/dL (0.2-1.3); Total Protein 6.6 g/dL (6.3-8.2)
[2018-04-16 09:41] LABS: Potassium 4.8 mmol/L (3.5-5.1)
--- NOTE | 2018-04-16 11:13 | XR ---
EXAMINATION TYPE: XR chest 1V portable DATE OF EXAM: 04/16/2018 HISTORY: Shortness of breath. COMPARISON: April 15, 2018 TECHNIQUE: Single view of the chest is submitted. FINDINGS: Demonstrated are scattered senescent parenchymal change. Stable Right basilar infiltrate atelectasis and/or effusion. The heart is enlarged without overt failure. Hilar and mediastinal structures are within normal limits. Degenerative changes are seen of the dorsal spine. IMPRESSION: 1. Stable Right basilar infiltrate atelectasis and/or effusion.
--- NOTE | 2018-04-16 11:15 | P.PN ---
Subjective Progress Note Date: 04/16/18 This is a 67-year-old female one of Dr. Dillon with a previous medical history significant for hypertension and hypertensive cardio vascular disease with left ventricular hypertrophy, hyperlipidemia, history of chronic diastolic heart failure, new diagnosed atrial fibrillation currently with rapid ventricular response, history of severe oxygen-dependent chronic obstructive pulmonary disease, bilateral pleural effusion, patient was recently hospitalized at the [facility] in March 04 after she was admitted to the hospital for acute diastolic heart failure and she spent in the hospital about 9 days intensive care unit on the day of the discharge she developed atrial fibrillation with rapid ventricular response and the patient was placed on oral Lopressor and she had a marginal blood pressure at that time and after that she was discharged home 2 days later she ended up going to [facility] for physical therapy rehabilitation for one week and the patient was started on Midodrin because her blood pressure was marginal in the low 80s and was seen by Dr. Lorenzo from cardiology who held her Cardizem and Lopressor at that time, she recently saw Dr. Dillon in the office on past Monday and she was cut down in her Lasix to 40 mg once every day due to the fact that she was driving a bit and the patient was doing fine up until yesterday when her daughter did receive a call from her other daughter stating that her heart rate is running 155-1 60 bpm and she was extreme short of breath she ended up coming to the emergency department at [facility] she was found to be in atrial fibrillation with rapid ventricular response she is requiring a lot higher oxygen flow and she was started on Cardizem drip at 10 minute gram an hour and her blood pressure was marginal at 100/60 and the patient was admitted to the hospital for evaluation and treatment of both acute respiratory failure due to acute diastolic heart failure and bilateral pleural effusion along with atrial fibrillation with rapid ventricular response she was seen in consultation by cardiology as well as by pulmonary medicine. 04/11: The patient has been seen by cardiology and started on oral amiodarone and off Cardizem drip. Blood pressure has been marginal. Heart rate is improved. Patient does have a cough with sputum production. She did have some increased shortness of breath in the evening for which she received IV Lasix and was on a nonrebreather. She is currently on high flow nasal cannula at 10 L. Repeat lab work shows a hemoglobin 9.9, BUN 30 creatinine 1.24. Troponins have all been negative on 3 draws. Triglycerides 69, cholesterol 68, LDL 23, HDL 31. TSH 4.2. Discharge plan is to return home without home care. We will add an PT and OT. Patient is also followed by Dr. Raymundo. 04/12: Pulse ox is 94% on 9 L high flow nasal cannula, patient is been afebrile, heart rate running in the 80s to 92, blood pressure 94/51. White count is normal at 8.4, hemoglobin 9.9, BUN 14, creatinine 1.57. Elect lites within normal limits. Patient appears much comfortable today. She is sitting up in a recliner and appears to be in no acute distress. Goal will be to wean down oxygen today. IV Lasix has been changed to oral today by cardiology. Weight is recorded as down 19 kg since admission. Pulmonary change IV Solu-Medrol to oral prednisone, start tomorrow. 04/13: Heart rate has been running between 96 and 115. 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 Blood pressure 106/66, pulse ox 96% on 5 L nasal cannula. Oxygen need is gradually improving. White count is 12.8, hemoglobin 10.6. BUN 47 creatinine 1.58. Patient has ambulated in the hallway and has done well. She states her breathing is a lot better from yesterday. She is now requiring 4 L nasal cannula at the time of this evaluation. Revatio was discontinued yesterday to see if this improves blood pressure which it has this morning. Patient states she has not had a bowel movement and Senokot-S will be added. Anticipate she'll be ready for discharge tomorrow. Patient does have home oxygen at 2-3 L nasal cannula. 04/14: Heart rate is running 101 24, blood pressure 96/62, pulse ox 89% on 3 L nasal cannula, patient is been afebrile. Kidney function is higher at BUN of 51 creatinine 1.72, hemoglobin 10.7, total bilirubin 2.9, other liver function tests within normal limits. We will plan to increase Midodrine to 10 mg 3 times daily, Lopressor has been increased to 50 mg by cardiology. Plan to check orthostatics tomorrow. Patient states she is voiding okay. Cardiology has changed Lasix to 40 daily. Patient was hoping to go home today but discharge will be held. 04/15: Heart rate is running in the 1 teens to 120s, pulse ox is 87 and 91% on 4 L nasal cannula. Blood pressure 101/69, afebrile. Patient states that she couldn't sleep last night due to shoulder pain and general sleeping in the recliner. She denies having any cough or wheezing. Dr. Jackson is making medication changes by discontinuing amiodarone, starting oral Cardizem, transitioned Lasix to oral 04/16: Pulse ox is running 86-87% on 5 L nasal cannula. Heart rate in the low 100s, art tracer atrial fibrillation, blood pressure 96/61, patient is been afebrile. Patient denies feeling short of breath while in recliner. She is sleeping in a recliner but awakens easily. Chest x-ray is being obtained portable. Bilirubin is increasing to 4.9 and AST 120, ALT 140. Renal function is improved to 61 and 1.62. Xarelto dose was changed by cardiology yesterday. Pulmonary medicine start patient on Cardizem drip yesterday afternoon. Review of Systems Constitutional: Reports fatigue, Reports weakness, Reports weight loss, Denies chronic headaches Eyes: denies blurred vision Ears: deny: decreased hearing Ears, nose, mouth and throat: Denies dysphagia, Denies neck lump, Denies swelling in throat, Denies sore throat Cardiovascular: Reports decreased exercise tolerance, Reports dyspnea on exertion, Reports lightheadedness, Reports orthopnea, Reports paroxysmal nocturnal dyspnea, Reports rapid heart beat, Reports shortness of breath, Denies chest pain, Denies edema, Denies leg edema, Denies syncope Respiratory: Reports congestion, Reports cough, Reports cough with sputum, Reports dyspnea, Reports home oxygen, Reports wheezing, Denies respiratory infections, Denies sleep apnea Gastrointestinal: Denies abdominal pain, Denies bloating, Denies excessive gas, Denies heartburn, Denies loss of appetite, Denies melena, Denies nausea, Denies vomiting Genitourinary: Reports nocturia, Denies dysuria Menstruation: Reports postmenopausal Musculoskeletal: Denies myalgias Musculoskeletal: absent: ankle pain, ankle stiffness, ankle swelling, elbow pain , elbow stiffness, elbow swelling, foot pain, foot stiffness, foot swelling, hand pain, hand stiffness, hand swelling, hip pain, hip stiffness, hip swelling , knee pain, knee stiffness, knee swelling, reports shoulder pain, shoulder stiffness, shoulder swelling, wrist pain, wrist stiffness, wrist swelling Integumentary: Denies pruritus, Denies rash Neurological: Denies numbness, Denies weakness Psychiatric: Denies anxiety, Denies depression Endocrine: Denies fatigue, Denies weight change Objective - Vital Signs Vital signs: Vital Signs Temp 97.5 F L 04/15/18 20:00 Pulse 91 04/16/18 04:00 Resp 18 04/16/18 04:00 BP 96/61 04/16/18 04:00 Pulse Ox 87 L 04/16/18 04:00 Intake & Output 04/15/18 04/16/18 04/16/18 18:59 06:59 18:59 Intake Total 598 Output Total 950 200 Balance -352 -200 Weight 92.6 kg Intake: Oral 598 Output: Urine 950 200 Other: Voiding Method Toilet Toilet # Voids 1 - Exam General appearance: average body habitus, no distress. Patient appears comfortable in recliner while at rest. Patient found sleeping awakens easily to verbal stimuli - EENT Eyes: anicteric sclerae, EOMI, PERRLA, no ptosis, no scleral icterus, normal appearance ENT: hearing grossly normal, NA/AT, normal oropharynx, no thrush Ears: bilateral: normal - Neck Neck: no lymphadenopathy, normal ROM, no rigidity, no stridor, no thyromegaly Carotids: bilateral: upstroke normal Thyroid: bilateral: normal size - Respiratory Respiratory: bilateral: Improving: diminished, dullness, wheezing, prolonged expiration - Cardiovascular Rhythm: irregularly irregular Heart sounds: normal: S1, S2, tachycardic Abnormal Heart Sounds: systolic murmur - Gastrointestinal General gastrointestinal: normal bowel sounds, no rigid, no scaphoid, soft, no tenderness, umbilical hernia, no ventral hernia - Integumentary Integumentary: normal, normal turgor - Neurologic Neurologic: CNII-XII intact - Musculoskeletal Musculoskeletal: gait normal, generalized weakness, strength equal bilaterally - Psychiatric Psychiatric: A&O x's 3, appropriate affect, intact judgment & insight - Labs CBC & Chem 7: 04/15/18 06:11 04/16/18 08:35 Labs: Abnormal Lab Results - Last 24 Hours (Table) 04/15/18 Range/Units 09:36 ABG pH 7.33 L (7.35-7.45) ABG pCO2 47 H (35-45) mmHg ABG pO2 61 L (83-108) mmHg ABG Total CO2 26 H (19-24) mmol/L ABG O2 Saturation 86.9 L (94-97) % Assessment and Plan Plan: 1. Acute hypoxemic respiratory failure due to acute exacerbation of severe COPD with atrial fibrillation and rapid ventricular response. Continue oral prednisone, DuoNeb treatment nebulization 4 times every day, continue Pulmicort 1 mg neb twice every day, Cardizem drip discontinued, continue Lasix 40 mg orally daily, continue Aldactone 25 mg daily, continue oxygen support, cardiology consultation and pulmonary consultation appreciated. 2. Acute severe COPD exacerbation oxygen dependent. Continue prednisone, continue DuoNeb 3 mL nebulization 4 times every day, continue Pulmicort 1 mg nebulization twice every day, continue oxygen support, pulmonary is following. 3. Acute on chronic diastolic heart failure due to A. fib with RVR. Cardizem drip discontinued, continue Lasix oral, continue Lopressor increased to 50 mg mg orally 2 times every day, continue patient also on input and output and daily weight, continue oxygen support, Xarelto 20 mg orally once every day, amiodarone 400 mg orally twice every day added by cardiology. Lasix 40 mg daily 4. Severe pulmonary hypertension. Continue Lasix 40 mg oral twice daily, continue Lopressor 25 mg orally 3 times every day, Revatio discontinued by pulmonary medicine. 5. Chronic atrial fibrillation. Amiodarone changed to Cardizem oral, continue Lopressor 50 mg twice daily and Xarelto. Cardizem drip 6. Hypertension and hypertensive cardiovascular disease, history of now with hypotension. Continue admitted during increased to 10 mg 3 times daily. 7. GERD. Continue Protonix 40 mg orally once every day. 8. Recurrent depression. Continue Paxil 10 mg orally once every day. 9. Gout, chronic. Stable. 10. DVT prophylaxis. Continue patient on Xarelto 20 mg orally once every day. 11. GI prophylaxis. Continue with PPI. 12. Acute kidney injury with chronic kidney disease stage II. Avoid nephrotoxic agents. 13 Hypotension secondary to medications not improving with Midodrine now increased to 10 mg 3 times daily. Revatio has been discontinued for now with improvement of blood pressure readings. 14. Chronic hypoxic respiratory failure on home O2 at 3 L nasal cannula Patient's full code. Discharge plan: home Impression and plan of care have been directed as dictated by the signing physician. Zoila Parish nurse practitioner acting as scribe for signing physician.
[2018-04-16] MEDS: DILTIAZEM 125 MG in SODIUM CHLORIDE 0.9% 100 ML IV SCH (12:24)
[2018-04-16 14:16] VITALS: BMI 35.0
--- NOTE | 2018-04-16 15:19 | P.PN ---
Subjective Progress Note Date: 04/16/18 This is a 67-year-old female with history of severe COPD, who had a prolonged admission in February, she was in the intensive care unit at that time , she went into atrial fibrillation, presented at that time with progressive dyspnea. She has severe COPD severe pulmonary hypertension and has been a smoker until her admission in February. Follows regularly with Dr. Menendez in the office. Echocardiogram with Doppler study revealed an ejection fraction with is normal, her PA pressure was 69. She had moderate mitral and tricuspid regurg was significantly enlarged left atrium. Coronary risk factors are positive for smoking. The patient was seen and examined this morning, overall her breathing is significantly improved from admission here. Blood pressure 92/ 58, BUN 16, creatinine 0.9. 04/12/2018 Patient seen and examined this morning, feeling significantly better overall today. Up ambulating with physical therapy this morning. Blood pressure 104/ 60 with a heart rate in the 80s today, 94% on 6 L of oxygen. White blood cell count 8.4, hemoglobin 9.9, platelet count 234. Sodium 140, potassium 4.2, BUN 40 and creatinine 1.5. 04/16/2018 Patient seen and examined this morning, sitting up in the chair at bedside. Overall breathing appears to be stable, chest x-ray was performed today which is yet pending. BUN 61 creatinine 1.6. We will discontinue the IV Cardizem today and start her on oral Cardizem. Heart rate is fluctuating anywhere from 90-110 today. Her total bilirubin today is up to 4.9, AST 120, ALT 140. Creatinine 1.6. We will order an ultrasound of the liver today. Objective - Vital Signs Vital signs: Vital Signs Temp 97.6 F 04/16/18 11:36 Pulse 89 04/16/18 14:38 Resp 20 04/16/18 14:38 BP 101/71 04/16/18 11:36 Pulse Ox 91 L 04/16/18 14:38 Intake & Output 04/15/18 04/16/18 04/16/18 18:59 06:59 18:59 Intake Total 598 674.75 Output Total 856 500 0777 Balance -352 -200 -525.25 Weight 92.6 kg 92.6 kg Intake: IV 240 KVO 240 Intake, IV Titration 94.75 Amount Diltiazem 125 mg In 94.75 Sodium Chloride 0.9% 100 ml @ 5 MG/HR 5 mls/hr IV .Q24H [facility] Rx#:[id number] Oral 598 340 Output: Urine 951 940 9419 Other: Voiding Method Toilet Toilet # Voids 1 2 - Exam GENERAL: 67-year-old female in no acute distress at the time of examination HEENT: Head is atraumatic, normocephalic. Pupils equal, round. Mucous membranes of the mouth are moist. Neck is supple. There is no elevated jugular venous pressure. HEART EXAMINATION: Heart S1 and S2 irregularly irregular a holosystolic murmur at the apex. CHEST EXAMINATION: Lungs reveal significantly diminished air entry bilaterally with crackles to bilateral bases. ABDOMEN: Soft, nontender. Bowel sounds are heard. No organomegaly noted. EXTREMITIES: 2+ peripheral pulses with evidence of peripheral edema and no calf tenderness noted. NEUROLOGIC patient is somewhat lethargic, oriented 3 . - Labs CBC & Chem 7: 04/15/18 06:11 04/16/18 08:35 Labs: Abnormal Lab Results - Last 24 Hours (Table) 04/16/18 Range/Units 08:35 BUN 61 H (7-17) mg/dL Creatinine 1.62 H (0.52-1.04) mg/dL Total Bilirubin 4.9 H (0.2-1.3) mg/dL AST 120 H (14-36) U/L ALT 140 H (9-52) U/L Assessment and Plan Plan: Assessment and plan #1 symptoms of progressive dyspnea in a patient with known history of severe COPD #2 atrial fibrillation, chronic persistent, diagnosed in March, anticoagulated. #3 hypotension episodes #4 severe pulmonary hypertension #5 worsening renal failure #6 prior history of smoking Plan We will discontinue the IV Cardizem and start the patient on oral Cardizem. Continue oral diuretics at this time. An ultrasound of the liver will also be requested today. DNP note has been reviewed, I agree with a documented findings and plan of care. Patient was seen and examined.
--- NOTE | 2018-04-16 16:32 | US ---
EXAMINATION TYPE: US chest DATE OF EXAM: 04/16/2018 COMPARISON: NONE CLINICAL HISTORY: Markings for thoracentesis by pulmonary staff. TECHNIQUE: Targeted ultrasound of the posterior lower bilateral hemithoraces EXAM MEASUREMENTS: Right Pleural Effusion pocket size: 1.8 cm Right skin surface to fluid distance: 1.7 cm Left Pleural Effusion pocket size: 0 cm Right side NOT marked for possible thoracentesis outside the dept due to lung tissue within pocket Left side NOT marked for possible thoracentesis outside the dept. Pulmonologists are able to review the images in the patient?s EMR. IMPRESSIONS: Small pleural effusions not marked for thoracentesis.
[2018-04-16] MEDS: CHOLECALCIFEROL 1,000 UNIT TAB PO SCH (17:03)
[2018-04-16] MEDS: RIVAROXABAN 15 MG TAB PO SCH (17:03)
[2018-04-16] MEDS: DILTIAZEM ORAL 30 MG TAB PO SCH ×2 (17:03→21:34)
[2018-04-16] MEDS: SODIUM CHLORIDE 0.9% 1,000 ML IV SCH (17:04)
--- NOTE | 2018-04-16 17:18 | P.PN ---
Subjective Progress Note Date: 04/16/18 Principal diagnosis: Atrial fibrillation with rapid ventricular response This is a very pleasant 67-year-old female patient who follows with Dr. Dillon as her primary care physician. 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 She was seen by Dr. Dillon on 2018 who found her to be somewhat dry and he decreased her Lasix to 40 mg once a day and cut the Aldactone to 25 mg daily. Labs have been ordered. She ended up coming to the emergency room last evening as her family found her heart rate to be in the 150s 160s. She is continued in atrial fibrillation since her last admission. Unfortunately, her blood pressure runs in the low side and was in the 70s last evening. She had not been able to take metoprolol or Cardizem for several days. She is also been in the mid to drain for pressure support. She did receive 2 L of fluid in the emergency room. She is on a Cardizem drip at 10 mg per hour. Continues with A. fib RVR. Chest x-ray shows evidence of progressive congestive heart failure. She is seen today in the emergency room. She is awake and alert in mild respiratory distress. Currently requiring 6 L high flow nasal cannula to maintain O2 saturations in the 90s. She's afebrile. Heart rate in the 120s. Systolic BP in the 100s. Upon is negative 3. Creatinine 1.21. She has been initiated on oral amiodarone. Cardizem drip decreased to 5 mg per hour. Beta blockers on board. He is also on DuoNeb inhalations, Pulmicort inhalations. NicoDerm patch has been applied. The patient was seen again today 04/11/2018 in follow-up on the selective care unit. She is currently sitting up in a chair at the bedside. She is awake and alert in no acute distress. She does continue with significant dyspnea on minimal exertion. She is on 9 L high flow nasal cannula and maintaining O2 saturations in the 90s. He remains on Lasix 40 mg IV push every 8 hours. IV Solu-Medrol. Dilators. White count 3.9. Hemoglobin 9.9. Creatinine 1.24. Her rate better controlled. She is currently on amiodarone 400 mg twice a day. On 04/12/2018 patient seen in follow-up on selective care unit, she sits up in the chair, in no acute distress, FiO2 is down to 6 L per nasal cannula, her pulse ox is 94%, she is afebrile, remains in atrial fibrillation, the heart rate seems to be better controlled, is ranging anywhere from 80-117 BPM. Is on oral amiodarone at 400 mg twice daily. She has been transitioned to oral Lasix , currently at 40 mg twice a day, and on oral Aldactone 25 mg daily. She is diuresing, lower extremity edema is improving, lung sounds are positive for some bibasilar crackles, no major wheezing or congestion, she is anticoagulated with oral Xarelto. There is a slight increase in her renal profile, BUN is 40, creatinine is 1.57. On 04/16/2018 patient seen in follow-up on selective care unit, she is sitting up in the chair, she denies any acute distress, remains hypoxemic, her pulse ox is only 88-89% on 5 L of oxygen. Denies any distress, today's chest x-ray showed stable right basilar effusion, atelectasis/infiltrate. Patient remains in A. fib, the rate is about 104-2105 BPM, she remains on Cardizem drip currently at 5 mg per hour. Amiodarone has been discontinued. She is on oral Lasix of 40 mg daily, oral anticoagulation in the form of Xarelto at 15 mg daily. Current blood pressure is 101/71. Today's lab work showed slight improvement in patient's renal profile however patient's LFTs had worsened with the total bilirubin up to 4.9, AST of 120, ALT of 140, and alkaline phosphatase at 99. Denies any chest pain, denies any worsening dyspnea, although patient appears to be slightly more sleepy and fatigued. Revatio remains on hold. Objective - Vital Signs Vital signs: Vital Signs Temp 97.6 F 04/16/18 11:36 Pulse 108 H 04/16/18 13:38 Resp 18 04/16/18 11:36 BP 101/71 04/16/18 11:36 Pulse Ox 88 L 04/16/18 11:36 Intake & Output 04/15/18 04/16/18 04/16/18 18:59 06:59 18:59 Intake Total 598 674.75 Output Total 950 200 500 Balance -352 -200 174.75 Weight 92.6 kg Intake: IV 240 KVO 240 Intake, IV Titration 94.75 Amount Diltiazem 125 mg In 94.75 Sodium Chloride 0.9% 100 ml @ 5 MG/HR 5 mls/hr IV .Q24H [facility] Rx#:[id number] Oral 598 340 Output: Urine 950 200 500 Other: Voiding Method Toilet Toilet # Voids 1 2 - Exam GENERAL EXAM: Alert, active, comfortable in no apparent distress. HEAD: Normocephalic/atraumatic. EYES: Normal reaction of pupils, equal size. Conjunctiva pink, sclera white. NOSE: Clear with pink turbinates. THROAT: No erythema or exudates. NECK: No masses, no JVD, no thyroid enlargement, no adenopathy. CHEST: No chest wall deformity. Symmetrical expansion. LUNGS: Equal air entry with bibasilar crackles CVS: Regular rate and rhythm, normal S1 and S2, no gallops, no murmurs, no rubs ABDOMEN: Soft, nontender. No hepatosplenomegaly, normal bowel sounds, no guarding or rigidity. EXTREMITIES: No clubbing, mild lower extremity edema, no cyanosis, 2+ pulses and upper and lower extremities. MUSCULOSKELETAL: Muscle strength and tone normal. SPINE: No scoliosis or deformity SKIN: No rashes CENTRAL NERVOUS SYSTEM: Alert and oriented -3. No focal deficits, tone is normal in all 4 extremities. PSYCHIATRIC: Alert and oriented -3. Appropriate affect. Intact judgment and insight. - Labs CBC & Chem 7: 04/15/18 06:11 04/16/18 08:35 Labs: Abnormal Lab Results - Last 24 Hours (Table) 04/16/18 Range/Units 08:35 BUN 61 H (7-17) mg/dL Creatinine 1.62 H (0.52-1.04) mg/dL Total Bilirubin 4.9 H (0.2-1.3) mg/dL AST 120 H (14-36) U/L ALT 140 H (9-52) U/L Assessment and Plan Plan: #1 Acute on chronic hypoxic respiratory failure secondary to an acute exacerbation of diastolic congestive heart failure, acute exacerbation of chronic obstructive pulmonary disease, atrial fibrillation with rapid ventricular response. #2 Acute exacerbation of diastolic congestive heart failure. #3 Atrial fibrillation with rapid ventricular response. Anticoagulated with Xarelto. #4 Acute exacerbation of oxygen dependent chronic obstructive pulmonary disease. Remains on DuoNeb inhalations and IV Solu-Medrol. #5 Chronic tobacco dependence. #6 Episodes of hypotension requiring midodrine in the outpatient setting. Revatio on hold #8 Moderate pulmonary hypertension. #9 acute kidney injury, likely related to cardiorenal factors, improved on today 's labs, #10 elevated bilirubin, elevated LFTs #11 acute on chronic hypoxemic respiratory failure related to CHF, and pulmonary hypertension Plan: Continue the oral prednisone, nebulized bronchodilators, oral Lasix. No episodes of hypotension, renal profile slightly improved, although patient's LFTs had worsened. Denies any abdominal pain, no nausea, no vomiting. Remains on Cardizem drip, and the rate is still slightly above 100 per minute. More fatigued today, denies chest pain, denies worsening dyspnea. Her chest x-ray has been reviewed and shows stable findings of right pleural effusion, with atelectasis/infiltrate. Yesterday patient was given a small IV fluid bolus, with improvement in her renal function. We will give the patient more IV hydration, 0.9 normal saline at a rate of 40 ML per hour for gentle IV hydration. Repeat blood work in the morning. We had a meeting with the patient and her family today, discussed patient's condition, patient was offered a transfer to a tertiary Medical Center, either [facility] or the [facility]. She will be given opportunity to think about it and talk it over with her family members. We don't think there the course of treatment would be different anyway, we wanted to offer this opportunity to the patient and her family. Continue supportive medical treatment. Patient was also asked about CODE STATUS, and she would like to remain a full code at this time. I performed a history & physical examination of the patient and discussed their management with my nurse practitioner, Marlene Yee. I reviewed the nurse practitioner's note and agree with the documented findings and plan of care. Lung sounds are positive for minimal bibasilar crackles. The findings and the impression was discussed with the patient. I attest to the documentation by the nurse practitioner. Time with Patient: Less than 30
[2018-04-16] MEDS: ALPRAZolam 0.5 MG TAB PO PRN (21:34)
[2018-04-17 06:43] LABS: Anisocytosis Moderate; HCT 39.6 % (34.0-46.0); HGB 11.3 gm/dL (11.4-16.0); Hypochromasia Marked; MCH 21.1 pg (25.0-35.0); MCHC 28.5 g/dL (31.0-37.0); MCV 74.1 fL (80.0-100.0); Microcytosis Marked; Platelet Count 272 k/uL (150-450); Poikilocytosis Slight; RBC 5.34 m/uL (3.80-5.40); RDW 23.5 % (11.5-15.5); WBC 16.4 k/uL (3.8-10.6)
[2018-04-17 06:55] LABS: Albumin 3.8 g/dL (3.5-5.0); Calcium 9.3 mg/dL (8.4-10.2); Potassium 4.2 mmol/L (3.5-5.1); Total Bilirubin 5.3 mg/dL (0.2-1.3); Total Protein 6.5 g/dL (6.3-8.2)
--- NOTE | 2018-04-17 08:09 | US ---
EXAMINATION TYPE: US liver DATE OF EXAM: 04/17/2018 COMPARISON: NONE CLINICAL HISTORY: elevated liver enz. elevated lft's, cholecystectomy EXAM MEASUREMENTS: Liver Length: 21.5cm Gallbladder Wall: Surgically absent CBD: 0.9cm Right Kidney: 8.1 x 4.1 x 4.1cm Pancreas: wnl Liver: enlarged, lobulated Gallbladder: surgically absent Evidence for sonographic Mcnamara's sign: no CBD: wnl, cholecystectomy Right Kidney: small in size Visualized pancreas shows no worrisome mass or ductal dilatation. Visualized liver is heterogeneously hyperechoic. No intrahepatic ductal dilatation is seen. Evaluation for focal intrahepatic masses is suboptimal due to underlying heterogeneity. Common bile duct measures upper limits of normal after ch olecystectomy. Gallbladder surgically absent. IMPRESSION: Heterogeneous hyperechoic appearance of liver is felt to reflect product of underlying he patocellular disease or cirrhosis, there is evidence of portal hypertension with splenomegaly noted o n recent CT.
[2018-04-17] MEDS: IPRATROPIUM-ALBUTEROL 3 ML NEB INHALATION SCH ×4 (08:52→20:16)
[2018-04-17] MEDS: BUDESONIDE 1 MG/2 ML NEBU INHALATION SCH ×2 (08:55→20:16)
[2018-04-17] MEDS: PANTOPRAZOLE 40 MG TABLET PO SCH ×2 (09:52→16:46)
[2018-04-17] MEDS: SPIRONOLACTONE 25 MG TAB PO SCH (09:52)
[2018-04-17] MEDS: MIDODRINE 5 MG TAB PO SCH ×3 (09:52→17:33)
[2018-04-17] MEDS: NICOTINE 21MG/24HR PATCH TRANSDERM SCH (09:52)
[2018-04-17] MEDS: FUROSEMIDE 40 MG TAB PO SCH (09:53)
[2018-04-17] MEDS: METOPROLOL TARTRATE 50 MG TAB PO SCH ×2 (09:53→21:21)
[2018-04-17] MEDS: DILTIAZEM ORAL 30 MG TAB PO SCH ×3 (09:53→21:21)
[2018-04-17] MEDS: PARoxetine 10 MG TAB PO SCH ×2 (09:53→21:21)
[2018-04-17] MEDS: SENNOSIDES-DOCUSATE SODIUM 1 EACH TAB PO SCH ×2 (09:53→22:18)
[2018-04-17] MEDS: predniSONE 10 MG TAB PO SCH (09:53)
[2018-04-17] MEDS: ACETAMINOPHEN TAB 325 MG TAB PO PRN (09:54)
[2018-04-17] MEDS: methylPREDNISolone SOD SUCCI 125 MG/2 ML VIAL IV SCH ×2 (12:48→17:33)
--- NOTE | 2018-04-17 13:59 | P.PN ---
Subjective Progress Note Date: 04/17/18 This is a 67-year-old female with history of severe COPD, who had a prolonged admission in February, she was in the intensive care unit at that time , she went into atrial fibrillation, presented at that time with progressive dyspnea. She has severe COPD severe pulmonary hypertension and has been a smoker until her admission in February. Follows regularly with Dr. Menendez in the office. Echocardiogram with Doppler study revealed an ejection fraction with is normal, her PA pressure was 69. She had moderate mitral and tricuspid regurg was significantly enlarged left atrium. Coronary risk factors are positive for smoking. The patient was seen and examined this morning, overall her breathing is significantly improved from admission here. Blood pressure 92/ 58, BUN 16, creatinine 0.9. 04/12/2018 Patient seen and examined this morning, feeling significantly better overall today. Up ambulating with physical therapy this morning. Blood pressure 104/ 60 with a heart rate in the 80s today, 94% on 6 L of oxygen. White blood cell count 8.4, hemoglobin 9.9, platelet count 234. Sodium 140, potassium 4.2, BUN 40 and creatinine 1.5. 04/16/2018 Patient seen and examined this morning, sitting up in the chair at bedside. Overall breathing appears to be stable, chest x-ray was performed today which is yet pending. BUN 61 creatinine 1.6. We will discontinue the IV Cardizem today and start her on oral Cardizem. Heart rate is fluctuating anywhere from 90-110 today. Her total bilirubin today is up to 4.9, AST 120, ALT 140. Creatinine 1.6. We will order an ultrasound of the liver today. 04/17/2018 Patient seen and examined today, sitting up in the chair at bedside, family present. Sodium 139, potassium 4.2, BUN 59 creatinine 1.7 area total bilirubin 5.3 AST 150 and ALT 185. Ultrasound of the liver showed heterogeneous hyperechoic appearance of the liver felt to be a product of underlying hepatocellular disease or cirrhosis, evidence of portal hypertension and spenomegally. Heart rate today overall under better control. Objective - Vital Signs Vital signs: Vital Signs Temp 98.3 F 04/17/18 12:53 Pulse 122 H 04/17/18 13:19 Resp 20 04/17/18 12:53 BP 103/68 04/17/18 12:53 Pulse Ox 92 L 04/17/18 13:11 Intake & Output 04/16/18 04/17/18 04/17/18 18:59 06:59 18:59 Intake Total 815.833 120 Output Total 1500 100 275 Balance -684.167 -100 -155 Weight 92.6 kg 92.6 kg Intake: IV 240 KVO 240 Intake, IV Titration 135.833 Amount Diltiazem 125 mg In 135.833 Sodium Chloride 0.9% 100 ml @ 5 MG/HR 5 mls/hr IV .Q24H [facility] Rx#:[id number] Oral 440 120 Output: Urine 1500 100 275 Other: Voiding Method Toilet # Voids 2 1 - Exam GENERAL: 67-year-old female in no acute distress at the time of examination HEENT: Head is atraumatic, normocephalic. Pupils equal, round. Mucous membranes of the mouth are moist. Neck is supple. There is no elevated jugular venous pressure. HEART EXAMINATION: Heart S1 and S2 irregularly irregular a holosystolic murmur at the apex. CHEST EXAMINATION: Lungs reveal significantly diminished air entry bilaterally with crackles to bilateral bases. ABDOMEN: Soft, nontender. Bowel sounds are heard. No organomegaly noted. EXTREMITIES: 2+ peripheral pulses with evidence of peripheral edema and no calf tenderness noted. NEUROLOGIC patient is somewhat lethargic, oriented 3 . - Labs CBC & Chem 7: 04/17/18 06:01 04/17/18 06:01 Labs: Abnormal Lab Results - Last 24 Hours (Table) 04/17/18 04/17/18 Range/Units 06:01 06:01 WBC 16.4 H (3.8-10.6) k/uL Hgb 11.3 L (11.4-16.0) gm/dL MCV 74.1 L (80.0-100.0) fL MCH 21.1 L (25.0-35.0) pg MCHC 28.5 L (31.0-37.0) g/dL RDW 23.5 H (11.5-15.5) % BUN 59 H (7-17) mg/dL Creatinine 1.73 H (0.52-1.04) mg/dL Total Bilirubin 5.3 H (0.2-1.3) mg/dL AST 150 H (14-36) U/L ALT 185 H (9-52) U/L Assessment and Plan Plan: Assessment and plan #1 symptoms of progressive dyspnea in a patient with known history of severe COPD #2 atrial fibrillation, chronic persistent, diagnosed in March, anticoagulated. #3 hypotension episodes #4 severe pulmonary hypertension #5 worsening renal failure #6 prior history of smoking Plan From cardiology's perspective, we'll recommend to continue patient on her current medications. DNP note has been reviewed, I agree with a documented findings and plan of care. Patient was seen and examined.
[2018-04-17] MEDS ORDERED: FUROSEMIDE 10 MG/ML 2 ML VIAL IV ONE (14:00)
--- NOTE | 2018-04-17 14:34 | P.PN ---
Subjective Progress Note Date: 04/17/18 This is a 67-year-old female one of Dr. Dillon with a previous medical history significant for hypertension and hypertensive cardio vascular disease with left ventricular hypertrophy, hyperlipidemia, history of chronic diastolic heart failure, new diagnosed atrial fibrillation currently with rapid ventricular response, history of severe oxygen-dependent chronic obstructive pulmonary disease, bilateral pleural effusion, patient was recently hospitalized at the [facility] in March 04 after she was admitted to the hospital for acute diastolic heart failure and she spent in the hospital about 9 days intensive care unit on the day of the discharge she developed atrial fibrillation with rapid ventricular response and the patient was placed on oral Lopressor and she had a marginal blood pressure at that time and after that she was discharged home 2 days later she ended up going to [facility] for physical therapy rehabilitation for one week and the patient was started on Midodrin because her blood pressure was marginal in the low 80s and was seen by Dr. Lorenzo from cardiology who held her Cardizem and Lopressor at that time, she recently saw Dr. Dillon in the office on past Monday and she was cut down in her Lasix to 40 mg once every day due to the fact that she was driving a bit and the patient was doing fine up until yesterday when her daughter did receive a call from her other daughter stating that her heart rate is running 155-1 60 bpm and she was extreme short of breath she ended up coming to the emergency department at [facility] she was found to be in atrial fibrillation with rapid ventricular response she is requiring a lot higher oxygen flow and she was started on Cardizem drip at 10 minute gram an hour and her blood pressure was marginal at 100/60 and the patient was admitted to the hospital for evaluation and treatment of both acute respiratory failure due to acute diastolic heart failure and bilateral pleural effusion along with atrial fibrillation with rapid ventricular response she was seen in consultation by cardiology as well as by pulmonary medicine. 04/11: The patient has been seen by cardiology and started on oral amiodarone and off Cardizem drip. Blood pressure has been marginal. Heart rate is improved. Patient does have a cough with sputum production. She did have some increased shortness of breath in the evening for which she received IV Lasix and was on a nonrebreather. She is currently on high flow nasal cannula at 10 L. Repeat lab work shows a hemoglobin 9.9, BUN 30 creatinine 1.24. Troponins have all been negative on 3 draws. Triglycerides 69, cholesterol 68, LDL 23, HDL 31. TSH 4.2. Discharge plan is to return home without home care. We will add an PT and OT. Patient is also followed by Dr. Raymundo. 04/12: Pulse ox is 94% on 9 L high flow nasal cannula, patient is been afebrile, heart rate running in the 80s to 92, blood pressure 94/51. White count is normal at 8.4, hemoglobin 9.9, BUN 14, creatinine 1.57. Elect lites within normal limits. Patient appears much comfortable today. She is sitting up in a recliner and appears to be in no acute distress. Goal will be to wean down oxygen today. IV Lasix has been changed to oral today by cardiology. Weight is recorded as down 19 kg since admission. Pulmonary change IV Solu-Medrol to oral prednisone, start tomorrow. 04/13: Heart rate has been running between 96 and 115. teletypesetter monitor atrial fibrillation. Blood pressure 106/66, pulse ox 96% on 5 L nasal cannula. Oxygen need is gradually improving. White count is 12.8, hemoglobin 10.6. BUN 47 creatinine 1.58. Patient has ambulated in the hallway and has done well. She states her breathing is a lot better from yesterday. She is now requiring 4 L nasal cannula at the time of this evaluation. Revatio was discontinued yesterday to see if this improves blood pressure which it has this morning. Patient states she has not had a bowel movement and Senokot-S will be added. Anticipate she'll be ready for discharge tomorrow. Patient does have home oxygen at 2-3 L nasal cannula. 04/14: Heart rate is running 101 24, blood pressure 96/62, pulse ox 89% on 3 L nasal cannula, patient is been afebrile. Kidney function is higher at BUN of 51 creatinine 1.72, hemoglobin 10.7, total bilirubin 2.9, other liver function tests within normal limits. We will plan to increase Midodrine to 10 mg 3 times daily, Lopressor has been increased to 50 mg by cardiology. Plan to check orthostatics tomorrow. Patient states she is voiding okay. Cardiology has changed Lasix to 40 daily. Patient was hoping to go home today but discharge will be held. 04/15: Heart rate is running in the 1 teens to 120s, pulse ox is 87 and 91% on 4 L nasal cannula. Blood pressure 101/69, afebrile. Patient states that she couldn't sleep last night due to shoulder pain and general sleeping in the recliner. She denies having any cough or wheezing. Dr. Jackson is making medication changes by discontinuing amiodarone, starting oral Cardizem, transitioned Lasix to oral 04/16: Pulse ox is running 86-87% on 5 L nasal cannula. Heart rate in the low 100s, lunchroom monitor atrial fibrillation, blood pressure 96/61, patient is been afebrile. Patient denies feeling short of breath while in recliner. She is sleeping in a recliner but awakens easily. Chest x-ray is being obtained portable. Bilirubin is increasing to 4.9 and AST 120, ALT 140. Renal function is improved to 61 and 1.62. Xarelto dose was changed by cardiology yesterday. Pulmonary medicine start patient on Cardizem drip yesterday afternoon. 04/17: This morning, when pulse ox was checked, patient was 69% on 9 L high flow nasal cannula which is now switched to airflow with improvement of her oxygenation. Heart rate is running in the 120s. She has been afebrile, blood pressure 103/68. White count is 16.4, hemoglobin 11.3, creatinine 1.73, total bilirubin 5.3, AST 150, ALT 185 and alkaline phosphatase 118. Chest x-ray from yesterday reveals stable right basilar infiltrate atelectasis and/or effusion. Chest ultrasound reveals small pleural effusions not marked for thoracentesis. Ultrasound of the liver reveals heterogeneous hyperechoic appearance of liver is felt to reflect underlying hepatocellular disease or cirrhosis. There is evidence of portal hypertension and splenomegaly noted on recent CAT scan. She was now on Cardizem oral 30 mg 3 times daily, patient will receive 1 dose of IV Lasix 20 mg. She is also on Lasix 40 oral daily. Solu-Medrol for 2 doses ordered. She is currently on oral prednisone 30 mg daily. Review of Systems Constitutional: Reports fatigue, Reports weakness, Reports weight loss, Denies chronic headaches Eyes: denies blurred vision Ears: deny: decreased hearing Ears, nose, mouth and throat: Denies dysphagia, Denies neck lump, Denies swelling in throat, Denies sore throat Cardiovascular: Reports decreased exercise tolerance, Reports dyspnea on exertion, Reports lightheadedness, Reports orthopnea, Reports paroxysmal nocturnal dyspnea, Reports rapid heart beat, Reports shortness of breath, Denies chest pain, Denies edema, Denies leg edema, Denies syncope Respiratory: Reports congestion, Reports cough, Reports cough with sputum, Reports dyspnea, Reports home oxygen, Reports wheezing, Denies respiratory infections, Denies sleep apnea, reports dyspnea at rest Gastrointestinal: Denies abdominal pain, Denies bloating, Denies excessive gas, Denies heartburn, Denies loss of appetite, Denies melena, Denies nausea, Denies vomiting Genitourinary: Reports nocturia, Denies dysuria Menstruation: Reports postmenopausal Musculoskeletal: Denies myalgias Musculoskeletal: absent: ankle pain, ankle stiffness, ankle swelling, elbow pain , elbow stiffness, elbow swelling, foot pain, foot stiffness, foot swelling, hand pain, hand stiffness, hand swelling, hip pain, hip stiffness, hip swelling , knee pain, knee stiffness, knee swelling, reports shoulder pain, shoulder stiffness, shoulder swelling, wrist pain, wrist stiffness, wrist swelling Integumentary: Denies pruritus, Denies rash Neurological: Denies numbness, Denies weakness Psychiatric: Denies anxiety, Denies depression Endocrine: Denies fatigue, Denies weight change Objective - Vital Signs Vital signs: Vital Signs Temp 96.8 F L 04/17/18 04:00 Pulse 127 H 04/17/18 09:05 Resp 22 04/17/18 09:05 BP 106/77 04/17/18 04:00 Pulse Ox 97 04/17/18 09:37 Intake & Output 04/16/18 04/17/18 04/17/18 18:59 06:59 18:59 Intake Total 815.833 Output Total 1500 100 Balance -684.167 -100 Weight 92.6 kg 92.6 kg Intake: IV 240 KVO 240 Intake, IV Titration 135.833 Amount Diltiazem 125 mg In 135.833 Sodium Chloride 0.9% 100 ml @ 5 MG/HR 5 mls/hr IV .Q24H [facility] Rx#:[id number] Oral 440 Output: Urine 1500 100 Other: Voiding Method Toilet # Voids 2 1 - Exam General appearance: average body habitus, no distress. Patient appears comfortable in recliner while at rest. Daughter is at the bedside - EENT Eyes: anicteric sclerae, EOMI, PERRLA, no ptosis, no scleral icterus, normal appearance ENT: hearing grossly normal, NA/AT, normal oropharynx, no thrush Ears: bilateral: normal - Neck Neck: no lymphadenopathy, normal ROM, no rigidity, no stridor, no thyromegaly Carotids: bilateral: upstroke normal Thyroid: bilateral: normal size - Respiratory Respiratory: bilateral: Improving: diminished, dullness, wheezing, prolonged expiration - Cardiovascular Rhythm: irregularly irregular Heart sounds: normal: S1, S2, tachycardic Abnormal Heart Sounds: systolic murmur - Gastrointestinal General gastrointestinal: normal bowel sounds, no rigid, no scaphoid, soft, no tenderness, umbilical hernia, no ventral hernia - Integumentary Integumentary: normal, normal turgor - Neurologic Neurologic: CNII-XII intact - Musculoskeletal Musculoskeletal: gait normal, generalized weakness, strength equal bilaterally - Psychiatric Psychiatric: A&O x's 3, appropriate affect, intact judgment & insight - Labs CBC & Chem 7: 04/17/18 06:01 04/17/18 06:01 Labs: Abnormal Lab Results - Last 24 Hours (Table) 04/17/18 04/17/18 Range/Units 06:01 06:01 WBC 16.4 H (3.8-10.6) k/uL Hgb 11.3 L (11.4-16.0) gm/dL MCV 74.1 L (80.0-100.0) fL MCH 21.1 L (25.0-35.0) pg MCHC 28.5 L (31.0-37.0) g/dL RDW 23.5 H (11.5-15.5) % BUN 59 H (7-17) mg/dL Creatinine 1.73 H (0.52-1.04) mg/dL Total Bilirubin 5.3 H (0.2-1.3) mg/dL AST 150 H (14-36) U/L ALT 185 H (9-52) U/L Assessment and Plan Plan: 1. Acute hypoxemic respiratory failure due to acute exacerbation of severe COPD with atrial fibrillation and rapid ventricular response. Continue oral prednisone, DuoNeb treatment nebulization 4 times every day, continue Pulmicort 1 mg neb twice every day, Cardizem 30 mg 3 times daily, continue Lasix 40 mg orally daily, continue Aldactone 25 mg daily, continue oxygen support, cardiology consultation and pulmonary consultation appreciated. Patient will be given 1 dose of IV Lasix 20 mg and Solu-Medrol for 2 doses. 2. Acute severe COPD exacerbation oxygen dependent. Continue prednisone, continue DuoNeb 3 mL nebulization 4 times every day, continue Pulmicort 1 mg nebulization twice every day, continue oxygen support, pulmonary is following. 3. Acute on chronic diastolic heart failure due to A. fib with RVR. Cardizem drip discontinued, continue Lasix oral, continue Lopressor increased to 50 mg mg orally 2 times every day, continue patient also on input and output and daily weight, continue oxygen support, Xarelto 20 mg orally once every day, amiodarone 400 mg orally twice every day added by cardiology. Lasix 40 mg daily 4. Severe pulmonary hypertension. Continue Lasix 40 mg oral twice daily, continue Lopressor 25 mg orally 3 times every day, Revatio discontinued by pulmonary medicine. 5. Chronic atrial fibrillation. Continue Cardizem oral, continue Lopressor 50 mg twice daily and Xarelto. Cardizem drip 6. Hypertension and hypertensive cardiovascular disease, history of now with hypotension. Continue midodrine increased to 10 mg 3 times daily. 7. GERD. Continue Protonix 40 mg orally once every day. 8. Recurrent depression. Continue Paxil 10 mg orally once every day. 9. Gout, chronic. Stable. 10. DVT prophylaxis. Continue patient on Xarelto once every day. 11. GI prophylaxis. Continue with PPI. 12. Acute kidney injury with chronic kidney disease stage II. Avoid nephrotoxic agents. 13 Hypotension secondary to medications not improving with Midodrine now increased to 10 mg 3 times daily. Revatio has been discontinued for now with improvement of blood pressure readings. 14. Chronic hypoxic respiratory failure on home O2 at 3 L nasal cannula Patient's full code. Discharge plan: home Impression and plan of care have been directed as dictated by the signing physician. Zoila Parish nurse practitioner acting as scribe for signing physician.
--- NOTE | 2018-04-17 16:05 | P.PN ---
Subjective Progress Note Date: 04/17/18 Principal diagnosis: Atrial fibrillation with rapid ventricular response This is a very pleasant 67-year-old female patient who follows with Dr. Dillon as her primary care physician. 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 She was seen by Dr. Dillon on 2018 who found her to be somewhat dry and he decreased her Lasix to 40 mg once a day and cut the Aldactone to 25 mg daily. Labs have been ordered. She ended up coming to the emergency room last evening as her family found her heart rate to be in the 150s 160s. She is continued in atrial fibrillation since her last admission. Unfortunately, her blood pressure runs in the low side and was in the 70s last evening. She had not been able to take metoprolol or Cardizem for several days. She is also been in the mid to drain for pressure support. She did receive 2 L of fluid in the emergency room. She is on a Cardizem drip at 10 mg per hour. Continues with A. fib RVR. Chest x-ray shows evidence of progressive congestive heart failure. She is seen today in the emergency room. She is awake and alert in mild respiratory distress. Currently requiring 6 L high flow nasal cannula to maintain O2 saturations in the 90s. She's afebrile. Heart rate in the 120s. Systolic BP in the 100s. Upon is negative 3. Creatinine 1.21. She has been initiated on oral amiodarone. Cardizem drip decreased to 5 mg per hour. Beta blockers on board. He is also on DuoNeb inhalations, Pulmicort inhalations. NicoDerm patch has been applied. The patient was seen again today 04/11/2018 in follow-up on the selective care unit. She is currently sitting up in a chair at the bedside. She is awake and alert in no acute distress. She does continue with significant dyspnea on minimal exertion. She is on 9 L high flow nasal cannula and maintaining O2 saturations in the 90s. He remains on Lasix 40 mg IV push every 8 hours. IV Solu-Medrol. Dilators. White count 3.9. Hemoglobin 9.9. Creatinine 1.24. Her rate better controlled. She is currently on amiodarone 400 mg twice a day. On 04/12/2018 patient seen in follow-up on selective care unit, she sits up in the chair, in no acute distress, FiO2 is down to 6 L per nasal cannula, her pulse ox is 94%, she is afebrile, remains in atrial fibrillation, the heart rate seems to be better controlled, is ranging anywhere from 80-117 BPM. Is on oral amiodarone at 400 mg twice daily. She has been transitioned to oral Lasix , currently at 40 mg twice a day, and on oral Aldactone 25 mg daily. She is diuresing, lower extremity edema is improving, lung sounds are positive for some bibasilar crackles, no major wheezing or congestion, she is anticoagulated with oral Xarelto. There is a slight increase in her renal profile, BUN is 40, creatinine is 1.57. On 04/16/2018 patient seen in follow-up on selective care unit, she is sitting up in the chair, she denies any acute distress, remains hypoxemic, her pulse ox is only 88-89% on 5 L of oxygen. Denies any distress, today's chest x-ray showed stable right basilar effusion, atelectasis/infiltrate. Patient remains in A. fib, the rate is about 104-2105 BPM, she remains on Cardizem drip currently at 5 mg per hour. Amiodarone has been discontinued. She is on oral Lasix of 40 mg daily, oral anticoagulation in the form of Xarelto at 15 mg daily. Current blood pressure is 101/71. Today's lab work showed slight improvement in patient's renal profile however patient's LFTs had worsened with the total bilirubin up to 4.9, AST of 120, ALT of 140, and alkaline phosphatase at 99. Denies any chest pain, denies any worsening dyspnea, although patient appears to be slightly more sleepy and fatigued. Revatio remains on hold. On 04/17/2018 patient seen in follow-up on selective care unit, her oxygenation has worsened this morning, and patient was only satting 70% on 15 L per high flow nasal cannula. She was very weak and fatigued, she was placed on Airvo, 40 L/m, and FiO2 of 70%, and her oxygenation did improve, currently satting 92% . She is afebrile, remains in A. fib, and the rate is in the 120s BPM today. Blood pressure is 103/68. No new chest x-ray today, ultrasound the chest did not show sizable pleural effusion pocket on either side. Ultrasound of the abdomen was negative for cholelithiasis, common bile duct obstruction or dilatation. There was evidence of portal hypertension with splenomegaly, heterogeneous hyperechoic appearance of liver was felt to be reflective of underlying hepatocellular disease or cirrhosis. LFTs are slightly trending up, with a total bilirubin of 5.3, AST was 150, ALT was 185, and alkaline phosphatase of 185. White blood cell count is 16.4, hemoglobin is 11.3. Lung sounds are positive for bibasilar crackles. Patient continues to receive gentle IV hydration 0.9 normal sitting at a rate of 40 ML per hour Objective - Vital Signs Vital signs: Vital Signs Temp 98.3 F 04/17/18 12:53 Pulse 122 H 04/17/18 13:19 Resp 20 04/17/18 12:53 BP 103/68 04/17/18 12:53 Pulse Ox 92 L 04/17/18 13:11 Intake & Output 04/16/18 04/17/18 04/17/18 18:59 06:59 18:59 Intake Total 815.833 120 Output Total 1500 100 275 Balance -684.167 -100 -155 Weight 92.6 kg 92.6 kg Intake: IV 240 KVO 240 Intake, IV Titration 135.833 Amount Diltiazem 125 mg In 135.833 Sodium Chloride 0.9% 100 ml @ 5 MG/HR 5 mls/hr IV .Q24H [facility] Rx#:[id number] Oral 440 120 Output: Urine 1500 100 275 Other: Voiding Method Toilet # Voids 2 1 - Exam GENERAL EXAM: Alert, active, is slightly jaundice and fatigue, currently on Airvo at 40 l/min, and Fio2 of 70 HEAD: Normocephalic/atraumatic. EYES: Normal reaction of pupils, equal size. Conjunctiva pink, sclera white. NOSE: Clear with pink turbinates. THROAT: No erythema or exudates. NECK: No masses, no JVD, no thyroid enlargement, no adenopathy. CHEST: No chest wall deformity. Symmetrical expansion. LUNGS: Equal air entry with bibasilar crackles CVS: Regular rate and rhythm, normal S1 and S2, no gallops, no murmurs, no rubs ABDOMEN: Soft, nontender. No hepatosplenomegaly, normal bowel sounds, no guarding or rigidity. EXTREMITIES: No clubbing, mild lower extremity edema, no cyanosis, 2+ pulses and upper and lower extremities. MUSCULOSKELETAL: Muscle strength and tone normal. SPINE: No scoliosis or deformity SKIN: No rashes CENTRAL NERVOUS SYSTEM: Alert and oriented -3. No focal deficits, tone is normal in all 4 extremities. PSYCHIATRIC: Alert and oriented -3. Appropriate affect. Intact judgment and insight. - Labs CBC & Chem 7: 04/17/18 06:01 04/17/18 06:01 Labs: Abnormal Lab Results - Last 24 Hours (Table) 04/17/18 04/17/18 Range/Units 06:01 06:01 WBC 16.4 H (3.8-10.6) k/uL Hgb 11.3 L (11.4-16.0) gm/dL MCV 74.1 L (80.0-100.0) fL MCH 21.1 L (25.0-35.0) pg MCHC 28.5 L (31.0-37.0) g/dL RDW 23.5 H (11.5-15.5) % BUN 59 H (7-17) mg/dL Creatinine 1.73 H (0.52-1.04) mg/dL Total Bilirubin 5.3 H (0.2-1.3) mg/dL AST 150 H (14-36) U/L ALT 185 H (9-52) U/L Assessment and Plan Plan: #1 Acute on chronic hypoxic respiratory failure secondary to an acute exacerbation of diastolic congestive heart failure, acute exacerbation of chronic obstructive pulmonary disease, atrial fibrillation with rapid ventricular response. #2 Acute exacerbation of diastolic congestive heart failure. #3 Atrial fibrillation with rapid ventricular response. Anticoagulated with Xarelto. #4 Acute exacerbation of oxygen dependent chronic obstructive pulmonary disease. Remains on DuoNeb inhalations and IV Solu-Medrol. #5 Chronic tobacco dependence. #6 Episodes of hypotension requiring midodrine in the outpatient setting. Revatio on hold #8 Moderate pulmonary hypertension. #9 acute kidney injury, likely related to cardiorenal factors, improved on today 's labs, #10 elevated bilirubin, elevated LFTs #11 acute on chronic hypoxemic respiratory failure related to CHF, and pulmonary hypertension Plan: Patient was placed on Airvo this am, ultrasound of the chest did not reveal sizable pleural effusion pocket on either side. Continue with current medical treatment, continue gentle hydration, renal profile is relatively stable, slight increase in the patient's LFT profile, ultrasound of the abdomen was reviewed, we will go ahead and consult Dr. Herrera from GI service. Continue supportive treatment. I performed a history & physical examination of the patient and discussed their management with my nurse practitioner, Marlene Yee. I reviewed the nurse practitioner's note and agree with the documented findings and plan of care. Lung sounds are positive for minimal bibasilar crackles. The findings and the impression was discussed with the patient. I attest to the documentation by the nurse practitioner. Time with Patient: Less than 30
[2018-04-17] MEDS: CHOLECALCIFEROL 1,000 UNIT TAB PO SCH (16:46)
[2018-04-17] MEDS: RIVAROXABAN 15 MG TAB PO SCH (16:46)
[2018-04-17] MEDS: SODIUM CHLORIDE 0.9% 1,000 ML IV SCH (16:47)
[2018-04-17] MEDS: ALPRAZolam 0.5 MG TAB PO PRN (21:21)
[2018-04-18] MEDS: MIDODRINE 5 MG TAB PO SCH ×3 (07:08→17:21)
[2018-04-18] MEDS: SPIRONOLACTONE 25 MG TAB PO SCH (07:08)
[2018-04-18] MEDS: BUDESONIDE 1 MG/2 ML NEBU INHALATION SCH ×2 (07:34→19:56)
[2018-04-18] MEDS: IPRATROPIUM-ALBUTEROL 3 ML NEB INHALATION SCH ×4 (07:34→19:56)
[2018-04-18] MEDS: predniSONE 10 MG TAB PO SCH (09:43)
[2018-04-18] MEDS: METOPROLOL TARTRATE 50 MG TAB PO SCH ×2 (09:44→20:41)
[2018-04-18] MEDS: PANTOPRAZOLE 40 MG TABLET PO SCH ×2 (09:44→16:50)
[2018-04-18] MEDS: NICOTINE 21MG/24HR PATCH TRANSDERM SCH (09:44)
[2018-04-18] MEDS: FUROSEMIDE 40 MG TAB PO SCH (09:44)
[2018-04-18] MEDS: PARoxetine 10 MG TAB PO SCH ×2 (09:44→20:42)
[2018-04-18] MEDS: SENNOSIDES-DOCUSATE SODIUM 1 EACH TAB PO SCH ×2 (09:44→20:41)
[2018-04-18] MEDS: DILTIAZEM ORAL 30 MG TAB PO SCH ×3 (09:44→20:41)
[2018-04-18 10:25] LABS: Anisocytosis Moderate; HCT 36.5 % (34.0-46.0); HGB 10.3 gm/dL (11.4-16.0); Hypochromasia Marked; MCHC 28.1 g/dL (31.0-37.0); MCV 74.9 fL (80.0-100.0); Microcytosis Marked; Platelet Count 221 k/uL (150-450); Poikilocytosis Slight; RBC 4.87 m/uL (3.80-5.40); RDW 23.6 % (11.5-15.5); WBC 16.6 k/uL (3.8-10.6)
[2018-04-18 10:30] LABS: INR 1.6 (<1.2); Partial Thromboplastin Time 30.4 sec (22.0-30.0); Prothrombin Time 16.4 sec (9.0-12.0)
[2018-04-18 10:42] LABS: Albumin 3.4 g/dL (3.5-5.0); Calcium 9.1 mg/dL (8.4-10.2); Potassium 3.5 mmol/L (3.5-5.1); Total Bilirubin 3.7 mg/dL (0.2-1.3)
--- NOTE | 2018-04-18 11:59 | P.PN ---
Subjective Progress Note Date: 04/18/18 This is a 67-year-old female one of Dr. Dillon with a previous medical history significant for hypertension and hypertensive cardio vascular disease with left ventricular hypertrophy, hyperlipidemia, history of chronic diastolic heart failure, new diagnosed atrial fibrillation currently with rapid ventricular response, history of severe oxygen-dependent chronic obstructive pulmonary disease, bilateral pleural effusion, patient was recently hospitalized at the [facility] in March 04 after she was admitted to the hospital for acute diastolic heart failure and she spent in the hospital about 9 days intensive care unit on the day of the discharge she developed atrial fibrillation with rapid ventricular response and the patient was placed on oral Lopressor and she had a marginal blood pressure at that time and after that she was discharged home 2 days later she ended up going to [facility] for physical therapy rehabilitation for one week and the patient was started on Midodrin because her blood pressure was marginal in the low 80s and was seen by Dr. Lorenzo from cardiology who held her Cardizem and Lopressor at that time, she recently saw Dr. Dillon in the office on past Monday and she was cut down in her Lasix to 40 mg once every day due to the fact that she was driving a bit and the patient was doing fine up until yesterday when her daughter did receive a call from her other daughter stating that her heart rate is running 155-1 60 bpm and she was extreme short of breath she ended up coming to the emergency department at [facility] she was found to be in atrial fibrillation with rapid ventricular response she is requiring a lot higher oxygen flow and she was started on Cardizem drip at 10 minute gram an hour and her blood pressure was marginal at 100/60 and the patient was admitted to the hospital for evaluation and treatment of both acute respiratory failure due to acute diastolic heart failure and bilateral pleural effusion along with atrial fibrillation with rapid ventricular response she was seen in consultation by cardiology as well as by pulmonary medicine. 04/11: The patient has been seen by cardiology and started on oral amiodarone and off Cardizem drip. Blood pressure has been marginal. Heart rate is improved. Patient does have a cough with sputum production. She did have some increased shortness of breath in the evening for which she received IV Lasix and was on a nonrebreather. She is currently on high flow nasal cannula at 10 L. Repeat lab work shows a hemoglobin 9.9, BUN 30 creatinine 1.24. Troponins have all been negative on 3 draws. Triglycerides 69, cholesterol 68, LDL 23, HDL 31. TSH 4.2. Discharge plan is to return home without home care. We will add an PT and OT. Patient is also followed by Dr. Raymundo. 04/12: Pulse ox is 94% on 9 L high flow nasal cannula, patient is been afebrile, heart rate running in the 80s to 92, blood pressure 94/51. White count is normal at 8.4, hemoglobin 9.9, BUN 14, creatinine 1.57. Elect lites within normal limits. Patient appears much comfortable today. She is sitting up in a recliner and appears to be in no acute distress. Goal will be to wean down oxygen today. IV Lasix has been changed to oral today by cardiology. Weight is recorded as down 19 kg since admission. Pulmonary change IV Solu-Medrol to oral prednisone, start tomorrow. 04/13: Heart rate has been running between 96 and 115. 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 Blood pressure 106/66, pulse ox 96% on 5 L nasal cannula. Oxygen need is gradually improving. White count is 12.8, hemoglobin 10.6. BUN 47 creatinine 1.58. Patient has ambulated in the hallway and has done well. She states her breathing is a lot better from yesterday. She is now requiring 4 L nasal cannula at the time of this evaluation. Revatio was discontinued yesterday to see if this improves blood pressure which it has this morning. Patient states she has not had a bowel movement and Senokot-S will be added. Anticipate she'll be ready for discharge tomorrow. Patient does have home oxygen at 2-3 L nasal cannula. 04/14: Heart rate is running 101 24, blood pressure 96/62, pulse ox 89% on 3 L nasal cannula, patient is been afebrile. Kidney function is higher at BUN of 51 creatinine 1.72, hemoglobin 10.7, total bilirubin 2.9, other liver function tests within normal limits. We will plan to increase Midodrine to 10 mg 3 times daily, Lopressor has been increased to 50 mg by cardiology. Plan to check orthostatics tomorrow. Patient states she is voiding okay. Cardiology has changed Lasix to 40 daily. Patient was hoping to go home today but discharge will be held. 04/15: Heart rate is running in the 1 teens to 120s, pulse ox is 87 and 91% on 4 L nasal cannula. Blood pressure 101/69, afebrile. Patient states that she couldn't sleep last night due to shoulder pain and general sleeping in the recliner. She denies having any cough or wheezing. Dr. Jackson is making medication changes by discontinuing amiodarone, starting oral Cardizem, transitioned Lasix to oral 04/16: Pulse ox is running 86-87% on 5 L nasal cannula. Heart rate in the low 100s, supervisor ditching atrial fibrillation, blood pressure 96/61, patient is been afebrile. Patient denies feeling short of breath while in recliner. She is sleeping in a recliner but awakens easily. Chest x-ray is being obtained portable. Bilirubin is increasing to 4.9 and AST 120, ALT 140. Renal function is improved to 61 and 1.62. Xarelto dose was changed by cardiology yesterday. Pulmonary medicine start patient on Cardizem drip yesterday afternoon. 04/17: This morning, when pulse ox was checked, patient was 69% on 9 L high flow nasal cannula which is now switched to airflow with improvement of her oxygenation. Heart rate is running in the 120s. She has been afebrile, blood pressure 103/68. White count is 16.4, hemoglobin 11.3, creatinine 1.73, total bilirubin 5.3, AST 150, ALT 185 and alkaline phosphatase 118. Chest x-ray from yesterday reveals stable right basilar infiltrate atelectasis and/or effusion. Chest ultrasound reveals small pleural effusions not marked for thoracentesis. Ultrasound of the liver reveals heterogeneous hyperechoic appearance of liver is felt to reflect underlying hepatocellular disease or cirrhosis. There is evidence of portal hypertension and splenomegaly noted on recent CAT scan. She was now on Cardizem oral 30 mg 3 times daily, patient will receive 1 dose of IV Lasix 20 mg. She is also on Lasix 40 oral daily. Solu-Medrol for 2 doses ordered. She is currently on oral prednisone 30 mg daily. 04/18: Liver function tests continue to rise with bilirubin of 3.7, AST 248, ALT 390, alkaline phosphatase 109. Consult added for GI. Acute hepatitis panel has been ordered. MAGED and angiotensin I converting enzyme testing ordered. Renal function is much improved with BUN 47 creatinine 1.17. IV fluids will be discontinued and patient will continue Lasix 40 mg daily and add 20 mg in the afternoon. Blood pressure is improved and stable and she is continued on Midodrine 10 mg 3 times daily. Reviewed all results with patient's daughter is at the bedside. Heart daughter is requesting that we switch Xarelto and we will transition this over to eliquis as she is concerned that this is causing problems with her liver. Heart rate is running 110-114 and pulse ox is 95% on FiO2 of 50 on AirVo. Review of Systems Constitutional: Reports fatigue, Reports weakness, Reports weight loss Eyes: denies blurred vision Ears: deny: decreased hearing Ears, nose, mouth and throat: Denies dysphagia, Denies neck lump, Denies swelling in throat, Denies sore throat Cardiovascular: Reports decreased exercise tolerance, Reports dyspnea on exertion, Reports lightheadedness, Reports orthopnea, Reports paroxysmal nocturnal dyspnea, Reports rapid heart beat, Reports shortness of breath, Denies chest pain, Denies edema, Denies leg edema, Denies syncope Respiratory: Reports congestion, Reports cough, Reports cough with sputum, Reports dyspnea, Reports home oxygen, Reports wheezing, Denies respiratory infections, Denies sleep apnea, reports dyspnea at rest Gastrointestinal: Denies abdominal pain, Denies bloating, Denies excessive gas, Denies heartburn, Denies loss of appetite, Denies melena, Denies nausea, Denies vomiting Genitourinary: Reports nocturia, Denies dysuria Menstruation: Reports postmenopausal Musculoskeletal: Denies myalgias Musculoskeletal: absent: ankle pain, ankle stiffness, ankle swelling, elbow pain , elbow stiffness, elbow swelling, foot pain, foot stiffness, foot swelling, hand pain, hand stiffness, hand swelling, hip pain, hip stiffness, hip swelling , knee pain, knee stiffness, knee swelling, reports shoulder pain, shoulder stiffness, shoulder swelling, wrist pain, wrist stiffness, wrist swelling Integumentary: Denies pruritus, Denies rash Neurological: Denies numbness, Denies weakness Psychiatric: Denies anxiety, Denies depression Endocrine: Denies fatigue, Denies weight change Objective - Vital Signs Vital signs: Vital Signs Temp 97.9 F 04/18/18 04:00 Pulse 114 H 04/18/18 07:52 Resp 20 04/18/18 04:00 BP 105/63 04/18/18 04:00 Pulse Ox 96 04/18/18 07:35 Intake & Output 04/17/18 04/18/18 04/18/18 18:59 06:59 18:59 Intake Total 360 Output Total 975 1800 Balance -615 -1800 Weight 92 kg Intake: Oral 360 Output: Urine 975 1800 Other: Voiding Method Toilet # Voids 1 - Exam General appearance: average body habitus. Patient appears comfortable in recliner while at rest. Daughters are at the bedside - EENT Eyes: anicteric sclerae, EOMI, PERRLA, no ptosis, no scleral icterus, normal appearance ENT: hearing grossly normal, NA/AT, normal oropharynx, no thrush Ears: bilateral: normal - Neck Neck: no lymphadenopathy, normal ROM, no rigidity, no stridor, no thyromegaly Carotids: bilateral: upstroke normal Thyroid: bilateral: normal size - Respiratory Respiratory: bilateral: Improving: diminished, dullness, wheezing, prolonged expiration - Cardiovascular Rhythm: irregularly irregular Heart sounds: normal: S1, S2, tachycardic Abnormal Heart Sounds: systolic murmur - Gastrointestinal General gastrointestinal: normal bowel sounds, no rigid, no scaphoid, soft, no tenderness, umbilical hernia, no ventral hernia - Integumentary Integumentary: normal, normal turgor - Neurologic Neurologic: CNII-XII intact - Musculoskeletal Musculoskeletal: gait normal, generalized weakness, strength equal bilaterally - Psychiatric Psychiatric: A&O x's 3, appropriate affect, intact judgment & insight - Labs CBC & Chem 7: 04/18/18 09:55 04/18/18 09:55 Assessment and Plan Plan: 1. Acute hypoxemic respiratory failure due to acute exacerbation of severe COPD with atrial fibrillation and rapid ventricular response. Continue oral prednisone, DuoNeb treatment nebulization 4 times every day, continue Pulmicort 1 mg neb twice every day, Cardizem 30 mg 3 times daily, continue Lasix dose daily, continue Aldactone 25 mg daily, continue oxygen support, cardiology consultation and pulmonary consultation appreciated. Lasix 40 mg oral in the morning and 20 at 4 PM, prednisone 30 mg daily. 2. Acute severe COPD exacerbation oxygen dependent. Continue prednisone, continue DuoNeb 3 mL nebulization 4 times every day, continue Pulmicort 1 mg nebulization twice every day, continue oxygen support, pulmonary is following. 3. Acute on chronic diastolic heart failure due to A. fib with RVR. Cardizem drip discontinued, continue Lasix oral, continue Lopressor 50 mg mg orally 2 times every day, continue patient also on input and output and daily weight, continue oxygen support, Xarelto changed eliquis 4. Severe pulmonary hypertension. Continue Lasix 40 mg oral in a.m. and 20 in the afternoon, continue Lopressor 50 mg orally 2 times every day, Revatio discontinued by pulmonary medicine. 5. Chronic atrial fibrillation. Continue Lopressor and eliquis. 6. Hypertension and hypertensive cardiovascular disease, history of now with hypotension. Continue midodrine 10 mg 3 times daily. 7. GERD. Continue Protonix 40 mg orally once every day. 8. Recurrent depression. Continue Paxil 10 mg orally once every day. 9. Gout, chronic. Stable. 10. DVT prophylaxis. Continue patient on Xarelto once every day. 11. GI prophylaxis. Continue with PPI. 12. Acute kidney injury with chronic kidney disease stage II. Avoid nephrotoxic agents. 13 Hypotension secondary to medications not improving with Midodrine now increased to 10 mg 3 times daily. Revatio has been discontinued for now with improvement of blood pressure readings. 14. Chronic hypoxic respiratory failure on home O2 at 3 L nasal cannula 15. Cirrhosis of the liver and portal hypertension. GI consult. Acute hepatitis panel, angiotensin I converting enzyme and MAGED with reflex titer ordered. Patient's full code. Discharge plan: home Impression and plan of care have been directed as dictated by the signing physician. Zoila Parish nurse practitioner acting as scribe for signing physician.
[2018-04-18] MEDS ORDERED: FUROSEMIDE 20 MG TAB PO SCH (14:00)
--- NOTE | 2018-04-18 15:25 | P.PN ---
Subjective Progress Note Date: 04/18/18 This is a 67-year-old female with history of severe COPD, who had a prolonged admission in February, she was in the intensive care unit at that time , she went into atrial fibrillation, presented at that time with progressive dyspnea. She has severe COPD severe pulmonary hypertension and has been a smoker until her admission in February. Follows regularly with Dr. Menendez in the office. Echocardiogram with Doppler study revealed an ejection fraction with is normal, her PA pressure was 69. She had moderate mitral and tricuspid regurg was significantly enlarged left atrium. Coronary risk factors are positive for smoking. The patient was seen and examined this morning, overall her breathing is significantly improved from admission here. Blood pressure 92/ 58, BUN 16, creatinine 0.9. 04/12/2018 Patient seen and examined this morning, feeling significantly better overall today. Up ambulating with physical therapy this morning. Blood pressure 104/ 60 with a heart rate in the 80s today, 94% on 6 L of oxygen. White blood cell count 8.4, hemoglobin 9.9, platelet count 234. Sodium 140, potassium 4.2, BUN 40 and creatinine 1.5. 04/16/2018 Patient seen and examined this morning, sitting up in the chair at bedside. Overall breathing appears to be stable, chest x-ray was performed today which is yet pending. BUN 61 creatinine 1.6. We will discontinue the IV Cardizem today and start her on oral Cardizem. Heart rate is fluctuating anywhere from 90-110 today. Her total bilirubin today is up to 4.9, AST 120, ALT 140. Creatinine 1.6. We will order an ultrasound of the liver today. 04/17/2018 Patient seen and examined today, sitting up in the chair at bedside, family present. Sodium 139, potassium 4.2, BUN 59 creatinine 1.7 area total bilirubin 5.3 AST 150 and ALT 185. Ultrasound of the liver showed heterogeneous hyperechoic appearance of the liver felt to be a product of underlying hepatocellular disease or cirrhosis, evidence of portal hypertension and spenomegally. Heart rate today overall under better control. 04/18/2018 Patient was seen and examined this morning, AST and ALT are up from yesterday, there is no improvement noted in the bilirubin today. Overall her heart rate is remaining in the 90s. Objective - Vital Signs Vital signs: Vital Signs Temp 97.9 F 04/18/18 12:47 Pulse 91 04/18/18 12:47 Resp 20 04/18/18 12:47 BP 110/61 04/18/18 12:47 Pulse Ox 96 04/18/18 12:47 Intake & Output 04/17/18 04/18/18 04/18/18 18:59 06:59 18:59 Intake Total 360 340 Output Total 975 1800 550 Balance -615 -1800 -210 Weight 92 kg Intake: Oral 360 340 Output: Urine 975 1800 550 Other: Voiding Method Toilet Bedside Commode # Voids 1 - Exam GENERAL: 67-year-old female in no acute distress at the time of examination HEENT: Head is atraumatic, normocephalic. Pupils equal, round. Mucous membranes of the mouth are moist. Neck is supple. There is no elevated jugular venous pressure. HEART EXAMINATION: Heart S1 and S2 irregularly irregular a holosystolic murmur at the apex. CHEST EXAMINATION: Lungs reveal significantly diminished air entry bilaterally with crackles to bilateral bases. ABDOMEN: Soft, nontender. Bowel sounds are heard. No organomegaly noted. EXTREMITIES: 2+ peripheral pulses with evidence of peripheral edema and no calf tenderness noted. NEUROLOGIC patient is somewhat lethargic, oriented 3 . - Labs CBC & Chem 7: 04/18/18 09:55 04/18/18 09:55 Labs: Abnormal Lab Results - Last 24 Hours (Table) 04/18/18 04/18/18 04/18/18 Range/Units 09:55 09:55 09:55 WBC 16.6 H (3.8-10.6) k/uL Hgb 10.3 L (11.4-16.0) gm/dL MCV 74.9 L (80.0-100.0) fL MCH 21.0 L (25.0-35.0) pg MCHC 28.1 L (31.0-37.0) g/dL RDW 23.6 H (11.5-15.5) % PT 16.4 H (9.0-12.0) sec INR 1.6 H (<1.2) APTT 30.4 H (22.0-30.0) sec BUN 47 H (7-17) mg/dL Creatinine 1.17 H (0.52-1.04) mg/dL Glucose 150 H (74-99) mg/dL Total Bilirubin 3.7 H (0.2-1.3) mg/dL AST 248 H (14-36) U/L ALT 390 H (9-52) U/L Total Protein 6.0 L (6.3-8.2) g/dL Albumin 3.4 L (3.5-5.0) g/dL Assessment and Plan Plan: Assessment and plan #1 symptoms of progressive dyspnea in a patient with known history of severe COPD #2 atrial fibrillation, chronic persistent, diagnosed in March, anticoagulated. #3 hypotension episodes #4 severe pulmonary hypertension #5 worsening renal failure #6 prior history of smoking Plan From cardiology's perspective, we'll recommend to continue patient on her current medications. DNP note has been reviewed, I agree with a documented findings and plan of care. Patient was seen and examined.
--- NOTE | 2018-04-18 16:02 | P.PN ---
Subjective Progress Note Date: 04/18/18 Principal diagnosis: Atrial fibrillation with rapid ventricular response This is a very pleasant 67-year-old female patient who follows with Dr. Dillon as her primary care physician. 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 She was seen by Dr. Dillon on 2018 who found her to be somewhat dry and he decreased her Lasix to 40 mg once a day and cut the Aldactone to 25 mg daily. Labs have been ordered. She ended up coming to the emergency room last evening as her family found her heart rate to be in the 150s 160s. She is continued in atrial fibrillation since her last admission. Unfortunately, her blood pressure runs in the low side and was in the 70s last evening. She had not been able to take metoprolol or Cardizem for several days. She is also been in the mid to drain for pressure support. She did receive 2 L of fluid in the emergency room. She is on a Cardizem drip at 10 mg per hour. Continues with A. fib RVR. Chest x-ray shows evidence of progressive congestive heart failure. She is seen today in the emergency room. She is awake and alert in mild respiratory distress. Currently requiring 6 L high flow nasal cannula to maintain O2 saturations in the 90s. She's afebrile. Heart rate in the 120s. Systolic BP in the 100s. Upon is negative 3. Creatinine 1.21. She has been initiated on oral amiodarone. Cardizem drip decreased to 5 mg per hour. Beta blockers on board. He is also on DuoNeb inhalations, Pulmicort inhalations. NicoDerm patch has been applied. The patient was seen again today 04/11/2018 in follow-up on the selective care unit. She is currently sitting up in a chair at the bedside. She is awake and alert in no acute distress. She does continue with significant dyspnea on minimal exertion. She is on 9 L high flow nasal cannula and maintaining O2 saturations in the 90s. He remains on Lasix 40 mg IV push every 8 hours. IV Solu-Medrol. Dilators. White count 3.9. Hemoglobin 9.9. Creatinine 1.24. Her rate better controlled. She is currently on amiodarone 400 mg twice a day. On 04/12/2018 patient seen in follow-up on selective care unit, she sits up in the chair, in no acute distress, FiO2 is down to 6 L per nasal cannula, her pulse ox is 94%, she is afebrile, remains in atrial fibrillation, the heart rate seems to be better controlled, is ranging anywhere from 80-117 BPM. Is on oral amiodarone at 400 mg twice daily. She has been transitioned to oral Lasix , currently at 40 mg twice a day, and on oral Aldactone 25 mg daily. She is diuresing, lower extremity edema is improving, lung sounds are positive for some bibasilar crackles, no major wheezing or congestion, she is anticoagulated with oral Xarelto. There is a slight increase in her renal profile, BUN is 40, creatinine is 1.57. On 04/16/2018 patient seen in follow-up on selective care unit, she is sitting up in the chair, she denies any acute distress, remains hypoxemic, her pulse ox is only 88-89% on 5 L of oxygen. Denies any distress, today's chest x-ray showed stable right basilar effusion, atelectasis/infiltrate. Patient remains in A. fib, the rate is about 104-2105 BPM, she remains on Cardizem drip currently at 5 mg per hour. Amiodarone has been discontinued. She is on oral Lasix of 40 mg daily, oral anticoagulation in the form of Xarelto at 15 mg daily. Current blood pressure is 101/71. Today's lab work showed slight improvement in patient's renal profile however patient's LFTs had worsened with the total bilirubin up to 4.9, AST of 120, ALT of 140, and alkaline phosphatase at 99. Denies any chest pain, denies any worsening dyspnea, although patient appears to be slightly more sleepy and fatigued. Revatio remains on hold. On 04/17/2018 patient seen in follow-up on selective care unit, her oxygenation has worsened this morning, and patient was only satting 70% on 15 L per high flow nasal cannula. She was very weak and fatigued, she was placed on Airvo, 40 L/m, and FiO2 of 70%, and her oxygenation did improve, currently satting 92% . She is afebrile, remains in A. fib, and the rate is in the 120s BPM today. Blood pressure is 103/68. No new chest x-ray today, ultrasound the chest did not show sizable pleural effusion pocket on either side. Ultrasound of the abdomen was negative for cholelithiasis, common bile duct obstruction or dilatation. There was evidence of portal hypertension with splenomegaly, heterogeneous hyperechoic appearance of liver was felt to be reflective of underlying hepatocellular disease or cirrhosis. LFTs are slightly trending up, with a total bilirubin of 5.3, AST was 150, ALT was 185, and alkaline phosphatase of 185. White blood cell count is 16.4, hemoglobin is 11.3. Lung sounds are positive for bibasilar crackles. Patient continues to receive gentle IV hydration 0.9 normal sitting at a rate of 40 ML per hour On 04/18/2018 patient seen in follow-up on selective care unit. She remains on Airvo, at 30 L/m, and FiO2 of 60%, with a pulse ox of 95%. Breathing easier today, lung sounds are positive for some minimal crackles at the bases, no rhonchi, no wheezes, patient is afebrile, heart rate is better controlled, remains in A. fib, with a rate ranging from 91-110 BPM. Blood pressure stable, 110's over 60s. Today's blood work showed white blood cell count of 16.6, hemoglobin of 10.3, INR is 1.6, electrolytes are within normal limits, renal profile is improving, BUN is 47, creatinine is 1.17. Total bilirubin is 3.7, AST is 248, ALT is 390, alkaline phosphatase is 109. No abdominal pain, no nausea or vomiting, no worsening shortness of breath, no chest pain. GI service consultation is pending. Objective - Vital Signs Vital signs: Vital Signs Temp 97.9 F 04/18/18 12:47 Pulse 91 04/18/18 12:47 Resp 20 04/18/18 12:47 BP 110/61 04/18/18 12:47 Pulse Ox 96 04/18/18 12:47 Intake & Output 04/17/18 04/18/18 04/18/18 18:59 06:59 18:59 Intake Total 360 240 Output Total 975 1800 Balance -615 -1800 240 Weight 92 kg Intake: Oral 360 240 Output: Urine 975 1800 Other: Voiding Method Toilet Bedside Commode # Voids 1 - Exam GENERAL EXAM: Alert, active, is slightly jaundice and fatigue, currently on Airvo at 30 l/min, and Fio2 of 60 HEAD: Normocephalic/atraumatic. EYES: Normal reaction of pupils, equal size. Conjunctiva pink, sclera white. NOSE: Clear with pink turbinates. THROAT: No erythema or exudates. NECK: No masses, no JVD, no thyroid enlargement, no adenopathy. CHEST: No chest wall deformity. Symmetrical expansion. LUNGS: Equal air entry with bibasilar crackles CVS: Regular rate and rhythm, normal S1 and S2, no gallops, no murmurs, no rubs ABDOMEN: Soft, nontender. No hepatosplenomegaly, normal bowel sounds, no guarding or rigidity. EXTREMITIES: No clubbing, mild lower extremity edema, no cyanosis, 2+ pulses and upper and lower extremities. MUSCULOSKELETAL: Muscle strength and tone normal. SPINE: No scoliosis or deformity SKIN: No rashes CENTRAL NERVOUS SYSTEM: Alert and oriented -3. No focal deficits, tone is normal in all 4 extremities. PSYCHIATRIC: Alert and oriented -3. Appropriate affect. Intact judgment and insight. - Labs CBC & Chem 7: 04/18/18 09:55 04/18/18 09:55 Labs: Abnormal Lab Results - Last 24 Hours (Table) 04/18/18 04/18/18 04/18/18 Range/Units 09:55 09:55 09:55 WBC 16.6 H (3.8-10.6) k/uL Hgb 10.3 L (11.4-16.0) gm/dL MCV 74.9 L (80.0-100.0) fL MCH 21.0 L (25.0-35.0) pg MCHC 28.1 L (31.0-37.0) g/dL RDW 23.6 H (11.5-15.5) % PT 16.4 H (9.0-12.0) sec INR 1.6 H (<1.2) APTT 30.4 H (22.0-30.0) sec BUN 47 H (7-17) mg/dL Creatinine 1.17 H (0.52-1.04) mg/dL Glucose 150 H (74-99) mg/dL Total Bilirubin 3.7 H (0.2-1.3) mg/dL AST 248 H (14-36) U/L ALT 390 H (9-52) U/L Total Protein 6.0 L (6.3-8.2) g/dL Albumin 3.4 L (3.5-5.0) g/dL Assessment and Plan Plan: #1 Acute on chronic hypoxic respiratory failure secondary to an acute exacerbation of diastolic congestive heart failure, acute exacerbation of chronic obstructive pulmonary disease, atrial fibrillation with rapid ventricular response. #2 Acute exacerbation of diastolic congestive heart failure. #3 Atrial fibrillation with rapid ventricular response. Anticoagulated with Xarelto. #4 Acute exacerbation of oxygen dependent chronic obstructive pulmonary disease. Remains on DuoNeb inhalations and IV Solu-Medrol. #5 Chronic tobacco dependence. #6 Episodes of hypotension requiring midodrine in the outpatient setting. Revatio on hold #8 Moderate pulmonary hypertension. #9 acute kidney injury, likely related to cardiorenal factors, improved on today 's labs, #10 elevated bilirubin, elevated LFTs #11 acute on chronic hypoxemic respiratory failure related to CHF, and pulmonary hypertension Plan: Continue weaning FiO2, no worsening dyspnea, no complaints of chest pain, her heart rate is better controlled, remains in A. fib. Oral Cardizem for rate control. LFTs have trended up, hepatitis panel has been ordered, GI service consultation is pending. Patient denies any abdominal pain, no nausea or vomiting. Renal profile has improved. We'll continue with the daily oral dose of Lasix 40 mg. We'll wean FiO2, once the patient is able to get down to 3-4 L on the nasal cannula may consider discharging the patient. I performed a history & physical examination of the patient and discussed their management with my nurse practitioner, Marlene Yee. I reviewed the nurse practitioner's note and agree with the documented findings and plan of care. Lung sounds are positive for minimal bibasilar crackles. The findings and the impression was discussed with the patient. I attest to the documentation by the nurse practitioner. Time with Patient: Less than 30
[2018-04-18 16:18] LABS: Hepatitis A Antibody IgM Non-Reactive (Non-Reactive); Hepatitis B Core IgM Non-Reactive (Non-Reactive)
[2018-04-18] MEDS: CHOLECALCIFEROL 1,000 UNIT TAB PO SCH (16:50)
[2018-04-18] MEDS: APIXABAN 5 MG TAB PO SCH (20:41)
[2018-04-18] MEDS: ALPRAZolam 0.5 MG TAB PO PRN (20:43)
[2018-04-18] MEDS: ACETAMINOPHEN TAB 325 MG TAB PO PRN (22:05)
--- NOTE | 2018-04-18 23:28 | P.CONS ---
History of Present Illness - Reason for Consult Consult date: 04/18/18 Elevated liver enzymes Requesting physician: Jenny Moreno - Chief Complaint COPD exacerbation - History of Present Illness 67-year-old female with multiple medical comorbidities including diastolic heart failure, atrial fibrillation, severe COPD, hyperlipidemia and GERD who is currently receiving treatment for an exacerbation of her COPD. The patient has been hospitalized numerous occasions for similar complaints. Currently she is receiving treatment for an exacerbation of her COPD and being seen by both the pulmonary service and the cardiology service. The patient has had episodes of hypotension during her stay with systolic blood pressure less than 100 and is currently seen sitting bedside on a high flow nasal cannula. During her hospitalization the patient was noted to have elevation in her liver enzymes and predominantly cholestatic pattern. Liver enzymes have trended up from a total bilirubin 2.8, alkaline phosphatase 76, AST 17 and ALT 14 to a total bilirubin 5.3, alkaline phosphatase 118, AST 150 and ALT 185. The patient denies any prior history of liver disease, viral hepatitis or alcohol abuse. She denies any episodes of jaundice or darkening of urine in the past. Currently she is tolerating diet with no abdominal pain, change in bowel habits , nausea or vomiting. The patient had an ultrasound and evaluation of her elevated liver enzymes which was significant for a heterogeneous hypoechoic liver with a normal common bile duct. INR was found to be 1.6 and platelet count 272,000 with a hemoglobin 11.3. Review of Systems REVIEW OF SYSTEMS: CONSTITUTIONAL: Denies any fevers, chills, weight change or fatigue. CARDIOVASCULAR: Denies any chest pain, but has been noted to have low blood pressures during her stay and has history of atrial fibrillation RESPIRATORY: Currently on high flow nasal cannula and not reporting any shortness of breath GENITOURINARY: No dysuria or hematuria. MUSCULOSKELETAL: No weakness reported. SKIN: Denies any new rashes or lesions, jaundice or pallor. PSYCHIATRIC: Denies any depression or anxiety. NEUROLOGY: Denies headache, denies any new focal deficits. EARS/NOSE/THROAT: No recent hearing change, congestion, nasal discharge or sore throat. EYES: No pain in eyes, discharge or change in vision. GASTROINTESTINAL: As per HPI. Past Medical History Past Medical History: Atrial Fibrillation, Heart Failure, COPD, GERD/Reflux, Hyperlipidemia, Hypertension, Osteoarthritis (OA) Additional Past Medical History / Comment(s): Pulmonary HTN, hypertension, hyperlipidemia, bilateral pleural effusion, chronic diastolic heart failure, atrial fibrillation, gout, osteoarthritis, severe COPD, GERD, uterine cancer status post total abdominal hysterectomy and bilateral sopping oophorectomy. History of Any Multi-Drug Resistant Organisms: None Reported Past Surgical History: Cholecystectomy, Hysterectomy (Complete hysterectomy due to uterine cancer.), Joint Replacement, Orthopedic Surgery (Bilateral total knee arthroplasties.), Tonsillectomy, Tubal Ligation Past Anesthesia/Blood Transfusion Reactions: No Reported Reaction Smoking Status: Former smoker (Patient smoked about one and half a pack every day she smoked for 49 years.) - Past Family History Father Family Medical History: Cancer (Father at age 87 from colon cancer and also had COPD.), COPD Additional Family Medical History / Comment(s): Colon CA Mother Family Medical History: Hypertension (Mother at age 94 and had a history of hypertension.) Brother(s) Family Medical History: Cancer (Patient had 2 brothers one from heroin overdose of the other one from lung cancer.) Sister(s) Family Medical History: Congestive Heart Failure (CHF) (Patient has 2 sisters one with congestive heart failure.) Daughter(s) Family Medical History: No Reported History (Patient has 3 daughters no major medical problems.) Medications and Allergies Home Medications Medication Instructions Recorded Confirmed Type ALPRAZolam [Xanax] 0.5 mg PO TID PRN 03/04/18 04/09/18 History Budesonide/Formoterol Fumarate 2 puff INHALATION RT-BID@0800,1700 03/04/1804/09 History [Symbicort 160-4.5 Mcg Inhaler] Cholecalciferol (Vitamin D3) 2,000 unit PO DAILY@1700 03/04/18 04/09/18 History [Vitamin D3] Ipratropium/Albuterol Sulfate 1 puff INHALATION RT-QID 03/04/18 04/09/18 History [Combivent Respimat Inhaler] Omeprazole [PriLOSEC] 20 mg PO BID@0800,1700 03/04/18 04/09/18 History PARoxetine HCL [Paxil] 10 mg PO BID@0800,2100 03/04/18 04/09/18 History Acetaminophen [Tylenol] 650 mg PO Q4H PRN 04/09/18 04/09/18 History Furosemide [Lasix] 40 mg PO DAILY@0600 04/09/18 04/09/18 History Ipratropium-Albuterol Nebulize 3 ml INHALATION RT-QID PRN 04/09/18 04/09/18 History [Duoneb 0.5 mg-3 mg/3 ml Soln] Metoprolol Tartrate [Lopressor] 25 mg PO TID@0800,1500,2100 04/09/18 04/09/18 History Midodrine [ProAmatine] 5 mg PO TID@0600,1400,2100 04/09/18 04/09/18 History Nicotine 21Mg/24Hr Patch [Habitrol] 1 patch TRANSDERM DAILY 04/09/18 04/09/18 History Rivaroxaban [Xarelto] 20 mg PO AC-SUPPER@1700 04/09/18 04/09/18 History Spironolactone [Aldactone] 25 mg PO DAILY@0600 04/09/18 04/09/18 History Amiodarone [Cordarone] 400 mg PO BID #120 tab 04/13/18 Rx Aspirin EC [Ecotrin Low Dose] 81 mg PO DAILY #30 tablet. 04/13/18 Rx predniSONE 0 mg PO DIRECTED #36 tab 04/13/18 Rx Allergies Allergy/AdvReac Type Severity Reaction Status Date / Time No Known Allergies Allergy Verified 04/09/18 19:46 Physical Exam Vitals: Vital Signs Temp Pulse Pulse Resp BP Pulse Ox 04/18/18 20:07 104 H 04/18/18 19:57 100 04/18/18 17:09 93 04/18/18 16:54 93 20 111/79 93 L 04/18/18 15:59 95 04/18/18 12:47 97.9 F 91 20 110/61 96 04/18/18 11:08 110 H 04/18/18 11:06 95 04/18/18 11:02 110 H 04/18/18 09:53 98.5 F 90 20 116/72 93 L 04/18/18 07:52 114 H 04/18/18 07:35 112 H 96 04/18/18 04:00 97.9 F 93 20 105/63 94 L 04/18/18 00:00 97.6 F 96 20 105/71 94 L Intake and Output 04/18/18 04/18/18 04/19/18 14:59 22:59 06:59 Intake Total 340 240 Output Total 550 Balance -210 240 Intake: Oral 340 240 Output: Urine 550 Other: Voiding Method Bedside Commode On physical examination, patient appears comfortable in no apparent distress. HEAD: Normocephalic, atraumatic. EYES: Mild scleral icterus. No conjunctival injection. MOUTH: No lesions, tongue midline. NECK: Trachea midline, no gross abnormalities. CHEST: Decreased air entry in all lung harris. HEART: Irregularly irregular. ABDOMEN: Soft, obese. Bowel sounds are positive. No organomegaly. No guarding or rigidity. EXTREMITIES: No pedal edema. SKIN: No rashes, mild jaundice. NEUROLOGIC: Alert and oriented x3. No focal deficits. Results CBC & Chem 7: 04/18/18 09:55 04/18/18 09:55 Labs: Abnormal Lab Results - Last 24 Hours (Table) 04/18/18 04/18/18 04/18/18 Range/Units 09:55 09:55 09:55 WBC 16.6 H (3.8-10.6) k/uL Hgb 10.3 L (11.4-16.0) gm/dL MCV 74.9 L (80.0-100.0) fL MCH 21.0 L (25.0-35.0) pg MCHC 28.1 L (31.0-37.0) g/dL RDW 23.6 H (11.5-15.5) % PT 16.4 H (9.0-12.0) sec INR 1.6 H (<1.2) APTT 30.4 H (22.0-30.0) sec BUN 47 H (7-17) mg/dL Creatinine 1.17 H (0.52-1.04) mg/dL Glucose 150 H (74-99) mg/dL Total Bilirubin 3.7 H (0.2-1.3) mg/dL AST 248 H (14-36) U/L ALT 390 H (9-52) U/L Total Protein 6.0 L (6.3-8.2) g/dL Albumin 3.4 L (3.5-5.0) g/dL US - abdomen: report reviewed (ultrasound and evaluation of her elevated liver enzymes which was significant for a heterogeneous hypoechoic liver with a normal common bile duct.) Assessment and Plan (1) Elevated liver enzymes Narrative/Plan: Patient found to have elevated liver enzymes with predominantly cholestatic pattern and ultrasound and evaluation of her elevated liver enzymes which was significant for a heterogeneous hypoechoic liver with a normal common bile duct. No prior history of liver disease reported by the patient to also denies alcohol use. Viral hepatitis panel and MAGED found to be negative. Full serology will be ordered to rule out underlying liver disease, however given the patient's history of diastolic heart failure, episodes of hypotension during her hospitalization, and comorbidities including truncal obesity and hyperlipidemia is likely that the patient's elevation liver enzymes are secondary to congestive hepatopathy or hypoperfusion in the setting of underlying fatty liver disease. Current Visit: Yes Status: Acute Code(s): R74.8 - ABNORMAL LEVELS OF OTHER SERUM ENZYMES SNOMED Code(s): 132130874 Plan: Supportive care Okay for diet Appreciate recommendations from cardiology and pulmonology Continue to optimize sedation of patient's chronic medications Continue to monitor liver enzymes Viral hepatitis panel noted and found to be negative Ultrasound of the abdomen reviewed and no evidence of CBD dilation or choledocholithiasis with findings of a hyperechoic heterogeneous liver Full serology will be ordered for further evaluation Can consider MRI of the abdomen if liver enzymes do not improve Thank you for allowing us to participate in the care of the patient we will continue to follow
[2018-04-19] MEDS: MIDODRINE 5 MG TAB PO SCH ×3 (04:58→17:17)
[2018-04-19] MEDS: SPIRONOLACTONE 25 MG TAB PO SCH (04:58)
[2018-04-19 07:01] LABS: Calcium 9.3 mg/dL (8.4-10.2); Potassium 3.9 mmol/L (3.5-5.1)
[2018-04-19] MEDS: PANTOPRAZOLE 40 MG TABLET PO SCH ×2 (08:33→17:17)
[2018-04-19] MEDS: APIXABAN 5 MG TAB PO SCH ×2 (08:34→22:55)
[2018-04-19] MEDS: PARoxetine 10 MG TAB PO SCH (08:34)
[2018-04-19] MEDS: NICOTINE 21MG/24HR PATCH TRANSDERM SCH (08:34)
[2018-04-19] MEDS: DILTIAZEM ORAL 30 MG TAB PO SCH ×3 (08:34→22:55)
[2018-04-19] MEDS: METOPROLOL TARTRATE 50 MG TAB PO SCH (08:35)
[2018-04-19] MEDS: FUROSEMIDE 40 MG TAB PO SCH (08:35)
[2018-04-19] MEDS: predniSONE 10 MG TAB PO SCH (08:35)
[2018-04-19] MEDS: SENNOSIDES-DOCUSATE SODIUM 1 EACH TAB PO SCH (08:36)
[2018-04-19] MEDS: BUDESONIDE 1 MG/2 ML NEBU INHALATION SCH ×2 (08:37→19:38)
[2018-04-19] MEDS: IPRATROPIUM-ALBUTEROL 3 ML NEB INHALATION SCH ×4 (08:37→19:38)
[2018-04-19 09:24] LABS: Albumin 3.5 g/dL (3.5-5.0); Bilirubin, Conjugated 0.5 mg/dL (0.0-0.3); Bilirubin, Delta 1.6 mg/dL (0.0-0.2); Bilirubin,Unconjugated 2.2 mg/dL (0.0-1.1); Total Bilirubin 4.3 mg/dL (0.2-1.3); Total Protein 6.3 g/dL (6.3-8.2)
--- NOTE | 2018-04-19 10:14 | PN ---
PROGRESS NOTE Mrs. Crawford is a 67-year-old female with known history of severe chronic obstructive lung disease, history of chronic persistent atrial fibrillation, who presented with worsening dyspnea. She is feeling better today. Her breathing is stable. She is denying any chest pain or dizziness. She denies any palpitation. She was evaluated by the GI service yesterday and her liver function tests have been improving. She continued be on Eliquis 5 mg twice a day, diltiazem 30 mg 3 times a day, Lasix 40 mg daily, furosemide 40 in the morning, 20 in the afternoon, metoprolol 50 mg twice a day, midodrine, and spironolactone 25 mg daily. PHYSICAL EXAMINATION: Blood pressure 101/82 with the heart rate in the 90s. LUNGS: Decreased air exchange, no wheezes. HEART: Irregular, irregular. S1, S2. No S3. No rub. ABDOMEN: Soft, nontender. EXTREMITIES: No significant edema. LAB DATA: Lab data revealed a bilirubin of 1.6, AST of 101, ALT of 337. Her MAGED screen is negative and hepatitis panel is negative. IMPRESSION: 1. Significant progression of dyspnea with a combination of exacerbation of chronic obstructive pulmonary disease and heart failure with preserved systolic function. 2. Chronic persistent atrial fibrillation. 3. Abnormal liver function tests was most likely related to congestion, improving. 4. Chronic kidney disease. 5. Hypertension, stable. RECOMMENDATION: From the cardiac standpoint, we will continue present therapy. She is stable on the present regimen. We will continue to increase her activity and depending on her progress, further recommendation will be made. MMODL / IJN: [id number] /
[2018-04-19] MEDS ORDERED: FLUDROCORTISONE 0.1 MG TAB PO SCH (10:30)
[2018-04-19 12:11] LABS: Iron Saturation 3.64 (12.00-45.00)
[2018-04-19 13:04] LABS: Ceruloplasmin 35.7 mg/dL (20.0-60.0)
[2018-04-19 13:15] LABS: IgG Subclass 3 38.4 mg/dL (11.0-85.0); IgG Subclass 4 26.7 mg/dL (3.0-175.0)
--- NOTE | 2018-04-19 13:46 | XR ---
EXAMINATION TYPE: XR chest 1V portable DATE OF EXAM: 04/19/2018 COMPARISON: 04/16/2018 HISTORY: Shortness of breath TECHNIQUE: Single frontal view of the chest is obtained. FINDINGS: There are worsening bilateral small pleural effusions with associated bibasilar airspace d isease obscuring the markedly enlarged cardiac mediastinal silhouette. Remainder the lungs are clear with only minimal pulmonary vascular congestion. Osseous structures are grossly intact. No sizable pl eural effusion. IMPRESSION: Worsening bilateral pleural effusions and very minimal pulmonary vascular congestion lik liv on the basis of congestive heart failure.
[2018-04-19] MEDS ORDERED: FUROSEMIDE 20 MG TAB PO SCH (14:00)
--- NOTE | 2018-04-19 14:20 | P.PN ---
Subjective Progress Note Date: 04/19/18 This is a 67-year-old female one of Dr. Dillon with a previous medical history significant for hypertension and hypertensive cardio vascular disease with left ventricular hypertrophy, hyperlipidemia, history of chronic diastolic heart failure, new diagnosed atrial fibrillation currently with rapid ventricular response, history of severe oxygen-dependent chronic obstructive pulmonary disease, bilateral pleural effusion, patient was recently hospitalized at the [facility] in March 04 after she was admitted to the hospital for acute diastolic heart failure and she spent in the hospital about 9 days intensive care unit on the day of the discharge she developed atrial fibrillation with rapid ventricular response and the patient was placed on oral Lopressor and she had a marginal blood pressure at that time and after that she was discharged home 2 days later she ended up going to [facility] for physical therapy rehabilitation for one week and the patient was started on Midodrin because her blood pressure was marginal in the low 80s and was seen by Dr. Lorenzo from cardiology who held her Cardizem and Lopressor at that time, she recently saw Dr. Dillon in the office on past Monday and she was cut down in her Lasix to 40 mg once every day due to the fact that she was driving a bit and the patient was doing fine up until yesterday when her daughter did receive a call from her other daughter stating that her heart rate is running 155-1 60 bpm and she was extreme short of breath she ended up coming to the emergency department at [facility] she was found to be in atrial fibrillation with rapid ventricular response she is requiring a lot higher oxygen flow and she was started on Cardizem drip at 10 minute gram an hour and her blood pressure was marginal at 100/60 and the patient was admitted to the hospital for evaluation and treatment of both acute respiratory failure due to acute diastolic heart failure and bilateral pleural effusion along with atrial fibrillation with rapid ventricular response she was seen in consultation by cardiology as well as by pulmonary medicine. 04/11: The patient has been seen by cardiology and started on oral amiodarone and off Cardizem drip. Blood pressure has been marginal. Heart rate is improved. Patient does have a cough with sputum production. She did have some increased shortness of breath in the evening for which she received IV Lasix and was on a nonrebreather. She is currently on high flow nasal cannula at 10 L. Repeat lab work shows a hemoglobin 9.9, BUN 30 creatinine 1.24. Troponins have all been negative on 3 draws. Triglycerides 69, cholesterol 68, LDL 23, HDL 31. TSH 4.2. Discharge plan is to return home without home care. We will add an PT and OT. Patient is also followed by Dr. Raymundo. 04/12: Pulse ox is 94% on 9 L high flow nasal cannula, patient is been afebrile, heart rate running in the 80s to 92, blood pressure 94/51. White count is normal at 8.4, hemoglobin 9.9, BUN 14, creatinine 1.57. Elect lites within normal limits. Patient appears much comfortable today. She is sitting up in a recliner and appears to be in no acute distress. Goal will be to wean down oxygen today. IV Lasix has been changed to oral today by cardiology. Weight is recorded as down 19 kg since admission. Pulmonary change IV Solu-Medrol to oral prednisone, start tomorrow. 04/13: Heart rate has been running between 96 and 115. 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 Blood pressure 106/66, pulse ox 96% on 5 L nasal cannula. Oxygen need is gradually improving. White count is 12.8, hemoglobin 10.6. BUN 47 creatinine 1.58. Patient has ambulated in the hallway and has done well. She states her breathing is a lot better from yesterday. She is now requiring 4 L nasal cannula at the time of this evaluation. Revatio was discontinued yesterday to see if this improves blood pressure which it has this morning. Patient states she has not had a bowel movement and Senokot-S will be added. Anticipate she'll be ready for discharge tomorrow. Patient does have home oxygen at 2-3 L nasal cannula. 04/14: Heart rate is running 101 24, blood pressure 96/62, pulse ox 89% on 3 L nasal cannula, patient is been afebrile. Kidney function is higher at BUN of 51 creatinine 1.72, hemoglobin 10.7, total bilirubin 2.9, other liver function tests within normal limits. We will plan to increase Midodrine to 10 mg 3 times daily, Lopressor has been increased to 50 mg by cardiology. Plan to check orthostatics tomorrow. Patient states she is voiding okay. Cardiology has changed Lasix to 40 daily. Patient was hoping to go home today but discharge will be held. 04/15: Heart rate is running in the 1 teens to 120s, pulse ox is 87 and 91% on 4 L nasal cannula. Blood pressure 101/69, afebrile. Patient states that she couldn't sleep last night due to shoulder pain and general sleeping in the recliner. She denies having any cough or wheezing. Dr. Jackson is making medication changes by discontinuing amiodarone, starting oral Cardizem, transitioned Lasix to oral 04/16: Pulse ox is running 86-87% on 5 L nasal cannula. Heart rate in the low 100s, radiation monitor atrial fibrillation, blood pressure 96/61, patient is been afebrile. Patient denies feeling short of breath while in recliner. She is sleeping in a recliner but awakens easily. Chest x-ray is being obtained portable. Bilirubin is increasing to 4.9 and AST 120, ALT 140. Renal function is improved to 61 and 1.62. Xarelto dose was changed by cardiology yesterday. Pulmonary medicine start patient on Cardizem drip yesterday afternoon. 04/17: This morning, when pulse ox was checked, patient was 69% on 9 L high flow nasal cannula which is now switched to airflow with improvement of her oxygenation. Heart rate is running in the 120s. She has been afebrile, blood pressure 103/68. White count is 16.4, hemoglobin 11.3, creatinine 1.73, total bilirubin 5.3, AST 150, ALT 185 and alkaline phosphatase 118. Chest x-ray from yesterday reveals stable right basilar infiltrate atelectasis and/or effusion. Chest ultrasound reveals small pleural effusions not marked for thoracentesis. Ultrasound of the liver reveals heterogeneous hyperechoic appearance of liver is felt to reflect underlying hepatocellular disease or cirrhosis. There is evidence of portal hypertension and splenomegaly noted on recent CAT scan. She was now on Cardizem oral 30 mg 3 times daily, patient will receive 1 dose of IV Lasix 20 mg. She is also on Lasix 40 oral daily. Solu-Medrol for 2 doses ordered. She is currently on oral prednisone 30 mg daily. 04/18: Liver function tests continue to rise with bilirubin of 3.7, AST 248, ALT 390, alkaline phosphatase 109. Consult added for GI. Acute hepatitis panel has been ordered. MAGED and angiotensin I converting enzyme testing ordered. Renal function is much improved with BUN 47 creatinine 1.17. IV fluids will be discontinued and patient will continue Lasix 40 mg daily and add 20 mg in the afternoon. Blood pressure is improved and stable and she is continued on Midodrine 10 mg 3 times daily. Reviewed all results with patient's daughter is at the bedside. Heart daughter is requesting that we switch Xarelto and we will transition this over to eliquis as she is concerned that this is causing problems with her liver. Heart rate is running 110-114 and pulse ox is 95% on FiO2 of 50 on AirVo. 04/19: Patient has been seen by Dr. Valerio for elevated liver enzymes with predominantly cholestatic pattern. Elevated liver enzymes may be secondary to congestive hepatopathy or hypoperfusion in the setting of underlying fatty liver disease. May consider MRI of the abdomen and liver enzymes do not improve. MAGED is negative, hepatitis panel negative. Angiotensin I converting enzyme, alpha-1 antitrypsin, anti-mitochondrial antibody, ceruloplasmin, IgG, iron studies, smooth muscle antibody in progress. BUN 56 and creatinine 1.62. Blood pressure remains low and Florinef started and lasix 20 mg in afternoon, heart rate running in the 90s, afebrile, pulse ox is 90% on FiO2 of 52. Review of Systems Constitutional: Reports fatigue, Reports weakness Eyes: denies blurred vision Ears: deny: decreased hearing Ears, nose, mouth and throat: Denies dysphagia, Denies neck lump, Denies swelling in throat, Denies sore throat Cardiovascular: Reports decreased exercise tolerance, Reports dyspnea on exertion, Reports lightheadedness, Reports orthopnea, Reports paroxysmal nocturnal dyspnea, Reports rapid heart beat, Reports shortness of breath, Denies chest pain, Denies edema, Denies leg edema, Denies syncope Respiratory: Reports congestion, Reports cough, Reports cough with sputum, Reports dyspnea, Reports home oxygen, Reports wheezing, Denies respiratory infections, Denies sleep apnea, reports dyspnea at rest Gastrointestinal: Denies abdominal pain, Denies bloating, Denies excessive gas, Denies heartburn, Denies loss of appetite, Denies melena, Denies nausea, Denies vomiting Genitourinary: Reports nocturia, Denies dysuria Menstruation: Reports postmenopausal Musculoskeletal: Denies myalgias Musculoskeletal: absent: ankle pain, ankle stiffness, ankle swelling, elbow pain , elbow stiffness, elbow swelling, foot pain, foot stiffness, foot swelling, hand pain, hand stiffness, hand swelling, hip pain, hip stiffness, hip swelling , knee pain, knee stiffness, knee swelling, reports shoulder pain, shoulder stiffness, shoulder swelling, wrist pain, wrist stiffness, wrist swelling Integumentary: Denies pruritus, Denies rash Neurological: Denies numbness, Denies weakness Psychiatric: Denies anxiety, Denies depression Endocrine: Denies fatigue, Denies weight change Objective - Vital Signs Vital signs: Vital Signs Temp 95.9 F L 04/19/18 08:00 Pulse 100 04/19/18 08:46 Resp 20 04/19/18 08:00 BP 101/82 04/19/18 08:00 Pulse Ox 90 L 04/19/18 08:37 Intake & Output 04/18/18 04/19/18 04/19/18 18:59 06:59 18:59 Intake Total 580 Output Total 550 551 Balance 30 -551 Weight 93.8 kg Intake: Oral 580 Output: Urine 550 551 Other: Voiding Method Bedside Commode Bedside Commode # Voids 1 - Exam General appearance: average body habitus. Patient appears comfortable in recliner while at rest. - EENT Eyes: anicteric sclerae, EOMI, PERRLA, no ptosis, no scleral icterus, normal appearance ENT: hearing grossly normal, NA/AT, normal oropharynx, no thrush Ears: bilateral: normal - Neck Neck: no lymphadenopathy, normal ROM, no rigidity, no stridor, no thyromegaly Carotids: bilateral: upstroke normal Thyroid: bilateral: normal size - Respiratory Respiratory: bilateral: Improving: diminished, dullness, wheezing, prolonged expiration - Cardiovascular Rhythm: irregularly irregular Heart sounds: normal: S1, S2, tachycardic Abnormal Heart Sounds: systolic murmur - Gastrointestinal General gastrointestinal: normal bowel sounds, no rigid, no scaphoid, soft, no tenderness, umbilical hernia, no ventral hernia - Integumentary Integumentary: normal, normal turgor - Neurologic Neurologic: CNII-XII intact - Musculoskeletal Musculoskeletal: gait normal, generalized weakness, strength equal bilaterally - Psychiatric Psychiatric: A&O x's 3, appropriate affect, intact judgment & insight - Labs CBC & Chem 7: 04/18/18 09:55 02/14/19 06:07 Labs: Abnormal Lab Results - Last 24 Hours (Table) 04/18/18 04/18/18 04/18/18 Range/Units 09:55 09:55 09:55 WBC 16.6 H (3.8-10.6) k/uL Hgb 10.3 L (11.4-16.0) gm/dL MCV 74.9 L (80.0-100.0) fL MCH 21.0 L (25.0-35.0) pg MCHC 28.1 L (31.0-37.0) g/dL RDW 23.6 H (11.5-15.5) % PT 16.4 H (9.0-12.0) sec INR 1.6 H (<1.2) APTT 30.4 H (22.0-30.0) sec BUN 47 H (7-17) mg/dL Creatinine 1.17 H (0.52-1.04) mg/dL Glucose 150 H (74-99) mg/dL Total Bilirubin 3.7 H (0.2-1.3) mg/dL AST 248 H (14-36) U/L ALT 390 H (9-52) U/L Total Protein 6.0 L (6.3-8.2) g/dL Albumin 3.4 L (3.5-5.0) g/dL 04/19/18 Range/Units 06:07 WBC (3.8-10.6) k/uL Hgb (11.4-16.0) gm/dL MCV (80.0-100.0) fL MCH (25.0-35.0) pg MCHC (31.0-37.0) g/dL RDW (11.5-15.5) % PT (9.0-12.0) sec INR (<1.2) APTT (22.0-30.0) sec BUN 56 H (7-17) mg/dL Creatinine 1.62 H (0.52-1.04) mg/dL Glucose 107 H (74-99) mg/dL Total Bilirubin (0.2-1.3) mg/dL AST (14-36) U/L ALT (9-52) U/L Total Protein (6.3-8.2) g/dL Albumin (3.5-5.0) g/dL Assessment and Plan Plan: 1. Acute hypoxemic respiratory failure due to acute exacerbation of severe COPD with atrial fibrillation and rapid ventricular response. Continue oral prednisone, DuoNeb treatment nebulization 4 times every day, continue Pulmicort 1 mg neb twice every day, Cardizem 30 mg 3 times daily, continue Lasix dose daily, continue Aldactone 25 mg daily, continue oxygen support, cardiology consultation and pulmonary consultation appreciated. Lasix 40 mg oral in the morning and 20 at 4 PM, prednisone 30 mg daily. 2. Acute severe COPD exacerbation oxygen dependent. Continue prednisone, continue DuoNeb 3 mL nebulization 4 times every day, continue Pulmicort 1 mg nebulization twice every day, continue oxygen support, pulmonary is following. 3. Acute on chronic diastolic heart failure due to A. fib with RVR. Cardizem drip discontinued, continue Lasix oral, continue Lopressor 50 mg mg orally 2 times every day, continue input and output and daily weight, continue oxygen support, Xarelto changed eliquis 4. Severe pulmonary hypertension. Continue Lasix 40 mg oral in a.m. and 20 in the afternoon, continue Lopressor 50 mg orally 2 times every day, Revatio discontinued by pulmonary medicine. 5. Chronic atrial fibrillation. Continue Lopressor and eliquis. 6. Hypertension and hypertensive cardiovascular disease, history of now with hypotension. Continue midodrine 10 mg 3 times daily, florinef added. 7. GERD. Continue Protonix 40 mg orally once every day. 8. Recurrent depression. Continue Paxil 10 mg orally once every day. 9. Gout, chronic. Stable. 10. DVT prophylaxis. Continue patient on Xarelto once every day. 11. GI prophylaxis. Continue with PPI. 12. Acute kidney injury with chronic kidney disease stage II. Avoid nephrotoxic agents. 13 Hypotension secondary to medications not improving with Midodrine now increased to 10 mg 3 times daily. Revatio has been discontinued for now with improvement of blood pressure readings. 14. Chronic hypoxic respiratory failure on home O2 at 3 L nasal cannula 15. Cirrhosis of the liver and portal hypertension. GI consult. Acute hepatitis panel, angiotensin I converting enzyme and MAGED with reflex titer ordered. Patient's full code. Discharge plan: home Impression and plan of care have been directed as dictated by the signing physician. Zoila Parish nurse practitioner acting as scribe for signing physician.
--- NOTE | 2018-04-19 15:56 | P.PN ---
Subjective Progress Note Date: 04/19/18 Principal diagnosis: Atrial fibrillation with rapid ventricular response This is a very pleasant 67-year-old female patient who follows with Dr. Dillon as her primary care physician. 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 She was seen by Dr. Dillon on 2018 who found her to be somewhat dry and he decreased her Lasix to 40 mg once a day and cut the Aldactone to 25 mg daily. Labs have been ordered. She ended up coming to the emergency room last evening as her family found her heart rate to be in the 150s 160s. She is continued in atrial fibrillation since her last admission. Unfortunately, her blood pressure runs in the low side and was in the 70s last evening. She had not been able to take metoprolol or Cardizem for several days. She is also been in the mid to drain for pressure support. She did receive 2 L of fluid in the emergency room. She is on a Cardizem drip at 10 mg per hour. Continues with A. fib RVR. Chest x-ray shows evidence of progressive congestive heart failure. She is seen today in the emergency room. She is awake and alert in mild respiratory distress. Currently requiring 6 L high flow nasal cannula to maintain O2 saturations in the 90s. She's afebrile. Heart rate in the 120s. Systolic BP in the 100s. Upon is negative 3. Creatinine 1.21. She has been initiated on oral amiodarone. Cardizem drip decreased to 5 mg per hour. Beta blockers on board. He is also on DuoNeb inhalations, Pulmicort inhalations. NicoDerm patch has been applied. The patient was seen again today 04/11/2018 in follow-up on the selective care unit. She is currently sitting up in a chair at the bedside. She is awake and alert in no acute distress. She does continue with significant dyspnea on minimal exertion. She is on 9 L high flow nasal cannula and maintaining O2 saturations in the 90s. He remains on Lasix 40 mg IV push every 8 hours. IV Solu-Medrol. Dilators. White count 3.9. Hemoglobin 9.9. Creatinine 1.24. Her rate better controlled. She is currently on amiodarone 400 mg twice a day. On 04/12/2018 patient seen in follow-up on selective care unit, she sits up in the chair, in no acute distress, FiO2 is down to 6 L per nasal cannula, her pulse ox is 94%, she is afebrile, remains in atrial fibrillation, the heart rate seems to be better controlled, is ranging anywhere from 80-117 BPM. Is on oral amiodarone at 400 mg twice daily. She has been transitioned to oral Lasix , currently at 40 mg twice a day, and on oral Aldactone 25 mg daily. She is diuresing, lower extremity edema is improving, lung sounds are positive for some bibasilar crackles, no major wheezing or congestion, she is anticoagulated with oral Xarelto. There is a slight increase in her renal profile, BUN is 40, creatinine is 1.57. On 04/16/2018 patient seen in follow-up on selective care unit, she is sitting up in the chair, she denies any acute distress, remains hypoxemic, her pulse ox is only 88-89% on 5 L of oxygen. Denies any distress, today's chest x-ray showed stable right basilar effusion, atelectasis/infiltrate. Patient remains in A. fib, the rate is about 104-2105 BPM, she remains on Cardizem drip currently at 5 mg per hour. Amiodarone has been discontinued. She is on oral Lasix of 40 mg daily, oral anticoagulation in the form of Xarelto at 15 mg daily. Current blood pressure is 101/71. Today's lab work showed slight improvement in patient's renal profile however patient's LFTs had worsened with the total bilirubin up to 4.9, AST of 120, ALT of 140, and alkaline phosphatase at 99. Denies any chest pain, denies any worsening dyspnea, although patient appears to be slightly more sleepy and fatigued. Revatio remains on hold. On 04/17/2018 patient seen in follow-up on selective care unit, her oxygenation has worsened this morning, and patient was only satting 70% on 15 L per high flow nasal cannula. She was very weak and fatigued, she was placed on Airvo, 40 L/m, and FiO2 of 70%, and her oxygenation did improve, currently satting 92% . She is afebrile, remains in A. fib, and the rate is in the 120s BPM today. Blood pressure is 103/68. No new chest x-ray today, ultrasound the chest did not show sizable pleural effusion pocket on either side. Ultrasound of the abdomen was negative for cholelithiasis, common bile duct obstruction or dilatation. There was evidence of portal hypertension with splenomegaly, heterogeneous hyperechoic appearance of liver was felt to be reflective of underlying hepatocellular disease or cirrhosis. LFTs are slightly trending up, with a total bilirubin of 5.3, AST was 150, ALT was 185, and alkaline phosphatase of 185. White blood cell count is 16.4, hemoglobin is 11.3. Lung sounds are positive for bibasilar crackles. Patient continues to receive gentle IV hydration 0.9 normal sitting at a rate of 40 ML per hour On 04/18/2018 patient seen in follow-up on selective care unit. She remains on Airvo, at 30 L/m, and FiO2 of 60%, with a pulse ox of 95%. Breathing easier today, lung sounds are positive for some minimal crackles at the bases, no rhonchi, no wheezes, patient is afebrile, heart rate is better controlled, remains in A. fib, with a rate ranging from 91-110 BPM. Blood pressure stable, 110's over 60s. Today's blood work showed white blood cell count of 16.6, hemoglobin of 10.3, INR is 1.6, electrolytes are within normal limits, renal profile is improving, BUN is 47, creatinine is 1.17. Total bilirubin is 3.7, AST is 248, ALT is 390, alkaline phosphatase is 109. No abdominal pain, no nausea or vomiting, no worsening shortness of breath, no chest pain. GI service consultation is pending. On 04/19/2018 patient seen in follow-up on selective care unit. Attempts to wean the FiO2 down have been unsuccessful, still requiring AIRVO currently on 40l/min, fio2 of 59%. Pulse ox is just at 90%. Today's labs show electrolytes were within normal limits, and worsened renal profile, B1 is 56, creatinine is 1.62. Total bilirubin is 4.3, AST and ALT are improving, AST is down to 101, and ALT is 337. MAGED screen was negative, hepatitis panel was negative. Patient denies any chest pain, denies any worsening dyspnea, lung sounds are positive for diminished breath sounds bilateral bases with minimal rales. Objective - Vital Signs Vital signs: Vital Signs Temp 95.9 F L 04/19/18 08:00 Pulse 106 H 04/19/18 11:57 Resp 24 04/19/18 11:57 BP 112/73 04/19/18 11:57 Pulse Ox 91 L 04/19/18 11:57 Intake & Output 04/18/18 04/19/18 04/19/18 18:59 06:59 18:59 Intake Total 580 Output Total 550 551 100 Balance 30 -551 -100 Weight 93.8 kg Intake: Oral 580 Output: Urine 550 551 100 Other: Voiding Method Bedside Commode Bedside Commode Bedside Commode # Voids 1 1 - Exam GENERAL EXAM: Alert, active, is slightly jaundice and fatigue, currently on Airvo at 30 l/min, and Fio2 of 60 HEAD: Normocephalic/atraumatic. EYES: Normal reaction of pupils, equal size. Conjunctiva pink, sclera white. NOSE: Clear with pink turbinates. THROAT: No erythema or exudates. NECK: No masses, no JVD, no thyroid enlargement, no adenopathy. CHEST: No chest wall deformity. Symmetrical expansion. LUNGS: Equal air entry with diminished breath sounds at the bases, and bibasilar rales CVS: Regular rate and rhythm, normal S1 and S2, no gallops, no murmurs, no rubs ABDOMEN: Soft, nontender. No hepatosplenomegaly, normal bowel sounds, no guarding or rigidity. EXTREMITIES: No clubbing, mild lower extremity edema, no cyanosis, 2+ pulses and upper and lower extremities. MUSCULOSKELETAL: Muscle strength and tone normal. SPINE: No scoliosis or deformity SKIN: No rashes CENTRAL NERVOUS SYSTEM: Alert and oriented -3. No focal deficits, tone is normal in all 4 extremities. PSYCHIATRIC: Alert and oriented -3. Appropriate affect. Intact judgment and insight. - Labs CBC & Chem 7: 04/18/18 09:55 04/19/18 06:07 Labs: Abnormal Lab Results - Last 24 Hours (Table) 04/19/18 04/19/18 04/19/18 Range/Units 06:07 06:07 06:07 BUN 56 H (7-17) mg/dL Creatinine 1.62 H (0.52-1.04) mg/dL Glucose 107 H (74-99) mg/dL Iron 13 L (50-170) ug/dL Iron Saturation 3.64 L (12.00-45.00) Total Bilirubin 4.3 H (0.2-1.3) mg/dL Conjugated Bilirubin 0.5 H (0.0-0.3) mg/dL Unconjugated Bilirubin 2.2 H (0.0-1.1) mg/dL Delta Bilirubin 1.6 H (0.0-0.2) mg/dL AST 101 H (14-36) U/L ALT 337 H (9-52) U/L Assessment and Plan Plan: #1 Acute on chronic hypoxic respiratory failure secondary to an acute exacerbation of diastolic congestive heart failure, acute exacerbation of chronic obstructive pulmonary disease, atrial fibrillation with rapid ventricular response. #2 Acute exacerbation of diastolic congestive heart failure. #3 Atrial fibrillation with rapid ventricular response. Anticoagulated with Xarelto. #4 Acute exacerbation of oxygen dependent chronic obstructive pulmonary disease. Remains on DuoNeb inhalations and IV Solu-Medrol. #5 Chronic tobacco dependence. #6 Episodes of hypotension requiring midodrine in the outpatient setting. Revatio on hold #8 Moderate pulmonary hypertension. #9 acute kidney injury, likely related to cardiorenal factors #10 elevated bilirubin, elevated LFTs #11 acute on chronic hypoxemic respiratory failure related to CHF, and pulmonary hypertension Plan: Continue with oral Lasix, obtained repeat chest x-ray today, shows worsening pleural effusions patient remains persistently hypoxemic. GI service for patient was noted. Liver enzymes have improved on today's labs, but there has been worsening of the renal profile. Decreased oral dose of prednisone to 20 mg daily. We'll continue to follow. I performed a history & physical examination of the patient and discussed their management with my nurse practitioner, Marlene Yee. I reviewed the nurse practitioner's note and agree with the documented findings and plan of care. Lung sounds are positive for minimal bibasilar crackles. The findings and the impression was discussed with the patient. I attest to the documentation by the nurse practitioner. Time with Patient: Less than 30
[2018-04-19] MEDS: CHOLECALCIFEROL 1,000 UNIT TAB PO SCH (17:17)
[2018-04-19] MEDS ORDERED: SIMETHICONE 80 MG CHEWABLE PO PRN (18:00)
[2018-04-19] MEDS ORDERED: DEXTROSE 50%-WATER 50 ML SYRINGE IVP ONE (18:08)
[2018-04-19 18:15] LABS: Glucose,Whole Blood 32 mg/dL (75-99)
[2018-04-19 18:37] LABS: Glucose,Whole Blood 28 mg/dL (75-99)
[2018-04-19 18:51] LABS: Glucose,Whole Blood 140 mg/dL (75-99)
--- NOTE | 2018-04-19 20:25 | XR ---
EXAMINATION TYPE: XR chest 1V portable DATE OF EXAM: 04/19/2018 COMPARISON: Today HISTORY: Heart failure TECHNIQUE: Single frontal view of the chest is obtained. FINDINGS: Heart is enlarged. There is mild pulmonary vascular congestion. There is blunting of the c ostophrenic angles. There are chest leads. IMPRESSION: Mild congestive heart failure with pleural effusions. Pulmonary congestion is improved s lightly compared to last exam.
[2018-04-19] MEDS ORDERED: FUROSEMIDE 10 MG/ML 4 ML VIAL IV STA (20:41)
--- NOTE | 2018-04-19 21:35 | P.PN ---
Subjective Progress Note Date: 04/19/18 Principal diagnosis: Severe COPD, elevated liver enzymes Patient is seen sitting bedside. No reports of abdominal pain, change in bowel habits or nausea and vomiting. Objective - Vital Signs Vital signs: Vital Signs Temp 95.9 F L 04/19/18 08:00 Pulse 111 H 04/19/18 19:49 Resp 19 04/19/18 19:00 BP 98/81 04/19/18 19:00 Pulse Ox 90 L 04/19/18 19:00 Intake & Output 04/19/18 04/19/18 04/20/18 06:59 18:59 06:59 Intake Total 1240 Output Total 551 100 0 Balance -551 1140 0 Weight 93.8 kg 94.3 kg Intake: IV 1000 0.9 Sodium Chloride 1000 Oral 240 Output: Urine 551 100 0 Other: Voiding Method Bedside Commode Bedside Commode # Voids 1 1 - Exam On physical examination, patient appears comfortable in no apparent distress. HEAD: Normocephalic, atraumatic. EYES: Mild scleral icterus. No conjunctival injection. MOUTH: No lesions, tongue midline. NECK: Trachea midline, no gross abnormalities. CHEST: Decreased air entry in all lung harris. ABDOMEN: Soft, obese. Bowel sounds are positive. No organomegaly. No guarding or rigidity. EXTREMITIES: Bilateral pedal edema. SKIN: No rashes, mild jaundice. NEUROLOGIC: Alert and oriented x3. - Labs CBC & Chem 7: 04/18/18 09:55 04/19/18 06:07 Labs: Abnormal Lab Results - Last 24 Hours (Table) 04/19/18 04/19/18 04/19/18 Range/Units 06:07 06:07 06:07 BUN 56 H (7-17) mg/dL Creatinine 1.62 H (0.52-1.04) mg/dL Glucose 107 H (74-99) mg/dL POC Glucose (mg/dL) (75-99) mg/dL Iron 13 L (50-170) ug/dL Iron Saturation 3.64 L (12.00-45.00) Total Bilirubin 4.3 H (0.2-1.3) mg/dL Conjugated Bilirubin 0.5 H (0.0-0.3) mg/dL Unconjugated Bilirubin 2.2 H (0.0-1.1) mg/dL Delta Bilirubin 1.6 H (0.0-0.2) mg/dL AST 101 H (14-36) U/L ALT 337 H (9-52) U/L 04/19/18 04/19/18 04/19/18 Range/Units 18:06 18:26 18:40 BUN (7-17) mg/dL Creatinine (0.52-1.04) mg/dL Glucose (74-99) mg/dL POC Glucose (mg/dL) 32 L 28 L 140 H (75-99) mg/dL Iron (50-170) ug/dL Iron Saturation (12.00-45.00) Total Bilirubin (0.2-1.3) mg/dL Conjugated Bilirubin (0.0-0.3) mg/dL Unconjugated Bilirubin (0.0-1.1) mg/dL Delta Bilirubin (0.0-0.2) mg/dL AST (14-36) U/L ALT (9-52) U/L Assessment and Plan (1) Elevated liver enzymes Narrative/Plan: Patient found to have elevated liver enzymes with predominantly cholestatic pattern and ultrasound and evaluation of her elevated liver enzymes which was significant for a heterogeneous hypoechoic liver with a normal common bile duct. No prior history of liver disease reported by the patient to also denies alcohol use. Viral hepatitis panel and MAGED found to be negative. Full serology will be ordered to rule out underlying liver disease, however given the patient's history of diastolic heart failure, episodes of hypotension during her hospitalization, and comorbidities including truncal obesity and hyperlipidemia is likely that the patient's elevation liver enzymes are secondary to congestive hepatopathy or hypoperfusion in the setting of underlying fatty liver disease. Current Visit: Yes Status: Acute Code(s): R74.8 - ABNORMAL LEVELS OF OTHER SERUM ENZYMES SNOMED Code(s): 149968991 Plan: Supportive care Okay for diet Appreciate recommendations from cardiology and pulmonology Continue to optimize sedation of patient's chronic medications Continue to monitor liver enzymes Viral hepatitis panel noted and found to be negative Ultrasound of the abdomen reviewed and no evidence of CBD dilation or choledocholithiasis with findings of a hyperechoic heterogeneous liver Full liver serologies ordered a negative to date Can consider MRI of the abdomen if liver enzymes do not improve Thank you for allowing us to participate in the care of the patient we will continue to follow
[2018-04-19] MEDS ORDERED: DEXTROSE 50%-WATER 50 ML SYRINGE IVP STA (23:24)
[2018-04-19 23:34] VITALS: TEMP 97
[2018-04-19 23:34] LABS: Glucose,Whole Blood 32 mg/dL (75-99)
[2018-04-20 00:01] LABS: Calcium 9.4 mg/dL (8.4-10.2); Magnesium 2.3 mg/dL (1.6-2.3); Potassium 5.5 mmol/L (3.5-5.1)
[2018-04-20 00:01] LABS: Glucose,Whole Blood 143 mg/dL (75-99)
[2018-04-20] MEDS: SENNOSIDES-DOCUSATE SODIUM 1 EACH TAB PO SCH (01:33)
[2018-04-20] MEDS: PARoxetine 10 MG TAB PO SCH (01:33)
[2018-04-20] MEDS ORDERED: NOREPINEPHRINE 4 MG in SODIUM CHLORIDE 0.9% 250 ML IV SCH (02:00)
[2018-04-20] MEDS ORDERED: DEXTROSE 50%-WATER 50 ML SYRINGE IVP STA ×2 (02:16→05:06)
[2018-04-20] MEDS: ALPRAZolam 0.5 MG TAB PO PRN (02:19)
[2018-04-20 02:26] LABS: Glucose,Whole Blood 57 mg/dL (75-99)
[2018-04-20] MEDS ORDERED: HYDROCORTISONE SUCCINATE 100 MG/2 ML VIAL IV STA (03:02)
[2018-04-20 03:08] LABS: Glucose,Whole Blood 125 mg/dL (75-99)
[2018-04-20] MEDS ORDERED: DEXTROSE 10% IN WATER 500 ML in EMPTY BAG 1 BAG IV SCH (03:15)
[2018-04-20] MEDS ORDERED: FUROSEMIDE 100 MG in SODIUM CHLORIDE 0.9% 90 ML IV SCH (03:15)
[2018-04-20] MEDS: METOPROLOL TARTRATE 50 MG TAB PO SCH (04:54)
[2018-04-20 05:16] LABS: Glucose,Whole Blood 68 mg/dL (75-99)
[2018-04-20 05:44] LABS: Glucose,Whole Blood 168 mg/dL (75-99)
[2018-04-20 07:08] VITALS: BP 151/99; PULSE 78; RESP 27
[2018-04-20] MEDS: IPRATROPIUM-ALBUTEROL 3 ML NEB INHALATION SCH ×2 (07:14→11:23)
[2018-04-20] MEDS: BUDESONIDE 1 MG/2 ML NEBU INHALATION SCH (07:14)
[2018-04-20 08:03] LABS: Glucose,Whole Blood 75 mg/dL (75-99)
--- NOTE | 2018-04-20 08:26 | XR ---
EXAMINATION TYPE: XR chest 1V portable DATE OF EXAM: 04/20/2018 COMPARISON: 04/19/2018 INDICATION: Short of breath TECHNIQUE: Single frontal view of the chest is obtained. FINDINGS: The heart size is markedly enlarged. The pulmonary vasculature is normal. Small left pleural effusion is present. Retrocardiac infiltrate may be present. Small right pleural e ffusion is present. Findings are stable over the interval. IMPRESSION: 1. Marked cardiomegaly with bibasilar pleural effusions. Retrocardiac infiltrate is not excluded. Fin dings are stable. Continued follow-up is recommended.
[2018-04-20] MEDS ORDERED: predniSONE 20 MG TAB PO SCH (09:00)
--- NOTE | 2018-04-20 15:42 | P.DS ---
Providers Date of admission: 04/09/18 21:14 Expected date of discharge: 04/20/18 Attending physician: Jenny Moreno Consults: 04/09/18 21:15 Consult Physician Routine Consulting Provider: Duarte Malcolm Consult Reason/Comments: known Do you want consulting provider notified?: Yes Consult Physician Urgent Consulting Provider: Ha Yan Consult Reason/Comments: afib Do you want consulting provider notified?: Yes 04/17/18 14:59 Consult Physician Routine Consulting Provider: Henrry Valerio Consult Reason/Comments: elevated liver enzymes Do you want consulting provider notified?: Yes Primary care physician: Angel Santana [facility] Course: This is a 67-year-old female one of Dr. Dillon with a previous medical history significant for hypertension and hypertensive cardio vascular disease with left ventricular hypertrophy, hyperlipidemia, history of chronic diastolic heart failure, new diagnosed atrial fibrillation currently with rapid ventricular response, history of severe oxygen-dependent chronic obstructive pulmonary disease, bilateral pleural effusion, patient was recently hospitalized at the [facility] in March 04 after she was admitted to the hospital for acute diastolic heart failure and she spent in the hospital about 9 days intensive care unit on the day of the discharge she developed atrial fibrillation with rapid ventricular response and the patient was placed on oral Lopressor and she had a marginal blood pressure at that time and after that she was discharged home 2 days later she ended up going to [facility] for physical therapy rehabilitation for one week and the patient was started on Midodrin because her blood pressure was marginal in the low 80s and was seen by Dr. Lorenzo from cardiology who held her Cardizem and Lopressor at that time, she recently saw Dr. Dillon in the office on past Monday and she was cut down in her Lasix to 40 mg once every day due to the fact that she was driving a bit and the patient was doing fine up until yesterday when her daughter did receive a call from her other daughter stating that her heart rate is running 155-1 60 bpm and she was extreme short of breath she ended up coming to the emergency department at [facility] she was found to be in atrial fibrillation with rapid ventricular response she is requiring a lot higher oxygen flow and she was started on Cardizem drip at 10 minute gram an hour and her blood pressure was marginal at 100/60 and the patient was admitted to the hospital for evaluation and treatment of both acute respiratory failure due to acute diastolic heart failure and bilateral pleural effusion along with atrial fibrillation with rapid ventricular response she was seen in consultation by cardiology as well as by pulmonary medicine. 04/11: The patient has been seen by cardiology and started on oral amiodarone and off Cardizem drip. Blood pressure has been marginal. Heart rate is improved. Patient does have a cough with sputum production. She did have some increased shortness of breath in the evening for which she received IV Lasix and was on a nonrebreather. She is currently on high flow nasal cannula at 10 L. Repeat lab work shows a hemoglobin 9.9, BUN 30 creatinine 1.24. Troponins have all been negative on 3 draws. Triglycerides 69, cholesterol 68, LDL 23, HDL 31. TSH 4.2. Discharge plan is to return home without home care. We will add an PT and OT. Patient is also followed by Dr. Raymundo. 04/12: Pulse ox is 94% on 9 L high flow nasal cannula, patient is been afebrile, heart rate running in the 80s to 92, blood pressure 94/51. White count is normal at 8.4, hemoglobin 9.9, BUN 14, creatinine 1.57. Elect lites within normal limits. Patient appears much comfortable today. She is sitting up in a recliner and appears to be in no acute distress. Goal will be to wean down oxygen today. IV Lasix has been changed to oral today by cardiology. Weight is recorded as down 19 kg since admission. Pulmonary change IV Solu-Medrol to oral prednisone, start tomorrow. 04/13: Heart rate has been running between 96 and 115. 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 Blood pressure 106/66, pulse ox 96% on 5 L nasal cannula. Oxygen need is gradually improving. White count is 12.8, hemoglobin 10.6. BUN 47 creatinine 1.58. Patient has ambulated in the hallway and has done well. She states her breathing is a lot better from yesterday. She is now requiring 4 L nasal cannula at the time of this evaluation. Revatio was discontinued yesterday to see if this improves blood pressure which it has this morning. Patient states she has not had a bowel movement and Senokot-S will be added. Anticipate she'll be ready for discharge tomorrow. Patient does have home oxygen at 2-3 L nasal cannula. 04/14: Heart rate is running 101 24, blood pressure 96/62, pulse ox 89% on 3 L nasal cannula, patient is been afebrile. Kidney function is higher at BUN of 51 creatinine 1.72, hemoglobin 10.7, total bilirubin 2.9, other liver function tests within normal limits. We will plan to increase Midodrine to 10 mg 3 times daily, Lopressor has been increased to 50 mg by cardiology. Plan to check orthostatics tomorrow. Patient states she is voiding okay. Cardiology has changed Lasix to 40 daily. Patient was hoping to go home today but discharge will be held. 04/15: Heart rate is running in the 1 teens to 120s, pulse ox is 87 and 91% on 4 L nasal cannula. Blood pressure 101/69, afebrile. Patient states that she couldn't sleep last night due to shoulder pain and general sleeping in the recliner. She denies having any cough or wheezing. Dr. Jackson is making medication changes by discontinuing amiodarone, starting oral Cardizem, transitioned Lasix to oral 04/16: Pulse ox is running 86-87% on 5 L nasal cannula. 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 Patient denies feeling short of breath while in recliner. She is sleeping in a recliner but awakens easily. Chest x-ray is being obtained portable. Bilirubin is increasing to 4.9 and AST 120, ALT 140. Renal function is improved to 61 and 1.62. Xarelto dose was changed by cardiology yesterday. Pulmonary medicine start patient on Cardizem drip yesterday afternoon. 04/17: This morning, when pulse ox was checked, patient was 69% on 9 L high flow nasal cannula which is now switched to airflow with improvement of her oxygenation. Heart rate is running in the 120s. She has been afebrile, blood pressure 103/68. White count is 16.4, hemoglobin 11.3, creatinine 1.73, total bilirubin 5.3, AST 150, ALT 185 and alkaline phosphatase 118. Chest x-ray from yesterday reveals stable right basilar infiltrate atelectasis and/or effusion. Chest ultrasound reveals small pleural effusions not marked for thoracentesis. Ultrasound of the liver reveals heterogeneous hyperechoic appearance of liver is felt to reflect underlying hepatocellular disease or cirrhosis. There is evidence of portal hypertension and splenomegaly noted on recent CAT scan. She was now on Cardizem oral 30 mg 3 times daily, patient will receive 1 dose of IV Lasix 20 mg. She is also on Lasix 40 oral daily. Solu-Medrol for 2 doses ordered. She is currently on oral prednisone 30 mg daily. 04/18: Liver function tests continue to rise with bilirubin of 3.7, AST 248, ALT 390, alkaline phosphatase 109. Consult added for GI. Acute hepatitis panel has been ordered. MAGED and angiotensin I converting enzyme testing ordered. Renal function is much improved with BUN 47 creatinine 1.17. IV fluids will be discontinued and patient will continue Lasix 40 mg daily and add 20 mg in the afternoon. Blood pressure is improved and stable and she is continued on Midodrine 10 mg 3 times daily. Reviewed all results with patient's daughter is at the bedside. Heart daughter is requesting that we switch Xarelto and we will transition this over to eliquis as she is concerned that this is causing problems with her liver. Heart rate is running 110-114 and pulse ox is 95% on FiO2 of 50 on AirVo. 04/19: Patient has been seen by Dr. Valerio for elevated liver enzymes with predominantly cholestatic pattern. Elevated liver enzymes may be secondary to congestive hepatopathy or hypoperfusion in the setting of underlying fatty liver disease. May consider MRI of the abdomen and liver enzymes do not improve. MAGED is negative, hepatitis panel negative. Angiotensin I converting enzyme, alpha-1 antitrypsin, anti-mitochondrial antibody, ceruloplasmin, IgG, iron studies, smooth muscle antibody in progress. BUN 56 and creatinine 1.62. Blood pressure remains low and Florinef started and lasix 20 mg in afternoon, heart rate running in the 90s, afebrile, pulse ox is 90% on FiO2 of 52. 04/20: Yesterday afternoon and evening, patient had decline of her respiratory status and required transfer to the intensive care unit. Family made her comfort measures and she passed this morning. Please see nursing documentation for details. Discharge diagnoses: 1. Acute hypoxemic respiratory failure due to acute exacerbation of severe COPD with atrial fibrillation and rapid ventricular response. 2. Acute severe COPD exacerbation oxygen dependent. 3. Acute on chronic diastolic heart failure due to A. fib with RVR. 4. Severe pulmonary hypertension. 5. Chronic atrial fibrillation. 6. Hypertension and hypertensive cardiovascular disease, history now with hypotension. 7. GERD. 8. Recurrent depression. 9. Gout, chronic. Stable. 10. Acute kidney injury with chronic kidney disease stage II. 11 Hypotension secondary to medications and underlying heart failure 12. Chronic hypoxic respiratory failure on home O2 at 3 L nasal cannula 13. Cirrhosis of the liver and portal hypertension most likely secondary to congestion from heart failure Impression and plan of care have been directed as dictated by the signing physician. Zoila Parish nurse practitioner acting as scribe for signing physician. Patient Condition at Discharge: Undetermined Plan - Discharge Summary Discharge Rx Participant: Yes New Discharge Prescriptions: New Amiodarone [Cordarone] 400 mg PO BID #120 tab Aspirin EC [Ecotrin Low Dose] 81 mg PO DAILY #30 tablet. predniSONE 0 mg PO DIRECTED #36 tab Continue PARoxetine HCL [Paxil] 10 mg PO BID@0800,2100 ALPRAZolam [Xanax] 0.5 mg PO TID PRN PRN Reason: Anxiety Omeprazole [PriLOSEC] 20 mg PO BID@0800,1700 Ipratropium/Albuterol Sulfate [Combivent Respimat Inhaler] 1 puff INHALATION RT-QID Budesonide/Formoterol Fumarate [Symbicort 160-4.5 Mcg Inhaler] 2 puff INHALATION RT-BID@0800,1700 Cholecalciferol (Vitamin D3) [Vitamin D3] 2,000 unit PO DAILY@1700 Acetaminophen [Tylenol] 650 mg PO Q4H PRN PRN Reason: Pain Furosemide [Lasix] 40 mg PO DAILY@0600 Ipratropium-Albuterol Nebulize [Duoneb 0.5 mg-3 mg/3 ml Soln] 3 ml INHALATION RT-QID PRN PRN Reason: Shortness Of Breath Or Wheezing Metoprolol Tartrate [Lopressor] 25 mg PO TID@0800,1500,2100 Midodrine [ProAmatine] 5 mg PO TID@0600,1400,2100 Nicotine 21Mg/24Hr Patch [Habitrol] 1 patch TRANSDERM DAILY Spironolactone [Aldactone] 25 mg PO DAILY@0600 Rivaroxaban [Xarelto] 20 mg PO AC-SUPPER@1700 Discontinued Sildenafil [Revatio] 20 mg PO TID@0600,1399,2099 Diltiazem Oral [Cardizem*] 15 mg PO TID@0600,1400,2099 Discharge Medication List ALPRAZolam [Xanax] 0.5 mg PO TID PRN 03/04/18 [History] Budesonide/Formoterol Fumarate [Symbicort 160-4.5 Mcg Inhaler] 2 puff INHALATION RT-BID@0800,1700 03/04/18 [History] Cholecalciferol (Vitamin D3) [Vitamin D3] 2,000 unit PO DAILY@169903/04/18 [ History] Ipratropium/Albuterol Sulfate [Combivent Respimat Inhaler] 1 puff INHALATION RT- QID 03/04/18 [History] Omeprazole [PriLOSEC] 20 mg PO BID@0800,1700 03/04/18 [History] PARoxetine HCL [Paxil] 10 mg PO BID@0800,209903/04/18 [History] Acetaminophen [Tylenol] 650 mg PO Q4H PRN 04/09/18 [History] Furosemide [Lasix] 40 mg PO DAILY@59904/09/18 [History] Ipratropium-Albuterol Nebulize [Duoneb 0.5 mg-3 mg/3 ml Soln] 3 ml INHALATION RT -QID PRN 04/09/18 [History] Metoprolol Tartrate [Lopressor] 25 mg PO TID@0800,1500,209904/09/18 [History] Midodrine [ProAmatine] 5 mg PO TID@0600,1400,209904/09/18 [History] Nicotine 21Mg/24Hr Patch [Habitrol] 1 patch TRANSDERM DAILY 04/09/18 [History] Rivaroxaban [Xarelto] 20 mg PO AC-SUPPER@1700 04/09/18 [History] Spironolactone [Aldactone] 25 mg PO DAILY@0600 04/09/18 [History] Amiodarone [Cordarone] 400 mg PO BID #120 tab 04/13/18 [Rx] Aspirin EC [Ecotrin Low Dose] 81 mg PO DAILY #30 tablet. 04/13/18 [Rx] predniSONE 0 mg PO DIRECTED #36 tab 04/13/18 [Rx] Follow up Appointment(s)/Referral(s): [facility] [Provider Group] - 1 Week Angel Dillon MD [Primary Care Provider] - 04/24/18 1:30 pm Patient Instructions/Handouts: A-fib (Atrial Fibrillation) (DC), Hypotension ( DC) Activity/Diet/Wound Care/Special Instructions: amiodarone tapered by Cardiology Discharge Disposition: - Preliminary Cause of Preliminary Cause of : Acute on chronic diastolic heart failure
== END 2018-04-20 11:45 | disposition expired | DRG 291 ==
LOC: EC 19:03 → 3SCARD 21:14 → 2SICU 04-19 18:24
PROVIDERS: ADMIT Internal Medicine; ATTEND Internal Medicine
DX: I13.0 Hypertensive heart and chronic kidney disease with heart failure and stage 1 through stage 4 chronic kidney disease, or unspecified chronic kidney disease (principal); I50.33 Acute on chronic diastolic (congestive) heart failure; J96.21 Acute and chronic respiratory failure with hypoxia; N17.0 Acute kidney failure with tubular necrosis; F33.9 Major depressive disorder, recurrent, unspecified; I48.1 Persistent atrial fibrillation; J44.1 Chronic obstructive pulmonary disease with (acute) exacerbation; K76.6 Portal hypertension; E78.5 Hyperlipidemia, unspecified; E86.0 Dehydration; F17.210 Nicotine dependence, cigarettes, uncomplicated; F41.9 Anxiety disorder, unspecified; I08.1 Rheumatic disorders of both mitral and tricuspid valves; I25.10 Atherosclerotic heart disease of native coronary artery without angina pectoris; I27.20 Pulmonary hypertension, unspecified; I42.9 Cardiomyopathy, unspecified; I48.2 Chronic atrial fibrillation; Z51.5 Encounter for palliative care; I95.2 Hypotension due to drugs; K21.9 Gastro-esophageal reflux disease without esophagitis; K74.60 Unspecified cirrhosis of liver; Z66 Do not resuscitate; K76.0 Fatty (change of) liver, not elsewhere classified; M1A.9XX0 Chronic gout, unspecified, without tophus (tophi); N18.3 Chronic kidney disease, stage 3 (moderate); Z79.01 Long term (current) use of anticoagulants; Z79.51 Long term (current) use of inhaled steroids; Z79.82 Long term (current) use of aspirin; Z79.899 Other long term (current) drug therapy; Z80.0 Family history of malignant neoplasm of digestive organs; Z80.1 Family history of malignant neoplasm of trachea, bronchus and lung; Z82.49 Family history of ischemic heart disease and other diseases of the circulatory system; Z82.5 Family history of asthma and other chronic lower respiratory diseases; Z85.42 Personal history of malignant neoplasm of other parts of uterus; Z90.710 Acquired absence of both cervix and uterus; Z96.653 Presence of artificial knee joint, bilateral; Z99.81 Dependence on supplemental oxygen; Z90.79 Acquired absence of other genital organ(s); Z90.722 Acquired absence of ovaries, bilateral; R26.9 Unspecified abnormalities of gait and mobility; Z85.41 Personal history of malignant neoplasm of cervix uteri; Z81.3 Family history of other psychoactive substance abuse and dependence; I43 Cardiomyopathy in diseases classified elsewhere
CPT/HCPCS: 36415; 36600; 71045; 71046; 76604; 76705; 80048; 80053; 80061; 80074; 80076; 81001; 82103; 82164; 82390; 82550; 82553; 82728; 82787; 82805; 83516; 83540; 83550; 83735; 83880; 84443; 84466; 84484; 85025; 85027; 85610; 85730; 86038; 93005; 94640; 94660; 94760; 96361; 96365; 96366; 96375; 96376; 99285